=== PATIENT | female | born 1950 | race Caucasian/White ===

== ENCOUNTER → 2018-04-12 09:05 | Outpatient (CLI) | payer MEDICARE, OTHER, SELFPAY ==
[2018-04-12 10:38] LABS: Thyroid Stimulating Hormone 1.98 uIU/mL (0.47-4.68)
== END ==
PROVIDERS: Visit Provider Internal Medicine
DX: E03.9 Hypothyroidism, unspecified (principal)
CPT/HCPCS: 36415; 84443

== ENCOUNTER → 2018-06-22 13:41 | Outpatient (CLI) | payer MEDICARE, OTHER, SELFPAY ==
--- NOTE | 2018-06-22 | DI.MG.S_ITS ---
BILATERAL DIGITAL SCREENING MAMMOGRAM 3D/2D WITH CAD: 06/22/2018 CLINICAL: Routine screening. Comparison is made to exams dated: 05/17/2017 mammogram, 06/03/2015 mammogram, and 05/27/2014 mammogram - [facility]. There are scattered fibroglandular elements in both breasts. Current study was also evaluated with a Computer Aided Detection (CAD) system. There are benign calcifications in the left breast. No significant masses, calcifications, or other findings are seen in either breast. There has been no significant interval change. IMPRESSION: BENIGN There is no mammographic evidence of malignancy. A 1 year screening mammogram is recommended. This exam was interpreted at Station ID: [id number]. NOTE: For mammograms, a report in lay terms will be sent to the patient. Approximately 15% of breast malignancies will not be visualized mammographically. In the management of a palpable breast mass, a negative mammogram must not discourage biopsy of a clinically suspicious lesion. Electronically Signed By: Vikas peñaloza/angella:06/22/2018 16:11:28 letter sent: Normal Exam ACR BI-RADS Category 2: Benign Finding(s) 3342F
== END ==
PROVIDERS: PCP Internal Medicine; Visit Provider Internal Medicine
DX: Z12.31 Encounter for screening mammogram for malignant neoplasm of breast (principal)
CPT/HCPCS: 77063; 77067

== ENCOUNTER → 2018-11-20 13:14 | Outpatient (CLI) | payer MEDICARE, OTHER, SELFPAY ==
--- NOTE | 2018-11-20 | DI.RAD.S_ITS ---
PROCEDURE: XR HIP W PEL IF DONE RT 2V INDICATIONS: Right Hip Pain TECHNIQUE: AP pelvis with lateral view(s) of the right hip(s). COMPARISON: None. FINDINGS: Bones: No fractures or dislocations. Pelvic ring appears intact. No suspicious bony lesions. Soft tissues: The visualized bowel gas pattern is normal. No suspicious soft tissue calcifications. IMPRESSION: Symmetric mild hip joint osteoarthritis bilaterally. Dictated by: Andre Carter M.D. on 11/20/2018 at 15:54 Approved by: Andre Carter M.D. on 11/20/2018 at 15:54
== END ==
PROVIDERS: PCP Internal Medicine; Visit Provider Internal Medicine
DX: M25.551 Pain in right hip (principal); M16.0 Bilateral primary osteoarthritis of hip
CPT/HCPCS: 73502

== ENCOUNTER → 2019-03-14 16:39 | Outpatient (CLI) | payer MEDICARE, OTHER, SELFPAY | PROVIDERS: PCP Internal Medicine; Visit Provider Internal Medicine | DX: M25.551 Pain in right hip (principal); Z53.20 Procedure and treatment not carried out because of patient's decision for unspecified reasons ==

== ENCOUNTER → 2019-05-16 16:20 | Outpatient (CLI) | payer MEDICARE, OTHER, SELFPAY ==
--- NOTE | 2019-05-16 | DI.MRI.S_ITS ---
PROCEDURE: MR HIP RT WO CON INDICATIONS: RIGHT HIP PAIN TECHNIQUE: Noncontrast coronal T1 spin echo and STIR through the bony pelvis. Coronal and axial T2 fast spin echo with fat saturation, sagittal T1 spin echo, and oblique axial T2 fast spin echo with fat saturation through the hip. COMPARISON: None. FINDINGS: Image quality: Excellent. Bones and joints: Moderate to severe right hip joint osteoarthritis is seen with superior joint space narrowing, extensive subchondral sclerosis and mild edema, as well as prominent marginal osteophyte formation. Moderate left hip joint osteoarthritis is seen. There is no acute fracture or dislocation. No avascular necrosis of the femoral heads. The visualized lower lumbar spine appears normally aligned. Degenerative disc disease in lower lumbar spine is seen. Tendons and ligaments: There is tendinosis and low-grade partial-thickness tear involving distal right gluteus medius and minimus tendons near musculotendinous junction. The nearby proximal iliotibial band also appears intact. The iliopsoas tendon appears intact, without adjacent bursal fluid collections or evidence for impingement syndrome. The origin of the hamstring tendon is intact at the ischial tuberosity, as well as the associated sacrotuberous ligament. The straight and reflected heads of the rectus femoris muscle origin appear intact, as well as the conjoint tendon. The ligamentum teres appears intact where visualized. Labrum and cartilage: There is suggestion of extensive superior right hip labral tear in the absence of intra-articular contrast. The alpha angle of the femur is within normal limits at less than 55 degrees. Soft tissues: Visualized muscles demonstrate normal bulk and internal signal. Quadratus femoris muscle demonstrates no internal edema to suggest ischiofemoral impingement. The proximal sciatic neurovascular bundle appears normal adjacent to the hamstring tendons. No free pelvic fluid. Bladder wall thickness is normal. Genitourinary structures and bowel loops appear normal where visualized. IMPRESSION: 1. Right worse than left bilateral hip joint osteoarthritis. No fracture or dislocation. No evidence of avascular necrosis of femoral head. Small to moderate amount of right hip joint effusion, no gross loose body. 2. Suggestion of extensive superior right hip labral tear. 3. Tendinosis and low-grade partial-thickness tear involving distal gluteus medius and minimus tendons near the insertion on greater trochanter extending to musculotendinous junction. Dictated by: Castillo Driver M.D. on 05/17/2019 at 14:35 Approved by: Castillo Driver M.D. on 05/17/2019 at 14:54
== END ==
PROVIDERS: PCP Internal Medicine; Visit Provider Internal Medicine
DX: M25.551 Pain in right hip (principal); M16.0 Bilateral primary osteoarthritis of hip; M25.451 Effusion, right hip; M51.36 Other intervertebral disc degeneration, lumbar region; S76.011A Strain of muscle, fascia and tendon of right hip, initial encounter
CPT/HCPCS: 73721

== ENCOUNTER → 2019-06-26 11:40 | Outpatient (CLI) | payer MEDICARE, OTHER, SELFPAY ==
--- NOTE | 2019-06-26 | DI.MG.S_ITS ---
BILATERAL DIGITAL SCREENING MAMMOGRAM 3D/2D WITH CAD: 06/26/2019 CLINICAL: Routine screening. Comparison is made to exams dated: 06/22/2018 mammogram, 05/17/2017 mammogram, and 06/03/2015 mammogram - [facility]. There are scattered fibroglandular elements in both breasts. Current study was also evaluated with a Computer Aided Detection (CAD) system. There are benign calcifications in the left breast. No significant masses, calcifications, or other findings are seen in either breast. There has been no significant interval change. IMPRESSION: There is no mammographic evidence of malignancy. A 1 year screening mammogram is recommended. This exam was interpreted at Station ID: [id number]. NOTE: For mammograms, a report in lay terms will be sent to the patient. Approximately 15% of breast malignancies will not be visualized mammographically. In the management of a palpable breast mass, a negative mammogram must not discourage biopsy of a clinically suspicious lesion. Electronically Signed By: Tommy pisano/angella:06/26/2019 18:21:09 letter sent: Normal Exam ACR BI-RADS Category 2: Benign Finding(s) [id number]
== END ==
PROVIDERS: PCP Internal Medicine; Visit Provider Internal Medicine
DX: Z12.31 Encounter for screening mammogram for malignant neoplasm of breast (principal)
CPT/HCPCS: 77063; 77067

== ENCOUNTER → 2019-12-16 12:23 | Outpatient (CLI) | payer MEDICARE, SELFPAY ==
[2019-12-16 13:29] LABS: Add Manual Diff / Slide Review NO; Basophils Absolute Auto 100 /uL (0-100); Basophils Percent Auto 1.5 % (0-2); Eosinophils Absolute Auto 200 /uL (0-450); Hematocrit 36.9 % (36-46); Hemoglobin 12.1 g/dL (12.0-16.0); Lymphocytes Absolute Auto 1700 /uL (1100-4500); Lymphocytes Percent Auto 20.6 % (25-40); Mean Corpuscular HGB Conc 32.8 % (30-36); Mean Corpuscular Hemoglobin 27.1 PG (26-34); Mean Corpuscular Volume 82.8 fL (80-100); Monocytes Absolute Auto 500 /uL (0-900); Monocytes Percent Auto 6.1 % (3-14); Neutrophils Absolute Auto 5800 /uL (1500-7000); Neutrophils Percent Auto 69.8 % (50-75); Platelet Count 307 X10^3/uL (150-400); Red Blood Cell Count 4.46 X10^6/uL (4.0-5.2); Red Cell Distribution Width 16.8 % (11.6-14.8); White Blood Cell Count 8.2 X10^3/uL (4.5-11.0)
[2019-12-16 14:08] LABS: Carbon Dioxide 25 mmol/L (22-32); Chloride 103 mmol/L (98-107); HEMOLYSIS 20 (0-50); Potassium 5.1 mmol/L (3.4-5.1); Sodium 138 mmol/L (137-145)
== END ==
PROVIDERS: PCP Internal Medicine; Referring Provider Orthopaedic Surgery; Visit Provider Orthopaedic Surgery
DX: Z01.818 Encounter for other preprocedural examination (principal); Z01.812 Encounter for preprocedural laboratory examination
CPT/HCPCS: 36415; 80051; 85025; 93005

== ENCOUNTER 2020-01-01 07:30 | Inpatient (IN) | payer MEDICARE, SELFPAY ==
[2019-12-24 12:38] VITALS: BMI 31.2
[2020-01-01] VITALS (13 sets, daily range): BP systolic 108–153; BP diastolic 69–85; PULSE 56–78; RESP 11–21; TEMP 35.9–37.1; O2SAT 95–100; BMI 30.9
--- NOTE | 2020-01-01 06:00 | DI.RAD.S_ITS ---
PROCEDURE: XR PELVIS 1-2V INDICATIONS: TOTAL RIGHT HIP TECHNIQUE: 1 view of the lower pelvis acquired. COMPARISON: None. FINDINGS: Bones: Patient is status post right hip arthroplasty, with hardware components in expected positions. The hip joint appears congruent. The visualized bony structures appear intact. Soft tissues: Overlying postoperative changes are noted. No suspicious soft tissue densities. IMPRESSION: Right total hip arthroplasty. Dictated by: Andre Carter M.D. on 01/01/2020 at 12:30 Approved by: Andre Carter M.D. on 01/01/2020 at 12:30
[2020-01-01] MEDS: MELOXICAM 7.5 MG TABLET 15 MG PO (08:24)
[2020-01-01] MEDS: ACETAMINOPHEN 325 MG TABLET 975 MG PO (08:24)
[2020-01-01] MEDS: PREGABALIN 75 MG CAPSULE PO (08:25)
[2020-01-01] MEDS: LACTATED RINGERS 1,000 ML 42 ML IV ×2 (08:38→10:44)
--- NOTE | 2020-01-01 09:44 | PM.PREOP ---
Pre-operative Note Interval Note History & Physical reviewed/Exam performed by Physician: Yes Changes to H&P: No
[2020-01-01] MEDS: CLINDAMYCIN 600 MG/50 ML PIGGYBACK 50 MG IV (10:01)
[2020-01-01] MEDS: TRANEXAMIC ACID 1,000 MG VIAL 1000 MG INJ ×2 (10:16→11:15)
--- NOTE | 2020-01-01 10:39 | SUR.OPER ---
right Lateral on padded OR bed. Gel axillary roll. Arms secured on padded armboard with pillow supporting top arm. Padded hip positioner braces x4 - anterior and posterior chest and pelvis. Additional gel pad used anterior pelvis. Gel pad under bottom leg from knee to foot and secured with tape over sheet.
[2020-01-01] MEDS: ROPIVACAINE 0.5% PF 5 MG/ML 20ML VIAL 60 ML INJ (10:46)
[2020-01-01] MEDS: KETOROLAC 30 MG/ML VIAL IV (10:46)
[2020-01-01] MEDS: MORPHINE 4 MG/ML INJ INJ (10:47)
--- NOTE | 2020-01-01 11:45 | PM.OP.1 ---
Operative Date/Time/Diagnoses Date of procedure: 01/01/20 Time of procedure: 11:45 Pre-op diagnosis: Right hip degenerative joint disease Post-op diagnosis: same Procedure & Clinicians Procedure: Right total hip arthroplasty (CPT code 77840 with trust manager assistant) Same procedure as scheduled: Yes Indications: Patient is an 69-year-old female with severe right hip DJD. The patient has pain with activities and at rest, limited ambulation and activity tolerance, difficulties with ADLs, and failure of conservative treatment. We have discussed the nature of condition, treatment options, risks and benefits, and patient elects to proceed with total hip arthroplasty and gives informed consent. Surgeon: Carlton Kent Polymerization Helper: Tenzin Walker Anesthesia Type: General and Spinal Operative Notes Closure Type: primary Specimen(s): none sent Prosthetic devices, grafts, tissues, transplants, or devices: Acetabulum: Denny [employer]hew R3 acetabular component size 52 mm Femoral component: Denny [employer] Nephew Anthology stem size 8 with standard offset Femoral head: 36 mm + 0 Oxinium Estimated Blood Loss (mL): 100 Blood products transfused: none Procedure in detail: After satisfaction induction of anesthetic, and administration of IV antibiotics, the patient was positioned in the lateral decubitus position with all bony prominences well padded and pelvic position secured using a hip quarry manager positioning device. Right hip and lower extremity prepped and draped in the usual sterile fashion, 1st dose of intravenous tranexamic acid was administered, then a longitudinal incision was created centered over the greater trochanter and carried sharply through the skin and subcutaneous tissues down to the fascia christopher which was divided longitudinally and retracted with a Charnley retractor. External rotators visualize, cut, tagged, and retracted posteriorly, then the capsule was cut in a T-type fashion with the corners tagged and retracted. Hip was dislocated and femoral neck cut made according to preoperative templating. Acetabular retractors then placed, and the acetabular labrum and osteophytes were excised. The acetabulum was then sequentially reamed to 51 mm with an excellent circumferential ream and fit with the trial. The trial component was removed and a permanent size 52 mm Denny and Nephew R3 acetabular component was selected, positioned, and impacted with satisfactory position and fixation achieved. Permanent liner was then inserted with the elevated lip directed posteriorly. Soft tissue then removed off the lateral femoral neck in the lateral neck was entered using a box osteotome. T-handled reamers placed down the canal followed by sequential broaching to 8 with the final broach left in place for trial reduction which demonstrated excellent leg length, range of motion, and stability characteristics with a 36 mm +0 trial ball. The trial and broach were removed, and a permanent size 8 Denny and Nephew Anthology stem was selected and inserted with excellent position and fixation achieved. Another trial reduction yielded the above characteristics so the trial ball was exchanged for a permanent 36 mm +0 Oxinium ball. The hip was irrigated and reduced and excellent leg length range of motion and stability characteristics were achieved and maintained. Periarticular tissues were infiltrated with morphine, Toradol, and ropivacaine. The hip was copiously irrigated, and the capsule repaired with #2 Ethibond, and the piriformis was repaired back to the greater trochanter with the same. Fascia christopher closed with interrupted #1 Ethibond sutures, and the subcutaneous tissues were closed in 2 layers of 0 Vicryl and 2 0 Vicryl. Skin was closed with kacey and sterile dressings applied. Second dose of tranexamic acid was administered intravenously, and the anesthetic was terminated. Complications: none Post-operative Condition: stable Disposition: PACU Plan for aftercare: Patient will be admitted to the acute care [facility], and anticipate discharge on postop day 1-2 with follow-up in office in 10-14 days. Outpatient physical therapy will be arranged and patient will continue to observe posterior hip precautions. Patient will continue use of postoperative Lovenox for 10 days postop.
[2020-01-01] MEDS: LACTATED RINGERS 1,000 ML 125 ML IV ×2 (12:30→20:40)
--- NOTE | 2020-01-01 15:25 | PC.NURSE ---
Postop Note Received pt from PACU at 1215. Alert and oriented x3. SpO2 98% on RA. Numbness up to thighs bilaterally, unable to move BLEs or wiggle toes at this time. Strong pulses to BLEs bilaterally. Oriented to room and to call light/bed/tv controls. Belongings at bedside. Denies pain. Tolerating clear liquids without issue.
--- NOTE | 2020-01-01 15:52 | PT-IP ANOTE ---
Physical therapy order reviewed and chart reviewed. Pt reports her right LE is still numb. She can feel her foot a little at this time but nothing else. Provided post-op packet and educated her in her hip precautions. Will hold evaluation until her block has worn off.
--- NOTE | 2020-01-01 17:44 | PT-IP ANOTE ---
Checked on pt at 1744 and pt still had numbness from spinal per RN so said pt is not ready for PT at this time. Follow up in AM.
[2020-01-01] MEDS: ONDANSETRON 4 MG/2 ML INJ IV (18:40)
[2020-01-02] VITALS: BP 113/57; PULSE 87; RESP 16; TEMP 36.3; O2SAT 95
[2020-01-02 04:43] VITALS: BP 97/54; PULSE 72; RESP 16; TEMP 36; O2SAT 96
[2020-01-02] MEDS: LACTATED RINGERS 1,000 ML 125 ML IV (04:58)
[2020-01-02 05:28] LABS: Hematocrit 30.1 % (36-46); Hemoglobin 9.8 g/dL (12.0-16.0)
--- NOTE | 2020-01-02 06:45 | PC.NURSE ---
Unable to void via bedpan this AM. Bladder scanned for 900 mL. Assisted up to BSC without difficulty. Patient mobilized without any issues and voided > 1000 mL. Denies pain once back in bed. Plan for physical therapy and discharge today.
[2020-01-02 07:55] VITALS: BP 131/61; PULSE 82; RESP 18; TEMP 37.2; O2SAT 99
[2020-01-02 08:08] VITALS: O2SAT 95
[2020-01-02] MEDS: ACETAMINOPHEN 325 MG TABLET 650 MG PO ×2 (08:19→12:26)
[2020-01-02] MEDS: IBUPROFEN 400 MG TABLET PO ×3 (08:19→21:47)
[2020-01-02] MEDS: ENOXAPARIN 40 MG/0.4 ML SYRINGE SUBCUT (08:20)
--- NOTE | 2020-01-02 09:57 | PT.IIE ---
Current Diagnoses Unilateral primary osteoarthritis, right hip (01/01/20) Surgery Performed Operation Date: 01/01/20 09:45 Actual Procedures p Total Hip Arthroplasty(Right) - Carlton Kent MD Surgical History (Last Updated 04/14/18 @ 23:08 by Jacqui Allen) History of cataract removal with insertion of prosthetic lens (~2006) History of cataract removal with insertion of prosthetic lens (~2011) Status post colonoscopy (~2013) Medical History (Last Updated 12/24/19 @ 13:11 by Yuliya Finley RN) Bulimia (Chronic ~1987) Chicken pox (Resolved ~1957) Constant pain (Acute) Depression (Chronic ~2003) Foot fracture (Chronic ~1996) Hypothyroidism (Chronic ~2010) Irregular menstrual cycle (Chronic) Measles (Resolved ~1956) Mumps (Resolved ~1956) Obesity (Chronic) Osteoarthritis (Acute) Physical Therapy Inpatient Evaluation/Re-Eval M1 PT/OT-IP Prior Functional Status Start: 01/02/20 10:50 Freq: NEEDED Status: Active Protocol: Document 01/02/20 09:57 DLM (Rec: 01/02/20 11:11 DLM [email or web address]) Medical Review Prior Functional Status Medical History Reviewed Yes Diet/Fluid Consistency Regular Communication WFL, uses reading glasses, hx spastic dysphonia Mobility and Gait Independent without device, antalgic pattern reported due to her hip pain, hx of walking fast Activities of Daily Living and IADL's Independent, active, [employer] member Social History Household Members none Living Arrangements House Number of Floors (Floors) One Floor Number of Stairs To Enter/Railing? front has 4+4 to enter, upper 4 have rail only, back door has one step Home Equipment Front Wheel Walker,Raised Toilet Seat w/Armrests Employment Status Retired Additional Social History Comment got equipment from [employer] before surgery M2 PT-IP Current Condition Start: 01/02/20 10:50 Freq: NEEDED Status: Active Protocol: Document 01/02/20 09:57 DLM (Rec: 01/02/20 11:11 DLM [email or web address]) Physical Therapy Current Condition Current Condition Evaluation Date 01/02/20 Treatment Diagnosis right ISABEL, posterior, impaired gait and mobility Onset Date 01/01/20 Precautions Posterior Hip Precautions No Hip Flexion > 90 degrees,No Hip Internal Rotation,No Hip Adduction Weight Bearing Status Weight Bearing Status Weight Bear as Tolerated M3 PT-IP Subjective Start: 01/02/20 10:50 Freq: NEEDED Status: Active Protocol: Document 01/02/20 09:57 DLM (Rec: 01/02/20 11:11 DLM [email or web address]) Subjective Physical Therapy Visit Type Type Initial Evaluation Visit Start Time 09:10 Visit Stop Time 09:57 Total Visit Minutes 47 Number of BAG MAKING MACHINE OPERATOR Visits 0 Physical Therapy Visit Comments Patient Comments She hopes to go to SNF rehab before going home, concerned about being alone at home and not having enough help Patient Goals Get strong enough to return home alone after rehab Therapy Pain Assessment Pain When Pain Assessed After Treatment Pain Present Pain Present Pain Reported Location right hip Intensity 3 Scale Used Numeric (1 - 10) Description Aching Pain Behaviors Facial Grimacing Pain Management Techniques Re-positioning,Timing of Activity with Medications M4 PT-IP Mobility and Gait Start: 01/02/20 10:50 Freq: NEEDED Status: Active Protocol: Document 01/02/20 09:57 DLM (Rec: 01/02/20 11:11 DLM [email or web address]) PT-Bed Mobility Assessment Supine to Sit Supine to Sit Minimal Assistance Scooting Scooting to Edge of Bed Standby Assistance PT-Transfer Assessment Sit to and From Stand Sit to and from Stand Minimal Assistance,Use of Upper Extremities Equipment Transfer Assistive Device Gait Belt,Front Wheeled Walker Transfers Transfer Destination Chair Transfer Technique Stand Step Pivot Transfer Ability Level of Assist Contact Guard Assistance,Use of Upper Extremities Comments Mobility Comments pt up to recliner this visit, feet elevated and call light close Gait Assessment Gait Gait Assistance Required: Contact Guard Assist Distance (Feet) 50 Able to Maintain Weight Bearing Status Yes During Gait Assistive Devices Assistive Device Gait Belt,Front Wheeled Walker Gait Deviations General Gait Pattern Antalgic Factors Limiting Gait Function Factors Limiting Gait Function Decreased Activity Tolerance, Decreased Strength,Limited Range of Motion,Pain Comments Gait Comments fatigue and sweating noted during gait, pt also developed mild nausea during gait, symptoms resolves with seated rest break PT-Balance Assessment Sitting Balance and Reactions Static Sitting Balance Ability Good Dynamic Sitting Balance Ability Good Standing Balance and Reactions Static Standing Balance Ability Good Dynamic Standing Balance Ability Fair Device Used FWW M5 PT-IP Objective Assessments Start: 01/02/20 10:50 Freq: NEEDED Status: Active Protocol: Document 01/02/20 09:57 DLM (Rec: 01/02/20 11:11 DL [email or web address]) Orientation Orientation/Cognition Level of Alertness Alert Orientation Name,Age,Birthday,Month,Date, Year,Day of Week,Place, Situation Language Function Ability No Deficits Noted Safety Awareness Understands Safety Issues Memory Description No Deficits Noted Comments educated her in her post hip precautions Gross Range of Motion Upper Extremity ROM Assessment Within Functional Limits Lower Extremity ROM Assessment Right Impaired Impairments post-op precautions and pain Strength Upper Extremity Strength Assessment Within Functional Limits Lower Extremity Strength Assessment Right Impaired Hip needs assist to move LE in bed , flexion standing 2+/5 Knee seated ext 2+/5 Ankle DF 4+/5 Coordination Assessment Gross Coordination Gross Coordination WNL Sensation Assessment Sensation Gross Sensation WNL Muscle Tone Muscle Tone WNL Yes M6 PT-IP Treatment Start: 01/02/20 10:50 Freq: NEEDED Status: Active Protocol: Document 01/02/20 09:57 DLM (Rec: 01/02/20 11:11 [facility] [email or web address]) Physical Therapy Treatment Exercises Exercises Ankle Pumps Education Education Provided Precautions,Weight Bearing Status,Post-Op Packet,Safety M7 PT-IP Assessment and Plan Start: 01/02/20 10:50 Freq: NEEDED Status: Active Protocol: Document 01/02/20 09:57 DLM (Rec: 01/02/20 11:11 DL [email or web address]) PT Summary Assessment and Plan Potential Rehabilitation Potential Good Status of Condition at Evaluation Evolving Summary Impairments Pain,ROM,Strength,Balance,Bed Mobility,Transfers,Gait, Activity Tolerance Assessment Summary Lois is alert and shows good effort with physical therapy. She was able to get up to recliner and ambulate short distance with the fWW and one person assist. She needs frequent cuing for her hip precautions during mobility and reminders to slow down her pace of activity. She is very concerned about returning home alone at this time due to lack of help at home and prefers to go to SNF rehab until more independent. Goals Bed Mobility Goal Independent Transfer Goal Independent,Front Wheeled Walker Gait Goal Independent,Front Wheel Walker Gait Distance 150 feet Other Goals Up and down one step with FWW and SBA Demonstrate post hip precautions during mobility Days to Meet Goals 3 Frequency of Treatment Frequency Of Treatment Twice a Day Treatment Plan Physical Therapy Treatment Plan Bed Mobility Training,Transfer Training,Gait Training, Therapeutic Exercise,Balance Retraining,Post Op Education, Discharge Planning,Hot or Cold Pack Recommendations To Nursing Amount of Assist Needed 1 Person Assist Discharge Recommendations PT Discharge Recommendations SNF Rehab Transportation Needs at Discharge Private Vehicle,Wheelchair/ Cabulance
[2020-01-02 11:50] VITALS: BP 104/57; PULSE 81; RESP 15; TEMP 37.1; O2SAT 97
[2020-01-02] MEDS: HYDROCODONE/ACET 5/325 TABLET 1 TAB PO ×2 (13:39→20:09)
--- NOTE | 2020-01-02 14:54 | CM.IDA ---
Initial DCP Assessment Note: Pt is a 69 yo female, resident of [place]. Pt is POD#1 from hip surgery w/Dr Kent PCP: Rosenda Mccallum Payer: BECKY/OCTAVIO Reviewed chart and then met w/pt. PT recommending SNF at this time. Pt explained that she lives alone, indp at baseline, but is very hopeful she can DC to SNF; she requests [facility] upon DC. Placed call to April at [facility], gave referral and later heard that pt had been accepted, DC to SNF is anticipated Monday01.04.20. PASRR completed. P: DC to [facility] via w/c van expected Monday01.04.20 ODIN Newman Discharge Planning/Care Management CM Discharge Assessment Start: 01/02/20 14:52 Freq: Status: Active Protocol: Document 01/02/20 14:52 MANDA (Rec: 01/02/20 14:54 MANDA [id number]) Discharge Planning Assessment Assigned Piping Engineer ODIN Ralph DPOA/Assigned Designee Name Karey Galvan (friend) Contact Information [phone] Advance Directives? Yes History Provided By Patient,Medical Record Prior Living Arrangements House Household Members none Type of transporation used prior to Drives own vehicle admit Independent with ADL's Yes Is patient alert and oriented? Yes Patient/Family Preference Shelter Facility Barriers to Discharge Yes Comment Lives alone, requests SNF before return home Discharge Plan Shelter Facility Transportation Arrangement W/c van Referrals Initiated Shelter Whiteboard Updated in Patient Room with Yes name and ext. # of Piping Engineer Review Status In Process
--- NOTE | 2020-01-02 16:10 | P.PN_ITS ---
Subjective Subjective Date Patient Seen: 01/02/20 Interval history: Patient is PDOE1 s/p right ISABEL with Dr. Kent. Pain was mild overnight though she states it is worsening this AM. She has been OOB to commode but has not mobilized with PT yet. Voiding appropriately. No chest pain, shortne ss of breath. One episode of emesis overnight denies nausea today. Exam Vital Signs (past 8 hours): - 01/02/20 11:50 Temperature 98.7 F Pulse Rate 81 Respiratory Rate 15 Blood Pressure 104/57 L Pulse Oximetry 97 Oxygen Delivery Method Room Air Oxygen Flow Rate 0 Narrative Exam Narrative: 69 year old female resting in bed, alert and oriented in no acute distress. Bulky dressing in place over right hip is CDI. Intact motor in distal extremity. Palpable pedal pulse. Objective Labs Result Diagrams: 01/02/20 05:00 Labs: Laboratory Results - last 24 hr 01/02/20 05:00 Hgb 9.8 L Hct 30.1 L Assessment & Plan Assessment & Plan narrative: Patient progressing as expected postoperatively. Mobilize today with PT. She would prefer to use Ibuprofen and Tylenol for pain control which has been ordered for her. Lovenox and SCDs for DVT prophylaxis. Patient lives alone and has little to no social support. She will require discharge to SNF rehab for postoperative therapy. Quality VTE Deep Vein Thrombosis/Pulmonary Embolism Present on Admission: No
[2020-01-02 16:55] VITALS: BP 112/61; PULSE 80; RESP 20; TEMP 36.9; O2SAT 97
--- NOTE | 2020-01-02 17:01 | PT.IPTN ---
Current Diagnoses Unilateral primary osteoarthritis, right hip (01/01/20) Surgery Performed Operation Date: 01/01/20 09:45 Actual Procedures p Total Hip Arthroplasty(Right) - Carlton Kent MD Physical Therapy Treatment Note M2 PT-IP Current Condition Start: 01/02/20 10:50 Freq: NEEDED Status: Active Protocol: Document 01/02/20 09:57 DLM (Rec: 01/02/20 11:11 DLM [email or web address]) Physical Therapy Current Condition Current Condition Evaluation Date 01/02/20 Treatment Diagnosis right ISABEL, posterior, impaired gait and mobility Onset Date 01/01/20 Precautions Posterior Hip Precautions No Hip Flexion > 90 degrees,No Hip Internal Rotation,No Hip Adduction Weight Bearing Status Weight Bearing Status Weight Bear as Tolerated M3 PT-IP Subjective Start: 01/02/20 10:50 Freq: NEEDED Status: Active Protocol: Document 01/02/20 17:01 DLM (Rec: 01/02/20 17:58 DLM [email or web address]) Subjective Physical Therapy Visit Type Type Treatment Note Visit Start Time 16:30 Visit Stop Time 17:01 Total Visit Minutes 31 Number of VOCATIONAL COORDINATOR Visits 0 Physical Therapy Visit Comments Patient Comments She still feels she needs to go to SNF rehab befor going home, she feels she will need extra help before being ready to manage alone at home Therapy Pain Assessment Pain When Pain Assessed After Treatment Pain Present Pain Present Pain Reported Location right hip Intensity 6 Scale Used Numeric (1 - 10) Description Aching Pain Behaviors Facial Grimacing Pain Management Techniques Apply Cold,Re-positioning M4 PT-IP Mobility and Gait Start: 01/02/20 10:50 Freq: NEEDED Status: Active Protocol: Document 01/02/20 17:01 DLM (Rec: 01/02/20 17:58 DLM [email or web address]) PT-Bed Mobility Assessment Supine to Sit Supine to Sit Minimal Assistance Scooting Scooting to Edge of Bed Standby Assistance PT-Transfer Assessment Sit to and From Stand Sit to and from Stand Contact Guard Assistance,Use of Upper Extremities Equipment Transfer Assistive Device Gait Belt,Front Wheeled Walker Transfers Transfer Destination Chair,Toilet Transfer Technique Stand Step Pivot Transfer Ability Level of Assist Contact Guard Assistance, Minimal Assistance,Use of Upper Extremities Comments Mobility Comments verbal cues for hip precautions during mobility and gait, pt up to recliner this visit for dinner Gait Assessment Gait Gait Assistance Required: Contact Guard Assist Distance (Feet) 100 Assistive Devices Assistive Device Gait Belt,Front Wheeled Walker Gait Deviations General Gait Pattern Antalgic Factors Limiting Gait Function Factors Limiting Gait Function Decreased Activity Tolerance, Decreased Strength,Pain Comments Gait Comments no nausea during gait this visit, cued pt to use UE support on the FWW to manage her hip pain PT-Balance Assessment Sitting Balance and Reactions Static Sitting Balance Ability Good Dynamic Sitting Balance Ability Good Standing Balance and Reactions Static Standing Balance Ability Good Dynamic Standing Balance Ability Fair Device Used FWW M5 PT-IP Objective Assessments Start: 01/02/20 10:50 Freq: NEEDED Status: Active Protocol: Document 01/02/20 09:57 DLM (Rec: 01/02/20 11:11 DLM [email or web address]) Orientation Orientation/Cognition Level of Alertness Alert Orientation Name,Age,Birthday,Month,Date, Year,Day of Week,Place, Situation Language Function Ability No Deficits Noted Safety Awareness Understands Safety Issues Memory Description No Deficits Noted Comments educated her in her post hip precautions Gross Range of Motion Upper Extremity ROM Assessment Within Functional Limits Lower Extremity ROM Assessment Right Impaired Impairments post-op precautions and pain Strength Upper Extremity Strength Assessment Within Functional Limits Lower Extremity Strength Assessment Right Impaired Hip needs assist to move LE in bed , flexion standing 2+/5 Knee seated ext 2+/5 Ankle DF 4+/5 Coordination Assessment Gross Coordination Gross Coordination WNL Sensation Assessment Sensation Gross Sensation WNL Muscle Tone Muscle Tone WNL Yes M6 PT-IP Treatment Start: 01/02/20 10:50 Freq: NEEDED Status: Active Protocol: Document 01/02/20 17:01 DLM (Rec: 01/02/20 17:58 DLM [email or web address]) Physical Therapy Treatment Exercises Exercises Ankle Pumps,Gluteal Sets,Quad Sets,Heel Slides,Supine Hip Abduction Education Education Provided Precautions,Weight Bearing Status,Post-Op Packet,Safety M7 PT-IP Assessment and Plan Start: 01/02/20 10:50 Freq: NEEDED Status: Active Protocol: Document 01/02/20 17:01 DLM (Rec: 01/02/20 17:58 DLM [email or web address]) PT Summary Assessment and Plan Summary Impairments Pain,ROM,Strength,Balance,Bed Mobility,Transfers,Gait, Activity Tolerance Progress Towards Goals Progressing Toward Goals Assessment Summary Lois continues to slowly progress post-op ISABEL. She continues to need verbal cuing for her hip precautions during mobility especially to kick her LE out before sitting down. She was able to increase her distance of gait this visit. No nausea during mobility/gait this visit. She reports getting some nausea with eating lunch. Goals Bed Mobility Goal Independent Transfer Goal Independent,Front Wheeled Walker Gait Goal Independent,Front Wheel Walker Gait Distance 150 feet Other Goals Up and down one step with FWW and SBA Demonstrate post hip precautions during mobility Days to Meet Goals 3 Frequency of Treatment Frequency Of Treatment Twice a Day Treatment Plan Physical Therapy Treatment Plan Bed Mobility Training,Transfer Training,Gait Training, Therapeutic Exercise,Balance Retraining,Post Op Education, Discharge Planning,Hot or Cold Pack Recommendations To Nursing Amount of Assist Needed 1 Person Assist Discharge Recommendations PT Discharge Recommendations SNF Rehab Transportation Needs at Discharge Private Vehicle,Wheelchair/ Cabulance
[2020-01-02] MEDS: OXYCODONE IR 5 MG TABLET PO (17:06)
--- NOTE | 2020-01-02 21:33 | PC.NURSE ---
Patient arrived on unit at 2130 via wheelchair
--- NOTE | 2020-01-02 21:37 | PC.NURSE ---
Patient arrived on unit via wheelchair at 2130. Patient complains of pain 8/10 from wheelchair ride.
--- NOTE | 2020-01-02 21:52 | PC.NURSE ---
2100 Report given to ELISHA Phan in the short stay unit, pt taken with all of her belongings to room 103. Pt tolerated transfer without distress, no further pt contact at this time.
[2020-01-03] VITALS (7 sets, daily range): BP systolic 128–148; BP diastolic 63–81; PULSE 75–91; RESP 16–18; TEMP 36.1–36.9; O2SAT 94–99
[2020-01-03] MEDS: HYDROCODONE/ACET 5/325 TABLET 1 TAB PO ×2 (00:06→04:17)
[2020-01-03] MEDS: IBUPROFEN 400 MG TABLET PO ×3 (06:16→23:35)
[2020-01-03] MEDS: OXYCODONE IR 5 MG TABLET PO ×5 (08:35→20:53)
[2020-01-03] MEDS: ENOXAPARIN 40 MG/0.4 ML SYRINGE SUBCUT (08:35)
[2020-01-03] MEDS: ACETAMINOPHEN 325 MG TABLET 650 MG PO ×3 (08:35→20:52)
--- NOTE | 2020-01-03 10:07 | PT.IPTN ---
Current Diagnoses Unilateral primary osteoarthritis, right hip (01/01/20) Surgery Performed Operation Date: 01/01/20 09:45 Actual Procedures p Total Hip Arthroplasty(Right) - Carlton Kent MD Physical Therapy Treatment Note M2 PT-IP Current Condition Start: 01/02/20 10:50 Freq: NEEDED Status: Active Protocol: Document 01/02/20 09:57 DLM (Rec: 01/02/20 11:11 DLM [email or web address]) Physical Therapy Current Condition Current Condition Evaluation Date 01/02/20 Treatment Diagnosis right ISABEL, posterior, impaired gait and mobility Onset Date 01/01/20 Precautions Posterior Hip Precautions No Hip Flexion > 90 degrees,No Hip Internal Rotation,No Hip Adduction Weight Bearing Status Weight Bearing Status Weight Bear as Tolerated M3 PT-IP Subjective Start: 01/02/20 10:50 Freq: NEEDED Status: Active Protocol: Document 01/03/20 10:07 DLM (Rec: 01/03/20 10:19 DLM [email or web address]) Subjective Physical Therapy Visit Type Type Treatment Note Visit Start Time 09:33 Visit Stop Time 10:07 Total Visit Minutes 34 Number of FIELD CROP I FARMWORKER Visits 0 Physical Therapy Visit Comments Patient Comments She is aware her plan is to go to SNF rehab on Sat, she did not sleep as well last night because of discomfort/pain in bed Therapy Pain Assessment Pain When Pain Assessed During Mobility Pain Present Pain Present Pain Reported Location right hip Intensity 5 Scale Used Numeric (1 - 10) Description Aching Pain Management Techniques Apply Cold,Re-positioning M4 PT-IP Mobility and Gait Start: 01/02/20 10:50 Freq: NEEDED Status: Active Protocol: Document 01/03/20 10:07 DLM (Rec: 01/03/20 10:19 DLM [email or web address]) PT-Bed Mobility Assessment Supine to Sit Supine to Sit Minimal Assistance Scooting Scooting to Edge of Bed Standby Assistance PT-Transfer Assessment Sit to and From Stand Sit to and from Stand Standby Assistance,Use of Upper Extremities Equipment Transfer Assistive Device Gait Belt,Front Wheeled Walker Transfers Transfer Destination Chair,Bedside Commode Transfer Technique Stand Step Pivot Transfer Ability Level of Assist Contact Guard Assistance,Use of Upper Extremities Comments Mobility Comments verbal cues for hip precautions during mobility and gait, pt up to recliner this visit Gait Assessment Gait Gait Assistance Required: Standby Assistance,Contact Guard Assist Distance (Feet) 105 Assistive Devices Assistive Device Gait Belt,Front Wheeled Walker Gait Deviations General Gait Pattern Antalgic Factors Limiting Gait Function Factors Limiting Gait Function Decreased Activity Tolerance, Decreased Strength,Pain Comments Gait Comments pt reports feeling better today while ambulating PT-Balance Assessment Sitting Balance and Reactions Static Sitting Balance Ability Good Dynamic Sitting Balance Ability Good Standing Balance and Reactions Static Standing Balance Ability Good Dynamic Standing Balance Ability Fair Device Used FWW M5 PT-IP Objective Assessments Start: 01/02/20 10:50 Freq: NEEDED Status: Active Protocol: Document 01/02/20 09:57 DLM (Rec: 01/02/20 11:11 DLM [email or web address]) Orientation Orientation/Cognition Level of Alertness Alert Orientation Name,Age,Birthday,Month,Date, Year,Day of Week,Place, Situation Language Function Ability No Deficits Noted Safety Awareness Understands Safety Issues Memory Description No Deficits Noted Comments educated her in her post hip precautions Gross Range of Motion Upper Extremity ROM Assessment Within Functional Limits Lower Extremity ROM Assessment Right Impaired Impairments post-op precautions and pain Strength Upper Extremity Strength Assessment Within Functional Limits Lower Extremity Strength Assessment Right Impaired Hip needs assist to move LE in bed , flexion standing 2+/5 Knee seated ext 2+/5 Ankle DF 4+/5 Coordination Assessment Gross Coordination Gross Coordination WNL Sensation Assessment Sensation Gross Sensation WNL Muscle Tone Muscle Tone WNL Yes M6 PT-IP Treatment Start: 01/02/20 10:50 Freq: NEEDED Status: Active Protocol: Document 01/03/20 10:07 DLM (Rec: 01/03/20 10:19 DLM [email or web address]) Physical Therapy Treatment Education Education Provided Precautions,Weight Bearing Status,Post-Op Packet,Safety Other Treatments Other Treatment Performed reviewed HEP, pt reports she was able to do all of them on her own except the hip abduction M7 PT-IP Assessment and Plan Start: 01/02/20 10:50 Freq: NEEDED Status: Active Protocol: Document 01/03/20 10:07 DLM (Rec: 01/03/20 10:19 DLM [email or web address]) PT Summary Assessment and Plan Summary Impairments Pain,ROM,Strength,Balance,Bed Mobility,Transfers,Gait, Activity Tolerance Progress Towards Goals Progressing Toward Goals Assessment Summary Lois is alert and continues to make slow progress with therapy. She reports less pain during mobility/gait today than yesturday. She is able to demonstrate her hip precautions with less verbal cues this visit. Goals Bed Mobility Goal Independent Transfer Goal Independent,Front Wheeled Walker Gait Goal Independent,Front Wheel Walker Gait Distance 150 feet Other Goals Up and down one step with FWW and SBA Demonstrate post hip precautions during mobility Days to Meet Goals 3 Frequency of Treatment Frequency Of Treatment Twice a Day Treatment Plan Physical Therapy Treatment Plan Bed Mobility Training,Transfer Training,Gait Training, Therapeutic Exercise,Balance Retraining,Post Op Education, Discharge Planning,Hot or Cold Pack Recommendations To Nursing Amount of Assist Needed 1 Person Assist Discharge Recommendations PT Discharge Recommendations SNF Rehab Transportation Needs at Discharge Private Vehicle,Wheelchair/ Cabulance
--- NOTE | 2020-01-03 15:12 | PT.IPTN ---
Current Diagnoses Unilateral primary osteoarthritis, right hip (01/01/20) Surgery Performed Operation Date: 01/01/20 09:45 Actual Procedures p Total Hip Arthroplasty(Right) - Carlton Kent MD Physical Therapy Treatment Note M2 PT-IP Current Condition Start: 01/02/20 10:50 Freq: NEEDED Status: Active Protocol: Document 01/02/20 09:57 DLM (Rec: 01/02/20 11:11 DLM [email or web address]) Physical Therapy Current Condition Current Condition Evaluation Date 01/02/20 Treatment Diagnosis right ISABEL, posterior, impaired gait and mobility Onset Date 01/01/20 Precautions Posterior Hip Precautions No Hip Flexion > 90 degrees,No Hip Internal Rotation,No Hip Adduction Weight Bearing Status Weight Bearing Status Weight Bear as Tolerated M3 PT-IP Subjective Start: 01/02/20 10:50 Freq: NEEDED Status: Active Protocol: Document 01/03/20 14:46 LJ (Rec: 01/03/20 15:12 LJ [email or web address]) Subjective Physical Therapy Visit Type Type Treatment Note Visit Start Time 14:46 Visit Stop Time 15:03 Total Visit Minutes 17 Number of AN EMPLOYEE SPONSOR OR ADVOCATE AND Visits 1 Physical Therapy Visit Comments Patient Comments Pt in bed wanting to get up and uas BSC Therapy Pain Assessment Pain When Pain Assessed During Mobility Pain Present Pain Present Pain Reported Location right hip Intensity 2 Scale Used Numeric (1 - 10) Description Aching Pain Management Techniques Apply Cold,Re-positioning, Timing of Activity with Medications M4 PT-IP Mobility and Gait Start: 01/02/20 10:50 Freq: NEEDED Status: Active Protocol: Document 01/03/20 14:46 LJ (Rec: 01/03/20 15:12 LJ [email or web address]) PT-Bed Mobility Assessment Supine to Sit Supine to Sit Standby Assistance,1 Person Assistance,Head of Bed Elevated Sit to Supine Sit to Supine Standby Assistance,1 Person Assistance,Head of Bed Elevated Scooting Scooting to Edge of Bed Standby Assistance PT-Transfer Assessment Sit to and From Stand Sit to and from Stand Standby Assistance,Use of Upper Extremities Equipment Transfer Assistive Device Gait Belt,Front Wheeled Walker Transfers Transfer Destination Bed,Bedside Commode Transfer Ability Level of Assist Standby Assistance,Use of Upper Extremities Comments Mobility Comments Pt able to recall precautions during mobility. SBA for all bed mobilit and transfers Gait Assessment Gait Gait Assistance Required: Standby Assistance,Contact Guard Assist Distance (Feet) 120 Assistive Devices Assistive Device Gait Belt,Front Wheeled Walker Gait Deviations General Gait Pattern Antalgic,Step-to Gait Factors Limiting Gait Function Factors Limiting Gait Function Decreased Activity Tolerance, Decreased Strength,Pain Comments Gait Comments Pt moving slowly and carefully stating precautions while turning. Cues for upright posture. M5 PT-IP Objective Assessments Start: 01/02/20 10:50 Freq: NEEDED Status: Active Protocol: Document 01/02/20 09:57 DLM (Rec: 01/02/20 11:11 DLM [email or web address]) Orientation Orientation/Cognition Level of Alertness Alert Orientation Name,Age,Birthday,Month,Date, Year,Day of Week,Place, Situation Language Function Ability No Deficits Noted Safety Awareness Understands Safety Issues Memory Description No Deficits Noted Comments educated her in her post hip precautions Gross Range of Motion Upper Extremity ROM Assessment Within Functional Limits Lower Extremity ROM Assessment Right Impaired Impairments post-op precautions and pain Strength Upper Extremity Strength Assessment Within Functional Limits Lower Extremity Strength Assessment Right Impaired Hip needs assist to move LE in bed , flexion standing 2+/5 Knee seated ext 2+/5 Ankle DF 4+/5 Coordination Assessment Gross Coordination Gross Coordination WNL Sensation Assessment Sensation Gross Sensation WNL Muscle Tone Muscle Tone WNL Yes M6 PT-IP Treatment Start: 01/02/20 10:50 Freq: NEEDED Status: Active Protocol: Document 01/03/20 14:46 SABINO (Rec: 01/03/20 15:12 [email or web address]) Physical Therapy Treatment Exercises Exercises Ankle Pumps,Gluteal Sets,Quad Sets,Heel Slides,Supine Hip Abduction Education Education Provided Precautions,Safety Other Treatments Other Treatment Performed reviewed HEP, pt reports she was able to do all of them on her own except the hip abduction M7 PT-IP Assessment and Plan Start: 01/02/20 10:50 Freq: NEEDED Status: Active Protocol: Document 01/03/20 14:46 SABINO (Rec: 01/03/20 15:12 [email or web address]) PT Summary Assessment and Plan Summary Impairments Pain,ROM,Strength,Balance,Bed Mobility,Transfers,Gait, Activity Tolerance Progress Towards Goals Progressing Toward Goals Assessment Summary Pt moves slowly and carefully while adhering to precautions. Able to get into and out of bed SBA and transfer sit<> stand SBA. Goals Bed Mobility Goal Independent Transfer Goal Independent,Front Wheeled Walker Gait Goal Independent,Front Wheel Walker Gait Distance 150 feet Other Goals Up and down one step with FWW and SBA Demonstrate post hip precautions during mobility Frequency of Treatment Frequency Of Treatment Twice a Day Treatment Plan Physical Therapy Treatment Plan Bed Mobility Training,Transfer Training,Gait Training, Therapeutic Exercise,Balance Retraining,Post Op Education, Discharge Planning,Hot or Cold Pack Recommendations To Nursing Amount of Assist Needed 1 Person Assist Discharge Recommendations PT Discharge Recommendations SNF Rehab Transportation Needs at Discharge Private Vehicle,Wheelchair/ Cabulance
--- NOTE | 2020-01-03 16:40 | P.PN_ITS ---
Subjective Subjective Date Patient Seen: 01/03/20 Time Patient Seen: 16:40 Interval history: Patient is POD#2 s/p right ISABEL with Dr. Kent. Pain was moderate overnight. Has been receiving Oxycodone and [place] intermittently. She has mobilized with PT, they are recommending SNF. Voiding appropriately. No chest pain, shortness of breath. One episode of emesis overnight denies nausea today. Exam Vital Signs (past 8 hours): - 01/03/20 12:32 01/03/20 15:50 Temperature 98.1 F 98.2 F Pulse Rate 79 79 Respiratory Rate 18 18 Blood Pressure 148/79 H 146/75 H Pulse Oximetry 94 97 Oxygen Delivery Method Room Air Oxygen Flow Rate 0 Narrative Exam Narrative: 69 year old female resting in bed, alert and oriented in no acute distress. Bulky dressing in place over right hip is clean and dry, peeling at edges. Intact motor in distal extremity. Palpable pedal pulse. Objective Labs Result Diagrams: 01/02/20 05:00 Assessment & Plan Assessment & Plan narrative: Patient progressing slowly post operatively. Continue Lovenox and SCDs for DVT prophylaxis. Continue to work with PT. SNF recommended by PT, she has been accepted at [facility] discharge tomorrow. Quality VTE Deep Vein Thrombosis/Pulmonary Embolism Present on Admission: No
--- NOTE | 2020-01-03 18:26 | PC.NURSE ---
Addendum entered by Heather Hector R.N. 01/03/20 22:58: Pt requests pain meds be given every 3 hours round the clock. Reports pain 2-3/10 to right hip. BL calf scd's in place. Resting quietly in bed without signs of distress or discomfort. Pillow between legs. Original Note: PA sees patient this evening shift. Requests dressing to right hip be changed to coversite. Pt able to stand up in room in front of recliner with walker use. [place] intact without drainage to right hip. Wound edges well approximated. Bruising noted around staple line. Upper medial mid buttock (right) with small open blister. This was cleansed with normal saline, dried and allevyn gentle border dressing applied. Coversite x 2 placed to right hip incision. Pt rates hip pain 3/10. Meds as per emar. Able to ambulate into bathroom. Passing flatus without bowel movement. Returned to bed. Ice to right hip.
[2020-01-03] MEDS: SODIUM CHLORIDE 0.9% FLUSH 10 ML IV (20:53)
[2020-01-04] MEDS: OXYCODONE IR 5 MG TABLET PO ×2 (05:26→13:59)
[2020-01-04 07:30] VITALS: BP 103/58; PULSE 75; RESP 17; TEMP 36.6; O2SAT 98
--- NOTE | 2020-01-04 09:36 | PT.IPTN ---
Current Diagnoses Unilateral primary osteoarthritis, right hip (01/01/20) Surgery Performed Operation Date: 01/01/20 09:45 Actual Procedures p Total Hip Arthroplasty(Right) - Carlton Kent MD Physical Therapy Treatment Note M2 PT-IP Current Condition Start: 01/02/20 10:50 Freq: NEEDED Status: Active Protocol: Document 01/02/20 09:57 DLM (Rec: 01/02/20 11:11 DLM [email or web address]) Physical Therapy Current Condition Current Condition Evaluation Date 01/02/20 Treatment Diagnosis right ISABEL, posterior, impaired gait and mobility Onset Date 01/01/20 Precautions Posterior Hip Precautions No Hip Flexion > 90 degrees,No Hip Internal Rotation,No Hip Adduction Weight Bearing Status Weight Bearing Status Weight Bear as Tolerated M3 PT-IP Subjective Start: 01/02/20 10:50 Freq: NEEDED Status: Active Protocol: Document 01/04/20 09:28 LJ (Rec: 01/04/20 09:36 LJ [email or web address]) Subjective Physical Therapy Visit Type Type Treatment Note Visit Start Time 08:38 Visit Stop Time 09:02 Total Visit Minutes 24 Number of RUMPER Visits 2 Physical Therapy Visit Comments Patient Comments states she is feeling much better after good sleep and very little pain Therapy Pain Assessment Pain Present Pain Present Pain Reported M4 PT-IP Mobility and Gait Start: 01/02/20 10:50 Freq: NEEDED Status: Active Protocol: Document 01/04/20 09:28 LJ (Rec: 01/04/20 09:36 LJ [email or web address]) PT-Bed Mobility Assessment Supine to Sit Supine to Sit Standby Assistance,1 Person Assistance,Head of Bed Elevated Sit to Supine Sit to Supine Standby Assistance,1 Person Assistance,Head of Bed Elevated Scooting Scooting to Edge of Bed Standby Assistance PT-Transfer Assessment Sit to and From Stand Sit to and from Stand Standby Assistance,Use of Upper Extremities Equipment Transfer Assistive Device Gait Belt,Front Wheeled Walker Transfers Transfer Destination Bed,Toilet Transfer Technique pt walked with FWW Transfer Ability Level of Assist Standby Assistance,Use of Upper Extremities Comments Mobility Comments Pt SBA for all mobility and transfers. Careful to adhere to precautions. Gait Assessment Gait Gait Assistance Required: Standby Assistance,Contact Guard Assist Distance (Feet) 150 Able to Maintain Weight Bearing Status Yes During Gait Gait Deviations General Gait Pattern Antalgic,Step-to Gait Factors Limiting Gait Function Factors Limiting Gait Function Decreased Activity Tolerance, Decreased Strength,Pain Comments Gait Comments Pt still moving slowly and cautiously adhering to precautions. Cuing for upright posture which pt maintained the reamainder of treatment M5 PT-IP Objective Assessments Start: 01/02/20 10:50 Freq: NEEDED Status: Active Protocol: Document 01/02/20 09:57 DLM (Rec: 01/02/20 11:11 DLM [email or web address]) Orientation Orientation/Cognition Level of Alertness Alert Orientation Name,Age,Birthday,Month,Date, Year,Day of Week,Place, Situation Language Function Ability No Deficits Noted Safety Awareness Understands Safety Issues Memory Description No Deficits Noted Comments educated her in her post hip precautions Gross Range of Motion Upper Extremity ROM Assessment Within Functional Limits Lower Extremity ROM Assessment Right Impaired Impairments post-op precautions and pain Strength Upper Extremity Strength Assessment Within Functional Limits Lower Extremity Strength Assessment Right Impaired Hip needs assist to move LE in bed , flexion standing 2+/5 Knee seated ext 2+/5 Ankle DF 4+/5 Coordination Assessment Gross Coordination Gross Coordination WNL Sensation Assessment Sensation Gross Sensation WNL Muscle Tone Muscle Tone WNL Yes M6 PT-IP Treatment Start: 01/02/20 10:50 Freq: NEEDED Status: Active Protocol: Document 01/04/20 09:28 LJ (Rec: 01/04/20 09:36 LJ [email or web address]) Physical Therapy Treatment Exercises Exercises Gluteal Sets,Quad Sets, Straight Leg Raises Education Education Provided Precautions,Safety Other Treatments Other Treatment Performed went over HEP including standing hip ABD with limited ROM M7 PT-IP Assessment and Plan Start: 01/02/20 10:50 Freq: NEEDED Status: Active Protocol: Document 01/04/20 09:28 LJ (Rec: 01/04/20 09:36 LJ [email or web address]) PT Summary Assessment and Plan Summary Impairments Pain,ROM,Strength,Balance,Bed Mobility,Transfers,Gait, Activity Tolerance Progress Towards Goals Progressing Toward Goals Assessment Summary Pt moves slowly and carefully while adhering to precautions. Able to get into and out of bed SBA and transfer sit<> stand SBA. Goals Bed Mobility Goal Independent Transfer Goal Independent,Front Wheeled Walker Gait Goal Independent,Front Wheel Walker Gait Distance 150 feet Other Goals Up and down one step with FWW and SBA Demonstrate post hip precautions during mobility Frequency of Treatment Frequency Of Treatment Twice a Day Treatment Plan Physical Therapy Treatment Plan Bed Mobility Training,Transfer Training,Gait Training, Therapeutic Exercise,Balance Retraining,Post Op Education, Discharge Planning,Hot or Cold Pack Recommendations To Nursing Amount of Assist Needed 1 Person Assist Discharge Recommendations PT Discharge Recommendations SNF Rehab Transportation Needs at Discharge Private Vehicle,Wheelchair/ Cabulance
[2020-01-04] MEDS: DOCUSATE 100 MG CAPSULE PO (10:06)
[2020-01-04] MEDS: ENOXAPARIN 40 MG/0.4 ML SYRINGE SUBCUT (10:06)
[2020-01-04] MEDS: SODIUM CHLORIDE 0.9% FLUSH 10 ML IV (10:06)
[2020-01-04] MEDS: ACETAMINOPHEN 325 MG TABLET 650 MG PO (10:08)
[2020-01-04] MEDS: IBUPROFEN 400 MG TABLET PO (10:08)
--- NOTE | 2020-01-04 11:35 | P.DS_ITS ---
History of Present Illness History of Present Illness Date Patient Seen: 01/04/20 Time Patient Seen: 11:35 Chief complaint: Right Total Hip Arthroplasty Narrative: pain mild to moderate. Denies fever or chills. Discharge Providers Provider Date of admission: 01/01/20 07:30 Discharge Date: 01/04/20 Primary care physician: JAYDEN Fields Consults: 01/01/20 12:31 Consult to Discharge Planning Routine Comment: Consult to Physical Therapy Evaluate & Treat Comment: Physician Instructions: post op ISABEL protocol Consult to Respiratory Therapy Evaluate & Treat Comment: Physician Instructions: Evaluate and treat Discharge provider: Tenzin Walker PA-C Summary Hospital Course Discharge Diagnosis: Pre-op diagnosis: Right hip degenerative joint disease Post-op diagnosis: same Hospital Course: Procedure: Right total hip arthroplasty (CPT code 57372 with railway yard assistant) Same procedure as scheduled: Yes Indications: Patient is an 69-year-old female with severe right hip DJD. The patient has pain with activities and at rest, limited ambulation and activity tolerance, difficulties with ADLs, and failure of conservative treatment. We have discussed the nature of condition, treatment options, risks and benefits, and patient elects to proceed with total hip arthroplasty and gives informed consent. Surgeon: Carlton Kent Side Seam Envelope Machine Operator: Tenzin Walker Anesthesia Type: General and Spinal Operative Notes Closure Type: primary Specimen(s): none sent Prosthetic devices, grafts, tissues, transplants, or devices: Acetabulum: Denny and Nephew R3 acetabular component size 52 mm Femoral component: Denny and Nephew Anthology stem size 8 with standard offset Femoral head: 36 mm + 0 Oxinium Estimated Blood Loss (mL): 100 Blood products transfused: none * * * Status at Discharge Cognitive/behavioral status at discharge: at baseline, oriented Functional status at discharge: uses cane/walker Overall status at discharge: patient is progressing back to baseline Time Spent with Patient Time spent: Less than 30 minutes Exam Vital Signs (past 8 hours): - 01/04/20 07:30 Temperature 97.9 F Pulse Rate 75 Respiratory Rate 17 Blood Pressure 103/58 L Pulse Oximetry 98 Oxygen Delivery Method Room Air Oxygen Flow Rate 0 Objective Labs Result Diagrams: 01/02/20 05:00 Discharge Plan Discharge Plan Patient Disposition: SNF Transfer to: [facility] Consult as needed: Dental, Hearing, Mental health, Podiatry and Vision Discharge comment: DC to SNF today Discharge orders & Medications Prescriptions: New ibuprofen 400 mg Tablet 400 mg PO Q4HR PRN (Reason: pain) Qty: 40 RF: 0 acetaminophen 325 mg Tablet 650 mg PO Q4HR PRN (Reason: Pain, Mild (1-3)) Qty: 60 RF: 0 polyethylene glycol 3350 17 gram Powder In Packet 17 gm PO DAILY PRN (Reason: Constipation) Qty: 10 RF: 0 docusate sodium [DOK] 100 mg Capsule 100 mg PO BID Qty: 20 RF: 0 oxycodone 5 mg Tablet 5 mg PO Q3HR PRN (Reason: Pain, Moderate (4-6)) Qty: 40 RF: 0 enoxaparin [Lovenox] 40 mg/0.4 mL Syringe 40 mg subcut DAILY Qty: 6 RF: 0 Continued levothyroxine 25 mcg Tablet 25 mcg PO DAILY RF: 0 Discontinued aspirin 325 mg Tablet 650 mg PO BID PRN (Reason: Pain) RF: 0 Follow up/Referrals: Carlton Kent MD [Physician] - Discharge Health Status Multidrug resistant organism: No MDRO Precautions: [place] Diet/Activity/Treatments Diet: Diet as Tolerated Liquid consistency: Normal/Thin Food texture: Regular Activity: Weight bear as tolerated. Posterior hip precautions. Front wheel walker for fall prevention. Cold/Heat Therapy: Ice packs as needed. Other treatments: Follow up as scheduled outpatient in 2 weeks. Skin/Wound/Dressing Care Report to your healthcare provider any signs of infection, such as:: chills, fever, night sweats, unusual drainage and unusual redness Dressing: keep clean and dry [facility] Rehabilitation [facility] Reason for rehabilitation: Post-operative therapy Rehab type: Physical therapy and Occupational therapy Visit Report/Discharge Packet Instructions: DI for Hip Replacement Discharge Data Primary Care Provider: Rosenda Mccallum VTE Deep Vein Thrombosis/Pulmonary Embolism Present on Admission: No
--- NOTE | 2020-01-04 11:43 | PM.DS.1 ---
History of Present Illness History of Present Illness Chief complaint: Right Total Hip Arthroplasty Narrative: pain mild to moderate. Denies fever or chills. Discharge Providers Provider Date of admission: 01/01/20 07:30 Discharge Date: 01/04/20 Primary care physician: JAYDEN Fields Consults: 01/01/20 12:31 Consult to Discharge Planning Routine Comment: Consult to Physical Therapy Evaluate & Treat Comment: Physician Instructions: post op ISAEBL protocol Consult to Respiratory Therapy Evaluate & Treat Comment: Physician Instructions: Evaluate and treat Discharge provider: Tenzin Walker PA-C Exam Vital Signs (past 8 hours): - 01/04/20 07:30 Temperature 97.9 F Pulse Rate 75 Respiratory Rate 17 Blood Pressure 103/58 L Pulse Oximetry 98 Oxygen Delivery Method Room Air Oxygen Flow Rate 0 Narrative Exam Narrative: Dressing CDI. Motor function intact right LE. Sensation intact to light touch. Bilat LEs warm and dry. Objective Labs Result Diagrams: 01/02/20 05:00 Discharge Plan Discharge Plan Patient Disposition: SNF Transfer to: [facility] Consult as needed: Dental, Hearing, Mental health, Podiatry and Vision Discharge comment: DC to SNF today Discharge orders & Medications Prescriptions: New ibuprofen 400 mg Tablet 400 mg PO Q4HR PRN (Reason: pain) Qty: 40 RF: 0 acetaminophen 325 mg Tablet 650 mg PO Q4HR PRN (Reason: Pain, Mild (1-3)) Qty: 60 RF: 0 polyethylene glycol 3350 17 gram Powder In Packet 17 gm PO DAILY PRN (Reason: Constipation) Qty: 10 RF: 0 docusate sodium [DOK] 100 mg Capsule 100 mg PO BID Qty: 20 RF: 0 oxycodone 5 mg Tablet 5 mg PO Q3HR PRN (Reason: Pain, Moderate (4-6)) Qty: 40 RF: 0 enoxaparin [Lovenox] 40 mg/0.4 mL Syringe 40 mg subcut DAILY Qty: 6 RF: 0 Continued levothyroxine 25 mcg Tablet 25 mcg PO DAILY RF: 0 Discontinued aspirin 325 mg Tablet 650 mg PO BID PRN (Reason: Pain) RF: 0 Follow up/Referrals: Carlton Kent MD [Physician] - Discharge Health Status Multidrug resistant organism: No MDRO Precautions: [place] Diet/Activity/Treatments Diet: Diet as Tolerated Liquid consistency: Normal/Thin Food texture: Regular Activity: Weight bear as tolerated. Posterior hip precautions. Front wheel walker for fall prevention. Cold/Heat Therapy: Ice packs as needed. Other treatments: Follow up as scheduled outpatient in 2 weeks. Skin/Wound/Dressing Care Report to your healthcare provider any signs of infection, such as:: chills, fever, night sweats, unusual drainage and unusual redness Dressing: keep clean and dry Special Rehabilitation Services Reason for rehabilitation: Post-operative therapy Rehab type: Physical therapy and Occupational therapy Visit Report/Discharge Packet Instructions: DI for Hip Replacement Discharge Data Primary Care Provider: Rosenda Mccallum VTE Deep Vein Thrombosis/Pulmonary Embolism Present on Admission: No
[2020-01-04 12:50] VITALS: BP 135/68; PULSE 88; RESP 16; TEMP 37; O2SAT 99
--- NOTE | 2020-01-04 15:19 | PC.NURSE ---
Discharge Pt states pain controlled with oxy and tylenol and ibuprofen today. up with SBA and FWW. d/c instrcutions provided to Peggy at . PIV removed prior to d/c. Pt's friend took all her belongings over to aside from one bag. Transport arrived and took pt to around 1530.
== END 2020-01-04 15:30 | DRG 470 ==
LOC: AC 08:05 → ICU 08:59 → AC 01-02 21:20
PROVIDERS: Admitting Provider Orthopaedic Surgery; PCP Internal Medicine; Referring Provider Orthopaedic Surgery; Visit Provider Orthopaedic Surgery
PROC: 0SR90JZ Replacement of Right Hip Joint with Synthetic Substitute, Open Approach (ICD-10-PCS; CPT 27130; principal; 2020-01-01 09:45)
DX: M16.11 Unilateral primary osteoarthritis, right hip (principal); E07.9 Disorder of thyroid, unspecified; M70.62 Trochanteric bursitis, left hip
CPT/HCPCS: 36415; 72170; 85014; 85018; 87797; 94760; 94762; 97110; 97116; 97162; 97530; C1776; J1100; J1650; J1885; J2250; J2270; J2274; J2405; J2704

== ENCOUNTER → 2020-10-21 13:31 | Outpatient (CLI) | payer MEDICARE, SELFPAY ==
[2020-01-01 13:31] VITALS: BMI 30.9
== END ==
PROVIDERS: PCP Internal Medicine; Referring Provider Internal Medicine; Visit Provider Internal Medicine
DX: M85.832 Other specified disorders of bone density and structure, left forearm (principal); Z78.0 Asymptomatic menopausal state; E07.9 Disorder of thyroid, unspecified
CPT/HCPCS: 77080

== ENCOUNTER → 2021-04-09 15:32 | Outpatient (CLI) | payer MEDICARE, SELFPAY ==
[2020-01-01 13:31] VITALS: BMI 30.9
--- NOTE | 2021-04-09 | DI.RAD.S_ITS ---
PROCEDURE: XR HIP W PEL IF DONE LT 2V INDICATIONS: PAIN IN LEFT HIP TECHNIQUE: AP pelvis with lateral view(s) of the left hip(s). COMPARISON: [facility], [place]IR[place], XR HIP W PEL IF DONE RT 2V, 11/20/2018, 13:24. FINDINGS: Bones: No fractures or dislocations. Pelvic ring appears intact. No suspicious bony lesions. Total right hip arthroplasty with no radiographic evidence of hardware failure or loosening. Significant progression of end-stage left hip degenerative arthritis. Soft tissues: The visualized bowel gas pattern is normal. No suspicious soft tissue calcifications. IMPRESSION: End-stage left hip degenerative arthritis. Significant interval progression of degenerative change. Dictated by: Ramsey Sepulveda M.D. on 04/09/2021 at 17:03 Approved by: Ramsey Sepulveda M.D. on 04/09/2021 at 17:04
== END ==
PROVIDERS: PCP Internal Medicine; Referring Provider Family Medicine; Visit Provider Family Medicine
DX: M25.552 Pain in left hip (principal); M16.12 Unilateral primary osteoarthritis, left hip; Z96.641 Presence of right artificial hip joint
CPT/HCPCS: 73502

== ENCOUNTER → 2021-05-14 13:22 | Outpatient (CLI) | payer MEDICARE, SELFPAY ==
[2020-01-01 13:31] VITALS: BMI 30.9
--- NOTE | 2021-05-14 | DI.MG.S_ITS ---
BILATERAL DIGITAL SCREENING MAMMOGRAM 3D/2D WITH CAD: 05/14/2021 CLINICAL: Routine screening. Comparison is made to exams dated: 06/26/2019 mammogram, 06/22/2018 mammogram, and 05/17/2017 mammogram - [facility]. There are scattered fibroglandular elements in both breasts. Current study was also evaluated with a Computer Aided Detection (CAD) system. There are benign calcifications in the left breast. There also are benign vascular calcifications in both breasts. No significant masses, calcifications, or other findings are seen in either breast. There has been no significant interval change. IMPRESSION: BENIGN There is no mammographic evidence of malignancy. A 1 year screening mammogram is recommended. This exam was interpreted at Station ID: [id number]. NOTE: For mammograms, a report in lay terms will be sent to the patient. Approximately 15% of breast malignancies will not be visualized mammographically. In the management of a palpable breast mass, a negative mammogram must not discourage biopsy of a clinically suspicious lesion. Electronically Signed By: Vikas peñaloza/angella:05/14/2021 13:53:18 letter sent: Normal Exam ACR BI-RADS Category 2: Benign Finding(s) 3342F
== END ==
PROVIDERS: PCP Internal Medicine; Referring Provider Internal Medicine; Visit Provider Internal Medicine
DX: Z12.31 Encounter for screening mammogram for malignant neoplasm of breast (principal)
CPT/HCPCS: 77063; 77067

== ENCOUNTER → 2021-06-28 13:01 | Outpatient (CLI) | payer MEDICARE, SELFPAY ==
[2020-01-01 13:31] VITALS: BMI 30.9
[2021-06-28 14:57] LABS: COVID19 -Nasal RAPID Negative (Negative)
== END ==
PROVIDERS: PCP Internal Medicine; Visit Provider Nurse Practitioner
DX: Z20.822 Contact with and (suspected) exposure to COVID-19 (principal)
CPT/HCPCS: 87635; C9803

== ENCOUNTER 2021-07-01 11:37 | Observation (INO) | payer MEDICARE, SELFPAY ==
[2020-01-01 13:31] VITALS: BMI 30.9
[2021-06-23 13:49] VITALS: BMI 27.9
[2021-06-30] VITALS (13 sets, daily range): BP systolic 112–142; BP diastolic 54–90; PULSE 50–76; RESP 14–20; TEMP 36.2–37.3; O2SAT 96–100; BMI 27.9
--- NOTE | 2021-06-30 | DI.RAD.S_ITS ---
PROCEDURE: XR PELVIS 1-2V INDICATIONS: LEFT ANTERIOR HIP TECHNIQUE: 1 view of the lower pelvis acquired. COMPARISON: [facility], , XR PELVIS 1-2V, 06/30/2021, 12:16. FINDINGS: Bones: Patient is status post left total hip arthroplasty, with hardware components in expected positions. The hip joint appears congruent. There is prior right total hip arthroplasty. The visualized bony structures appear intact. Soft tissues: Overlying postoperative changes are noted. No suspicious soft tissue densities. IMPRESSION: Postop changes from left total hip arthroplasty with anatomic hip alignment. Prior right total hip arthroplasty. Dictated by: Castillo Driver M.D. on 06/30/2021 at 14:25 Approved by: Castillo Driver M.D. on 06/30/2021 at 14:26
--- NOTE | 2021-06-30 08:46 | DI.RAD.S_ITS ---
PROCEDURE: XR PELVIS 1-2V INDICATIONS: left ISABEL, anterior TECHNIQUE: Intra-operative views of the pelvis and hip acquired. COMPARISON: [facility], NADIRA, XR PELVIS 1-2V, 06/30/2021, 13:49. [facility], CR, XR PELVIS 1-2V, 01/01/2020, 11:57. FINDINGS: Bones: Intraoperative devices prior to placement of arthroplasty prostheses are in expected positions. No fractures or suspicious bony lesions. Right hip arthroplasty redemonstrated. Soft tissues: Overlying surgical retractors are present, along with other intraoperative changes. IMPRESSION: Spot fluoroscopic intraoperative images demonstrate a left total hip arthroplasty in expected position. Dictated by: Finesse Butler M.D. on 06/30/2021 at 16:23 Approved by: Finesse Butler M.D. on 06/30/2021 at 16:25
[2021-06-30] MEDS: LACTATED RINGERS 1,000 ML 100 ML IV ×2 (09:55→12:00)
[2021-06-30] MEDS: PREGABALIN 75 MG CAPSULE PO (10:03)
[2021-06-30] MEDS: ACETAMINOPHEN 325 MG TABLET 975 MG PO (10:05)
[2021-06-30] MEDS: MELOXICAM 7.5 MG TABLET 15 MG PO (10:07)
--- NOTE | 2021-06-30 10:25 | PM.PREOP ---
Pre-operative Note COVID-19 COVID-19 status: Negative Result date/Date tested (Pos, Neg/Pending): 06/28/21 Interval Note History & Physical reviewed/Exam performed by Physician: Yes Changes to H&P: No H&P completed within 30 days and has changed as indicated here:: Plan for L anterior ISABEL
[2021-06-30] MEDS: TRANEXAMIC ACID 1,000 MG VIAL 2000 MG INJ ×2 (11:17→13:12)
[2021-06-30] MEDS: CEFAZOLIN 1 GM VIAL 2 GM IV ×2 (11:25→19:36)
--- NOTE | 2021-06-30 11:46 | SUR.OPER ---
Patient supine on padded [place] table, one arm on padded arm board at <90, other arm padded and secured with tape across patient's chest, both legs secured in padded traction boots and positioned per surgeon, padded post at patient's groin, pressure points checked and padded.
[2021-06-30] MEDS: ROPIVACAINE 0.5% PF 5 MG/ML 20ML VIAL 60 ML INJ (11:51)
[2021-06-30] MEDS: KETOROLAC 30 MG/ML VIAL IV ×2 (11:51)
[2021-06-30] MEDS: MORPHINE 4 MG/ML INJ INJ (11:52)
--- NOTE | 2021-06-30 13:34 | P.OP_ITS ---
Operative Date/Time/Diagnoses Date of procedure: 06/30/21 Time of procedure: 13:34 Pre-op diagnosis: left hip OA Post-op diagnosis: same Procedure & Clinicians Procedure: Left anterior total hip arthroplasty Same procedure as scheduled: Yes Indications: Left hip osteoarthritis resistant to further conservative measures Surgeon: Broderick High Timber Management Specialist: Amna Vallejo Anesthesia Type: General and Spinal Operative Notes Findings: Severe DJD of the left hip with femoral head collapse large osteophytes and subchondral sclerosis Closure Type: primary Specimen(s): none sent Prosthetic devices, grafts, tissues, transplants, or devices: Denny and nephew 52 mm R3 three-hole cup 2x 25mm screws 52 mm x 36 mm neutral offset polyethylene liner Size 7 standard offset anthology stem 36 +4 delta Biolox ceramic head 1x 200 mm Accord cable Estimated Blood Loss (mL): 500 Procedure in detail: Patient was met in the preoperative holding area where the site and side of surgery marked by . informed consent had been reviewed and signed in clinic was also reviewed the preoperative holding area all last minute questions were answered. Patient was then brought back in the operating room where she received a spinal anesthetic. She was then transferred onto the [place] table. Bilateral feet placed in well-padded [place] table boots. She was induced under general anesthesia in the left lower extremity then prepped and draped in normal sterile fashion. A surgical time-out was performed verifying the site and side of surgery as well as the name of the patient. A 10 cm long incision was made in the skin with a 10. Blade starting approx imately 2 cm distal and 1 cm lateral to the ASIS and towards the fibular head to electrocautery dissection was carried down to the level of the tensor fascia a 10. Blade was then used to incise the tensor fascia and Allis clamp was placed on the medial leaflet. The tensor muscle itself was then reflected laterally and a Cobra was placed over the superior aspect of the femoral neck. Meyer[place] retractors then placed over the lateral aspect of the rectus femoris retracted medially. This gave exposure to the semi branch of the femoral circumflex vessels these were coagulated using electrocautery. A 2nd Cobra retractor was then placed under the inferior aspect of the femoral neck. And a bent Hohmann was placed over the anterior lip of the acetabulum to give us exposure to the capsule. Inverted T-shaped capsulotomy was then performed superior and inferior leaflets were tagged with a FiberWire suture. Cobra retractors then placed intracapsularly. This gave us exposure the femoral neck and femoral neck cut was then made with a reciprocating saw based off our preoperative template films. A corkscrew was then used to remove the femoral head. Soft tissue sleeve protector was then introduced into the wound and retractors were then replaced a was exposure to the acetabulum. Pulmonary was then removed using electrocautery and suction the remnant of the labrum was then removed using a [place] blade. Began reaming with a 44 mm Reamer to medialized then began upsizing by 2s until I got to a 48 mm Reamer at which point I started reaming under fluoroscopic guidance the last several reamers applied under fluoroscopic guidance including the 50 mm Reamer and the 51 mm Reamer subsequently a 52 mm 3 hole R3 cup was then selected this was malleted into place under fluoroscopic guidance and 225 mm screws were placed. Next a 52 mm x 36 mm neutral offset polyethylene liner was then impacted into place make sure the polyethylene tabs were flush with the acetabular rim. I then turned my attention to the femoral side the femoral elevator hook was placed under the posterior aspect of the femur the femur was then externally rotated to 120? of external rotation extended and adducted. A bent Hohmann was then placed over the superior aspect of the superior leaflet of the capsulotomy and the capsule is then further released off the inner shoulder of the greater trochanter to give us a soft spot over the top of the greater trochanter. A large single prong retractors then placed over the top the greater trochanter and a [place] retractors placed over the medial calcar to give us exposure to the femoral neck cut. A controlled release the short external rotators then performed. A canal finer was then used followed by chili pepper broach followed by size 1 broach in up sizing by 1 until we got to a size 7. Then calcar planed off the size 7 broach. I then trialed with a size 7 broach with a standard offset neck with a +4 head. The hip was reduced and brought through range of motion including a maximal external rotation which was stable as well as external rotation 90? and extension to the floor. Fluoroscopy was brought in x- rays were taken to demonstrate that we were little bit long on the operative side compared to the contralateral side. We seemed to have good canal fit and fill with the stem. The hip was then dislocated I then countersunk the broach a couple mm and selected a size 7 [facility] standard offset stem. This was then packed into place however at this point was noted that it subsided 1-2 mm further than the broach was. I thoroughly interrogated the femur and I did not appreciate any calcar fractures or trochanteric fractures. At this point a cable was then passed just superior to the lesser trochanter in circumferential fashion on the femur and tightened and clamped. A size 36+ 4 head was then malleted on the trunnion hip was reduced. Final fluoroscopic images were then obtained which shows that we were near equal on leg lengths. No fractures appreciated. Local anesthetic was then infiltrated into the periarticular soft tissues including the capsule. Betadine solution was then placed in the wound allowed to sit for several minutes prior being lavage with copious normal saline. The capsulotomy was then repaired using a running Ethibond suture followed by a running locking 1. Vicryl in the tensor fascia followed by int errupted 2 Vicryl in subcutaneous layer followed by running 3-0 Stratafix followed by Dermabond and Aquacel dressing. Complications: none Post-operative Condition: stable Disposition: PACU Plan for aftercare: 24 hours post-op abx, Partial weight bearing LLE (50% with FWW), ASA 81mg BID for 6 weeks
[2021-06-30] MEDS: fentaNYL 100 MCG/2 ML INJ IV (13:54)
[2021-06-30] MEDS: HYDROMORPHONE 2 MG INJ IV (13:59)
[2021-06-30] MEDS: OXYCODONE/ACETAMINOPHEN 5/325 TABLET 1 TAB PO (14:11)
--- NOTE | 2021-06-30 15:07 | PC.NURSE ---
Postop Note Pt arrived to room 208 via bed at 1445, alert and oriented x3. 100% SpO2 on RA when awake, 96% when sleeping. HR in the 48-55 bpm range. BP stable. Reports pain 8/10 to left hip but improving. Received medications in PACU just prior to transfer. Dressing to left anterior hip C/D/I. Able to move BLEs, palpable pulses to BLEs, decreased sensation up to thighs bilaterally. Oriented to room and to call light/bed/tv controls. Call light within reach. Bed alarm on for safety. Belongings in room, declines to lock up valuables. No meds to lock up in pharmacy.
[2021-06-30] MEDS: LACTATED RINGERS 1,000 ML 125 ML IV ×2 (15:27→23:34)
[2021-06-30] MEDS: OXYCODONE IR 5 MG TABLET 10 MG PO ×2 (15:29→19:36)
[2021-06-30] MEDS: ACETAMINOPHEN 325 MG TABLET 650 MG PO ×2 (15:29→20:57)
[2021-06-30] MEDS: DOCUSATE 100 MG CAPSULE PO (20:56)
[2021-06-30] MEDS: IBUPROFEN 400 MG TABLET PO (20:56)
[2021-06-30] MEDS: ASPIRIN EC 81 MG TABLET PO (20:57)
[2021-07-01 00:50] VITALS: BP 109/61; PULSE 72; RESP 16; TEMP 36.6; O2SAT 99
[2021-07-01] MEDS: IBUPROFEN 400 MG TABLET PO ×5 (00:58→17:29)
[2021-07-01] MEDS: CEFAZOLIN 1 GM VIAL 2 GM IV (03:13)
[2021-07-01 04:45] VITALS: BP 129/65; PULSE 65; RESP 12; TEMP 36.7; O2SAT 100
[2021-07-01 06:36] LABS: Hematocrit 25.1 % (36-46); Hemoglobin 8.3 g/dL (12.0-16.0)
[2021-07-01 08:10] VITALS: BP 120/74; PULSE 71; RESP 16; TEMP 36.8; O2SAT 97
[2021-07-01] MEDS: ASPIRIN EC 81 MG TABLET PO ×2 (08:20→19:53)
[2021-07-01] MEDS: DOCUSATE 100 MG CAPSULE PO ×2 (08:21→19:53)
[2021-07-01] MEDS: ACETAMINOPHEN 325 MG TABLET 650 MG PO ×3 (08:21→19:53)
[2021-07-01] MEDS: LEVOTHYROXINE 25 MCG TABLET PO (08:21)
--- NOTE | 2021-07-01 09:50 | PT.IIE ---
Current Diagnoses Unilateral primary osteoarthritis, left hip (06/30/21) Surgery Performed Operation Date: 06/30/21 10:45 Actual Procedures p Total Hip Arthroplasty/Anterior Approach(Left) - Broderick High MD Surgical History (Last Updated 06/23/21 @ 14:05 by Yuliya Finley, RN) History of cataract removal with insertion of prosthetic lens (~2006) History of cataract removal with insertion of prosthetic lens (~2011) Status post colonoscopy (~2013) Medical History (Last Updated 12/24/19 @ 13:11 by Yuliya Finley RN) Bulimia (~1987) Chicken pox (~1957) Constant pain Depression (~2003) Foot fracture (~1996) Hypothyroidism (~2010) Irregular menstrual cycle Measles (~1956) Mumps (~1956) Obesity Osteoarthritis Physical Therapy Inpatient Evaluation/Re-Eval M1 PT/OT-IP Prior Functional Status Start: 07/01/21 09:43 Freq: NEEDED Status: Active Protocol: Document 07/01/21 09:43 [facility] (Rec: 07/01/21 09:50 [facility] [id number]) Medical Review Prior Functional Status Medical History Reviewed Yes Diet/Fluid Consistency Regular Communication wnl Mobility and Gait INDEP Activities of Daily Living and IADL's INDEP Social History Household Members none Living Arrangements House Number of Floors (Floors) One Floor Number of Stairs To Enter/Railing? 1 DAE no rail Home Environment High Toilet,Tub/Shower Home Equipment Front Wheel Walker,Straight Cane,Grab Bars Near Toilet, Grab Bars In Shower M2 PT-IP Current Condition Start: 07/01/21 09:43 Freq: NEEDED Status: Active Protocol: Document 07/01/21 09:43 [facility] (Rec: 07/01/21 09:50 [facility] [id number]) Physical Therapy Current Condition Current Condition Evaluation Date 07/01/21 Treatment Diagnosis L ant ISABEL Onset Date 06/30/21 Precautions Anterior Hip Precautions No Hip Extension,No Hip External Rotation Weight Bearing Status Weight Bearing Status Partial Weight Bearing Allowed Weight Bearing Amount (enter % 50% or #) (%) M3 PT-IP Subjective Start: 07/01/21 09:43 Freq: NEEDED Status: Active Protocol: Document 07/01/21 09:43 [facility] (Rec: 07/01/21 09:50 [facility] [id number]) Subjective Physical Therapy Visit Type Type Initial Evaluation Visit Start Time 09:10 Visit Stop Time 09:40 Total Visit Minutes 30 Number of SYSTEMS MANAGER Visits 0 Physical Therapy Visit Comments Patient Comments Pt hoping to go to rehab d/t being concerned re: taking care of self at home w/50% WB d/t living alone M4 PT-IP Mobility and Gait Start: 07/01/21 09:43 Freq: NEEDED Status: Active Protocol: Document 07/01/21 09:43 [facility] (Rec: 07/01/21 09:50 [facility] [id number]) PT-Bed Mobility Assessment Supine to Sit Supine to Sit Minimal Assistance,Bedrails Scooting Scooting to Edge of Bed Contact Guard Assistance PT-Transfer Assessment Sit to and From Stand Sit to and from Stand Contact Guard Assistance,Use of Upper Extremities Equipment Transfer Assistive Device Gait Belt,Front Wheeled Walker Orthotic/Prosthetic Devices or Brace: No Gait Assessment Gait Gait Assistance Required: Contact Guard Assist Distance (Feet) 30 Able to Maintain Weight Bearing Status Yes During Gait Assistive Devices Assistive Device Gait Belt,Front Wheeled Walker Gait Deviations General Gait Pattern Antalgic,Decreased Stride Length,Flexed Trunk,Step-to Gait Factors Limiting Gait Function Factors Limiting Gait Function Decreased Activity Tolerance, Decreased Strength Comments Gait Comments supine to sit w/PT assist for LLE and pt heavy use of rail. Scoot to EOB CGA. Pt did sit to stand w/cues for hand placement and CGA. Pt amb in room w/cues to use walker to offload pressure in LLE and explained what 50% WB is. Pt amb 30ft w/FWW and slow gait w /cues. Pt then sat in chair and left with call light in reach. PT-Balance Assessment Sitting Balance and Reactions Static Sitting Balance Ability Good Dynamic Sitting Balance Ability Good Standing Balance and Reactions Static Standing Balance Ability Fair Dynamic Standing Balance Ability Fair Device Used FWW M5 PT-IP Objective Assessments Start: 07/01/21 09:43 Freq: NEEDED Status: Active Protocol: Document 07/01/21 09:43 [facility] (Rec: 07/01/21 09:50 [facility] [id number]) Orientation Orientation/Cognition Level of Alertness Alert Safety Awareness Understands Safety Issues Memory Description No Deficits Noted Gross Range of Motion Lower Extremity ROM Assessment Left Impaired Strength Lower Extremity Strength Assessment Left Impaired M6 PT-IP Treatment Start: 07/01/21 09:43 Freq: NEEDED Status: Active Protocol: Document 07/01/21 09:43 [facility] (Rec: 07/01/21 09:50 [facility] [id number]) Physical Therapy Treatment Exercises Exercises Ankle Pumps,Gluteal Sets,Quad Sets,Heel Slides Education Education Provided Precautions,Weight Bearing Status,Post-Op Packet,Safety M7 PT-IP Assessment and Plan Start: 07/01/21 09:43 Freq: NEEDED Status: Active Protocol: Document 07/01/21 09:43 [facility] (Rec: 07/01/21 09:50 [facility] [id number]) PT Summary Assessment and Plan Potential Rehabilitation Potential Good Status of Condition at Evaluation Evolving Summary Impairments Pain,ROM,Strength,Balance,Bed Mobility,Transfers,Gait, Activity Tolerance Assessment Summary Pt presents s/p day 1 L Ant ISABEL w/standard precautions except only 50% WB limitation. Pt lives alone in a narrow home that will be difficult to navigate the walker in. She is limited by the 50% WB and likely will have difficulty bieng indep w/ADLs and safe when returning home after surgery so would benefit from SNF rehab before returning home. Goals Bed Mobility Goal Independent Transfer Goal Independent Gait Goal Independent Gait Distance 150ft Other Goals up/down 1 step w/o rail SBA Days to Meet Goals 4 Frequency of Treatment Frequency Of Treatment Twice a Day Treatment Plan Physical Therapy Treatment Plan Bed Mobility Training,Transfer Training,Gait Training, Therapeutic Exercise,Balance Retraining,Post Op Education, Discharge Planning, Neuromuscular Re-ed Other Recommendations and Next Treatment use scale for WB training Focus Precautions Anterior Hip Precautions No Hip Extension,No Hip External Rotation Recommendations To Nursing Amount of Assist Needed 1 Person Assist Discharge Recommendations PT Discharge Recommendations SNF Rehab Transportation Needs at Discharge Private Vehicle
--- NOTE | 2021-07-01 10:36 | P.PN_ITS ---
Subjective Subjective Date Patient Seen: 07/01/21 Time Patient Seen: 10:45 Interval history: The patient's pain is mild. She denies fevers, chills, night sweats. Her nausea has resolved. No vomiting. The patient has worked with physical therapy and got unclear dictation on her 50% weight-bearing with a front wheel walker and feels more confident. She is concerned about going home because she lives alone and has a very small house. She is requesting to be d ischarged to SNF when available. Exam Vital Signs (past 8 hours): - 07/01/21 04:45 07/01/21 08:10 Temperature 98.0 F 98.2 F Pulse Rate 65 71 Respiratory Rate 12 16 Blood Pressure 129/65 120/74 Pulse Oximetry 100 97 Oxygen Delivery Method Room Air Oxygen Flow Rate 0 Narrative Exam Narrative: Pleasant 71-year-old female, resting comfortably in a chair, no acute distress. Motor functions are intact in bilateral lower extremities. Sensation is grossly intact to light touch in bilateral lower extremities. Both legs are warm and dry. Incision is clean, dry, intact. Bilateral calves are soft, nontender to palpation. Objective Labs Result Diagrams: 07/01/21 06:20 Labs: Laboratory Results - last 24 hr 07/01/21 06:20 Hgb 8.3 L Hct 25.1 L PFSH Medical History Bulimia (~1987) Chicken pox (~1957) Constant pain Depression (~2003) Foot fracture (~1996) Hypothyroidism (~2010) Irregular menstrual cycle Measles (~1956) Mumps (~1956) Obesity Osteoarthritis Surgical History History of arthroplasty of right hip (01/01/20) History of cataract removal with insertion of prosthetic lens (~2006) History of cataract removal with insertion of prosthetic lens (~2011) Status post colonoscopy (~2013) Family History Grandfather Cancer Grandmother Diabetes mellitus Brother No problems noted. Father No problems noted. Mother No problems noted. Grandmother No problems noted. Social History household members: none Smoking Status: Never smoker alcohol intake: current Assessment & Plan Post-op Postoperative Procedures: Procedures Operation Date: 06/30/21 10:45 Actual Procedure Side Surgeon p Total Hip Arthroplasty/Anterior Approach Left Broderick High MD Postoperative status narrative: Stable status post left total hip arthroplasty, anterior approach Postoperative plan narrative: 50% weight-bearing with a front wheeled walker x6 weeks. Aspirin 81 mg b.i.d. x6 weeks for DVT prophylaxis. Continue to mobilize with physical therapy. Planning discharge to SNF when available. Quality VTE Deep Vein Thrombosis/Pulmonary Embolism Present on Admission: No
[2021-07-01 11:25] VITALS: BP 135/64; PULSE 83; RESP 16; O2SAT 99
--- NOTE | 2021-07-01 11:43 | OT.IP.EVAL ---
Current Diagnoses Unilateral primary osteoarthritis, left hip (06/30/21) Surgery Performed Operation Date: 06/30/21 10:45 Actual Procedures p Total Hip Arthroplasty/Anterior Approach(Left) - Broderick High MD Past Medical History (Last Reviewed 07/01/21 @ 13:53 by Amna Vallejo PA-C) Bulimia (~1987) Chicken pox (~1957) Constant pain Depression (~2003) Foot fracture (~1996) History of arthroplasty of right hip (01/01/20) Hypothyroidism (~2010) Irregular menstrual cycle Measles (~1956) Mumps (~1956) Obesity Osteoarthritis Surgical History (Last Reviewed 07/01/21 @ 13:53 by Amna Vallejo PA-C) History of arthroplasty of right hip (01/01/20) History of cataract removal with insertion of prosthetic lens (~2006) History of cataract removal with insertion of prosthetic lens (~2011) Status post colonoscopy (~2013) Occupational Therapy Inpatient Evaluation/Re-Eval M1 PT/OT-IP Prior Functional Status Start: 07/01/21 09:43 Freq: NEEDED Status: Active Protocol: Document 07/01/21 17:05 [facility] (Rec: 07/01/21 17:13 [facility] [id number]) Medical Review Prior Functional Status Medical History Reviewed Yes Diet/Fluid Consistency Regular Communication wnl Mobility and Gait INDEP Activities of Daily Living and IADL's INDEP Social History Household Members none Living Arrangements House Number of Floors (Floors) One Floor Number of Stairs To Enter/Railing? 1 DAE no rail Home Environment High Toilet,Tub/Shower Home Equipment Front Wheel Walker,Straight Cane,Grab Bars Near Toilet, Grab Bars In Shower M2 OT-IP Current Condition Start: 07/01/21 16:58 Freq: Status: Active Protocol: Document 07/01/21 11:19 [facility] (Rec: 07/01/21 17:13 [facility] [id number]) Occupational Therapy Current Condition Current Condition Evaluation Date 07/01/21 Treatment Diagnosis S/p L ISABEL Diagnosis Onset Date 06/30/21 Post Operative Precautions Anterior Hip Precautions No Hip Extension,No Hip External Rotation Weight Bearing Status Weight Bearing Status Partial Weight Bearing Allowed Weight Bearing Amount (enter % 50% wt bearing for LLE or #) (%) M3 OT- IP Subjective and Pain Start: 07/01/21 16:58 Freq: Status: Active Protocol: Document 07/01/21 11:19 [facility] (Rec: 07/01/21 17:13 [facility] [id number]) OT- Subjective Occupational Therapy Visit Type Type Initial Evaluation Visit Start Time 11:19 Visit Stop Time 11:43 Total Visit Minutes 24 Occupational Therapy Visit Comments Patient Comments Pt wanting to get up and use the bathroom. Patient/Caregiver Goals TO go to skilled rehab prior to going home. OT Pain Assessment Pain When Pain Assessed At Rest Pain Present Pain Present Denied Pain M4 OT- IP ADL's Start: 07/01/21 16:58 Freq: Status: Active Protocol: Document 07/01/21 11:19 [facility] (Rec: 07/01/21 17:13 [facility] [id number]) OT [id number] General Evaluation Self-Feeding Ability Independent OT ADL-Grooming Comments OT Grooming Comments Not performed. OT ADL-Oral Care Comments Oral Care Comments Not performed. OT ADL-Dressing General Eval Lower Body Dressing Ability Maximum Assistance Areas Needing Assistance Underpants/Brief,Socks Comments OT Dressing Comments Pt educated to carlos left leg in first and take out last. Pt educated on use of blocker metal base to assist for her needs as has difficulty to rock picker her LLE at this time. OT ADL-Toileting General Evaluation Toileting Ability Contact Guard Assistance Areas Needing Assistance Manage Clothing Comments OT Toileting Comments CGA to assist to help pull up brief over her hips. OT ADL-Bathing Comments OT Bathing Comments NOt performed. Pt has a claw foot tub and would benefit from a shower chair/tub bench. Pt states if having to go home maybe able to go to a friend's house use their walk in shower. M5 OT- IP IADL's Start: 07/01/21 16:58 Freq: Status: Active Protocol: Document 07/01/21 17:05 [facility] (Rec: 07/01/21 17:13 [facility] [id number]) OT-Instrumental Activities of Daily Living Meal Preparation Meal Preparation Comments Pt will require assist at this time. Jewelry Jobber Jewelry Jobber Comments Pt will require assist at this time. M6 OT- IP Functional Cognition Start: 07/01/21 16:58 Freq: Status: Active Protocol: Document 07/01/21 17:05 [facility] (Rec: 07/01/21 17:13 [facility] [id number]) Cognitive Factors Limiting Selfcare Function Cognitive Ability Level of Alertness Alert Patient Orientation Name,Age,Birthday,Month,Date, Year,Day of Week,Place, Situation Attention Span Ability Capable of Focused Attention, Capable of Sustained Attention Ability to Follow Commands Able to Follow One Step Commands Memory Description No Deficits Noted Safety Awareness No Deficits Noted Cognitive Comments Cognitive Assessment Comments Pt appears intact at this time of OT eval and able to follow directions for mobility and ADl needs. OT- Vision and Hearing OT- Hearing Assessment OT- Hearing Assessment WFL OT- Vision Assessment Visual Acuity Glasses For Reading M7 OT- IP Mobility and Balance Start: 07/01/21 16:58 Freq: Status: Active Protocol: Document 07/01/21 17:05 [facility] (Rec: 07/01/21 17:13 [facility] [id number]) OT-Transfer Assessment Sit to and From Stand Sit to and from Stand Minimal Assistance Transfers Transfer Ability Contact Guard Assistance Technique Transfer Destination Chair,Toilet Transfer Technique Stand Step Pivot Devices Transfer Assistive Devices Gait Belt,Front Wheeled Walker Comments Mobility Comments Pt able to slowly move from recliner to toilet with FWW and able to follow 50% NWB at this time. Pt needing heavy use of her arms to help off load the weight on her LLE when moving. OT- Gait Assessment Comments Gait Ability Comments CGA for level surface, pt will require more assist for uneven terrain. OT- Balance Assessment Sitting Balance and Reactions Static Sitting Balance Ability Normal Dynamic Sitting Balance Ability Good Standing Balance and Reactions Static Standing Balance Ability Fair M8 OT- IP Objective Assessments Start: 07/01/21 16:58 Freq: Status: Active Protocol: Document 07/01/21 17:05 [facility] (Rec: 07/01/21 17:13 [facility] [id number]) OT Gross Range of Motion Upper Extremity Range of Motion Assessment Within Functional Limits OT Strength Upper Extremity Strength Assessment Within Functional Limits M9 OT- IP Assessment and Plan Start: 07/01/21 16:58 Freq: Status: Active Protocol: Document 07/01/21 17:05 [facility] (Rec: 07/01/21 17:13 [facility] [id number]) OT Summary Assessment and Plan Potential Rehabilitation Potential Excellent Analytic Complexity at Evaluation Low Summary OT Impairments Pain,Balance,Functional Mobility,Dressing,Toileting, Bathing,Toilet Transfers, Shower Transfers Progress Towards Goals Slow Progress due to Pain,Slow Progress due to Medical Issues Assessment Summary Pt low complexity and main barriers are step and pt is LLE 50% NWB and therefore unable to do IADL needs at this time, in addition will need assist for bathing needs at this time. Pt still not able to more her LLE into and out of the bed at this time and requires assist. Pt would highly benefit form skilled rehab to help get stronger and work on independence and safety for following LLE for ADL, mobility and especially for IADl needs. Goals Grooming Goal Independent Dressing Goal Independent Toileting Goal Independent Bathing Goal Independent Toilet Transfer Goal Independent Shower Transfer Goal Independent Days to Meet Goals 15 Frequency of Treatment Frequency Of Treatment Once a Day Treatment Plan OT Treatment Plan ADL Training,Functional Mobility,Patient/Family Education,Discharge Planning Discharge Recommendations OT Discharge Recommendations Home with 29/05 Assist Available,Home Health,SNF Rehab,Home vs SNF Home Equipment Needs tub bench Transportation Needs at Discharge Wheelchair/Cabulance
[2021-07-01] MEDS: OXYCODONE IR 5 MG TABLET PO ×2 (11:49→19:53)
--- NOTE | 2021-07-01 15:10 | PT.IPTN ---
Current Diagnoses Unilateral primary osteoarthritis, left hip (06/30/21) Surgery Performed Operation Date: 06/30/21 10:45 Actual Procedures p Total Hip Arthroplasty/Anterior Approach(Left) - Broderick High MD Physical Therapy Treatment Note M2 PT-IP Current Condition Start: 07/01/21 09:43 Freq: NEEDED Status: Active Protocol: Document 07/01/21 09:43 [facility] (Rec: 07/01/21 09:50 [facility] [id number]) Physical Therapy Current Condition Current Condition Evaluation Date 07/01/21 Treatment Diagnosis L ant ISABEL Onset Date 06/30/21 Precautions Anterior Hip Precautions No Hip Extension,No Hip External Rotation Weight Bearing Status Weight Bearing Status Partial Weight Bearing Allowed Weight Bearing Amount (enter % 50% or #) (%) M3 PT-IP Subjective Start: 07/01/21 09:43 Freq: NEEDED Status: Active Protocol: Document 07/01/21 14:46 [facility] (Rec: 07/01/21 15:27 [facility] [id number]) Subjective Physical Therapy Visit Type Type Treatment Note Visit Start Time 14:46 Visit Stop Time 15:10 Total Visit Minutes 24 Number of HOME THEATER EXPERT Visits 1 Physical Therapy Visit Comments Patient Comments Pt hoping to go to rehab d/t being concerned re: taking care of self at home w/50% WB d/t living alone Therapy Pain Assessment Pain When Pain Assessed At Rest Pain Present Pain Present Pain Reported Location Left Hip Intensity 5 Scale Used Numeric (0 - 10) Description Tightness Pain Management Techniques Apply Cold,Modification of Treatment,Re-positioning, Timing of Activity with Medications M4 PT-IP Mobility and Gait Start: 07/01/21 09:43 Freq: NEEDED Status: Active Protocol: Document 07/01/21 14:46 [facility] (Rec: 07/01/21 15:27 [facility] [id number]) PT-Bed Mobility Assessment Supine to Sit Supine to Sit Minimal Assistance,Bedrails Sit to Supine Sit to Supine Minimal Assistance,1 Person Assistance Scooting Scooting to Edge of Bed Contact Guard Assistance PT-Transfer Assessment Sit to and From Stand Sit to and from Stand Contact Guard Assistance,Use of Upper Extremities Equipment Transfer Assistive Device Gait Belt,Front Wheeled Walker Orthotic/Prosthetic Devices or Brace: No Comments Mobility Comments Pt requiring Min A for bed mobility as pt is unable to move LLE. Pt stood CGA with cues for hand placement for safety. Pt ambulate ~30ft w/ FWW/CGA with cues to use UE's to decrease WB on LLE. Pt required Min A of LLE while getting back into bed and with positioning in bed. Pt left in bed with all needs within reach. Gait Assessment Gait Gait Assistance Required: Contact Guard Assist Distance (Feet) 30 Able to Maintain Weight Bearing Status Yes During Gait Assistive Devices Assistive Device Gait Belt,Front Wheeled Walker Gait Deviations General Gait Pattern Antalgic,Decreased Stride Length,Flexed Trunk,Step-to Gait Factors Limiting Gait Function Factors Limiting Gait Function Decreased Activity Tolerance, Decreased Strength Comments Gait Comments Pt required cues for increased use of UE's on walker to decrease WB on LLE. Stair Climbing Assessment Comments Stair Climbing Comments Pt will have to climb one step with FWW before d/c home. PT-Balance Assessment Sitting Balance and Reactions Static Sitting Balance Ability Good Dynamic Sitting Balance Ability Good Standing Balance and Reactions Static Standing Balance Ability Fair Dynamic Standing Balance Ability Fair Device Used FWW M5 PT-IP Objective Assessments Start: 07/01/21 09:43 Freq: NEEDED Status: Active Protocol: Document 07/01/21 09:43 [facility] (Rec: 07/01/21 09:50 [facility] [id number]) Orientation Orientation/Cognition Level of Alertness Alert Safety Awareness Understands Safety Issues Memory Description No Deficits Noted Gross Range of Motion Lower Extremity ROM Assessment Left Impaired Strength Lower Extremity Strength Assessment Left Impaired M6 PT-IP Treatment Start: 07/01/21 09:43 Freq: NEEDED Status: Active Protocol: Document 07/01/21 14:46 [facility] (Rec: 07/01/21 15:27 [facility] [id number]) Physical Therapy Treatment Exercises Exercises Ankle Pumps,Gluteal Sets,Quad Sets,Heel Slides Education Education Provided Precautions,Weight Bearing Status,Post-Op Packet,Safety M7 PT-IP Assessment and Plan Start: 07/01/21 09:43 Freq: NEEDED Status: Active Protocol: Document 07/01/21 14:46 [facility] (Rec: 07/01/21 15:27 [facility] [id number]) PT Summary Assessment and Plan Potential Rehabilitation Potential Good Status of Condition at Evaluation Evolving Summary Impairments Pain,ROM,Strength,Balance,Bed Mobility,Transfers,Gait, Activity Tolerance Progress Towards Goals Slow Progress due to Medical Issues Assessment Summary Pt requiring Min A-CGA for mobility and requires assist of LLE in and out of bed. Pt ambulation distance is limited due to 50% WB status. Pt would benefit from SNF rehab as pt lives alone and will require assist with ADL's due to 50% WB status. Goals Bed Mobility Goal Independent Transfer Goal Independent Gait Goal Independent Gait Distance 150ft Other Goals up/down 1 step w/o rail SBA Days to Meet Goals 4 Frequency of Treatment Frequency Of Treatment Twice a Day Treatment Plan Physical Therapy Treatment Plan Bed Mobility Training,Transfer Training,Gait Training, Therapeutic Exercise,Balance Retraining,Post Op Education, Discharge Planning, Neuromuscular Re-ed Other Recommendations and Next Treatment use scale for WB training Focus Precautions Anterior Hip Precautions No Hip Extension,No Hip External Rotation Recommendations To Nursing Amount of Assist Needed 1 Person Assist Discharge Recommendations PT Discharge Recommendations SNF Rehab Transportation Needs at Discharge Private Vehicle
[2021-07-01 15:19] VITALS: BP 145/78; PULSE 74; RESP 18; TEMP 37.2; O2SAT 99
--- NOTE | 2021-07-01 16:28 | CM.DANOTE ---
Discharge Planning/Care Management DCP: assessment: case received and discussed in Team Rounds and later with pt and PT/OT. Due to lateness of hour will continue this note tomorrow. SNF rehab is being recommended. Payer Medicare and [employer]. Admission status: SDC to OBS: confirmed by UR RN Liza. Pt is aware and is hoping now to be able to do well enough to go home with HH services. She says that private pay at the snf is NOT an option she will chose. Pre-Anesthesia Assessment Start: 06/23/21 13:49 Freq: Status: Active Protocol: Document 06/23/21 13:49 [facility] (Rec: 06/23/21 14:21 [facility] [id number]) Pre-Anesthesia Assessment Patient Information Reviewed Via Phone Assessment Assessment Completed With Patient Comment Outside Labs/EKG, COVID screen @ 06/28/21 Primary Care Provider Rosenda Mccallum Seen Specialist in Last 12 Months Yes Specialist Seen Orthopedist Primary Language German Preferred Language German Height 165.1 cm Weight 76.204 kg Body Mass Index (BMI) 27.9 Hearing Ability Normal Visual Assist Magnifying Glass Dentition Type Teeth, Natural Present,Teeth, Missing Barriers to Learning None Other Aids No Hx Anesthesia Reactions Yes: PONV s/p RT ISABEL Hx Family Anesthesia Reaction No Hx Malignant Hyperthermia No Hx Blood Transfusions No Anesthesia Review Requested No alcohol intake current alcohol intake frequency a few times a month Smoking Status Never smoker Substance Use Type does not use Pain Present Pain Reported Musculoskeletal Symptoms Abnormal Gait,Back Pain, Difficulty Walking,Joint Pain, Muscle Cramps History of Falling (Recent or History of No ) Patient is completely paralyzed or No completely immobile Prosthesis or Orthotic Device Cane Mental Status Oriented to own ability Is patient on oxygen? No Does patient have BURRELL/SOB No Hx Sleep Apnea No CPAP/BIPAP use not prescribed Currently Taking a Beta Roseanna No Can You Climb a Flight of Stairs Without Yes SOB Hx Chest Pain No Hx SOB No Hx Syncope or Dizziness No Anti-Coagulant Therapy No Has a Shank Carrier No Cardiac Testing No Hx Pacemaker/ICD No Pacemaker Rep Required? No Cardiac Clearance Received Not Applicable Diet Type At Home Regular dysphagia No Urinary Catheter Present No Hx Urinary Self Catheterization No Diabetes No HgbA1C 5.5 Date 05/26/21 Patient No Lactating No Hx Drug Resistant Organism No Presence of External or Internal Medical Yes: Bilat eye lens, right hip Devices Have you had any close contact with Yes: Exposure approx 2-3 weeks someone diagnosed with COVID-19? Are you experiencing any of these No symptoms symptoms? Marital Status Lives With none Prior Living Arrangements House Number of Floors (Floors) One Floor Support System None Does the Patient Have Assistance After No Surgery Patient Discharge Plan Description [facility] Facility/Rehab Comment Pt d/c'd to SNF for RT ISABEL , requests to go to SNF again at [place] Feels Safe in Current Environment Yes Been Physically Hurt or Threatened By a No Person in Current Environment Do you have thoughts of harming yourself None or others? Are you currently considering suicide? No Do you have a plan to hurt yourself or No Plan others? Do You Have Any Spiritual Beliefs That No May Affect Your HC Choices? Do You Have Any Cultural Practices That No May Affect Your HC Choices? Who Can We Speak to About Patient's Care Family, friends Identifying Code for Release of Patient Declines to issue Information Health Care Proxy/Next of Kin Karey Galvan (friend) Health Care Proxy Emergency Contact Name Karey Galvan (friend) Emergency Contact Advance Directives? Yes Advance Directives on File Yes Power of Boatswain'S Mate No PAC Instructions Do not shave/clip surgical site,Durable medical equipment ,Medications to take/avoid, Nasal antibiotic,No ETOH/ petroleum product on skin DOS, NPO,Post-op transportation,Pre -surgical wash,Sturdy shoes/ comfortable clothes,Do not bring valuables and remove jewelry
[2021-07-01 20:12] VITALS: BP 125/61; PULSE 78; RESP 18; TEMP 37.3
[2021-07-02] MEDS: IBUPROFEN 400 MG TABLET PO ×6 (00:08→21:04)
[2021-07-02 01:10] VITALS: BP 144/70; PULSE 78; RESP 16; TEMP 36.7; O2SAT 97
[2021-07-02 05:05] VITALS: BP 139/74; PULSE 71; RESP 16; TEMP 36.3; O2SAT 98
[2021-07-02 06:38] LABS: Hematocrit 25.3 % (36-46); Hemoglobin 8.5 g/dL (12.0-16.0)
[2021-07-02 07:24] VITALS: BP 142/77; PULSE 78; RESP 16; TEMP 36.4; O2SAT 97
--- NOTE | 2021-07-02 09:43 | OT.IP.TRT ---
Current Diagnoses Unilateral primary osteoarthritis, left hip (07/01/21) Surgery Performed Operation Date: 06/30/21 10:45 Actual Procedures p Total Hip Arthroplasty/Anterior Approach(Left) - Broderick High MD Occupational Therapy Treatment Note M2 OT-IP Current Condition Start: 07/01/21 16:58 Freq: Status: Active Protocol: Document 07/01/21 11:19 [facility] (Rec: 07/01/21 17:13 [facility] [id number]) Occupational Therapy Current Condition Current Condition Evaluation Date 07/01/21 Treatment Diagnosis S/p L ISABEL Diagnosis Onset Date 06/30/21 Post Operative Precautions Anterior Hip Precautions No Hip Extension,No Hip External Rotation Weight Bearing Status Weight Bearing Status Partial Weight Bearing Allowed Weight Bearing Amount (enter % 50% wt bearing for LLE or #) (%) M3 OT- IP Subjective and Pain Start: 07/01/21 16:58 Freq: Status: Active Protocol: Document 07/02/21 13:27 [facility] (Rec: 07/02/21 13:40 [facility] [id number]) OT- Subjective Occupational Therapy Visit Type Type Treatment Note Visit Start Time 08:57 Visit Stop Time 09:43 Total Visit Minutes 46 Occupational Therapy Visit Comments Patient Comments Pt wanting to shower. Patient/Caregiver Goals TO go to skilled rehab prior to going home. OT Pain Assessment Pain When Pain Assessed At Rest Pain Present Pain Present Denied Pain M4 OT- IP ADL's Start: 07/01/21 16:58 Freq: Status: Active Protocol: Document 07/02/21 13:27 [facility] (Rec: 07/02/21 13:40 [facility] [id number]) OT PYL-Zmvf-Unrjzez General Evaluation Self-Feeding Ability Independent OT ADL-Grooming Comments OT Grooming Comments Not performed. OT ADL-Oral Care Comments Oral Care Comments Not performed. OT ADL-Dressing General Eval Lower Body Dressing Ability Moderate Assistance Areas Needing Assistance Underpants/Brief,Socks Comments OT Dressing Comments Pt able to use the net developer architect to carlos her brief over her feet. Pt needing assist for socks. Pt states does not wear socks at home and if going out will have assist. Pt at this time did not want to see how to use a sock aid. OT ADL-Bathing Bathing Type Bathing Type Shower General Evaluation Bathing Ability Minimal Assistance,Moderate Assistance Areas Needing Assistance Wash/Dry Back Devices Bathing Equipment Hand Held Shower Sprayer, Shower Chair with Arms,Grab Bars Comments OT Bathing Comments Pt able to do most of her showering needs while seated. Pt needing heavy use of grab bars and occasional CGA while standing to do pericare needs. Pt states if having to go home to just sponge bath for now. M5 OT- IP IADL's Start: 07/01/21 16:58 Freq: Status: Active Protocol: Document 07/01/21 17:05 [facility] (Rec: 07/01/21 17:13 [facility] [id number]) OT-Instrumental Activities of Daily Living Meal Preparation Meal Preparation Comments Pt will require assist at this time. Painter Helper Sign Painter Helper Sign Comments Pt will require assist at this time. M6 OT- IP Functional Cognition Start: 07/01/21 16:58 Freq: Status: Active Protocol: Document 07/02/21 13:27 [facility] (Rec: 07/02/21 13:40 [facility] [id number]) Cognitive Factors Limiting Selfcare Function Cognitive Ability Safety Awareness Decreased Ability to Apply Precautions Cognitive Comments Cognitive Assessment Comments Today pt having difficulty to follow her 50% WB for her LLE and at times just not pressing on the FWW and just walking. Emphasize to pt need to follow 50%wb status. M7 OT- IP Mobility and Balance Start: 07/01/21 16:58 Freq: Status: Active Protocol: Document 07/02/21 13:27 [facility] (Rec: 07/02/21 13:40 [facility] [id number]) OT- Bed Mobility Assessment Supine to Sit Supine to Sit Assist Standby Assistance Sit to Supine Sit to Supine Assist Standby Assistance OT-Transfer Assessment Sit to and From Stand Sit to and from Stand Standby Assistance Transfers Transfer Ability Standby Assistance,Contact Guard Assistance Technique Transfer Destination Bed,Chair,Shower Stall Transfer Technique Stand Step Pivot Devices Transfer Assistive Devices Gait Belt,Front Wheeled Walker Comments Mobility Comments Pt needing more cues to follow her 50% wb status today. Pt educated for use of cane to assist to help move her LLE into and out of the bed. OT- Balance Assessment Sitting Balance and Reactions Static Sitting Balance Ability Normal Dynamic Sitting Balance Ability Good Standing Balance and Reactions Static Standing Balance Ability Fair M8 OT- IP Objective Assessments Start: 07/01/21 16:58 Freq: Status: Active Protocol: Document 07/01/21 17:05 [facility] (Rec: 07/01/21 17:13 [facility] [id number]) OT Gross Range of Motion Upper Extremity Range of Motion Assessment Within Functional Limits OT Strength Upper Extremity Strength Assessment Within Functional Limits M9 OT- IP Assessment and Plan Start: 07/01/21 16:58 Freq: Status: Active Protocol: Document 07/02/21 13:27 [facility] (Rec: 07/02/21 13:40 [facility] [id number]) OT Summary Assessment and Plan Potential Rehabilitation Potential Excellent Analytic Complexity at Evaluation Low Summary OT Impairments Pain,Balance,Functional Mobility,Dressing,Toileting, Bathing,Toilet Transfers, Shower Transfers Progress Towards Goals Slow Progress due to Pain,Slow Progress due to Medical Issues Assessment Summary Pt abl to tolerate a shower and able to use a use a cane to assist to help get her LLE into and out of the bed. Pt still having difficulty to lift her LLE up for dressing needs and needing MODA for LB dressing and bathing needs. Pt would greatly benefit from a short skilled rehab when medically stable. Goals Grooming Goal Independent Dressing Goal Independent Toileting Goal Independent Bathing Goal Independent Toilet Transfer Goal Independent Shower Transfer Goal Independent Days to Meet Goals 10 Frequency of Treatment Frequency Of Treatment Once a Day Treatment Plan OT Treatment Plan ADL Training,Functional Cognition Training,Functional Mobility,Patient/Family Education,Discharge Planning Other Treatment Recommendations and Next LB dressing , and standing for Treatment Focus grooming needs. Discharge Recommendations OT Discharge Recommendations Home with 24/ Assist Available,Home Health,SNF Rehab,Home vs SNF Home Equipment Needs tub bench
[2021-07-02] MEDS: ASPIRIN EC 81 MG TABLET PO ×2 (10:11→21:04)
[2021-07-02] MEDS: ACETAMINOPHEN 325 MG TABLET 650 MG PO ×3 (10:11→21:04)
[2021-07-02] MEDS: LEVOTHYROXINE 25 MCG TABLET PO (10:11)
[2021-07-02] MEDS: DOCUSATE 100 MG CAPSULE PO ×2 (10:11→21:04)
--- NOTE | 2021-07-02 10:40 | PM.PNPO.1 ---
Subjective Subjective Date Patient Seen: 07/02/21 Time Patient Seen: 10:40 Interval history: Patient states she is doing well overall and reports mild pain levels. At this time she denies fever, chills, chest pain, shortness of breath, or urinary retention. Patient states that she has mild nausea at the moment and states that she did not sleep well last night. She is concerned about possibly being discharged home as she feels she does not have the care at home that she needs to care for herself. She also mentions that her home is quite small and she is concerned that she may not be able to maneuver herself around comfortably. Exam Vital Signs (past 8 hours): - 07/02/21 05:05 07/02/21 07:24 Temperature 97.4 F L 97.5 F L Pulse Rate 71 78 Respiratory Rate 16 16 Blood Pressure 139/74 142/77 H Pulse Oximetry 98 97 Oxygen Delivery Method Room Air Oxygen Flow Rate 0 Narrative Exam Narrative: 71-year-old female postop day 2 status post left anterior total hip arthroplasty. Patient is resting comfortably in room chair, is in no acute distress, and is alert and oriented x3. Skin is warm and dry, and the skin surrounding the incision site is free of erythema, warmth, induration, or discharge. Aquacel dressing over the incision site is clean, dry, and intact. Good sensation appreciated throughout the bilateral lower extremities to light touch. Tenderness to palpation appreciated along the anterolateral aspect of the proximal left thigh. Ankle dorsiflexion, plantar flexion, eversion, inversion performed bilaterally without difficulty or discomfort. Calves are soft and nontender, negative Homans sign. DP pulses are palpated bilaterally and are even. No signs of DVT appreciated. Const General: cooperative, healthy appearing and comfortable Resp Effort & Inspection: normal respiratory effort and able to speak in complete sentences Skin General: no rashes or lesions noted Objective Labs Result Diagrams: 07/02/21 06:21 Labs: Laboratory Results - last 24 hr 07/02/21 06:21 Hgb 8.5 L Hct 25.3 L PFSH Medical History Bulimia (~1987) Chicken pox (~1957) Constant pain Depression (~2003) Foot fracture (~1996) Hypothyroidism (~2010) Irregular menstrual cycle Measles (~1956) Mumps (~7) Obesity Osteoarthritis Surgical History History of arthroplasty of right hip (01/01/20) History of cataract removal with insertion of prosthetic lens (~2006) History of cataract removal with insertion of prosthetic lens (~2011) Status post colonoscopy (~2013) Family History Grandfather Cancer Grandmother Diabetes mellitus Brother No problems noted. Father No problems noted. Mother No problems noted. Grandmother No problems noted. Social History household members: none Smoking Status: Never smoker alcohol intake: current Assessment & Plan Post-op Postoperative Procedures: Procedures Operation Date: 06/30/21 10:45 Actual Procedure Side Surgeon p Total Hip Arthroplasty/Anterior Approach Left Broderick High MD Postoperative day: 2 Postoperative status: doing well Postoperative plan: ambulate Postoperative plan narrative: Patient is to remain 50% weight-bearing on the left lower extremity while ambulating with the assistance of a front wheeled walker with physical therapy. Current pain management regimen is to be continued as it is adequately controlled the patient's pain level. Aspirin 81 mg twice daily has been administered for DVT prophylaxis along with the assistance of sequential compression devices. We will continue to monitor the patient's progress with physical therapy. Anticipate plan for discharge on 07/04/2021. Patient will be likely discharged home with home health assistance. Quality VTE Deep Vein Thrombosis/Pulmonary Embolism Present on Admission: No
--- NOTE | 2021-07-02 11:23 | PT.IPTN ---
Current Diagnoses Unilateral primary osteoarthritis, left hip (07/01/21) Surgery Performed Operation Date: 06/30/21 10:45 Actual Procedures p Total Hip Arthroplasty/Anterior Approach(Left) - Broderick High MD Physical Therapy Treatment Note M2 PT-IP Current Condition Start: 07/01/21 09:43 Freq: NEEDED Status: Active Protocol: Document 07/01/21 09:43 [facility] (Rec: 07/01/21 09:50 [facility] [id number]) Physical Therapy Current Condition Current Condition Evaluation Date 07/01/21 Treatment Diagnosis L ant ISABEL Onset Date 06/30/21 Precautions Anterior Hip Precautions No Hip Extension,No Hip External Rotation Weight Bearing Status Weight Bearing Status Partial Weight Bearing Allowed Weight Bearing Amount (enter % 50% or #) (%) M3 PT-IP Subjective Start: 07/01/21 09:43 Freq: NEEDED Status: Active Protocol: Document 07/02/21 10:51 [facility] (Rec: 07/02/21 14:10 [facility] [id number]) Subjective Physical Therapy Visit Type Type Treatment Note Visit Start Time 10:51 Visit Stop Time 11:23 Total Visit Minutes 32 Number of RIM ROLLER SETTER Visits 2 Physical Therapy Visit Comments Patient Comments Pt willing to work with therapy. Therapy Pain Assessment Pain When Pain Assessed At Rest Pain Present Pain Present Pain Reported Location Left Hip Intensity 3 Scale Used Numeric (0 - 10) Pain Management Techniques Apply Cold,Modification of Treatment,Re-positioning, Timing of Activity with Medications M4 PT-IP Mobility and Gait Start: 07/01/21 09:43 Freq: NEEDED Status: Active Protocol: Document 07/02/21 10:51 [facility] (Rec: 07/02/21 14:10 [facility] [id number]) PT-Transfer Assessment Sit to and From Stand Sit to and from Stand Standby Assistance,1 Person Assistance,Use of Upper Extremities Equipment Transfer Assistive Device Gait Belt,Front Wheeled Walker Orthotic/Prosthetic Devices or Brace: No Comments Mobility Comments Pt stood from chair SBA and ambulated in room ~60ft w/FWW/ SBA while pt spoke mantra of proper sequencing to help her remember to use only 50% WB on LLE. Pt then sat in chair performing ther ex. Gait Assessment Gait Gait Assistance Required: Standby Assistance,1 Person Assist Distance (Feet) 60 Able to Maintain Weight Bearing Status Yes During Gait Assistive Devices Assistive Device Gait Belt,Front Wheeled Walker Gait Deviations General Gait Pattern Antalgic,Decreased Stride Length,Flexed Trunk,Step-to Gait Factors Limiting Gait Function Factors Limiting Gait Function Decreased Activity Tolerance, Decreased Strength PT-Balance Assessment Sitting Balance and Reactions Static Sitting Balance Ability Good Dynamic Sitting Balance Ability Good Standing Balance and Reactions Static Standing Balance Ability Fair Dynamic Standing Balance Ability Fair Device Used FWW M5 PT-IP Objective Assessments Start: 07/01/21 09:43 Freq: NEEDED Status: Active Protocol: Document 07/01/21 09:43 [facility] (Rec: 07/01/21 09:50 [facility] [id number]) Orientation Orientation/Cognition Level of Alertness Alert Safety Awareness Understands Safety Issues Memory Description No Deficits Noted Gross Range of Motion Lower Extremity ROM Assessment Left Impaired Strength Lower Extremity Strength Assessment Left Impaired M6 PT-IP Treatment Start: 07/01/21 09:43 Freq: NEEDED Status: Active Protocol: Document 07/02/21 10:51 [facility] (Rec: 07/02/21 14:10 [facility] [id number]) Physical Therapy Treatment Exercises Exercises Ankle Pumps,Gluteal Sets,Quad Sets Education Education Provided Precautions,Weight Bearing Status,Post-Op Packet,Safety M7 PT-IP Assessment and Plan Start: 07/01/21 09:43 Freq: NEEDED Status: Active Protocol: Document 07/02/21 10:51 [facility] (Rec: 07/02/21 14:10 [facility] [id number]) PT Summary Assessment and Plan Potential Rehabilitation Potential Good Status of Condition at Evaluation Evolving Summary Impairments Pain,ROM,Strength,Balance,Bed Mobility,Transfers,Gait, Activity Tolerance Progress Towards Goals Progressing Toward Goals Assessment Summary Pt recalls ant hip precautions and improving with 50% WB during gait during gait. Pt increased gait distance to ~ 60ft w/FWW/SBA. Pt to d/c home alone as pt refusing SNF due to [id number]-[id number] expense and would benefit from PT, OT upon d/c. Goals Bed Mobility Goal Independent Transfer Goal Independent Gait Goal Independent Gait Distance 150ft Other Goals up/down 1 step w/o rail SBA Days to Meet Goals 4 Frequency of Treatment Frequency Of Treatment Twice a Day Treatment Plan Physical Therapy Treatment Plan Bed Mobility Training,Transfer Training,Gait Training, Therapeutic Exercise,Balance Retraining,Post Op Education, Discharge Planning, Neuromuscular Re-ed Other Recommendations and Next Treatment stair training, gait, ther ex Focus and bed mobility Precautions Anterior Hip Precautions No Hip Extension,No Hip External Rotation Recommendations To Nursing Amount of Assist Needed 1 Person Assist Discharge Recommendations PT Discharge Recommendations Home with Assistance,SNF Rehab Transportation Needs at Discharge Private Vehicle
[2021-07-02 11:39] VITALS: BP 116/64; PULSE 91; RESP 16; TEMP 36.7; O2SAT 97
--- NOTE | 2021-07-02 15:11 | PT.IPTN ---
Current Diagnoses Unilateral primary osteoarthritis, left hip (07/01/21) Surgery Performed Operation Date: 06/30/21 10:45 Actual Procedures p Total Hip Arthroplasty/Anterior Approach(Left) - Broderick High MD Physical Therapy Treatment Note M2 PT-IP Current Condition Start: 07/01/21 09:43 Freq: NEEDED Status: Active Protocol: Document 07/01/21 09:43 [facility] (Rec: 07/01/21 09:50 [facility] [id number]) Physical Therapy Current Condition Current Condition Evaluation Date 07/01/21 Treatment Diagnosis L ant ISABEL Onset Date 06/30/21 Precautions Anterior Hip Precautions No Hip Extension,No Hip External Rotation Weight Bearing Status Weight Bearing Status Partial Weight Bearing Allowed Weight Bearing Amount (enter % 50% or #) (%) M3 PT-IP Subjective Start: 07/01/21 09:43 Freq: NEEDED Status: Active Protocol: Document 07/02/21 14:48 [facility] (Rec: 07/02/21 16:34 [facility] [id number]) Subjective Physical Therapy Visit Type Type Treatment Note Visit Start Time 14:48 Visit Stop Time 15:11 Total Visit Minutes 23 Number of BLACK PULLER Visits 3 Physical Therapy Visit Comments Patient Comments Pt willing to work with therapy. Therapy Pain Assessment Pain When Pain Assessed At Rest Pain Present Pain Present Pain Reported M4 PT-IP Mobility and Gait Start: 07/01/21 09:43 Freq: NEEDED Status: Active Protocol: Document 07/02/21 14:48 [facility] (Rec: 07/02/21 16:34 [facility] [id number]) PT-Transfer Assessment Sit to and From Stand Sit to and from Stand Standby Assistance,1 Person Assistance,Use of Upper Extremities Equipment Transfer Assistive Device Gait Belt,Front Wheeled Walker Orthotic/Prosthetic Devices or Brace: No Comments Mobility Comments Pt in BR upon arrival. Pt ambulate to sink washing hands SBA. Pt climbed on platform step with FWW/Mod A with difficulty with 50% WB on LLE. Pt called neighbor and will have ramp built to get into home. Pt then ambulated ~60ft w/FWW/SBA with good ability to ambulate with 50% WB. Pt then sat in chair performing AP, QS,GS. Pt left in chair with all needs within reach. Gait Assessment Gait Gait Assistance Required: Standby Assistance,1 Person Assist Distance (Feet) 60 Able to Maintain Weight Bearing Status Yes During Gait Assistive Devices Assistive Device Gait Belt,Front Wheeled Walker Gait Deviations General Gait Pattern Antalgic,Decreased Stride Length,Flexed Trunk,Step-to Gait Factors Limiting Gait Function Factors Limiting Gait Function Decreased Activity Tolerance, Decreased Strength Stair Climbing Assessment Evaluation Level of Assist On Stairs Moderate Assistance,1 Person Assistance Devices Stair Climbing Assistive Devices Front Wheel Walker Technique/Endurance Stair Climbing Direction Ascend and Descend Stair Climbing Technique Step to Step Number of Steps Climbed 1 Stair Climbing Set # Repetitions (reps) 1 M5 PT-IP Objective Assessments Start: 07/01/21 09:43 Freq: NEEDED Status: Active Protocol: Document 07/01/21 09:43 LR (Rec: 07/01/21 09:50 [facility] [id number]) Orientation Orientation/Cognition Level of Alertness Alert Safety Awareness Understands Safety Issues Memory Description No Deficits Noted Gross Range of Motion Lower Extremity ROM Assessment Left Impaired Strength Lower Extremity Strength Assessment Left Impaired M6 PT-IP Treatment Start: 07/01/21 09:43 Freq: NEEDED Status: Active Protocol: Document 07/02/21 14:48 [facility] (Rec: 07/02/21 16:34 [facility] [id number]) Physical Therapy Treatment Exercises Exercises Ankle Pumps,Gluteal Sets,Quad Sets Education Education Provided Precautions,Weight Bearing Status,Safety M7 PT-IP Assessment and Plan Start: 07/01/21 09:43 Freq: NEEDED Status: Active Protocol: Document 07/02/21 14:48 [facility] (Rec: 07/02/21 16:34 [facility] [id number]) PT Summary Assessment and Plan Potential Rehabilitation Potential Good Status of Condition at Evaluation Evolving Summary Impairments Pain,ROM,Strength,Balance,Bed Mobility,Transfers,Gait, Activity Tolerance Progress Towards Goals Progressing Toward Goals Assessment Summary Pt requiring Mod A with stair and will have ramp placed on home before d/c home. Pt improving with ability to ambulate with 50% WB on LLE. Pt lives alone and will required HH at d/c. Goals Bed Mobility Goal Independent Transfer Goal Independent Gait Goal Independent Gait Distance 150ft Other Goals up/down 1 step w/o rail SBA Days to Meet Goals 4 Frequency of Treatment Frequency Of Treatment Twice a Day Treatment Plan Physical Therapy Treatment Plan Bed Mobility Training,Transfer Training,Gait Training, Therapeutic Exercise,Balance Retraining,Post Op Education, Discharge Planning, Neuromuscular Re-ed Other Recommendations and Next Treatment gait, bed mobility, ther ex. Focus Precautions Anterior Hip Precautions No Hip Extension,No Hip External Rotation Recommendations To Nursing Amount of Assist Needed 1 Person Assist Discharge Recommendations PT Discharge Recommendations Home with Assistance,Home Health Transportation Needs at Discharge Private Vehicle
[2021-07-02 15:45] VITALS: BP 100/68; PULSE 86; RESP 18; TEMP 37.1; O2SAT 99
--- NOTE | 2021-07-02 17:11 | CM.DPC ---
DCP: continued. Have worked through day on helping pt put together a home plan that will work for her since she has no snf access. Have conferenced her room earlier today with MARISSA Rivers and HIRO Hines with decision that pt will stay on with a goal of d/c to home setting on Monday. Have now had a lenghty meeting with pt and her friend Karey, who is a retired [employer] working for years in the snf setting. She will be helping pt as much as she can when she is home and has obtained a w/c so as to get pt into her house. She also has a FWW from [facility] that she is hopeful will fit in the doorways of pt's very small home. Plan at this time is for [facility] to go out. Olivia/Jesse is faxed info. Says she is hopeful for a Monday open to service with RN/OT/PT. Their OT will assist also with the bathing. Did leave a message for Meals on Wheels re pt's need, name and contact info. Pt is given the # and will call on Monday to try to get this set up. Both express concerns about the 50% WB as pt as has been cautioned by the surgeon that her bones are very soft and she must keep to this as well as the standard hip precautions. Face/Face is not yet completed as time is not allowing this today. HH specific orders will be needed. DCP team on over the weekend to follow closely for prn assist and advocacy. P: home, Monday, as per above.
[2021-07-02 19:40] VITALS: BP 104/75; PULSE 79; RESP 17; TEMP 36.6; O2SAT 97
[2021-07-03 00:04] VITALS: BP 127/61; PULSE 84; RESP 18; TEMP 36.6; O2SAT 97
[2021-07-03] MEDS: IBUPROFEN 400 MG TABLET PO ×4 (01:05→12:38)
[2021-07-03 05:03] VITALS: BP 131/76; PULSE 72; RESP 20; TEMP 36.3; O2SAT 97
[2021-07-03] MEDS: LEVOTHYROXINE 25 MCG TABLET PO (06:13)
--- NOTE | 2021-07-03 06:38 | PM.PNPO.1 ---
Subjective Subjective Date Patient Seen: 07/03/21 Time Patient Seen: 06:38 Interval history: Pain is mild. Denies fever or chills. No nausea or vomiting. Patient does live alone. She has 1 step into her house. Patient states she may have some friends at will be able to check on her during the day. Exam Vital Signs (past 8 hours): - 07/03/21 00:04 07/03/21 05:03 Temperature 97.9 F 97.3 F L Pulse Rate 84 72 Respiratory Rate 18 20 Blood Pressure 127/61 131/76 Pulse Oximetry 97 97 Oxygen Delivery Method Room Air Oxygen Flow Rate 0 Narrative Exam Narrative: 71-year-old female resting comfortably in bed in no apparent distress. Motor functions intact bilateral lower extremities. Sensation grossly intact to light touch bilateral lower extremities. Left hip dressing is Clean, dry, intact.. Objective Labs Result Diagrams: 07/02/21 06:21 Labs: Laboratory Results - last 24 hr 07/02/21 06:21 Hgb 8.5 L Hct 25.3 L PFSH Medical History Bulimia (~1987) Chicken pox (~1957) Constant pain Depression (~2003) Foot fracture (~1996) Hypothyroidism (~2010) Irregular menstrual cycle Measles (~1956) Mumps (~1956) Obesity Osteoarthritis Surgical History History of arthroplasty of right hip (01/01/20) History of cataract removal with insertion of prosthetic lens (~2006) History of cataract removal with insertion of prosthetic lens (~2011) Status post colonoscopy (~2013) Family History Grandfather Cancer Grandmother Diabetes mellitus Brother No problems noted. Father No problems noted. Mother No problems noted. Grandmother No problems noted. Social History household members: none Smoking Status: Never smoker alcohol intake: current Assessment & Plan Post-op Postoperative Procedures: Procedures Operation Date: 06/30/21 10:45 Actual Procedure Side Surgeon p Total Hip Arthroplasty/Anterior Approach Left Broderick High MD Postoperative day: 3 Postoperative status: doing well Postoperative status narrative: Stable Postoperative plan narrative: Partial weight-bearing left lower extremity, 50% with front wheel walker, Aspirin 81 mg b.i.d. for 6 weeks Mobilize with physical therapy Disposition home today or tomorrow after physical therapy and determine safe for home environment Quality VTE Deep Vein Thrombosis/Pulmonary Embolism Present on Admission: No
[2021-07-03] MEDS: ACETAMINOPHEN 325 MG TABLET 650 MG PO ×2 (08:30→14:55)
[2021-07-03] MEDS: DOCUSATE 100 MG CAPSULE PO (08:30)
[2021-07-03] MEDS: SODIUM CHLORIDE 0.9% FLUSH 10 ML IV (08:31)
[2021-07-03] MEDS: ASPIRIN EC 81 MG TABLET PO (08:34)
[2021-07-03 09:10] VITALS: BP 124/76; PULSE 75; RESP 16; TEMP 36.4; O2SAT 98
--- NOTE | 2021-07-03 10:22 | PT.IPTN ---
Current Diagnoses Unilateral primary osteoarthritis, left hip (07/01/21) Surgery Performed Operation Date: 06/30/21 10:45 Actual Procedures p Total Hip Arthroplasty/Anterior Approach(Left) - Broderick High MD Physical Therapy Treatment Note M2 PT-IP Current Condition Start: 07/01/21 09:43 Freq: NEEDED Status: Active Protocol: Document 07/01/21 09:43 [facility] (Rec: 07/01/21 09:50 [facility] [id number]) Physical Therapy Current Condition Current Condition Evaluation Date 07/01/21 Treatment Diagnosis L ant ISABEL Onset Date 06/30/21 Precautions Anterior Hip Precautions No Hip Extension,No Hip External Rotation Weight Bearing Status Weight Bearing Status Partial Weight Bearing Allowed Weight Bearing Amount (enter % 50% or #) (%) M3 PT-IP Subjective Start: 07/01/21 09:43 Freq: NEEDED Status: Active Protocol: Document 07/03/21 09:58 [facility]B (Rec: 07/03/21 12:43 [facility]B [id number]) Subjective Physical Therapy Visit Type Type Treatment Note Visit Start Time 09:58 Visit Stop Time 10:22 Total Visit Minutes 24 Number of BEE BREEDER Visits 4 Physical Therapy Visit Comments Patient Comments Pt willing to work with therapy. Therapy Pain Assessment Pain When Pain Assessed At Rest Pain Present Pain Present Pain Reported M4 PT-IP Mobility and Gait Start: 07/01/21 09:43 Freq: NEEDED Status: Active Protocol: Document 07/03/21 09:58 [facility] (Rec: 07/03/21 12:43 CLB [id number]) PT-Transfer Assessment Sit to and From Stand Sit to and from Stand Standby Assistance,1 Person Assistance,Use of Upper Extremities Equipment Transfer Assistive Device Gait Belt,Front Wheeled Walker Orthotic/Prosthetic Devices or Brace: No Comments Mobility Comments Pt stood from chair ambulating in wilson ~75ft w/FWW/SBA and good demonstration of WB precaution of 50%. Pt sat in chair and performed ther ex. Pt left in room with OT and CM in room. Gait Assessment Gait Gait Assistance Required: Standby Assistance,1 Person Assist Distance (Feet) 75 Able to Maintain Weight Bearing Status Yes During Gait Assistive Devices Assistive Device Gait Belt,Front Wheeled Walker Gait Deviations General Gait Pattern Antalgic,Decreased Stride Length,Flexed Trunk,Step-to Gait Factors Limiting Gait Function Factors Limiting Gait Function Decreased Activity Tolerance, Decreased Strength Comments Gait Comments Pt uses step to gait pattern and demonstrates good awareness of WB of 50%. Pt's UE's fatigues after gait. Stair Climbing Assessment Comments Stair Climbing Comments ramp now in place at home. M5 PT-IP Objective Assessments Start: 07/01/21 09:43 Freq: NEEDED Status: Active Protocol: Document 07/01/21 09:43 [facility] (Rec: 07/01/21 09:50 LR [id number]) Orientation Orientation/Cognition Level of Alertness Alert Safety Awareness Understands Safety Issues Memory Description No Deficits Noted Gross Range of Motion Lower Extremity ROM Assessment Left Impaired Strength Lower Extremity Strength Assessment Left Impaired M6 PT-IP Treatment Start: 07/01/21 09:43 Freq: NEEDED Status: Active Protocol: Document 07/03/21 09:58 CLB (Rec: 07/03/21 12:43 CLB [id number]) Physical Therapy Treatment Exercises Exercises Ankle Pumps,Gluteal Sets,Quad Sets Education Education Provided Precautions,Weight Bearing Status,Safety M7 PT-IP Assessment and Plan Start: 07/01/21 09:43 Freq: NEEDED Status: Active Protocol: Document 07/03/21 09:58 CLB (Rec: 07/03/21 12:43 CLB [id number]) PT Summary Assessment and Plan Potential Rehabilitation Potential Good Status of Condition at Evaluation Evolving Summary Impairments Pain,ROM,Strength,Balance,Bed Mobility,Transfers,Gait, Activity Tolerance Progress Towards Goals Progressing Toward Goals Assessment Summary Pt has good awareness and demonstration of WB of 50% with ambulation. Pt had ramp built and will not have to climb stairs to get into house . Pt also stated friend with get a WC to get pt into home. Goals Bed Mobility Goal Independent Transfer Goal Independent Gait Goal Independent Gait Distance 150ft Other Goals up/down 1 step w/o rail SBA Days to Meet Goals 4 Frequency of Treatment Frequency Of Treatment Twice a Day Treatment Plan Physical Therapy Treatment Plan Bed Mobility Training,Transfer Training,Gait Training, Therapeutic Exercise,Balance Retraining,Post Op Education, Discharge Planning, Neuromuscular Re-ed Precautions Anterior Hip Precautions No Hip Extension,No Hip External Rotation Recommendations To Nursing Amount of Assist Needed 1 Person Assist Discharge Recommendations PT Discharge Recommendations Home with Assistance,Home Health Transportation Needs at Discharge Private Vehicle
--- NOTE | 2021-07-03 10:45 | OT.IP.TRT ---
Current Diagnoses Unilateral primary osteoarthritis, left hip (07/01/21) Surgery Performed Operation Date: 06/30/21 10:45 Actual Procedures p Total Hip Arthroplasty/Anterior Approach(Left) - Broderick High MD Occupational Therapy Treatment Note M2 OT-IP Current Condition Start: 07/01/21 16:58 Freq: Status: Active Protocol: Document 07/01/21 11:19 [facility] (Rec: 07/01/21 17:13 [facility] [id number]) Occupational Therapy Current Condition Current Condition Evaluation Date 07/01/21 Treatment Diagnosis S/p L ISABEL Diagnosis Onset Date 06/30/21 Post Operative Precautions Anterior Hip Precautions No Hip Extension,No Hip External Rotation Weight Bearing Status Weight Bearing Status Partial Weight Bearing Allowed Weight Bearing Amount (enter % 50% wt bearing for LLE or #) (%) M3 OT- IP Subjective and Pain Start: 07/01/21 16:58 Freq: Status: Active Protocol: Document 07/03/21 10:38 [facility] (Rec: 07/03/21 10:45 [facility] [id number]) OT- Subjective Occupational Therapy Visit Type Type Treatment Note Visit Start Time 10:30 Visit Stop Time 10:39 Total Visit Minutes 9 Occupational Therapy Visit Comments Patient Comments Pt wanting to talk to OT regarding OT needs at home. Patient/Caregiver Goals Pt feeling more confident about going home now. OT Pain Assessment Pain When Pain Assessed At Rest Pain Present Pain Present Denied Pain M8 OT- IP Objective Assessments Start: 07/01/21 16:58 Freq: Status: Active Protocol: Document 07/01/21 17:05 [facility] (Rec: 07/01/21 17:13 [facility] [id number]) OT Gross Range of Motion Upper Extremity Range of Motion Assessment Within Functional Limits OT Strength Upper Extremity Strength Assessment Within Functional Limits M9 OT- IP Assessment and Plan Start: 07/01/21 16:58 Freq: Status: Active Protocol: Document 07/03/21 10:38 [facility] (Rec: 07/03/21 10:45 [facility] [id number]) OT Summary Assessment and Plan Potential Rehabilitation Potential Excellent Analytic Complexity at Evaluation Low Summary OT Impairments Pain,Balance,Functional Mobility,Dressing,Toileting, Bathing,Toilet Transfers, Shower Transfers Progress Towards Goals Progressing Toward Goals Assessment Summary Pt states now has a ramp to help to get into the house, a wc, tray for FWW, and sock aid . Pt still not wanting a BSC and feels that she will be okay without and be able to get to and from the toilet at needed. Pt states friend to order picker/assembler some briefs for her. Spoke at length of getting assist for IADL needs. Pt also can sit in the wc to do her needs. In addition to have items out and readily in reach for her to use. Pt to go home with assist and home health. Goals Grooming Goal Independent Dressing Goal Independent Toileting Goal Independent Bathing Goal Independent Toilet Transfer Goal Independent Shower Transfer Goal Independent Days to Meet Goals 7 Frequency of Treatment Frequency Of Treatment Once a Day Treatment Plan OT Treatment Plan ADL Training,Functional Mobility,Patient/Family Education,Discharge Planning Discharge Recommendations OT Discharge Recommendations Home with Assistance,Home Health Transportation Needs at Discharge Private Vehicle
[2021-07-03 11:39] VITALS: BP 120/71; PULSE 73; RESP 16; TEMP 36.6; O2SAT 98
--- NOTE | 2021-07-03 12:28 | CM.DPC ---
Addendum entered by Marine Milian R.N. 07/03/21 16:08: Contacted Olivia at [facility], who thought, she was going home Monday. Let her know that she is discharging this pm. Went ahead and completed face to face and orders, and faxed with today's progress note, pending DC Summary to be completed. Updated pm shift nurse. Addendum entered by Marine Milian R.N. 07/03/21 15:48: Patient indicated, she wants to go home, somebody has to pay the bill. Have explained to her that the hospital accrues the cost, but she is concerned. Called HIRO Michaels, and he will discharge patient home today. Will contact [facility], and send DC Summary when completed. Addendum entered by Marine Milian R.N. 07/03/21 14:46: Reassured patient that she would not get a bill, just that the hospital does not get paid after 48 hours. She will still contact her friend to see if she can go today. If she can, will need to contact PA on duty for ortho. Addendum entered by Marine Milian R.N. 07/03/21 14:30: Patient will continue to be OBS, as she is medically stable. Spoke to patient again, and let her know that today may not be covered by Medicare, since it is over 48 hours. She stated, she may be able to see if her friend can arrange to pick her up today, but she's not sure. Let her know to think about it, if she feels that she needs another day, need to ensure that she will be ready for tomorrow. Original Note: DCP Cont: Discussed patient with UR. Stated, if she does make inpatient status, she would need to be her for another 3 [address] Mariah at [facility] was expecting patient, and was willing to accept, as long as she met inpatient criteria. Had contacted Lila at [facility] to see if they could accept today if she made inpatient status, but as mentioned, she would need to be here for 3 midnights. Plan at this time is home with the assist of friend. Met with patient. She is pleasant, alert and oriented. She was sitting up in her chair. She is onboard for discharge tomorrow, but does not think she will have everything ready for today. ROMIE Bowden had already set patient up with [facility], and patient has brochure in her room, and resources for Meals on Wheels. Aleida is continuing to work with her, and in agreement of home plan. P: Patient should discharge home tomorrow with [facility] and friend, Karey, to assist her. Marine Milian RN/Java Sybase Developer
--- NOTE | 2021-07-03 15:40 | PT-IP ANOTE ---
Pt to d/c this afternoon after being informed that today's hospital stay is not being covered by her insurance. Pt states she has no other needs and would like to arrange a d/c plan with friend.
--- NOTE | 2021-07-03 16:01 | PM.DS.1 ---
History of Present Illness History of Present Illness Date Patient Seen: 07/03/21 Chief complaint: left hip pain Narrative: see progress note Discharge Providers Provider Date of admission: 07/01/21 11:37 Discharge Date: 07/03/21 Primary care physician: JAYDEN Fields Consults: 06/30/21 08:46 Consult to Anesthesiology Routine Comment: Consulting Provider: Anesthesiologist Reason for consultation: Regional block for post operative pain control 06/30/21 14:46 Consult to Discharge Planning Routine Comment: Consult to Physical Therapy Evaluate & Treat Comment: Physician Instructions: post op ISABEL protocol Consult to Respiratory Therapy Evaluate & Treat Comment: Physician Instructions: Evaluate and treat 07/01/21 11:08 Consult to Occupational Therapy Evaluate & Treat Comment: Physician Instructions: Evaluate and treat 07/03/21 15:58 Consult to Home Health Routine Comment: Reason For Exam: Home Health RN, P.T, O.T. Discharge provider: Tenzin Walker PA-C Summary Hospital Course Discharge Diagnosis: left hip OA Hospital Course: Left anterior total hip arthroplasty Same procedure as scheduled: Yes Indications: Left hip osteoarthritis resistant to further conservative measures Surgeon: Broderick High Vein Access Technician: Amna Vallejo Anesthesia Type: General and Spinal Operative Notes Findings: Severe DJD of the left hip with femoral head collapse large osteophytes and subchondral sclerosis Closure Type: primary Specimen(s): none sent Prosthetic devices, grafts, tissues, transplants, or devices: Denny and nephew 52 mm R3 three-hole cup 2x 25mm screws 52 mm x 36 mm neutral offset polyethylene liner Size 7 standard offset anthology stem 36 +4 delta Biolox ceramic head 1x 200 mm Accord cable Estimated Blood Loss (mL): 500 Patient progressing as expected. Discharge home in stable condition. Exam Vital Signs (past 8 hours): - 07/03/21 09:10 07/03/21 11:39 Temperature 97.6 F 98 F Pulse Rate 75 73 Respiratory Rate 16 16 Blood Pressure 124/76 120/71 Pulse Oximetry 98 98 Oxygen Delivery Method Room Air Oxygen Flow Rate 0 Narrative Exam Narrative: see progress note Objective Labs Result Diagrams: 07/02/21 06:21 [facility] Medical History Bulimia (~1987) Chicken pox (~1957) Constant pain Depression (~2003) Foot fracture (~1996) Hypothyroidism (~2010) Irregular menstrual cycle Measles (~1956) Mumps (~1956) Obesity Osteoarthritis Surgical History History of arthroplasty of right hip (01/01/20) History of cataract removal with insertion of prosthetic lens (~2006) History of cataract removal with insertion of prosthetic lens (~2011) Status post colonoscopy (~2013) Family History Grandfather Cancer Grandmother Diabetes mellitus Brother No problems noted. Father No problems noted. Mother No problems noted. Grandmother No problems noted. Social History household members: none Smoking Status: Never smoker alcohol intake: current Discharge Assessment & Plan Assessment and Plan Plan of Treatment: Discharge home in stable condition. Discharge Plan Discharge Plan Patient Disposition: Home Discharge orders & Medications Prescriptions: New acetaminophen 325 mg Tablet 650 mg PO TID Qty: 60 RF: 0 polyethylene glycol 3350 17 gram Powder In Packet 17 gm PO DAILY PRN (Reason: Constipation) Qty: 10 RF: 0 aspirin 81 mg Tablet,Delayed Release (Dr/Ec) 81 mg PO BID Qty: 60 RF: 0 ibuprofen 400 mg Tablet 400 mg PO Q4HR Qty: 60 RF: 0 oxycodone 5 mg Tablet 5 mg PO Q3HR PRN (Reason: Pain, Moderate (4-6)) Qty: 40 RF: 0 Continued levothyroxine 25 mcg Tablet 25 mcg PO DAILY RF: 0 Discontinued acetaminophen 325 mg Tablet 650 mg PO Q4HR PRN (Reason: Pain, Mild (1-3)) Qty: 60 RF: 0 Follow up/Referrals: Broderick High MD [Physician] - (2 weeks) Rosenda Mccallum ARNP [Primary Care Provider] - Diet/Activity/Treatments Diet: Diet as Tolerated Activity: WBAT Cold/Heat Therapy: Ice hip as needed Skin/Wound/Dressing Care Report to your healthcare provider any signs of infection, such as:: chills, fever, increased pain, unusual drainage and unusual redness Dressing: Keep dressing clean and dry Visit Report/Discharge Packet Instructions: DI for Hip Replacement, DI for Prescription Opioid Use Stand Alone Forms: Surgery Discharge Discharge Data Primary Care Provider: Rosenda Mccallum Attending Provider: Broderick High VTE Deep Vein Thrombosis/Pulmonary Embolism Present on Admission: No
--- NOTE | 2021-07-03 16:07 | PM.DS.1 ---
History of Present Illness History of Present Illness Chief complaint: left hip pain Narrative: see progress note Discharge Providers Provider Date of admission: 07/01/21 11:37 Discharge Date: 07/03/21 Primary care physician: JAYDEN Fields Consults: 06/30/21 08:46 Consult to Anesthesiology Routine Comment: Consulting Provider: Anesthesiologist Reason for consultation: Regional block for post operative pain control 06/30/21 14:46 Consult to Discharge Planning Routine Comment: Consult to Physical Therapy Evaluate & Treat Comment: Physician Instructions: post op ISABEL protocol Consult to Respiratory Therapy Evaluate & Treat Comment: Physician Instructions: Evaluate and treat 07/01/21 11:08 Consult to Occupational Therapy Evaluate & Treat Comment: Physician Instructions: Evaluate and treat 07/03/21 15:58 Consult to Home Health Routine Comment: Reason For Exam: Home Health RN, P.T, O.T. Discharge provider: Tenzin Walker PA-C Exam Vital Signs (past 8 hours): - 07/03/21 09:10 07/03/21 11:39 Temperature 97.6 F 98 F Pulse Rate 75 73 Respiratory Rate 16 16 Blood Pressure 124/76 120/71 Pulse Oximetry 98 98 Oxygen Delivery Method Room Air Oxygen Flow Rate 0 Objective Labs Result Diagrams: 07/02/21 06:21 [facility] Medical History Bulimia (~1987) Chicken pox (~1957) Constant pain Depression (~2003) Foot fracture (~1996) Hypothyroidism (~2010) Irregular menstrual cycle Measles (~1956) Mumps (~1956) Obesity Osteoarthritis Surgical History History of arthroplasty of right hip (01/01/20) History of cataract removal with insertion of prosthetic lens (~2006) History of cataract removal with insertion of prosthetic lens (~2011) Status post colonoscopy (~2013) Family History Grandfather Cancer Grandmother Diabetes mellitus Brother No problems noted. Father No problems noted. Mother No problems noted. Grandmother No problems noted. Social History household members: none Smoking Status: Never smoker alcohol intake: current Discharge Assessment & Plan Assessment and Plan Plan of Treatment: Discharge home in stable condition. Partial weight bearing LLE (50% with FWW), ASA 81mg BID for 6 weeks Discharge Plan Discharge Plan Patient Disposition: Home Discharge orders & Medications Prescriptions: New acetaminophen 325 mg Tablet 650 mg PO TID Qty: 60 RF: 0 polyethylene glycol 3350 17 gram Powder In Packet 17 gm PO DAILY PRN (Reason: Constipation) Qty: 10 RF: 0 aspirin 81 mg Tablet,Delayed Release (Dr/Ec) 81 mg PO BID Qty: 60 RF: 0 ibuprofen 400 mg Tablet 400 mg PO Q4HR Qty: 60 RF: 0 oxycodone 5 mg Tablet 5 mg PO Q3HR PRN (Reason: Pain, Moderate (4-6)) Qty: 40 RF: 0 Continued levothyroxine 25 mcg Tablet 25 mcg PO DAILY RF: 0 Discontinued acetaminophen 325 mg Tablet 650 mg PO Q4HR PRN (Reason: Pain, Mild (1-3)) Qty: 60 RF: 0 Follow up/Referrals: Broderick High MD [Physician] - (2 weeks) Rosenda Mccallum ARNP [Primary Care Provider] - Diet/Activity/Treatments Diet: Diet as Tolerated Activity: Partial weight bearing LLE (50% with FWW) Cold/Heat Therapy: Ice hip as needed Skin/Wound/Dressing Care Report to your healthcare provider any signs of infection, such as:: chills, fever, increased pain, unusual drainage and unusual redness Dressing: Keep dressing clean and dry Visit Report/Discharge Packet Instructions: DI for Hip Replacement, DI for Prescription Opioid Use Stand Alone Forms: Surgery Discharge Discharge Data Primary Care Provider: Rosenda Mccallum Attending Provider: Broderick High Quality VTE Deep Vein Thrombosis/Pulmonary Embolism Present on Admission: No
== END 2021-07-03 17:30 | disposition home health service (06) ==
LOC: OR 07-02 13:26 → AC 07-02 13:26
PROVIDERS: Physician Assistant; Admitting Provider Orthopaedic Surgery Adult Reconstructive Orthopaedic Surgery; PCP Internal Medicine; Referring Provider Orthopaedic Surgery Adult Reconstructive Orthopaedic Surgery; Visit Provider Orthopaedic Surgery Adult Reconstructive Orthopaedic Surgery
PROC: (CPT 27130; principal; 2021-06-30 10:45)
DX: M16.12 Unilateral primary osteoarthritis, left hip (principal); M25.752 Osteophyte, left hip; E03.9 Hypothyroidism, unspecified; E66.9 Obesity, unspecified; Z68.27 Body mass index [BMI] 27.0-27.9, adult
CPT/HCPCS: 27130; 36415; 72170; 76000; 85014; 85018; 97110; 97116; 97162; 97165; 97530; 97535; C1776; G0378; J0171; J0690; J1170; J1885; J2250; J2270; J2704; J3010

== ENCOUNTER → 2022-04-18 15:07 | Outpatient (CLI) | payer MEDICARE, SELFPAY ==
[2021-06-30 11:45] VITALS: BMI 27.9
--- NOTE | 2022-04-18 15:15 | DI.RAD.S_ITS ---
PROCEDURE: XR HIP W PEL IF DONE RT 2V INDICATIONS: HIP PAIN TECHNIQUE: AP pelvis and lateral view of the right hip acquired. COMPARISON: None. FINDINGS: Bones: Patient is status post bilateral hip arthroplasties, with hardware components in expected positions. The hip joint appears congruent. The visualized bony structures appear intact. Soft tissues: Overlying postoperative changes are noted. No suspicious soft tissue densities. IMPRESSION: Expected postsurgical change for hip arthroplasties. Dictated by: Asiya Leonard MD, PhD on 04/18/2022 at 16:34 Approved by: Asiya Leonard MD, PhD on 04/18/2022 at 16:35
== END ==
PROVIDERS: PCP Internal Medicine; Referring Provider Internal Medicine; Visit Provider Internal Medicine
DX: M25.551 Pain in right hip (principal); Z96.643 Presence of artificial hip joint, bilateral
CPT/HCPCS: 73502

== ENCOUNTER → 2022-05-18 15:00 | Outpatient (CLI) | payer MEDICARE, SELFPAY ==
[2021-06-30 11:45] VITALS: BMI 27.9
--- NOTE | 2022-05-18 | DI.MG.S_ITS ---
BILATERAL DIGITAL SCREENING MAMMOGRAM 3D/2D WITH CAD: 05/18/2022 CLINICAL: Routine screening. Comparison is made to exams dated: 05/14/2021 mammogram, 06/26/2019 mammogram, and 06/22/2018 mammogram - [facility]. There are scattered fibroglandular elements in both breasts. Current study was also evaluated with a Computer Aided Detection (CAD) system. There are benign calcifications in the left breast. There also are benign vascular calcifications in both breasts. No significant masses, calcifications, or other findings are seen in either breast. There has been no significant interval change. IMPRESSION: BENIGN There is no mammographic evidence of malignancy. A 1 year screening mammogram is recommended. Based on the Tyrer Cuzick model (a risk assessment model) the patient's lifetime risk is 4.0% and her 10 year risk is 2.5%. According to the ACR, ACS, and NCCN guidelines, an annual breast MRI exam along with mammogram is recommended if the patient's lifetime risk is 20% or greater. This exam was interpreted at Station ID: [id number]. NOTE: For mammograms, a report in lay terms will be sent to the patient. Approximately 15% of breast malignancies will not be visualized mammographically. In the management of a palpable breast mass, a negative mammogram must not discourage biopsy of a clinically suspicious lesion. Electronically Signed By: Garcia [email or web address]:05/18/2022 15:32:55 letter sent: Normal Exam ACR BI-RADS Category 2: Benign Finding(s) 3342F
== END ==
PROVIDERS: PCP Internal Medicine; Referring Provider Internal Medicine; Visit Provider Internal Medicine
DX: Z12.31 Encounter for screening mammogram for malignant neoplasm of breast (principal)
CPT/HCPCS: 77063; 77067

== ENCOUNTER → 2023-01-04 14:07 | Outpatient (CLI) | payer MEDICARE, SELFPAY ==
[2021-06-30 11:45] VITALS: BMI 27.9
== END ==
PROVIDERS: PCP Internal Medicine; Referring Provider Internal Medicine; Visit Provider Internal Medicine
DX: Z78.0 Asymptomatic menopausal state (principal); Z13.820 Encounter for screening for osteoporosis
CPT/HCPCS: 77080; 77081

== ENCOUNTER → 2023-01-13 11:01 | Outpatient (CLI) | payer MEDICARE, SELFPAY ==
[2021-06-30 11:45] VITALS: BMI 27.9
--- NOTE | 2023-01-13 11:04 | DI.RAD.S_ITS ---
PROCEDURE: XR KNEE RT 3V INDICATIONS: pain in right knee TECHNIQUE: 3 views of the knee were acquired. COMPARISON: None. FINDINGS: Bones: No fractures or dislocations. No suspicious bony lesions. Tricompartmental joint space are with associated osteophytosis. Patellofemoral subchondral sclerosis . Soft tissues: Moderate joint effusion. No suspicious soft tissue calcifications. IMPRESSION: Moderate tricompartmental osteoarthritis. Dictated by: Alfred Moreno M.D. on 01/13/2023 at 14:14 Approved by: Alfred Moreno M.D. on 01/13/2023 at 14:16
== END ==
PROVIDERS: PCP Internal Medicine; Referring Provider Internal Medicine; Visit Provider Internal Medicine
DX: M25.561 Pain in right knee (principal); M17.11 Unilateral primary osteoarthritis, right knee
CPT/HCPCS: 73562

== ENCOUNTER → 2023-05-31 15:24 | Outpatient (CLI) | payer MEDICARE, SELFPAY ==
[2021-06-30 11:45] VITALS: BMI 27.9
--- NOTE | 2023-05-31 15:26 | DI.MG.S_ITS ---
BILATERAL DIGITAL SCREENING MAMMOGRAM 3D/2D WITH CAD: 05/31/2023 CLINICAL: Routine screening. Comparison is made to exams dated: 05/18/2022 mammogram, 05/14/2021 mammogram, and 06/26/2019 mammogram - [facility]. There are scattered areas of fibroglandular density in both breasts (category b / 25%-50% glandular tissue). Current study was also evaluated with a Computer Aided Detection (CAD) system. There are benign calcifications in the left breast. There also are benign vascular calcifications in both breasts. No significant masses, calcifications, or other findings are seen in either breast. There has been no significant interval change. IMPRESSION: BENIGN There is no mammographic evidence of malignancy. A 1 year screening mammogram is recommended. Based on the Tyrer Cuzick model (a risk assessment model) the patient's lifetime risk is 3.8% and her 10 year risk is 2.6%. According to the ACR, ACS, and NCCN guidelines, an annual breast MRI exam along with mammogram is recommended if the patient's lifetime risk is 20% or greater. This exam was interpreted at Station ID: [id number]. NOTE: For mammograms, a report in lay terms will be sent to the patient. Approximately 15% of breast malignancies will not be visualized mammographically. In the management of a palpable breast mass, a negative mammogram must not discourage biopsy of a clinically suspicious lesion. Electronically Signed By: Finesse mendez/angella:06/01/2023 08:44:35 letter sent: Normal Exam ACR BI-RADS Category 2: Benign Finding(s) [id number]
== END ==
PROVIDERS: Family Provider Internal Medicine; PCP Internal Medicine; Referring Provider Internal Medicine; Visit Provider Internal Medicine
DX: Z12.31 Encounter for screening mammogram for malignant neoplasm of breast (principal)
CPT/HCPCS: 77063; 77067

== ENCOUNTER 2023-06-05 16:45 | Outpatient (RCR) | payer MEDICARE, SELFPAY ==
[2021-06-30 11:45] VITALS: BMI 27.9
--- NOTE | 2023-02-13 18:15 | PT.OIE ---
Current Diagnoses Pain in right knee (02/13/23) Pain in left knee (02/13/23) Muscle weakness (generalized) (02/13/23) Pain in right thigh (02/13/23) Pain in left thigh (02/13/23) Difficulty in walking, not elsewhere classified (02/13/23) Abnormal posture (02/13/23) Past Medical History (Last Reviewed 07/03/21 @ 06:40 by Tenzin Walker PA-C) Bulimia (~1987) Chicken pox (~1957) Constant pain Depression (~2003) Foot fracture (~1996) Hypothyroidism (~2010) Irregular menstrual cycle Measles (~1956) Mumps (~1956) Obesity Osteoarthritis Past Surgical History (Last Reviewed 07/03/21 @ 06:40 by Tenzin Walker PA-C) History of arthroplasty of right hip (01/01/20) History of cataract removal with insertion of prosthetic lens (~2006) History of cataract removal with insertion of prosthetic lens (~2011) Status post colonoscopy (~2013) Visit Care Team Role Provider Type JAYDEN Fields Attending Provider Advanced Sewing Department Supervisor Family Provider Primary Care Provider Referring Provider Specialty: Family Practice Address: [address] [place] [address], [facility] Email: [email or web address] Physical Therapy Initial Evaluation PT-OP-A Visit Information Start: 02/13/23 08:02 Freq: Status: Active Protocol: Document 02/13/23 13:48 [facility] (Rec: 02/13/23 16:05 [facility] [id number]) Out-Patient Physical Therapy Visit Information Visit Information Visit Type Initial Evaluation Visit Note 11/15 Visit Start Time 15:25 Visit Stop Time 16:05 Total Visit Minutes 40 Visit Number 1 Number of PANEL EDGE SEALER Visits 0 PT-OP-B Current Condition Start: 02/13/23 08:02 Freq: Status: Active Protocol: Document 02/13/23 13:48 [facility] (Rec: 02/13/23 16:05 [facility] [id number]) Current Condition History of Current Condition Onset Date years Current Complaints B knee and thigh pain History of Current Condition Pt reports her knees have been giving her trouble for years but it is worse now where it feels like she can't put that much weight into them. She feels like stairs are difficult especially up. Her hips were bad for a long time and had post ISABEL R 12/26 and L ant ISABEL 06/26. Pt feels like she didn't get to enjoy her R hip being done d/t L hip being bad. She is now aware of her knees. A month ago, it was really bad and that is when seh got checked. Xray showed fluid and arthritis. She started to do stretching at home because a lot of times it hurts in post knee She does feel like her quad are still weak from hips being bad . Her stretching has helped. Pt walks a couple miles a day and does okay with that with only some pain in knees. Pt reports a lot of her hobbies are seated and it hurts when she first gets up sitting after sitting for an 1hr or more. She was scheduled for a shot but cancelled as she wants to try PT first. Pt reports she has had wt issues all her life and a lot of her life she didn't do exercises but the past 15 years she has been exercising and wants to keep active. She was swimming most days until 6 months ago and she has switched to walking daily instead. Pt reprots she fell about 6 months before getting R hip done and she tore something but doesn't remember what. She was hiking and tripped over a root. Treatment Goals Patient/Caregiver Goals be up/down stairs reciprocally ; avoid surgery; get stronger, get bck on her bike PT-OP-C Subjective Start: 02/13/23 08:02 Freq: Status: Active Protocol: Document 02/13/23 13:48 [facility] (Rec: 02/13/23 16:05 [facility] [id number]) Patient Questionnaires Lower Extremity Functional Scale LEFS Score 48/80 OP-PT Pain Assessment Location knee pain Pain Location Details ant & post knees Description Aching,With Movement Frequency Intermittent Radiating Location lat thighs Pain Aggravating Factors Changing Position,Walking, Stair Climbing Other Pain Alleviating Factors Voltarin, pain patches; tylenol 850mg & ibuprofen(AM) PT-OP-D Balance Start: 02/13/23 08:02 Freq: Status: Active Protocol: Document 02/13/23 13:48 [facility] (Rec: 02/13/23 16:05 [facility] [id number]) Balance Tests Single Limb Standing Single Limb- Right 16 sec Single Limb- Left 10 sec PT-OP-F Manual Assessment Start: 02/13/23 08:02 Freq: Status: Active Protocol: Document 02/13/23 13:48 [facility] (Rec: 02/13/23 16:05 [facility] [id number]) Manual Assessments Soft Tissue Assessment Soft Tissue Mobility Assessment HS, ITB, quads, add B; med jt line R; calf L PT-OP-G Mobility & Gait Start: 02/13/23 08:02 Freq: Status: Active Protocol: Document 02/13/23 13:48 [facility] (Rec: 02/13/23 16:05 [facility] [id number]) OP Gait Assessment Comments Gait Comments sljight dec stance time L w/ harder impact on RLE PT-OP-J Posture/Palpation/Skin Start: 02/13/23 08:02 Freq: Status: Active Protocol: Document 02/13/23 13:48 [facility] (Rec: 02/13/23 16:05 [facility] [id number]) Posture Evaluation [facility] Postural Classification System Lumbar Protective Mechanism Left AP 0 Lumbar Protective Mechanism Right AP 1 Lumbar Protective Mechanism Left PA 2 Lumbar Protective Mechanism Right PA 1 PT-OP-K Range of Motion Start: 02/13/23 08:02 Freq: Status: Active Protocol: Document 02/13/23 13:48 [facility] (Rec: 02/13/23 16:05 [facility] [id number]) Knee Goniometric Range of Motion Knee Right Flexion Active (degrees) 124 Extension Active (degrees) 7 Comments pain ant w/flex, pulls post w/ ext Left Flexion Active (degrees) 114 Extension Active (degrees) 8 Comments ext pain mostly ant some post; pain ant w/flex PT-OP-L Special Tests Start: 02/13/23 08:02 Freq: Status: Active Protocol: Document 02/13/23 13:48 [facility] (Rec: 02/13/23 16:05 [facility] [id number]) Special Tests Knee Special Tests Watson Chondromalacia Comments pain w/palpation lat to patella not tested on L; R positive-med glide dec pain Whitman's Compression Test Results neg B Judy's Test Test Results pos L Apley's Compression Test Results Pos R Thessaly Test 5 Degrees Test Results neg B Jeanette Test Test Results neg B Samantha's Test Results neg B Posterior Draw Test Results neg B Valgus- 25 Degrees Test Results neg B Varus- 25 Degrees Test Results neg B Straight Leg Raise Comments WNL; good flexibility Nakul Comments B quad tightness & some hip flexor tightness B PT-OP-M Strength Start: 02/13/23 08:02 Freq: Status: Active Protocol: Document 02/13/23 13:48 [facility] (Rec: 02/13/23 16:05 [facility] [id number]) Hip Strength Hip Manual Muscle Testing Right Flexion (L2) 3+ Fair+ Extension (S1) 3+ Fair+ Abduction 3 Fair External Rotation 3- Fair- Internal Rotation 4+ Good+ Comments pain in hip abd Left Flexion (L2) 4- Good- Extension (S1) 3+ Fair+ Abduction 4- Good- External Rotation 4- Good- Internal Rotation 4+ Good+ Knee Strength Knee Manual Muscle Testing Right Flexion (S2) 5 Normal Extension (L3) 4- Good- Comments pain ext Left Flexion (S2) 5 Normal Extension (L3) 4- Good- Comments pain ext Ankle/Foot Strength Ankle and Foot Manual Muscle Testing Right Dorsiflexion (L4) 5 Normal Plantarflexion (S1) 5 Normal Comments 20 heel raises ;cues to keep knee straight Left Dorsiflexion (L4) 5 Normal Plantarflexion (S1) 4 Good Comments 11 heel raises PT-OP-T Assessment and Plan Start: 02/13/23 08:02 Freq: Status: Active Protocol: Document 02/13/23 13:48 [facility] (Rec: 02/13/23 16:05 [facility] [id number]) Physical Therapy Assessment Rehab Potential Rehabilitation Potential Good Evaluation Complexity Number of Personal Factors/Comorbidities 3 or More Number of Body Systems Impaired 4 or More Clinical Presentation at Evaluation Evolving Impairments Impairments Activity Tolerance,Balance, Functional Activities, Functional Mobility,Gait,Pain, Posture,ROM,Soft Tissue Mobility,Strength Goals LEFS Impairment 48/80 Detention Goal (LTG) Pt will improve score to at least 60/80 in order to show improved functional ability. LTG Duration 05/06/23 ROM Hat Braider Goal (LTG) Pt will have at least 3-125 deg ROM B w/o pain in order to allow pt to do typical functional activities w/o pain including squatting and stairs LTG Duration 05/06/23 strength Short Term Goal (STG) Pt will be indep w/HEP STG Duration 04/06/23 Hat Braider Goal (LTG) Pt will score at least 4+/5 on all LE MMT B and at least 3/5 on LPM to show improved staibltiy to inc pt to do typical day w/o inc pain. LTG Duration 05/06/23 transitions Short Term Goal (STG) Pt will report no pain/ soreness w/walks STG Duration 04/07/23 Detention Goal (LTG) Pt will be able to get up from sitting extended w/o inc pain in knees and do transitions. LTG Duration 05/06/23 stairs Short Term Goal (STG) Pt will be able to go up stairs reciprocally w/o inc pain STG Duration 04/06/23 Detention Goal (LTG) Pt will be able to go down stairs reciprocally w/o inc pain LTG Duration 05/08/23 Assessment Summary Assessment Pt presents w/B ant/post knee pain along w/pain into ant and lat thighs that has gotten worse recently in the last few months w/some relief w/pt trying her own stretches. She has limits in ROM and overall limited strength in BLEs w/ history of L ant ISABEL 2 years ago and R post ISABEL 3 years ago . She is motivated to get stronger and improve her function and would benefit from skilled PT to address her mobility deficits and return her back to typical activies w /o pain. Pt likely has limitation in hip mobility along w/her hip and core weakness taht contribute to her current pain. Physical Therapy Plan Frequency and Duration Frequency of Treatment 2x/Week Duration of treatment (weeks) 12 Plan of Care Start Date 02/13/23 Plan of Care End Date 05/08/23 Therapeutic Interventions Therapeutic Interventions Balance Training,Gait Training ,Home Exercise Program,Joint Mobilizations,Manual Therapy, Neuromuscular Re-education, Orthotic/Prosthetic Management ,Patient/Caregiver Education, Self-Care/Home Management,Soft Tissue Mobilization,Taping, Therapeutic Activities, Therapeutic Exercises Modalities Cold Pack/Ice Massage,Electric Stimulation,Hot Packs, Infrared Therapy,Iontophoresis ,Ultrasound Next Visit Focus/Plan Next Note Type Treatment Note Next Visit Plan upright stationary bike, HEP: sidesteps, sit to stands w/ band at knees, clamshells ( band prn), bridges Manual: STM to thigh mm B adn L calf, PF and tibfib and tibfem glides, look at hip mobility w/gentle hip glides
--- NOTE | 2023-02-13 18:15 | PT.OPPOC ---
Physical, Occupational & Speech Therapy At [facility] Current Diagnoses Pain in right knee (02/13/23) Pain in left knee (02/13/23) Muscle weakness (generalized) (02/13/23) Pain in right thigh (02/13/23) Pain in left thigh (02/13/23) Difficulty in walking, not elsewhere classified (02/13/23) Abnormal posture (02/13/23) Visit Care Team Role Provider Type JAYDEN Fields Attending Provider Advanced Early Childhood Education Instructor Family Provider Primary Care Provider Referring Provider Specialty: [facility] Practice Address: [address] [place] [address], [facility] Email: [email or web address] Plan Of Care PT-OP-T Assessment and Plan Start: 02/13/23 08:02 Freq: Status: Active Protocol: Document 02/13/23 13:48 [facility] (Rec: 02/13/23 16:05 [facility] [id number]) Physical Therapy Assessment Rehab Potential Rehabilitation Potential Good Evaluation Complexity Number of Personal Factors/Comorbidities 3 or More Number of Body Systems Impaired 4 or More Clinical Presentation at Evaluation Evolving Impairments Impairments Activity Tolerance,Balance, Functional Activities, Functional Mobility,Gait,Pain, Posture,ROM,Soft Tissue Mobility,Strength Goals LEFS Impairment 48/80 Custodial Goal (LTG) Pt will improve score to at least 60/80 in order to show improved functional ability. LTG Duration 05/06/23 ROM Machine Edge Bander Goal (LTG) Pt will have at least 3-125 deg ROM B w/o pain in order to allow pt to do typical functional activities w/o pain including squatting and stairs LTG Duration 05/06/23 strength Short Term Goal (STG) Pt will be indep w/HEP STG Duration 04/06/23 Machine Edge Bander Goal (LTG) Pt will score at least 4+/5 on all LE MMT B and at least 3/5 on LPM to show improved staibltiy to inc pt to do typical day w/o inc pain. LTG Duration 05/06/23 transitions Short Term Goal (STG) Pt will report no pain/ soreness w/walks STG Duration 04/07/23 Machine Edge Bander Goal (LTG) Pt will be able to get up from sitting extended w/o inc pain in knees and do transitions. LTG Duration 05/06/23 stairs Short Term Goal (STG) Pt will be able to go up stairs reciprocally w/o inc pain STG Duration 04/06/23 Custodial Goal (LTG) Pt will be able to go down stairs reciprocally w/o inc pain LTG Duration 05/08/23 Assessment Summary Assessment Pt presents w/B ant/post knee pain along w/pain into ant and lat thighs that has gotten worse recently in the last few months w/some relief w/pt trying her own stretches. She has limits in ROM and overall limited strength in BLEs w/ history of L ant ISABEL 2 years ago and R post ISABEL 3 years ago . She is motivated to get stronger and improve her function and would benefit from skilled PT to address her mobility deficits and return her back to typical activies w /o pain. Pt likely has limitation in hip mobility along w/her hip and core weakness taht contribute to her current pain. Physical Therapy Plan Frequency and Duration Frequency of Treatment 2x/Week Duration of treatment (weeks) 12 Plan of Care Start Date 02/13/23 Plan of Care End Date 05/08/23 Therapeutic Interventions Therapeutic Interventions Balance Training,Gait Training ,Home Exercise Program,Joint Mobilizations,Manual Therapy, Neuromuscular Re-education, Orthotic/Prosthetic Management ,Patient/Caregiver Education, Self-Care/Home Management,Soft Tissue Mobilization,Taping, Therapeutic Activities, Therapeutic Exercises Modalities Cold Pack/Ice Massage,Electric Stimulation,Hot Packs, Infrared Therapy,Iontophoresis ,Ultrasound Next Visit Focus/Plan Next Note Type Treatment Note Next Visit Plan upright stationary bike, HEP: sidesteps, sit to stands w/ band at knees, clamshells ( band prn), bridges Manual: STM to thigh mm B adn L calf, PF and tibfib and tibfem glides, look at hip mobility w/gentle hip glides Plan of Care Dates Plan of Care Start Date 02/13/23 Plan of Care End Date 05/08/23 Electronically Signed by: Tiffanie Crespo, PT 02/13/23 1712 If you are in agreement with this Plan of Care, please return a signed and dated copy. I have reviewed this Plan of Care and certify that the skilled therapy services above are required to meet the patient?s needs. Physician Signature Date Printed Name and Credentials Clinical Instructor Signature Printed Name and Credentials
--- NOTE | 2023-02-16 12:54 | PT.OTN ---
Current Diagnoses Pain in right knee (02/16/23) Pain in left knee (02/16/23) Muscle weakness (generalized) (02/16/23) Pain in right thigh (02/16/23) Pain in left thigh (02/16/23) Difficulty in walking, not elsewhere classified (02/16/23) Abnormal posture (02/16/23) Physical Therapy Treatment Note PT-OP-A Visit Information Start: 02/13/23 08:02 Freq: Status: Active Protocol: Document 02/16/23 12:04 [facility] (Rec: 02/16/23 12:54 [facility] [id number]) Out-Patient Physical Therapy Visit Information Visit Information Visit Type Treatment Note Visit Note 12/16 Visit Start Time 12:05 Visit Stop Time 12:50 Total Visit Minutes 45 Visit Number 2 Number of SMOG TECHNICIAN Visits 0 PT-OP-B Current Condition Start: 02/13/23 08:02 Freq: Status: Active Protocol: Document 02/13/23 13:48 [facility] (Rec: 02/13/23 16:05 [facility] [id number]) Current Condition History of Current Condition Onset Date years Current Complaints B knee and thigh pain History of Current Condition Pt reports her knees have been giving her trouble for years but it is worse now where it feels like she can't put that much weight into them. She feels like stairs are difficult especially up. Her hips were bad for a long time and had post ISABEL R 12/26 and L ant ISABEL 06/26. Pt feels like she didn't get to enjoy her R hip being done d/t L hip being bad. She is now aware of her knees. A month ago, it was really bad and that is when seh got checked. Xray showed fluid and arthritis. She started to do stretching at home because a lot of times it hurts in post knee She does feel like her quad are still weak from hips being bad . Her stretching has helped. Pt walks a couple miles a day and does okay with that with only some pain in knees. Pt reports a lot of her hobbies are seated and it hurts when she first gets up sitting after sitting for an 1hr or more. She was scheduled for a shot but cancelled as she wants to try PT first. Pt reports she has had wt issues all her life and a lot of her life she didn't do exercises but the past 15 years she has been exercising and wants to keep active. She was swimming most days until 6 months ago and she has switched to walking daily instead. Pt reprots she fell about 6 months before getting R hip done and she tore something but doesn't remember what. She was hiking and tripped over a root. Treatment Goals Patient/Caregiver Goals be up/down stairs reciprocally ; avoid surgery; get stronger, get bck on her bike PT-OP-C Subjective Start: 02/13/23 08:02 Freq: Status: Active Protocol: Document 02/16/23 12:04 [facility] (Rec: 02/16/23 12:54 [facility] [id number]) OP-PT Subjective Patient Comments Patient Comments Pt reprots she was paying attending and noticed it was her lat thighs that bothered her when going up post [place] steps PT-OP-D Balance Start: 02/13/23 08:02 Freq: Status: Active Protocol: Document 02/13/23 13:48 [facility] (Rec: 02/13/23 16:05 [facility] [id number]) Balance Tests Single Limb Standing Single Limb- Right 16 sec Single Limb- Left 10 sec PT-OP-F Manual Assessment Start: 02/13/23 08:02 Freq: Status: Active Protocol: Document 02/13/23 13:48 [facility] (Rec: 02/13/23 16:05 [facility] [id number]) Manual Assessments Soft Tissue Assessment Soft Tissue Mobility Assessment HS, ITB, quads, add B; med jt line R; calf L PT-OP-G Mobility & Gait Start: 02/13/23 08:02 Freq: Status: Active Protocol: Document 02/13/23 13:48 [facility] (Rec: 02/13/23 16:05 [facility] [id number]) OP Gait Assessment Comments Gait Comments sljight dec stance time L w/ harder impact on RLE PT-OP-J Posture/Palpation/Skin Start: 02/13/23 08:02 Freq: Status: Active Protocol: Document 02/13/23 13:48 [facility] (Rec: 02/13/23 16:05 [facility] [id number]) Posture Evaluation Shai Postural Classification System Lumbar Protective Mechanism Left AP 0 Lumbar Protective Mechanism Right AP 1 Lumbar Protective Mechanism Left PA 2 Lumbar Protective Mechanism Right PA 1 PT-OP-K Range of Motion Start: 02/13/23 08:02 Freq: Status: Active Protocol: Document 02/13/23 13:48 [facility] (Rec: 02/13/23 16:05 [facility] [id number]) Knee Goniometric Range of Motion Knee Right Flexion Active (degrees) 124 Extension Active (degrees) 7 Comments pain ant w/flex, pulls post w/ ext Left Flexion Active (degrees) 114 Extension Active (degrees) 8 Comments ext pain mostly ant some post; pain ant w/flex PT-OP-L Special Tests Start: 02/13/23 08:02 Freq: Status: Active Protocol: Document 02/13/23 13:48 [facility] (Rec: 02/13/23 16:05 [facility] [id number]) Special Tests Knee Special Tests Watson Chondromalacia Comments pain w/palpation lat to patella not tested on L; R positive-med glide dec pain Whitman's Compression Test Results neg B Judy's Test Test Results pos L Apley's Compression Test Results Pos R Thessaly Test 5 Degrees Test Results neg B Jeanette Test Test Results neg B Samantha's Test Results neg B Posterior Draw Test Results neg B Valgus- 25 Degrees Test Results neg B Varus- 25 Degrees Test Results neg B Straight Leg Raise Comments WNL; good flexibility Nakul Comments B quad tightness & some hip flexor tightness B PT-OP-M Strength Start: 02/13/23 08:02 Freq: Status: Active Protocol: Document 02/13/23 13:48 [facility] (Rec: 02/13/23 16:05 [facility] [id number]) Hip Strength Hip Manual Muscle Testing Right Flexion (L2) 3+ Fair+ Extension (S1) 3+ Fair+ Abduction 3 Fair External Rotation 3- Fair- Internal Rotation 4+ Good+ Comments pain in hip abd Left Flexion (L2) 4- Good- Extension (S1) 3+ Fair+ Abduction 4- Good- External Rotation 4- Good- Internal Rotation 4+ Good+ Knee Strength Knee Manual Muscle Testing Right Flexion (S2) 5 Normal Extension (L3) 4- Good- Comments pain ext Left Flexion (S2) 5 Normal Extension (L3) 4- Good- Comments pain ext Ankle/Foot Strength Ankle and Foot Manual Muscle Testing Right Dorsiflexion (L4) 5 Normal Plantarflexion (S1) 5 Normal Comments 20 heel raises ;cues to keep knee straight Left Dorsiflexion (L4) 5 Normal Plantarflexion (S1) 4 Good Comments 11 heel raises PT-OP-Q Treatments Start: 02/13/23 08:02 Freq: Status: Active Protocol: Document 02/16/23 12:04 [facility] (Rec: 02/16/23 12:54 [facility] [id number]) Cardio Equipment Bicycle (Upright) Duration (Minutes) 5 Resistance 6-8 Seat Position 6 Therapeutic Exercises Supine Exercises bridge Side bilateral Reps/Minutes 5 sec x10 Comments cues for breathing Sidelying Exercises clamshell Side bilateral Reps/Minutes 15 ea Standing Exercises sit to stand Standing Exercise Name in chair w/blue foam Side bilateral Equipment Used band at knees Reps/Minutes 10 Comments cues for control down sidestepping Side bilateral Equipment Used orange, cheesh-na Reps/Minutes 20ft B ea lvl Comments (cheesh-na better challenge) Manual Therapy Treatment Soft Tissue Mobilization adductors Body Location B Mobilization Type Rolling,Sustained Pressure Body Position Hooklying Comments FM w/rotation lat Body Location glutes B & TFL R Mobilization Type Rolling,Strumming,Sustained Pressure Intensity/Depth Moderate Body Position Hooklying Comments FM w/hip rotation Joint Mobilizations hip Direction on axis ER FM;on axis IR FM Body Position Hooklying PT-OP-T Assessment and Plan Start: 02/13/23 08:02 Freq: Status: Active Protocol: Document 02/16/23 12:04 [facility] (Rec: 02/16/23 12:54 [facility] [id number]) Physical Therapy Assessment Goals LEFS Impairment 48/80 Half-Way Goal (LTG) Pt will improve score to at least 60/80 in order to show improved functional ability. LTG Duration 05/06/23 ROM Industrial Property Appraiser Goal (LTG) Pt will have at least 3-125 deg ROM B w/o pain in order to allow pt to do typical functional activities w/o pain including squatting and stairs LTG Duration 05/06/23 strength Short Term Goal (STG) Pt will be indep w/HEP STG Duration 04/06/23 Half-Way Goal (LTG) Pt will score at least 4+/5 on all LE MMT B and at least 3/5 on LPM to show improved staibltiy to inc pt to do typical day w/o inc pain. LTG Duration 05/06/23 transitions Short Term Goal (STG) Pt will report no pain/ soreness w/walks STG Duration 04/07/23 Half-Way Goal (LTG) Pt will be able to get up from sitting extended w/o inc pain in knees and do transitions. LTG Duration 05/06/23 stairs Short Term Goal (STG) Pt will be able to go up stairs reciprocally w/o inc pain STG Duration 04/06/23 Half-Way Goal (LTG) Pt will be able to go down stairs reciprocally w/o inc pain LTG Duration 05/08/23 Assessment Summary Assessment Pt did well with exercises w/ mild knee pain w/bike and w/ sit to stands. Had to elevate sit to stand surface for a more appropriate height for pt . She reuqired cues not to roll w/clamshell. She had much improved ER B w/manual treatment and imrpoed L IR. Physical Therapy Plan Frequency and Duration Frequency of Treatment 2x/Week Duration of treatment (weeks) 12 Plan of Care Start Date 02/13/23 Plan of Care End Date 05/08/23 Next Visit Focus/Plan Next Note Type Treatment Note Next Visit Plan review: upright stationary bike, HEP: sidesteps, sit to stands w/band at knees, clamshells (band prn), bridges Manual: STM to thigh mm B adn L calf, PF and tibfib and tibfem glides, look at hip mobility w/gentle hip glides
--- NOTE | 2023-02-20 11:15 | PT.OTN ---
Current Diagnoses Pain in right knee (02/20/23) Pain in left knee (02/20/23) Muscle weakness (generalized) (02/20/23) Pain in right thigh (02/20/23) Pain in left thigh (02/20/23) Difficulty in walking, not elsewhere classified (02/20/23) Abnormal posture (02/20/23) Physical Therapy Treatment Note PT-OP-A Visit Information Start: 02/13/23 08:02 Freq: Status: Active Protocol: Document 02/20/23 10:37 [facility] (Rec: 02/20/23 11:32 SP [id number]) Out-Patient Physical Therapy Visit Information Visit Information Visit Type Treatment Note Visit Note 01/13 AMARIS Nunez assist with ther ex instruction while under direct supervision and instruction of INCIDENT ANALYST Vanessa. Visit Start Time 10:37 Visit Stop Time 15:15 Total Visit Minutes 38 Visit Number 3 Number of INCIDENT ANALYST Visits 1 PT-OP-B Current Condition Start: 02/13/23 08:02 Freq: Status: Active Protocol: Document 02/13/23 13:48 [facility] (Rec: 02/13/23 16:05 [facility] [id number]) Current Condition History of Current Condition Onset Date years Current Complaints B knee and thigh pain History of Current Condition Pt reports her knees have been giving her trouble for years but it is worse now where it feels like she can't put that much weight into them. She feels like stairs are difficult especially up. Her hips were bad for a long time and had post ISABEL R 12/26 and L ant ISABEL 06/26. Pt feels like she didn't get to enjoy her R hip being done d/t L hip being bad. She is now aware of her knees. A month ago, it was really bad and that is when seh got checked. Xray showed fluid and arthritis. She started to do stretching at home because a lot of times it hurts in post knee She does feel like her quad are still weak from hips being bad . Her stretching has helped. Pt walks a couple miles a day and does okay with that with only some pain in knees. Pt reports a lot of her hobbies are seated and it hurts when she first gets up sitting after sitting for an 1hr or more. She was scheduled for a shot but cancelled as she wants to try PT first. Pt reports she has had wt issues all her life and a lot of her life she didn't do exercises but the past 15 years she has been exercising and wants to keep active. She was swimming most days until 6 months ago and she has switched to walking daily instead. Pt reprots she fell about 6 months before getting R hip done and she tore something but doesn't remember what. She was hiking and tripped over a root. Treatment Goals Patient/Caregiver Goals be up/down stairs reciprocally ; avoid surgery; get stronger, get bck on her bike PT-OP-C Subjective Start: 02/13/23 08:02 Freq: Status: Active Protocol: Document 02/20/23 10:37 [facility] (Rec: 02/20/23 11:32 SP [id number]) OP-PT Subjective Patient Comments Patient Comments Pt reports thinks her knees feeling better and resistance with exercises helping. PT-OP-D Balance Start: 02/13/23 08:02 Freq: Status: Active Protocol: Document 02/13/23 13:48 [facility] (Rec: 02/13/23 16:05 [facility] [id number]) Balance Tests Single Limb Standing Single Limb- Right 16 sec Single Limb- Left 10 sec PT-OP-F Manual Assessment Start: 02/13/23 08:02 Freq: Status: Active Protocol: Document 02/13/23 13:48 [facility] (Rec: 02/13/23 16:05 [facility] [id number]) Manual Assessments Soft Tissue Assessment Soft Tissue Mobility Assessment HS, ITB, quads, add B; med jt line R; calf L PT-OP-G Mobility & Gait Start: 02/13/23 08:02 Freq: Status: Active Protocol: Document 02/13/23 13:48 [facility] (Rec: 02/13/23 16:05 [facility] [id number]) OP Gait Assessment Comments Gait Comments sljight dec stance time L w/ harder impact on RLE PT-OP-J Posture/Palpation/Skin Start: 02/13/23 08:02 Freq: Status: Active Protocol: Document 02/13/23 13:48 [facility] (Rec: 02/13/23 16:05 [facility] [id number]) Posture Evaluation Shai Postural Classification System Lumbar Protective Mechanism Left AP 0 Lumbar Protective Mechanism Right AP 1 Lumbar Protective Mechanism Left PA 2 Lumbar Protective Mechanism Right PA 1 PT-OP-K Range of Motion Start: 02/13/23 08:02 Freq: Status: Active Protocol: Document 02/13/23 13:48 [facility] (Rec: 02/13/23 16:05 [facility] [id number]) Knee Goniometric Range of Motion Knee Right Flexion Active (degrees) 124 Extension Active (degrees) 7 Comments pain ant w/flex, pulls post w/ ext Left Flexion Active (degrees) 114 Extension Active (degrees) 8 Comments ext pain mostly ant some post; pain ant w/flex PT-OP-L Special Tests Start: 02/13/23 08:02 Freq: Status: Active Protocol: Document 02/13/23 13:48 [facility] (Rec: 02/13/23 16:05 [facility] [id number]) Special Tests Knee Special Tests Watson Chondromalacia Comments pain w/palpation lat to patella not tested on L; R positive-med glide dec pain Whitman's Compression Test Results neg B Judy's Test Test Results pos L Apley's Compression Test Results Pos R Thessaly Test 5 Degrees Test Results neg B Jeanette Test Test Results neg B Samantha's Test Results neg B Posterior Draw Test Results neg B Valgus- 25 Degrees Test Results neg B Varus- 25 Degrees Test Results neg B Straight Leg Raise Comments WNL; good flexibility Nakul Comments B quad tightness & some hip flexor tightness B PT-OP-M Strength Start: 02/13/23 08:02 Freq: Status: Active Protocol: Document 02/13/23 13:48 [facility] (Rec: 02/13/23 16:05 [facility] [id number]) Hip Strength Hip Manual Muscle Testing Right Flexion (L2) 3+ Fair+ Extension (S1) 3+ Fair+ Abduction 3 Fair External Rotation 3- Fair- Internal Rotation 4+ Good+ Comments pain in hip abd Left Flexion (L2) 4- Good- Extension (S1) 3+ Fair+ Abduction 4- Good- External Rotation 4- Good- Internal Rotation 4+ Good+ Knee Strength Knee Manual Muscle Testing Right Flexion (S2) 5 Normal Extension (L3) 4- Good- Comments pain ext Left Flexion (S2) 5 Normal Extension (L3) 4- Good- Comments pain ext Ankle/Foot Strength Ankle and Foot Manual Muscle Testing Right Dorsiflexion (L4) 5 Normal Plantarflexion (S1) 5 Normal Comments 20 heel raises ;cues to keep knee straight Left Dorsiflexion (L4) 5 Normal Plantarflexion (S1) 4 Good Comments 11 heel raises PT-OP-Q Treatments Start: 02/13/23 08:02 Freq: Status: Active Protocol: Document 02/20/23 10:37 SP (Rec: 02/20/23 11:32 SP [id number]) Cardio Equipment Bicycle (Upright) Duration (Minutes) 5 Resistance 8>9 Seat Position 6 Other 63 Gym Equipment Shuttle Recovery unilateral squat Details cued knee alignment with mid foot (see inside foot) Resistance 37# (old bands) Shuttle Recovery Platform Stable Reps/Time 2x10 cued hip abd fac/midfoot press bilateral squat Details Cued knee alignment, 2nd set YTB around thighs Resistance 75# (old bands) Shuttle Recovery Platform Stable Reps/Time 2x10 Therapeutic Exercises Sitting Exercises foam rolling Sitting Exercise Name reviewed used in her past: HS, calf, glut Side left Equipment Used foam roller Comments ed for set up, positioning and proper form Standing Exercises sidestepping Side bilateral Equipment Used RTB (PT), [place] (home). Reps/Minutes 20ft B ea x3 laps Comments Cued //feet, L increase knee flexion&DF when trailing LE PT-OP-T Assessment and Plan Start: 02/13/23 08:02 Freq: Status: Active Protocol: Document 02/20/23 10:37 SP (Rec: 02/20/23 11:32 SP [id number]) Physical Therapy Assessment Goals LEFS Impairment 48/80 Obstetrics And Gynecology Professor Goal (LTG) Pt will improve score to at least 60/80 in order to show improved functional ability. LTG Duration 05/06/23 ROM Obstetrics And Gynecology Professor Goal (LTG) Pt will have at least 3-125 deg ROM B w/o pain in order to allow pt to do typical functional activities w/o pain including squatting and stairs LTG Duration 05/06/23 strength Short Term Goal (STG) Pt will be indep w/HEP STG Duration 04/06/23 Long-Term Goal (LTG) Pt will score at least 4+/5 on all LE MMT B and at least 3/5 on LPM to show improved staibltiy to inc pt to do typical day w/o inc pain. LTG Duration 05/06/23 transitions Short Term Goal (STG) Pt will report no pain/ soreness w/walks STG Duration 04/07/23 Long-Term Goal (LTG) Pt will be able to get up from sitting extended w/o inc pain in knees and do transitions. LTG Duration 05/06/23 stairs Short Term Goal (STG) Pt will be able to go up stairs reciprocally w/o inc pain STG Duration 04/06/23 Obstetrics And Gynecology Professor Goal (LTG) Pt will be able to go down stairs reciprocally w/o inc pain LTG Duration 05/08/23 Assessment Summary Assessment Pt had good tolerance to increased resistance on bike, no adverse affects. Pt improved stability and not need use of hands with better understanding of cues for knee and trunk alignment during resisted side stepping. Good feedback response to review use of foam roller for self flexibility to carryover at home, complimenting alternative to rolling pin uses at this time. Physical Therapy Plan Frequency and Duration Frequency of Treatment 2x/Week Duration of treatment (weeks) 12 Plan of Care Start Date 02/13/23 Plan of Care End Date 05/08/23 Therapeutic Interventions Therapeutic Interventions Balance Training,Gait Training ,Home Exercise Program,Joint Mobilizations,Manual Therapy, Neuromuscular Re-education, Orthotic/Prosthetic Management ,Patient/Caregiver Education, Self-Care/Home Management,Soft Tissue Mobilization,Taping, Therapeutic Activities, Therapeutic Exercises Modalities Cold Pack/Ice Massage,Electric Stimulation,Hot Packs, Infrared Therapy,Iontophoresis ,Ultrasound Next Visit Focus/Plan Next Note Type Treatment Note Next Visit Plan review HEP and self STMs. : Add resistance to clamshell if tolerated and bridges. Manual: STM to thigh mm B adn L calf, PF and tibfib and tibfem glides, look at hip mobility w/gentle hip glides
--- NOTE | 2023-03-01 14:30 | PT.OTN ---
Current Diagnoses Pain in right knee (03/01/23) Pain in left knee (03/01/23) Muscle weakness (generalized) (03/01/23) Pain in right thigh (03/01/23) Pain in left thigh (03/01/23) Difficulty in walking, not elsewhere classified (03/01/23) Abnormal posture (03/01/23) Physical Therapy Treatment Note PT-OP-A Visit Information Start: 02/13/23 08:02 Freq: Status: Active Protocol: Document 03/01/23 13:48 SP (Rec: 03/01/23 14:33 SP [id number]) Out-Patient Physical Therapy Visit Information Visit Information Visit Type Treatment Note Visit Note 02/13 Visit Start Time 13:48 Visit Stop Time 14:30 Total Visit Minutes 42 Visit Number 4 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 She feels like stairs are difficult especially up. Her hips were bad for a long time and had post ISABEL R 12/26 and L ant ISABEL 06/26. Pt feels like she didn't get to enjoy her R hip being done d/t L hip being bad. She is now aware of her knees. A month ago, it was really bad and that is when seh got checked. Xray showed fluid and arthritis. She started to do stretching at home because a lot of times it hurts in post knee She does feel like her quad are still weak from hips being bad . Her stretching has helped. Pt walks a couple miles a day and does okay with that with only some pain in knees. Pt reports a lot of her hobbies are seated and it hurts when she first gets up sitting after sitting for an 1hr or more. She was scheduled for a shot but cancelled as she wants to try PT first. Pt reports she has had wt issues all her life and a lot of her life she didn't do exercises but the past 15 years she has been exercising and wants to keep active. She was swimming most days until 6 months ago and she has switched to walking daily instead. Pt reprots she fell about 6 months before getting R hip done and she tore something but doesn't remember what. She was hiking and tripped over a root. Treatment Goals Patient/Caregiver Goals be up/down stairs reciprocally ; avoid surgery; get stronger, get bck on her bike PT-OP-C Subjective Start: 02/13/23 08:02 Freq: Status: Active Protocol: Document 03/01/23 13:48 SP (Rec: 03/01/23 14:33 SP [id number]) OP-PT Subjective Patient Comments Patient Comments Pt stated more sore today, didn't take extra strength Tylenol and Glucoamine Chondriten yesterday due to stomach upset and so maybe why sore today. Took them today. Yesterday did some gardening and dancing last night. PT-OP-D Balance Start: 02/13/23 08:02 Freq: Status: Active Protocol: Document 02/13/23 13:48 [facility] (Rec: 02/13/23 16:05 [facility] [id number]) Balance Tests Single Limb Standing Single Limb- Right 16 sec Single Limb- Left 10 sec PT-OP-F Manual Assessment Start: 02/13/23 08:02 Freq: Status: Active Protocol: Document 02/13/23 13:48 [facility] (Rec: 02/13/23 16:05 [facility] [id number]) Manual Assessments Soft Tissue Assessment Soft Tissue Mobility Assessment HS, ITB, quads, add B; med jt line R; calf L PT-OP-G Mobility & Gait Start: 02/13/23 08:02 Freq: Status: Active Protocol: Document 02/13/23 13:48 [facility] (Rec: 02/13/23 16:05 [facility] [id number]) OP Gait Assessment Comments Gait Comments sljight dec stance time L w/ harder impact on RLE PT-OP-J Posture/Palpation/Skin Start: 02/13/23 08:02 Freq: Status: Active Protocol: Document 02/13/23 13:48 [facility] (Rec: 02/13/23 16:05 [facility] [id number]) Posture Evaluation Shai Postural Classification System Lumbar Protective Mechanism Left AP 0 Lumbar Protective Mechanism Right AP 1 Lumbar Protective Mechanism Left PA 2 Lumbar Protective Mechanism Right PA 1 PT-OP-K Range of Motion Start: 02/13/23 08:02 Freq: Status: Active Protocol: Document 02/13/23 13:48 [facility] (Rec: 02/13/23 16:05 [facility] [id number]) Knee Goniometric Range of Motion Knee Right Flexion Active (degrees) 124 Extension Active (degrees) 7 Comments pain ant w/flex, pulls post w/ ext Left Flexion Active (degrees) 114 Extension Active (degrees) 8 Comments ext pain mostly ant some post; pain ant w/flex PT-OP-L Special Tests Start: 02/13/23 08:02 Freq: Status: Active Protocol: Document 02/13/23 13:48 [facility] (Rec: 02/13/23 16:05 [facility] [id number]) Special Tests Knee Special Tests Watson Chondromalacia Comments pain w/palpation lat to patella not tested on L; R positive-med glide dec pain Whitman's Compression Test Results neg B Judy's Test Test Results pos L Apley's Compression Test Results Pos R Thessaly Test 5 Degrees Test Results neg B Jeanette Test Test Results neg B Samantha's Test Results neg B Posterior Draw Test Results neg B Valgus- 25 Degrees Test Results neg B Varus- 25 Degrees Test Results neg B Straight Leg Raise Comments WNL; good flexibility Nakul Comments B quad tightness & some hip flexor tightness B PT-OP-M Strength Start: 02/13/23 08:02 Freq: Status: Active Protocol: Document 02/13/23 13:48 [facility] (Rec: 02/13/23 16:05 [facility] [id number]) Hip Strength Hip Manual Muscle Testing Right Flexion (L2) 3+ Fair+ Extension (S1) 3+ Fair+ Abduction 3 Fair External Rotation 3- Fair- Internal Rotation 4+ Good+ Comments pain in hip abd Left Flexion (L2) 4- Good- Extension (S1) 3+ Fair+ Abduction 4- Good- External Rotation 4- Good- Internal Rotation 4+ Good+ Knee Strength Knee Manual Muscle Testing Right Flexion (S2) 5 Normal Extension (L3) 4- Good- Comments pain ext Left Flexion (S2) 5 Normal Extension (L3) 4- Good- Comments pain ext Ankle/Foot Strength Ankle and Foot Manual Muscle Testing Right Dorsiflexion (L4) 5 Normal Plantarflexion (S1) 5 Normal Comments 20 heel raises ;cues to keep knee straight Left Dorsiflexion (L4) 5 Normal Plantarflexion (S1) 4 Good Comments 11 heel raises PT-OP-Q Treatments Start: 02/13/23 08:02 Freq: Status: Active Protocol: Document 03/01/23 13:48 SP (Rec: 03/01/23 14:33 SP [id number]) Cardio Equipment Bicycle (Upright) Duration (Minutes) 5 Resistance 8 (states can't increase today ) Seat Position 6 Other 67 RPMs, Therapeutic Exercises Prone Exercises quad stretch Prone Exercise Name added (alternative to standing foot back in chair in past) Side right Equipment Used strap at ankle Reps/Minutes 30-60 Comments cued slow pacing Sidelying Exercises hip abd Sidelying Exercise Name added to HEP Side bilateral Resistance AROM (bottom leg bent) Equipment Used discussed can place pillow between BLEs Reps/Minutes x10 Comments good form R little weaker than L clamshell Sidelying Exercise Name HEP reviewed Side bilateral Resistance AROM Reps/Minutes 15 ea Comments good form R little weaker than L Sitting Exercises foam rolling Sitting Exercise Name requested review: HS, calf, glut Side left Equipment Used foam roller Comments ed for set up, UE/ LE/Foam roll positioning and proper form Standing Exercises sit to stand Standing Exercise Name in chair w/blue foam Side bilateral Resistance TB #1 superior knees Equipment Used band at knees Reps/Minutes 10 Comments cues for control down PT-OP-T Assessment and Plan Start: 02/13/23 08:02 Freq: Status: Active Protocol: Document 03/01/23 13:48 SP (Rec: 03/01/23 14:33 SP [id number]) Physical Therapy Assessment Goals LEFS Impairment 48/80 Plush Brusher Goal (LTG) Pt will improve score to at least 60/80 in order to show improved functional ability. LTG Duration 05/06/23 ROM Plush Brusher Goal (LTG) Pt will have at least 3-125 deg ROM B w/o pain in order to allow pt to do typical functional activities w/o pain including squatting and stairs LTG Duration 05/06/23 strength Short Term Goal (STG) Pt will be indep w/HEP STG Duration 04/06/23 Plush Brusher Goal (LTG) Pt will score at least 4+/5 on all LE MMT B and at least 3/5 on LPM to show improved staibltiy to inc pt to do typical day w/o inc pain. LTG Duration 05/06/23 transitions Short Term Goal (STG) Pt will report no pain/ soreness w/walks STG Duration 04/07/23 Plush Brusher Goal (LTG) Pt will be able to get up from sitting extended w/o inc pain in knees and do transitions. LTG Duration 05/06/23 stairs Short Term Goal (STG) Pt will be able to go up stairs reciprocally w/o inc pain STG Duration 04/06/23 Plush Brusher Goal (LTG) Pt will be able to go down stairs reciprocally w/o inc pain LTG Duration 05/08/23 Assessment Summary Assessment Pt requires cues for knee abduction during STS, hold TB for now to challenging. Improved form and I with use foam roller. Pt responded better to prone quad stretch vs self past standing foot on chair. Good hip abd fac clamshell and added hip abd AROM this tx. I feel alot better lateral hip/knee end tx. Next tx trial KTaping for knee support if beneficial. Physical Therapy Plan Frequency and Duration Frequency of Treatment 2x/Week Duration of treatment (weeks) 12 Plan of Care Start Date 02/13/23 Plan of Care End Date 05/08/23 Therapeutic Interventions Therapeutic Interventions Balance Training,Gait Training ,Home Exercise Program,Joint Mobilizations,Manual Therapy, Neuromuscular Re-education, Orthotic/Prosthetic Management ,Patient/Caregiver Education, Self-Care/Home Management,Soft Tissue Mobilization,Taping, Therapeutic Activities, Therapeutic Exercises Modalities Cold Pack/Ice Massage,Electric Stimulation,Hot Packs, Infrared Therapy,Iontophoresis ,Ultrasound Next Visit Focus/Plan Next Note Type Treatment Note Next Visit Plan Review HEP: response to hip abd, foam rolling and prone quad stretch last tx. Trial Ktaping if beneficial, ran out tme last tx requested friends use and helpful. Manual: STM to thigh mm B adn L calf, PF and tibfib and tibfem glides, look at hip mobility w/gentle hip glides
--- NOTE | 2023-03-08 13:45 | PT.OTN ---
Current Diagnoses Pain in right knee (03/08/23) Pain in left knee (03/08/23) Muscle weakness (generalized) (03/08/23) Pain in right thigh (03/08/23) Pain in left thigh (03/08/23) Difficulty in walking, not elsewhere classified (03/08/23) Abnormal posture (03/08/23) Physical Therapy Treatment Note PT-OP-A Visit Information Start: 02/13/23 08:02 Freq: Status: Active Protocol: Document 03/08/23 13:02 SP (Rec: 03/08/23 14:03 SP [id number]) Out-Patient Physical Therapy Visit Information Visit Information Visit Type Treatment Note Visit Note 03/15 Visit Start Time 13:02 Visit Stop Time 13:45 Total Visit Minutes 43 Visit Number 5 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 She feels like stairs are difficult especially up. Her hips were bad for a long time and had post ISABEL R 12/26 and L ant ISABEL 06/26. Pt feels like she didn't get to enjoy her R hip being done d/t L hip being bad. She is now aware of her knees. A month ago, it was really bad and that is when seh got checked. Xray showed fluid and arthritis. She started to do stretching at home because a lot of times it hurts in post knee She does feel like her quad are still weak from hips being bad . Her stretching has helped. Pt walks a couple miles a day and does okay with that with only some pain in knees. Pt reports a lot of her hobbies are seated and it hurts when she first gets up sitting after sitting for an 1hr or more. She was scheduled for a shot but cancelled as she wants to try PT first. Pt reports she has had wt issues all her life and a lot of her life she didn't do exercises but the past 15 years she has been exercising and wants to keep active. She was swimming most days until 6 months ago and she has switched to walking daily instead. Pt reprots she fell about 6 months before getting R hip done and she tore something but doesn't remember what. She was hiking and tripped over a root. Treatment Goals Patient/Caregiver Goals be up/down stairs reciprocally ; avoid surgery; get stronger, get bck on her bike PT-OP-C Subjective Start: 02/13/23 08:02 Freq: Status: Active Protocol: Document 03/08/23 13:02 SP (Rec: 03/08/23 14:03 SP [id number]) OP-PT Subjective Patient Comments Patient Comments Pt reports anterior B knees pain over patellar tendon. Pt requested Ktaping B knees of friends might helpful. PT-OP-D Balance Start: 02/13/23 08:02 Freq: Status: Active Protocol: Document 02/13/23 13:48 [facility] (Rec: 02/13/23 16:05 [facility] [id number]) Balance Tests Single Limb Standing Single Limb- Right 16 sec Single Limb- Left 10 sec PT-OP-F Manual Assessment Start: 02/13/23 08:02 Freq: Status: Active Protocol: Document 02/13/23 13:48 [facility] (Rec: 02/13/23 16:05 [facility] [id number]) Manual Assessments Soft Tissue Assessment Soft Tissue Mobility Assessment HS, ITB, quads, add B; med jt line R; calf L PT-OP-G Mobility & Gait Start: 02/13/23 08:02 Freq: Status: Active Protocol: Document 02/13/23 13:48 [facility] (Rec: 02/13/23 16:05 [facility] [id number]) OP Gait Assessment Comments Gait Comments sljight dec stance time L w/ harder impact on RLE PT-OP-J Posture/Palpation/Skin Start: 02/13/23 08:02 Freq: Status: Active Protocol: Document 02/13/23 13:48 [facility] (Rec: 02/13/23 16:05 [facility] [id number]) Posture Evaluation Shai Postural Classification System Lumbar Protective Mechanism Left AP 0 Lumbar Protective Mechanism Right AP 1 Lumbar Protective Mechanism Left PA 2 Lumbar Protective Mechanism Right PA 1 PT-OP-K Range of Motion Start: 02/13/23 08:02 Freq: Status: Active Protocol: Document 02/13/23 13:48 [facility] (Rec: 02/13/23 16:05 [facility] [id number]) Knee Goniometric Range of Motion Knee Right Flexion Active (degrees) 124 Extension Active (degrees) 7 Comments pain ant w/flex, pulls post w/ ext Left Flexion Active (degrees) 114 Extension Active (degrees) 8 Comments ext pain mostly ant some post; pain ant w/flex PT-OP-L Special Tests Start: 02/13/23 08:02 Freq: Status: Active Protocol: Document 02/13/23 13:48 [facility] (Rec: 02/13/23 16:05 [facility] [id number]) Special Tests Knee Special Tests Watson Chondromalacia Comments pain w/palpation lat to patella not tested on L; R positive-med glide dec pain Whitman's Compression Test Results neg B Judy's Test Test Results pos L Apley's Compression Test Results Pos R Thessaly Test 5 Degrees Test Results neg B Jeanette Test Test Results neg B Samantha's Test Results neg B Posterior Draw Test Results neg B Valgus- 25 Degrees Test Results neg B Varus- 25 Degrees Test Results neg B Straight Leg Raise Comments WNL; good flexibility Nakul Comments B quad tightness & some hip flexor tightness B PT-OP-M Strength Start: 02/13/23 08:02 Freq: Status: Active Protocol: Document 02/13/23 13:48 [facility] (Rec: 02/13/23 16:05 [facility] [id number]) Hip Strength Hip Manual Muscle Testing Right Flexion (L2) 3+ Fair+ Extension (S1) 3+ Fair+ Abduction 3 Fair External Rotation 3- Fair- Internal Rotation 4+ Good+ Comments pain in hip abd Left Flexion (L2) 4- Good- Extension (S1) 3+ Fair+ Abduction 4- Good- External Rotation 4- Good- Internal Rotation 4+ Good+ Knee Strength Knee Manual Muscle Testing Right Flexion (S2) 5 Normal Extension (L3) 4- Good- Comments pain ext Left Flexion (S2) 5 Normal Extension (L3) 4- Good- Comments pain ext Ankle/Foot Strength Ankle and Foot Manual Muscle Testing Right Dorsiflexion (L4) 5 Normal Plantarflexion (S1) 5 Normal Comments 20 heel raises ;cues to keep knee straight Left Dorsiflexion (L4) 5 Normal Plantarflexion (S1) 4 Good Comments 11 heel raises PT-OP-Q Treatments Start: 02/13/23 08:02 Freq: Status: Active Protocol: Document 03/08/23 13:02 SP (Rec: 03/08/23 14:03 SP [id number]) Therapeutic Exercises Supine Exercises fig 4 Supine Exercise Name added to HEP Side bilateral Reps/Minutes 60 SH Comments cued use breath relax with exhale- good feedback hip stretch bridge Supine Exercise Name HEP reviewed Side bilateral Reps/Minutes 5 sec x10 Comments cues for breathing Prone Exercises quad stretch Prone Exercise Name discussed doing at home Side right Equipment Used strap at ankle Reps/Minutes 60 Comments cued slow pacing Sidelying Exercises hip abd Sidelying Exercise Name reviewed HEP Side bilateral Resistance AROM (bottom leg bent) Equipment Used discussed can place pillow between BLEs Reps/Minutes 5 reps without pillow hip discomfort, pillow able get 12 reps Comments good form R little weaker than L Standing Exercises step ups Standing Exercise Name repeated single step up LLE, unable perform RLE due to lack of strength- Resistance Hold for now 5/3 Equipment Used B trek poles (1 step no rail home) Reps/Minutes 2x5 LLE Comments pain with RLE so stopped sidestepping Side bilateral Equipment Used RTB (PT), [employer] (home). Reps/Minutes 20ft B ea x3 laps Comments Cued //feet, L increase knee flexion&DF when trailing LE Manual Therapy Treatment Joint Mobilizations hip Direction inferior glide w/ strap and long axis pull Grade II Body Position Hooklying Comments no significant decrease hip tension Taping B knees Body Location B Treatment Focus patella and knee stabilization Type of Tape Kinesio Tape Skin Inspection intact normal color Comments 1. tib plateau med&lat to superior patella 2. medial tib plateau superior to medial superior patella Good feedback response, feels for support to both knees PT-OP-T Assessment and Plan Start: 02/13/23 08:02 Freq: Status: Active Protocol: Document 03/08/23 13:02 SP (Rec: 03/08/23 14:03 SP [id number]) Physical Therapy Assessment Goals LEFS Impairment 48/80 Slitter Creaser Slotter Helper Goal (LTG) Pt will improve score to at least 60/80 in order to show improved functional ability. LTG Duration 05/06/23 ROM Slitter Creaser Slotter Helper Goal (LTG) Pt will have at least 3-125 deg ROM B w/o pain in order to allow pt to do typical functional activities w/o pain including squatting and stairs LTG Duration 05/06/23 strength Short Term Goal (STG) Pt will be indep w/HEP STG Duration 04/06/23 Slitter Creaser Slotter Helper Goal (LTG) Pt will score at least 4+/5 on all LE MMT B and at least 3/5 on LPM to show improved staibltiy to inc pt to do typical day w/o inc pain. LTG Duration 05/06/23 transitions Short Term Goal (STG) Pt will report no pain/ soreness w/walks STG Duration 04/07/23 Slitter Creaser Slotter Helper Goal (LTG) Pt will be able to get up from sitting extended w/o inc pain in knees and do transitions. LTG Duration 05/06/23 stairs Short Term Goal (STG) Pt will be able to go up stairs reciprocally w/o inc pain STG Duration 04/06/23 Slitter Creaser Slotter Helper Goal (LTG) Pt will be able to go down stairs reciprocally w/o inc pain LTG Duration 05/08/23 Assessment Summary Assessment Pt good feedback response to Ktaping B knee support reported and review hip abd and bridge holds and added fig 4 stretch this tx. No significant relief from hip mobs today. Physical Therapy Plan Frequency and Duration Frequency of Treatment 2x/Week Duration of treatment (weeks) 12 Plan of Care Start Date 02/13/23 Plan of Care End Date 05/08/23 Therapeutic Interventions Therapeutic Interventions Balance Training,Gait Training ,Home Exercise Program,Joint Mobilizations,Manual Therapy, Neuromuscular Re-education, Orthotic/Prosthetic Management ,Patient/Caregiver Education, Self-Care/Home Management,Soft Tissue Mobilization,Taping, Therapeutic Activities, Therapeutic Exercises Modalities Cold Pack/Ice Massage,Electric Stimulation,Hot Packs, Infrared Therapy,Iontophoresis ,Ultrasound Next Visit Focus/Plan Next Note Type Treatment Note Next Visit Plan Review HEP: response to hip abd, foam rolling and prone quad stretch last tx. Manual: STM to thigh mm B adn L calf, PF and tibfib and tibfem glides, look at hip mobility w/gentle hip glides
--- NOTE | 2023-03-15 14:02 | PT.OTN ---
Current Diagnoses Pain in right knee (03/15/23) Pain in left knee (03/15/23) Muscle weakness (generalized) (03/15/23) Pain in right thigh (03/15/23) Pain in left thigh (03/15/23) Difficulty in walking, not elsewhere classified (03/15/23) Abnormal posture (03/15/23) Physical Therapy Treatment Note PT-OP-A Visit Information Start: 02/13/23 08:02 Freq: Status: Active Protocol: Document 03/15/23 10:52 [facility] (Rec: 03/15/23 14:02 [facility] [id number]) Out-Patient Physical Therapy Visit Information Visit Information Visit Type Treatment Note Visit Note 04/15 Visit Start Time 10:51 Visit Stop Time 11:30 Total Visit Minutes 39 Visit Number 6 Number of WEIGHER BULKER Visits 0 PT-OP-B Current Condition Start: 02/13/23 08:02 Freq: Status: Active Protocol: Document 02/13/23 13:48 [facility] (Rec: 02/13/23 16:05 [facility] [id number]) Current Condition History of Current Condition Onset Date years Current Complaints B knee and thigh pain History of Current Condition Pt reports her knees have been giving her trouble for years but it is worse now where it feels like she can't put that much weight into them. She feels like stairs are difficult especially up. Her hips were bad for a long time and had post ISABEL R 12/26 and L ant ISABEL 06/26. Pt feels like she didn't get to enjoy her R hip being done d/t L hip being bad. She is now aware of her knees. A month ago, it was really bad and that is when seh got checked. Xray showed fluid and arthritis. She started to do stretching at home because a lot of times it hurts in post knee She does feel like her quad are still weak from hips being bad . Her stretching has helped. Pt walks a couple miles a day and does okay with that with only some pain in knees. Pt reports a lot of her hobbies are seated and it hurts when she first gets up sitting after sitting for an 1hr or more. She was scheduled for a shot but cancelled as she wants to try PT first. Pt reports she has had wt issues all her life and a lot of her life she didn't do exercises but the past 15 years she has been exercising and wants to keep active. She was swimming most days until 6 months ago and she has switched to walking daily instead. Pt reprots she fell about 6 months before getting R hip done and she tore something but doesn't remember what. She was hiking and tripped over a root. Treatment Goals Patient/Caregiver Goals be up/down stairs reciprocally ; avoid surgery; get stronger, get bck on her bike PT-OP-C Subjective Start: 02/13/23 08:02 Freq: Status: Active Protocol: Document 03/15/23 10:52 [facility] (Rec: 03/15/23 14:02 [facility] [id number]) OP-PT Subjective Patient Comments Patient Comments Pt reports she feels like the tape helped a lot. She feels liek the PT helps a lot. She does notice if she overdoes stuff, she is more sore. She notes R lat thigh pain is the worst. Pawan up stairs hurts B knees and R lat leg Patient Reported Progress Improving PT-OP-D Balance Start: 02/13/23 08:02 Freq: Status: Active Protocol: Document 02/13/23 13:48 [facility] (Rec: 02/13/23 16:05 [facility] [id number]) Balance Tests Single Limb Standing Single Limb- Right 16 sec Single Limb- Left 10 sec PT-OP-F Manual Assessment Start: 02/13/23 08:02 Freq: Status: Active Protocol: Document 02/13/23 13:48 [facility] (Rec: 02/13/23 16:05 [facility] [id number]) Manual Assessments Soft Tissue Assessment Soft Tissue Mobility Assessment HS, ITB, quads, add B; med jt line R; calf L PT-OP-G Mobility & Gait Start: 02/13/23 08:02 Freq: Status: Active Protocol: Document 02/13/23 13:48 [facility] (Rec: 02/13/23 16:05 [facility] [id number]) OP Gait Assessment Comments Gait Comments sljight dec stance time L w/ harder impact on RLE PT-OP-J Posture/Palpation/Skin Start: 02/13/23 08:02 Freq: Status: Active Protocol: Document 02/13/23 13:48 [facility] (Rec: 02/13/23 16:05 [facility] [id number]) Posture Evaluation [facility] Postural Classification System Lumbar Protective Mechanism Left AP 0 Lumbar Protective Mechanism Right AP 1 Lumbar Protective Mechanism Left PA 2 Lumbar Protective Mechanism Right PA 1 PT-OP-K Range of Motion Start: 02/13/23 08:02 Freq: Status: Active Protocol: Document 02/13/23 13:48 [facility] (Rec: 02/13/23 16:05 [facility] [id number]) Knee Goniometric Range of Motion Knee Right Flexion Active (degrees) 124 Extension Active (degrees) 7 Comments pain ant w/flex, pulls post w/ ext Left Flexion Active (degrees) 114 Extension Active (degrees) 8 Comments ext pain mostly ant some post; pain ant w/flex PT-OP-L Special Tests Start: 02/13/23 08:02 Freq: Status: Active Protocol: Document 02/13/23 13:48 [facility] (Rec: 02/13/23 16:05 [facility] [id number]) Special Tests Knee Special Tests Watson Chondromalacia Comments pain w/palpation lat to patella not tested on L; R positive-med glide dec pain Whitman's Compression Test Results neg B Judy's Test Test Results pos L Apley's Compression Test Results Pos R Thessaly Test 5 Degrees Test Results neg B Jeanette Test Test Results neg B Samantha's Test Results neg B Posterior Draw Test Results neg B Valgus- 25 Degrees Test Results neg B Varus- 25 Degrees Test Results neg B Straight Leg Raise Comments WNL; good flexibility Nakul Comments B quad tightness & some hip flexor tightness B PT-OP-M Strength Start: 02/13/23 08:02 Freq: Status: Active Protocol: Document 02/13/23 13:48 [facility] (Rec: 02/13/23 16:05 [facility] [id number]) Hip Strength Hip Manual Muscle Testing Right Flexion (L2) 3+ Fair+ Extension (S1) 3+ Fair+ Abduction 3 Fair External Rotation 3- Fair- Internal Rotation 4+ Good+ Comments pain in hip abd Left Flexion (L2) 4- Good- Extension (S1) 3+ Fair+ Abduction 4- Good- External Rotation 4- Good- Internal Rotation 4+ Good+ Knee Strength Knee Manual Muscle Testing Right Flexion (S2) 5 Normal Extension (L3) 4- Good- Comments pain ext Left Flexion (S2) 5 Normal Extension (L3) 4- Good- Comments pain ext Ankle/Foot Strength Ankle and Foot Manual Muscle Testing Right Dorsiflexion (L4) 5 Normal Plantarflexion (S1) 5 Normal Comments 20 heel raises ;cues to keep knee straight Left Dorsiflexion (L4) 5 Normal Plantarflexion (S1) 4 Good Comments 11 heel raises PT-OP-Q Treatments Start: 02/13/23 08:02 Freq: Status: Active Protocol: Document 03/15/23 10:52 [facility] (Rec: 03/15/23 14:02 [facility] [id number]) Manual Therapy Treatment Soft Tissue Mobilization ant Body Location patellar tendon R Mobilization Type Strumming adductors Body Location R Mobilization Type Rolling,Sustained Pressure Body Position Hooklying Comments FM w/rotation lat Body Location ITB & lat quad & TFL R Mobilization Type Rolling,Strumming,Sustained Pressure Intensity/Depth Moderate Body Position Hooklying Comments FM w/hip rotation Joint Mobilizations tibfem Joint PA FM R hip Joint R Direction on axis ER & inf glide FM Taping B knees Body Location B Treatment Focus patella and knee stabilization Type of Tape Kinesio Tape Skin Inspection intact normal color Comments 1. tib plateau med&lat to superior patella 2. medial tib plateau superior to medial superior patella Good feedback response, feels for support to both knees Self-Care/Home Management Treatment Education Other Education 8 min: discussion of HEP-pt feels good w/it. Discussed w/ pt alignment of R knee w/ stairs. edu w/mirror re: why this is bad for knee. Edu to pt appropriate alignment and what is required for this. PT-OP-T Assessment and Plan Start: 02/13/23 08:02 Freq: Status: Active Protocol: Document 03/15/23 10:52 [facility] (Rec: 03/15/23 14:02 [facility] [id number]) Physical Therapy Assessment Goals LEFS Impairment 48/80 Elastic Attacher Zigzag Goal (LTG) Pt will improve score to at least 60/80 in order to show improved functional ability. LTG Duration 05/06/23 ROM Elastic Attacher Zigzag Goal (LTG) Pt will have at least 3-125 deg ROM B w/o pain in order to allow pt to do typical functional activities w/o pain including squatting and stairs LTG Duration 05/06/23 strength Short Term Goal (STG) Pt will be indep w/HEP STG Duration 04/06/23 Elastic Attacher Zigzag Goal (LTG) Pt will score at least 4+/5 on all LE MMT B and at least 3/5 on LPM to show improved staibltiy to inc pt to do typical day w/o inc pain. LTG Duration 05/06/23 transitions Short Term Goal (STG) Pt will report no pain/ soreness w/walks STG Duration 04/07/23 Elastic Attacher Zigzag Goal (LTG) Pt will be able to get up from sitting extended w/o inc pain in knees and do transitions. LTG Duration 05/06/23 stairs Short Term Goal (STG) Pt will be able to go up stairs reciprocally w/o inc pain STG Duration 04/06/23 Halfway Goal (LTG) Pt will be able to go down stairs reciprocally w/o inc pain LTG Duration 05/08/23 Assessment Summary Assessment Pt reprots feeling better w/ session today. Pt unable to good step up at this time d/t weakness of R glutes and dec facilitation and ability to maintain alignment. Physical Therapy Plan Frequency and Duration Frequency of Treatment 2x/Week Duration of treatment (weeks) 12 Plan of Care Start Date 02/13/23 Plan of Care End Date 05/08/23 Next Visit Focus/Plan Next Note Type Treatment Note Next Visit Plan Work on PNF for R side for pelvic patterns
--- NOTE | 2023-03-22 13:36 | PT.OTN ---
Current Diagnoses Pain in right knee (03/22/23) Pain in left knee (03/22/23) Muscle weakness (generalized) (03/22/23) Pain in right thigh (03/22/23) Pain in left thigh (03/22/23) Difficulty in walking, not elsewhere classified (03/22/23) Abnormal posture (03/22/23) Physical Therapy Treatment Note PT-OP-A Visit Information Start: 02/13/23 08:02 Freq: Status: Active Protocol: Document 03/22/23 12:46 [facility] (Rec: 03/22/23 13:36 [facility] [id number]) Out-Patient Physical Therapy Visit Information Visit Information Visit Type Treatment Note Visit Note 05/15 Visit Start Time 12:46 Visit Stop Time 13:28 Total Visit Minutes 42 Visit Number 7 Number of REAL ESTATE RENTAL AGENT Visits 0 PT-OP-B Current Condition Start: 02/13/23 08:02 Freq: Status: Active Protocol: Document 02/13/23 13:48 [facility] (Rec: 02/13/23 16:05 [facility] [id number]) Current Condition History of Current Condition Onset Date years Current Complaints B knee and thigh pain History of Current Condition Pt reports her knees have been giving her trouble for years but it is worse now where it feels like she can't put that much weight into them. She feels like stairs are difficult especially up. Her hips were bad for a long time and had post ISABEL R 12/26 and L ant ISABEL 06/26. Pt feels like she didn't get to enjoy her R hip being done d/t L hip being bad. She is now aware of her knees. A month ago, it was really bad and that is when seh got checked. Xray showed fluid and arthritis. She started to do stretching at home because a lot of times it hurts in post knee She does feel like her quad are still weak from hips being bad . Her stretching has helped. Pt walks a couple miles a day and does okay with that with only some pain in knees. Pt reports a lot of her hobbies are seated and it hurts when she first gets up sitting after sitting for an 1hr or more. She was scheduled for a shot but cancelled as she wants to try PT first. Pt reports she has had wt issues all her life and a lot of her life she didn't do exercises but the past 15 years she has been exercising and wants to keep active. She was swimming most days until 6 months ago and she has switched to walking daily instead. Pt reprots she fell about 6 months before getting R hip done and she tore something but doesn't remember what. She was hiking and tripped over a root. Treatment Goals Patient/Caregiver Goals be up/down stairs reciprocally ; avoid surgery; get stronger, get bck on her bike PT-OP-C Subjective Start: 02/13/23 08:02 Freq: Status: Active Protocol: Document 03/22/23 12:46 [facility] (Rec: 03/22/23 13:36 [facility] [id number]) OP-PT Subjective Patient Comments Patient Comments Pt reports she has been drinking more water and and she thinks that makes things better. She isnt hurting as much now. There are certain things she cant do d/t pain like cross R over L and step up R. Patient Reported Progress Improving PT-OP-D Balance Start: 02/13/23 08:02 Freq: Status: Active Protocol: Document 02/13/23 13:48 [facility] (Rec: 02/13/23 16:05 [facility] [id number]) Balance Tests Single Limb Standing Single Limb- Right 16 sec Single Limb- Left 10 sec PT-OP-F Manual Assessment Start: 02/13/23 08:02 Freq: Status: Active Protocol: Document 02/13/23 13:48 [facility] (Rec: 02/13/23 16:05 [facility] [id number]) Manual Assessments Soft Tissue Assessment Soft Tissue Mobility Assessment HS, ITB, quads, add B; med jt line R; calf L PT-OP-G Mobility & Gait Start: 02/13/23 08:02 Freq: Status: Active Protocol: Document 02/13/23 13:48 [facility] (Rec: 02/13/23 16:05 [facility] [id number]) OP Gait Assessment Comments Gait Comments sljight dec stance time L w/ harder impact on RLE PT-OP-J Posture/Palpation/Skin Start: 02/13/23 08:02 Freq: Status: Active Protocol: Document 02/13/23 13:48 [facility] (Rec: 02/13/23 16:05 [facility] [id number]) Posture Evaluation [facility] Postural Classification System Lumbar Protective Mechanism Left AP 0 Lumbar Protective Mechanism Right AP 1 Lumbar Protective Mechanism Left PA 2 Lumbar Protective Mechanism Right PA 1 PT-OP-K Range of Motion Start: 02/13/23 08:02 Freq: Status: Active Protocol: Document 02/13/23 13:48 [facility] (Rec: 02/13/23 16:05 [facility] [id number]) Knee Goniometric Range of Motion Knee Right Flexion Active (degrees) 124 Extension Active (degrees) 7 Comments pain ant w/flex, pulls post w/ ext Left Flexion Active (degrees) 114 Extension Active (degrees) 8 Comments ext pain mostly ant some post; pain ant w/flex PT-OP-L Special Tests Start: 02/13/23 08:02 Freq: Status: Active Protocol: Document 02/13/23 13:48 [facility] (Rec: 02/13/23 16:05 [facility] [id number]) Special Tests Knee Special Tests Watson Chondromalacia Comments pain w/palpation lat to patella not tested on L; R positive-med glide dec pain Whitman's Compression Test Results neg B Judy's Test Test Results pos L Apley's Compression Test Results Pos R Thessaly Test 5 Degrees Test Results neg B Jeanette Test Test Results neg B Samantha's Test Results neg B Posterior Draw Test Results neg B Valgus- 25 Degrees Test Results neg B Varus- 25 Degrees Test Results neg B Straight Leg Raise Comments WNL; good flexibility Nakul Comments B quad tightness & some hip flexor tightness B PT-OP-M Strength Start: 02/13/23 08:02 Freq: Status: Active Protocol: Document 02/13/23 13:48 [facility] (Rec: 02/13/23 16:05 [facility] [id number]) Hip Strength Hip Manual Muscle Testing Right Flexion (L2) 3+ Fair+ Extension (S1) 3+ Fair+ Abduction 3 Fair External Rotation 3- Fair- Internal Rotation 4+ Good+ Comments pain in hip abd Left Flexion (L2) 4- Good- Extension (S1) 3+ Fair+ Abduction 4- Good- External Rotation 4- Good- Internal Rotation 4+ Good+ Knee Strength Knee Manual Muscle Testing Right Flexion (S2) 5 Normal Extension (L3) 4- Good- Comments pain ext Left Flexion (S2) 5 Normal Extension (L3) 4- Good- Comments pain ext Ankle/Foot Strength Ankle and Foot Manual Muscle Testing Right Dorsiflexion (L4) 5 Normal Plantarflexion (S1) 5 Normal Comments 20 heel raises ;cues to keep knee straight Left Dorsiflexion (L4) 5 Normal Plantarflexion (S1) 4 Good Comments 11 heel raises PT-OP-Q Treatments Start: 02/13/23 08:02 Freq: Status: Active Protocol: Document 03/22/23 12:46 [facility] (Rec: 03/22/23 13:36 [facility] [id number]) Manual Therapy Treatment Soft Tissue Mobilization post Body Location R glute & HS Comments w/knee ext Joint Mobilizations lumbar Joint L transverse glide L5, L2-3 FM hip Joint R Inf FM Taping B knees Body Location B Treatment Focus patella and knee stabilization Type of Tape Kinesio Tape Skin Inspection intact normal color Comments 1. tib plateau med&lat to superior patella Did not perform d/t some bruising fo skin medial tib plateau superior to medial superior patella Good feedback response, feels for support to both knees Neuro Re-Education Treatment Other Activities facilitiaton Comments R flex, ER add faciliation w/ chop pattern PNF Details R Comments ant elevation sustained hold from irradition of RLE pattern traction to COI PT-OP-T Assessment and Plan Start: 02/13/23 08:02 Freq: Status: Active Protocol: Document 03/22/23 12:46 [facility] (Rec: 03/22/23 13:36 [facility] [id number]) Physical Therapy Assessment Goals LEFS Impairment 48/80 Shelter Goal (LTG) Pt will improve score to at least 60/80 in order to show improved functional ability. LTG Duration 05/06/23 ROM Buhr Mill Operator Goal (LTG) Pt will have at least 3-125 deg ROM B w/o pain in order to allow pt to do typical functional activities w/o pain including squatting and stairs LTG Duration 05/06/23 strength Short Term Goal (STG) Pt will be indep w/HEP STG Duration 04/06/23 Buhr Mill Operator Goal (LTG) Pt will score at least 4+/5 on all LE MMT B and at least 3/5 on LPM to show improved staibltiy to inc pt to do typical day w/o inc pain. LTG Duration 05/06/23 transitions Short Term Goal (STG) Pt will report no pain/ soreness w/walks STG Duration 04/07/23 Shelter Goal (LTG) Pt will be able to get up from sitting extended w/o inc pain in knees and do transitions. LTG Duration 05/06/23 stairs Short Term Goal (STG) Pt will be able to go up stairs reciprocally w/o inc pain STG Duration 04/06/23 Shelter Goal (LTG) Pt will be able to go down stairs reciprocally w/o inc pain LTG Duration 05/08/23 Assessment Summary Assessment Pt had imrpoved ability to hip flex in supine and in standing was able to do lift up for step up w/o pain. Pt reports feeling looser aftertreatment. Physical Therapy Plan Frequency and Duration Frequency of Treatment 2x/Week Duration of treatment (weeks) 12 Plan of Care Start Date 02/13/23 Plan of Care End Date 05/08/23 Next Visit Focus/Plan Next Note Type Treatment Note Next Visit Plan Work on PNF for R side for pelvic pa
--- NOTE | 2023-03-27 14:20 | PT.OTN ---
Current Diagnoses Pain in right knee (03/27/23) Pain in left knee (03/27/23) Muscle weakness (generalized) (03/27/23) Pain in right thigh (03/27/23) Pain in left thigh (03/27/23) Difficulty in walking, not elsewhere classified (03/27/23) Abnormal posture (03/27/23) Physical Therapy Treatment Note PT-OP-A Visit Information Start: 02/13/23 08:02 Freq: Status: Active Protocol: Document 03/27/23 13:37 SP (Rec: 03/27/23 14:31 SP [id number]) Out-Patient Physical Therapy Visit Information Visit Information Visit Type Treatment Note Visit Note 06/15 AMARIS Nunez assisted with manual and instruction to pt while under direct supervision and instruction of METAL WELDER Miguel. Visit Start Time 13:37 Visit Stop Time 14:20 Total Visit Minutes 43 Visit Number 8 Number of METAL WELDER Visits 1 PT-OP-B Current Condition Start: 02/13/23 08:02 Freq: Status: Active Protocol: Document 02/13/23 13:48 [facility] (Rec: 02/13/23 16:05 [facility] [id number]) Current Condition History of Current Condition Onset Date years Current Complaints B knee and thigh pain History of Current Condition Pt reports her knees have been giving her trouble for years but it is worse now where it feels like she can't put that much weight into them. She feels like stairs are difficult especially up. Her hips were bad for a long time and had post ISABEL R 12/26 and L ant ISABEL 06/26. Pt feels like she didn't get to enjoy her R hip being done d/t L hip being bad. She is now aware of her knees. A month ago, it was really bad and that is when seh got checked. Xray showed fluid and arthritis. She started to do stretching at home because a lot of times it hurts in post knee She does feel like her quad are still weak from hips being bad . Her stretching has helped. Pt walks a couple miles a day and does okay with that with only some pain in knees. Pt reports a lot of her hobbies are seated and it hurts when she first gets up sitting after sitting for an 1hr or more. She was scheduled for a shot but cancelled as she wants to try PT first. Pt reports she has had wt issues all her life and a lot of her life she didn't do exercises but the past 15 years she has been exercising and wants to keep active. She was swimming most days until 6 months ago and she has switched to walking daily instead. Pt reprots she fell about 6 months before getting R hip done and she tore something but doesn't remember what. She was hiking and tripped over a root. Treatment Goals Patient/Caregiver Goals be up/down stairs reciprocally ; avoid surgery; get stronger, get bck on her bike PT-OP-C Subjective Start: 02/13/23 08:02 Freq: Status: Active Protocol: Document 03/27/23 13:37 SP (Rec: 03/27/23 14:31 SP [id number]) OP-PT Subjective Patient Comments Patient Comments Pt reports no R knee pain more primarily ITB and gluteal tightness that limits Glut drive walking and ascending stairs. PT-OP-D Balance Start: 02/13/23 08:02 Freq: Status: Active Protocol: Document 02/13/23 13:48 [facility] (Rec: 02/13/23 16:05 [facility] [id number]) Balance Tests Single Limb Standing Single Limb- Right 16 sec Single Limb- Left 10 sec PT-OP-F Manual Assessment Start: 02/13/23 08:02 Freq: Status: Active Protocol: Document 02/13/23 13:48 [facility] (Rec: 02/13/23 16:05 [facility] [id number]) Manual Assessments Soft Tissue Assessment Soft Tissue Mobility Assessment HS, ITB, quads, add B; med jt line R; calf L PT-OP-G Mobility & Gait Start: 02/13/23 08:02 Freq: Status: Active Protocol: Document 02/13/23 13:48 [facility] (Rec: 02/13/23 16:05 [facility] [id number]) OP Gait Assessment Comments Gait Comments sljight dec stance time L w/ harder impact on RLE PT-OP-J Posture/Palpation/Skin Start: 02/13/23 08:02 Freq: Status: Active Protocol: Document 02/13/23 13:48 [facility] (Rec: 02/13/23 16:05 [facility] [id number]) Posture Evaluation Shai Postural Classification System Lumbar Protective Mechanism Left AP 0 Lumbar Protective Mechanism Right AP 1 Lumbar Protective Mechanism Left PA 2 Lumbar Protective Mechanism Right PA 1 PT-OP-K Range of Motion Start: 02/13/23 08:02 Freq: Status: Active Protocol: Document 02/13/23 13:48 [facility] (Rec: 02/13/23 16:05 [facility] [id number]) Knee Goniometric Range of Motion Knee Right Flexion Active (degrees) 124 Extension Active (degrees) 7 Comments pain ant w/flex, pulls post w/ ext Left Flexion Active (degrees) 114 Extension Active (degrees) 8 Comments ext pain mostly ant some post; pain ant w/flex PT-OP-L Special Tests Start: 02/13/23 08:02 Freq: Status: Active Protocol: Document 02/13/23 13:48 [facility] (Rec: 02/13/23 16:05 [facility] [id number]) Special Tests Knee Special Tests Watson Chondromalacia Comments pain w/palpation lat to patella not tested on L; R positive-med glide dec pain Whitman's Compression Test Results neg B Judy's Test Test Results pos L Apley's Compression Test Results Pos R Thessaly Test 5 Degrees Test Results neg B Jeanette Test Test Results neg B Samantha's Test Results neg B Posterior Draw Test Results neg B Valgus- 25 Degrees Test Results neg B Varus- 25 Degrees Test Results neg B Straight Leg Raise Comments WNL; good flexibility Nakul Comments B quad tightness & some hip flexor tightness B PT-OP-M Strength Start: 02/13/23 08:02 Freq: Status: Active Protocol: Document 02/13/23 13:48 [facility] (Rec: 02/13/23 16:05 [facility] [id number]) Hip Strength Hip Manual Muscle Testing Right Flexion (L2) 3+ Fair+ Extension (S1) 3+ Fair+ Abduction 3 Fair External Rotation 3- Fair- Internal Rotation 4+ Good+ Comments pain in hip abd Left Flexion (L2) 4- Good- Extension (S1) 3+ Fair+ Abduction 4- Good- External Rotation 4- Good- Internal Rotation 4+ Good+ Knee Strength Knee Manual Muscle Testing Right Flexion (S2) 5 Normal Extension (L3) 4- Good- Comments pain ext Left Flexion (S2) 5 Normal Extension (L3) 4- Good- Comments pain ext Ankle/Foot Strength Ankle and Foot Manual Muscle Testing Right Dorsiflexion (L4) 5 Normal Plantarflexion (S1) 5 Normal Comments 20 heel raises ;cues to keep knee straight Left Dorsiflexion (L4) 5 Normal Plantarflexion (S1) 4 Good Comments 11 heel raises PT-OP-Q Treatments Start: 02/13/23 08:02 Freq: Status: Active Protocol: Document 03/27/23 13:37 SP (Rec: 03/27/23 14:31 SP [id number]) Therapeutic Exercises Supine Exercises Nakul stretch Supine Exercise Name added toHEP Side right Equipment Used strap support Reps/Minutes 60 Comments cued breath fig 4 Supine Exercise Name reviewed HEP Side bilateral Reps/Minutes 60 SH Comments cued use breath relax with exhale- good feedback hip stretch Standing Exercises self STMs Standing Exercise Name ball wall glut/piriformis Reps/Minutes good feed back response. glut lift, hysdrant Standing Exercise Name added to HEP (plank facing wall) Side right Reps/Minutes 3 reps each Comments cued slow ROM- weakness tiring after 3 reps Manual Therapy Treatment Soft Tissue Mobilization lat Body Location R ITB & lat quad & TFL Mobilization Type Rolling,Strumming,Sustained Pressure,Other Intensity/Depth Moderate Body Position Hooklying Comments manual FM w/hip rotation, ed performance ball wall Joint Mobilizations hip Joint R Inf FM ER Direction lateral, inferior Grade II Body Position Hooklying Taping B knees Body Location B Treatment Focus patella and knee stabilization Type of Tape Kinesio Tape Skin Inspection intact normal color Comments 1. tib plateau med&lat to superior patella Did not perform d/t some bruising fo skin medial tib plateau superior to medial superior patella Good feedback response, feels for support to both knees PT-OP-T Assessment and Plan Start: 02/13/23 08:02 Freq: Status: Active Protocol: Document 03/27/23 13:37 SP (Rec: 03/27/23 14:31 SP [id number]) Physical Therapy Assessment Goals LEFS Impairment 48/80 Mcfp Goal (LTG) Pt will improve score to at least 60/80 in order to show improved functional ability. LTG Duration 05/06/23 ROM Mcfp Goal (LTG) Pt will have at least 3-125 deg ROM B w/o pain in order to allow pt to do typical functional activities w/o pain including squatting and stairs LTG Duration 05/06/23 strength Short Term Goal (STG) Pt will be indep w/HEP STG Duration 04/06/23 Child And Family Services Worker Goal (LTG) Pt will score at least 4+/5 on all LE MMT B and at least 3/5 on LPM to show improved staibltiy to inc pt to do typical day w/o inc pain. LTG Duration 05/06/23 transitions Short Term Goal (STG) Pt will report no pain/ soreness w/walks STG Duration 04/07/23 Mcfp Goal (LTG) Pt will be able to get up from sitting extended w/o inc pain in knees and do transitions. LTG Duration 05/06/23 stairs Short Term Goal (STG) Pt will be able to go up stairs reciprocally w/o inc pain STG Duration 04/06/23 Mcfp Goal (LTG) Pt will be able to go down stairs reciprocally w/o inc pain LTG Duration 05/08/23 Assessment Summary Assessment Pt good feedback response to manual, ed/ performance self ball wall STMs. Good tiring response added glut drive lift and hydrant ROM. Physical Therapy Plan Frequency and Duration Frequency of Treatment 2x/Week Duration of treatment (weeks) 12 Plan of Care Start Date 02/13/23 Plan of Care End Date 05/08/23 Therapeutic Interventions Therapeutic Interventions Balance Training,Gait Training ,Home Exercise Program,Joint Mobilizations,Manual Therapy, Neuromuscular Re-education, Orthotic/Prosthetic Management ,Patient/Caregiver Education, Self-Care/Home Management,Soft Tissue Mobilization,Taping, Therapeutic Activities, Therapeutic Exercises Modalities Cold Pack/Ice Massage,Electric Stimulation,Hot Packs, Infrared Therapy,Iontophoresis ,Ultrasound Next Visit Focus/Plan Next Note Type Treatment Note Next Visit Plan response to added the myriam POC: Work on PNF for R side for pelvic patterns
--- NOTE | 2023-03-29 15:56 | PT.OTN ---
Current Diagnoses Pain in right knee (03/29/23) Pain in left knee (03/29/23) Muscle weakness (generalized) (03/29/23) Pain in right thigh (03/29/23) Pain in left thigh (03/29/23) Difficulty in walking, not elsewhere classified (03/29/23) Abnormal posture (03/29/23) Physical Therapy Treatment Note PT-OP-A Visit Information Start: 02/13/23 08:02 Freq: Status: Active Protocol: Document 03/29/23 13:36 [facility] (Rec: 03/29/23 15:56 [facility] [id number]) Out-Patient Physical Therapy Visit Information Visit Information Visit Type Progress Note Visit Note 11/15 Visit Start Time 13:36 Visit Stop Time 14:15 Total Visit Minutes 39 Visit Number 9 Number of SECURITY SUPERVISOR Visits 0 PT-OP-B Current Condition Start: 02/13/23 08:02 Freq: Status: Active Protocol: Document 02/13/23 13:48 [facility] (Rec: 02/13/23 16:05 [facility] [id number]) Current Condition History of Current Condition Onset Date years Current Complaints B knee and thigh pain History of Current Condition Pt reports her knees have been giving her trouble for years but it is worse now where it feels like she can't put that much weight into them. She feels like stairs are difficult especially up. Her hips were bad for a long time and had post ISABEL R 12/26 and L ant ISABEL 06/26. Pt feels like she didn't get to enjoy her R hip being done d/t L hip being bad. She is now aware of her knees. A month ago, it was really bad and that is when seh got checked. Xray showed fluid and arthritis. She started to do stretching at home because a lot of times it hurts in post knee She does feel like her quad are still weak from hips being bad . Her stretching has helped. Pt walks a couple miles a day and does okay with that with only some pain in knees. Pt reports a lot of her hobbies are seated and it hurts when she first gets up sitting after sitting for an 1hr or more. She was scheduled for a shot but cancelled as she wants to try PT first. Pt reports she has had wt issues all her life and a lot of her life she didn't do exercises but the past 15 years she has been exercising and wants to keep active. She was swimming most days until 6 months ago and she has switched to walking daily instead. Pt reprots she fell about 6 months before getting R hip done and she tore something but doesn't remember what. She was hiking and tripped over a root. Treatment Goals Patient/Caregiver Goals be up/down stairs reciprocally ; avoid surgery; get stronger, get bck on her bike PT-OP-C Subjective Start: 02/13/23 08:02 Freq: Status: Active Protocol: Document 03/29/23 13:36 [facility] (Rec: 03/29/23 15:56 [facility] [id number]) OP-PT Subjective Patient Comments Patient Comments Pt reprots issues w/stair climbing Patient Reported Progress Improving PT-OP-D Balance Start: 02/13/23 08:02 Freq: Status: Active Protocol: Document 02/13/23 13:48 [facility] (Rec: 02/13/23 16:05 [facility] [id number]) Balance Tests Single Limb Standing Single Limb- Right 16 sec Single Limb- Left 10 sec PT-OP-F Manual Assessment Start: 02/13/23 08:02 Freq: Status: Active Protocol: Document 02/13/23 13:48 [facility] (Rec: 02/13/23 16:05 [facility] [id number]) Manual Assessments Soft Tissue Assessment Soft Tissue Mobility Assessment HS, ITB, quads, add B; med jt line R; calf L PT-OP-G Mobility & Gait Start: 02/13/23 08:02 Freq: Status: Active Protocol: Document 02/13/23 13:48 [facility] (Rec: 02/13/23 16:05 [facility] [id number]) OP Gait Assessment Comments Gait Comments sljichekot dec stance time L w/ harder impact on RLE PT-OP-J Posture/Palpation/Skin Start: 02/13/23 08:02 Freq: Status: Active Protocol: Document 03/29/23 13:36 [facility] (Rec: 03/29/23 15:56 [facility] [id number]) Posture Evaluation Shai Postural Classification System Lumbar Protective Mechanism Left AP 2 Lumbar Protective Mechanism Right AP 1 Lumbar Protective Mechanism Left PA 2 Lumbar Protective Mechanism Right PA 2 PT-OP-K Range of Motion Start: 02/13/23 08:02 Freq: Status: Active Protocol: Document 03/29/23 13:36 [facility] (Rec: 03/29/23 15:56 [facility] [id number]) Knee Goniometric Range of Motion Knee Right Flexion Active (degrees) 135 Extension Active (degrees) 3 Comments pain ant w/flex Left Flexion Active (degrees) 119 Extension Active (degrees) 4 Comments ext and flex pain ant PT-OP-L Special Tests Start: 02/13/23 08:02 Freq: Status: Active Protocol: Document 02/13/23 13:48 [facility] (Rec: 02/13/23 16:05 [facility] [id number]) Special Tests Knee Special Tests Watson Chondromalacia Comments pain w/palpation lat to patella not tested on L; R positive-med glide dec pain Whitman's Compression Test Results neg B Judy's Test Test Results pos L Apley's Compression Test Results Pos R Thessaly Test 5 Degrees Test Results neg B Jeanette Test Test Results neg B Samantha's Test Results neg B Posterior Draw Test Results neg B Valgus- 25 Degrees Test Results neg B Varus- 25 Degrees Test Results neg B Straight Leg Raise Comments WNL; good flexibility Nakul Comments B quad tightness & some hip flexor tightness B PT-OP-M Strength Start: 02/13/23 08:02 Freq: Status: Active Protocol: Document 03/29/23 13:36 [facility] (Rec: 03/29/23 15:56 [facility] [id number]) Hip Strength Hip Manual Muscle Testing Right Flexion (L2) 4 Good Extension (S1) 4- Good- Abduction 4- Good- Adduction 5 Normal External Rotation 3- Fair- Internal Rotation 4+ Good+ Comments pain in hip abd Left Flexion (L2) 4+ Good+ Extension (S1) 4- Good- Abduction 4 Good Adduction 4 Good External Rotation 4- Good- Internal Rotation 5 Normal Knee Strength Knee Manual Muscle Testing Right Flexion (S2) 5 Normal Extension (L3) 4+ Good+ Comments pain ext Left Flexion (S2) 5 Normal Extension (L3) 4+ Good+ Comments pain ext Ankle/Foot Strength Ankle and Foot Manual Muscle Testing Right Dorsiflexion (L4) 5 Normal Plantarflexion (S1) 5 Normal Comments 20 heel raises ;cues to keep knee straight Left Dorsiflexion (L4) 5 Normal Plantarflexion (S1) 4 Good Comments 11 heel raises PT-OP-Q Treatments Start: 02/13/23 08:02 Freq: Status: Active Protocol: Document 03/29/23 13:36 [facility] (Rec: 03/29/23 15:56 [facility] [id number]) Therapeutic Exercises Supine Exercises bridge Supine Exercise Name bridge w/march Side bilateral Reps/Minutes 15 Comments cues for no pelvis drop Prone Exercises hip ext Prone Exercise Name TKE to ext Side bilateral Reps/Minutes 5 Comments w/PT faciltiation Sidelying Exercises clamshell Side bilateral Equipment Used orange band Reps/Minutes 10 Standing Exercises wt shift Standing Exercise Name into foot on step w/focus on glute engagment Side right Comments stopped d/t dec abilityt o do w/good body position Manual Therapy Treatment Soft Tissue Mobilization ant Body Location L quad w/knee flex and APs Mobilization Type Rolling,Strumming Joint Mobilizations tibfem Joint L PA FM PT-OP-T Assessment and Plan Start: 02/13/23 08:02 Freq: Status: Active Protocol: Document 03/29/23 13:36 [facility] (Rec: 03/29/23 15:56 [facility] [id number]) Physical Therapy Assessment Goals LEFS Impairment 48/80 Custodial Goal (LTG) Pt will improve score to at least 60/80 in order to show improved functional ability. 03/29-52/80 LTG Duration 05/06/23 ROM Carton Filling Machine Operator Goal (LTG) Pt will have at least 3-125 deg ROM B w/o pain in order to allow pt to do typical functional activities w/o pain including squatting and stairs 03/29-improving LTG Duration 05/06/23 strength Short Term Goal (STG) Pt will be indep w/HEP 03/29-achieved advancing as able STG Duration 04/06/23 Carton Filling Machine Operator Goal (LTG) Pt will score at least 4+/5 on all LE MMT B and at least 3/5 on LPM to show improved staibltiy to inc pt to do typical day w/o inc pain. 03/29-improving LTG Duration 05/06/23 transitions Short Term Goal (STG) Pt will report no pain/ soreness w/walks STG Duration Achieved Carton Filling Machine Operator Goal (LTG) Pt will be able to get up from sitting extended w/o inc pain in knees and do transitions. 03/29-stiff in hips lat after a few steps LTG Duration 05/06/23 stairs Short Term Goal (STG) Pt will be able to go up stairs reciprocally w/o inc pain 03/29-still painful on R STG Duration 04/06/23 Carton Filling Machine Operator Goal (LTG) Pt will be able to go down stairs reciprocally w/o inc pain 03/29-can do a few at a time LTG Duration 05/08/23 Assessment Summary Assessment Pt is making good progress w/ PT and is noting dec knee pain B but still occ knee pain w/L flex full range and w/stairs w/R. Most of pain in lat thigh and into lat hips and pt does still have waekness w/glute mm and poor paterning w/dec wt accetptance into LEs. Physical Therapy Plan Frequency and Duration Frequency of Treatment 2x/Week Duration of treatment (weeks) 12 Plan of Care Start Date 02/13/23 Plan of Care End Date 05/08/23 Therapeutic Interventions Therapeutic Interventions Balance Training,Gait Training ,Home Exercise Program,Joint Mobilizations,Manual Therapy, Neuromuscular Re-education, Orthotic/Prosthetic Management ,Patient/Caregiver Education, Self-Care/Home Management,Soft Tissue Mobilization,Taping, Therapeutic Activities, Therapeutic Exercises Modalities Cold Pack/Ice Massage,Electric Stimulation,Hot Packs, Infrared Therapy,Iontophoresis ,Ultrasound Next Visit Focus/Plan Next Note Type Treatment Note Next Visit Plan work on R step up/down ability (hip hikes, step up on 2 in step), Work on PNF for R side for pelvic patterns
--- NOTE | 2023-04-05 14:18 | PT.OTN ---
Current Diagnoses Pain in right knee (04/05/23) Pain in left knee (04/05/23) Muscle weakness (generalized) (04/05/23) Pain in right thigh (04/05/23) Pain in left thigh (04/05/23) Difficulty in walking, not elsewhere classified (04/05/23) Abnormal posture (04/05/23) Physical Therapy Treatment Note PT-OP-A Visit Information Start: 02/13/23 08:02 Freq: Status: Active Protocol: Document 04/05/23 13:31 SP (Rec: 04/05/23 14:34 SP [id number]) Out-Patient Physical Therapy Visit Information Visit Information Visit Type Treatment Note Visit Note 12/16 Visit Start Time 13:31 Visit Stop Time 14:18 Total Visit Minutes 47 Visit Number 10 Number of PERSONAL FINANCE INSTRUCTOR Visits 1 PT-OP-B Current Condition Start: 02/13/23 08:02 Freq: Status: Active Protocol: Document 02/13/23 13:48 [facility] (Rec: 02/13/23 16:05 [facility] [id number]) Current Condition History of Current Condition Onset Date years Current Complaints B knee and thigh pain History of Current Condition Pt reports her knees have been giving her trouble for years but it is worse now where it feels like she can't put that much weight into them. She feels like stairs are difficult especially up. Her hips were bad for a long time and had post ISABEL R 12/26 and L ant ISABEL 06/26. Pt feels like she didn't get to enjoy her R hip being done d/t L hip being bad. She is now aware of her knees. A month ago, it was really bad and that is when seh got checked. Xray showed fluid and arthritis. She started to do stretching at home because a lot of times it hurts in post knee She does feel like her quad are still weak from hips being bad . Her stretching has helped. Pt walks a couple miles a day and does okay with that with only some pain in knees. Pt reports a lot of her hobbies are seated and it hurts when she first gets up sitting after sitting for an 1hr or more. She was scheduled for a shot but cancelled as she wants to try PT first. Pt reports she has had wt issues all her life and a lot of her life she didn't do exercises but the past 15 years she has been exercising and wants to keep active. She was swimming most days until 6 months ago and she has switched to walking daily instead. Pt reprots she fell about 6 months before getting R hip done and she tore something but doesn't remember what. She was hiking and tripped over a root. Treatment Goals Patient/Caregiver Goals be up/down stairs reciprocally ; avoid surgery; get stronger, get bck on her bike PT-OP-C Subjective Start: 02/13/23 08:02 Freq: Status: Active Protocol: Document 04/05/23 13:31 SP (Rec: 04/05/23 14:34 SP [id number]) OP-PT Subjective Patient Comments Patient Comments Pt reports soreness R glut especially when walking, very hard and uncomfortable glut drive step up. Wants to review glut drive heel lift and bridge marches. Patient Reported Progress Improving PT-OP-D Balance Start: 02/13/23 08:02 Freq: Status: Active Protocol: Document 02/13/23 13:48 [facility] (Rec: 02/13/23 16:05 [facility] [id number]) Balance Tests Single Limb Standing Single Limb- Right 16 sec Single Limb- Left 10 sec PT-OP-F Manual Assessment Start: 02/13/23 08:02 Freq: Status: Active Protocol: Document 02/13/23 13:48 [facility] (Rec: 02/13/23 16:05 [facility] [id number]) Manual Assessments Soft Tissue Assessment Soft Tissue Mobility Assessment HS, ITB, quads, add B; med jt line R; calf L PT-OP-G Mobility & Gait Start: 02/13/23 08:02 Freq: Status: Active Protocol: Document 02/13/23 13:48 [facility] (Rec: 02/13/23 16:05 [facility] [id number]) OP Gait Assessment Comments Gait Comments sljight dec stance time L w/ harder impact on RLE PT-OP-J Posture/Palpation/Skin Start: 02/13/23 08:02 Freq: Status: Active Protocol: Document 03/29/23 13:36 [facility] (Rec: 03/29/23 15:56 [facility] [id number]) Posture Evaluation [facility] Postural Classification System Lumbar Protective Mechanism Left AP 2 Lumbar Protective Mechanism Right AP 1 Lumbar Protective Mechanism Left PA 2 Lumbar Protective Mechanism Right PA 2 PT-OP-K Range of Motion Start: 02/13/23 08:02 Freq: Status: Active Protocol: Document 03/29/23 13:36 [facility] (Rec: 03/29/23 15:56 [facility] [id number]) Knee Goniometric Range of Motion Knee Right Flexion Active (degrees) 135 Extension Active (degrees) 3 Comments pain ant w/flex Left Flexion Active (degrees) 119 Extension Active (degrees) 4 Comments ext and flex pain ant PT-OP-L Special Tests Start: 02/13/23 08:02 Freq: Status: Active Protocol: Document 02/13/23 13:48 [facility] (Rec: 02/13/23 16:05 [facility] [id number]) Special Tests Knee Special Tests Watson Chondromalacia Comments pain w/palpation lat to patella not tested on L; R positive-med glide dec pain Whitman's Compression Test Results neg B Judy's Test Test Results pos L Apley's Compression Test Results Pos R Thessaly Test 5 Degrees Test Results neg B Jeanette Test Test Results neg B Samantha's Test Results neg B Posterior Draw Test Results neg B Valgus- 25 Degrees Test Results neg B Varus- 25 Degrees Test Results neg B Straight Leg Raise Comments WNL; good flexibility Nakul Comments B quad tightness & some hip flexor tightness B PT-OP-M Strength Start: 02/13/23 08:02 Freq: Status: Active Protocol: Document 03/29/23 13:36 [facility] (Rec: 03/29/23 15:56 [facility] [id number]) Hip Strength Hip Manual Muscle Testing Right Flexion (L2) 4 Good Extension (S1) 4- Good- Abduction 4- Good- Adduction 5 Normal External Rotation 3- Fair- Internal Rotation 4+ Good+ Comments pain in hip abd Left Flexion (L2) 4+ Good+ Extension (S1) 4- Good- Abduction 4 Good Adduction 4 Good External Rotation 4- Good- Internal Rotation 5 Normal Knee Strength Knee Manual Muscle Testing Right Flexion (S2) 5 Normal Extension (L3) 4+ Good+ Comments pain ext Left Flexion (S2) 5 Normal Extension (L3) 4+ Good+ Comments pain ext Ankle/Foot Strength Ankle and Foot Manual Muscle Testing Right Dorsiflexion (L4) 5 Normal Plantarflexion (S1) 5 Normal Comments 20 heel raises ;cues to keep knee straight Left Dorsiflexion (L4) 5 Normal Plantarflexion (S1) 4 Good Comments 11 heel raises PT-OP-Q Treatments Start: 02/13/23 08:02 Freq: Status: Active Protocol: Document 04/05/23 13:31 SP (Rec: 04/05/23 14:34 SP [id number]) Therapeutic Exercises Supine Exercises bridge Supine Exercise Name bridge w/march Side bilateral Reps/Minutes 15 Comments cued core fac then improved level pelvis and neutral spine Prone Exercises hip ext Prone Exercise Name TKE to ext- added to HEP Side bilateral Reps/Minutes 5 x2 Comments cued TA for no LB recruitment- better Sidelying Exercises clamshell Side bilateral Equipment Used orange band Reps/Minutes 10 Sitting Exercises LAQ Sitting Exercise Name added to HEP Side left Resistance #4 TB blue Reps/Minutes 2x5 Comments cued sit back fully, femur supported Standing Exercises SLS glut lift facing wall Standing Exercise Name reviewed HEP Side right Reps/Minutes 5 reps x2 Comments cued for TKE and raise head ceiling glut med off step Standing Exercise Name initiated in PT forgot give HO Equipment Used 6 step and 3 book, contact rail Reps/Minutes 5 x2 Comments good glut med fac muscle work wt shift Standing Exercise Name into foot on step w/focus on glute engagment Side right Comments stopped d/t pain R hip glut lift, hysdrant Standing Exercise Name added to HEP (plank facing wall) Side right Reps/Minutes 3 reps each Comments cued slow ROM- weakness tiring after 3 reps Manual Therapy Treatment Taping B knees Body Location B Treatment Focus patella and knee stabilization Type of Tape Kinesio Tape Skin Inspection intact normal color Comments 1. tib plateau med&lat to superior patella Did not perform d/t some bruising fo skin medial tib plateau superior to medial superior patella Good feedback response, feels for support to both knees PT-OP-T Assessment and Plan Start: 02/13/23 08:02 Freq: Status: Active Protocol: Document 04/05/23 13:31 SP (Rec: 04/05/23 14:34 SP [id number]) Physical Therapy Assessment Goals LEFS Impairment 48/80 [facility] Goal (LTG) Pt will improve score to at least 60/80 in order to show improved functional ability. 03/29- LTG Duration 05/06/23 ROM [facility] Goal (LTG) Pt will have at least 3-125 deg ROM B w/o pain in order to allow pt to do typical functional activities w/o pain including squatting and stairs 03/29-improving LTG Duration 05/06/23 strength Short Term Goal (STG) Pt will be indep w/HEP 03/29-achieved advancing as able STG Duration 04/06/23 Auto Tech Goal (LTG) Pt will score at least 4+/5 on all LE MMT B and at least 3/5 on LPM to show improved staibltiy to inc pt to do typical day w/o inc pain. 03/29-improving LTG Duration 05/06/23 transitions Short Term Goal (STG) Pt will report no pain/ soreness w/walks STG Duration Achieved [facility] Goal (LTG) Pt will be able to get up from sitting extended w/o inc pain in knees and do transitions. 03/29-stiff in hips lat after a few steps LTG Duration 05/06/23 stairs Short Term Goal (STG) Pt will be able to go up stairs reciprocally w/o inc pain 03/29-still painful on R STG Duration 04/06/23 Auto Tech Goal (LTG) Pt will be able to go down stairs reciprocally w/o inc pain 03/29-can do a few at a time LTG Duration 05/08/23 Assessment Summary Assessment Tx focused on HEP review per pt request, discussed self STMs ball wall over R hip muscles which helps decrease tightness. Good glut med/max facilitation during standing ther ex. Cues for TA during bridge allowed level pelvis proper form performance. Physical Therapy Plan Frequency and Duration Frequency of Treatment 2x/Week Duration of treatment (weeks) 12 Plan of Care Start Date 02/13/23 Plan of Care End Date 05/08/23 Therapeutic Interventions Therapeutic Interventions Balance Training,Gait Training ,Home Exercise Program,Joint Mobilizations,Manual Therapy, Neuromuscular Re-education, Orthotic/Prosthetic Management ,Patient/Caregiver Education, Self-Care/Home Management,Soft Tissue Mobilization,Taping, Therapeutic Activities, Therapeutic Exercises Modalities Cold Pack/Ice Massage,Electric Stimulation,Hot Packs, Infrared Therapy,Iontophoresis ,Ultrasound Next Visit Focus/Plan Next Note Type Treatment Note Next Visit Plan HEP Reviewed: last tx added prone hip ext, stand glut med off step/3 book (forgot add on HO), GHASSANQ TB. POC: work on R step up/down ability (hip hikes, step up on 2 in step), Work on PNF for R side for pelvic patterns
--- NOTE | 2023-04-07 11:32 | PT.OTN ---
Current Diagnoses Pain in right knee (04/07/23) Pain in left knee (04/07/23) Muscle weakness (generalized) (04/07/23) Pain in right thigh (04/07/23) Pain in left thigh (04/07/23) Difficulty in walking, not elsewhere classified (04/07/23) Abnormal posture (04/07/23) Physical Therapy Treatment Note PT-OP-A Visit Information Start: 02/13/23 08:02 Freq: Status: Active Protocol: Document 04/07/23 10:51 SP (Rec: 04/07/23 11:40 SP [id number]) Out-Patient Physical Therapy Visit Information Visit Information Visit Type Treatment Note Visit Note 01/13 Visit Start Time 10:51 Visit Stop Time 11:32 Total Visit Minutes 41 Visit Number 11 Number of CORPORATE DEVELOPMENT INTERN Visits 2 PT-OP-B Current Condition Start: 02/13/23 08:02 Freq: Status: Active Protocol: Document 02/13/23 13:48 [facility] (Rec: 02/13/23 16:05 [facility] [id number]) Current Condition History of Current Condition Onset Date years Current Complaints B knee and thigh pain History of Current Condition Pt reports her knees have been giving her trouble for years but it is worse now where it feels like she can't put that much weight into them. She feels like stairs are difficult especially up. Her hips were bad for a long time and had post ISABEL R 12/26 and L ant ISABEL 06/26. Pt feels like she didn't get to enjoy her R hip being done d/t L hip being bad. She is now aware of her knees. A month ago, it was really bad and that is when seh got checked. Xray showed fluid and arthritis. She started to do stretching at home because a lot of times it hurts in post knee She does feel like her quad are still weak from hips being bad . Her stretching has helped. Pt walks a couple miles a day and does okay with that with only some pain in knees. Pt reports a lot of her hobbies are seated and it hurts when she first gets up sitting after sitting for an 1hr or more. She was scheduled for a shot but cancelled as she wants to try PT first. Pt reports she has had wt issues all her life and a lot of her life she didn't do exercises but the past 15 years she has been exercising and wants to keep active. She was swimming most days until 6 months ago and she has switched to walking daily instead. Pt reprots she fell about 6 months before getting R hip done and she tore something but doesn't remember what. She was hiking and tripped over a root. Treatment Goals Patient/Caregiver Goals be up/down stairs reciprocally ; avoid surgery; get stronger, get bck on her bike PT-OP-C Subjective Start: 02/13/23 08:02 Freq: Status: Active Protocol: Document 04/07/23 10:51 SP (Rec: 04/07/23 11:40 SP [id number]) OP-PT Subjective Patient Comments Patient Comments Pt reports she feels her R hip is better. She stated walked 2 miles (with limited scheduled alloted), some soreness up inclined but mindful of RLE alignment with less/no ER hip compensations. She is trying to incorporate hills. She is going to drive to [facility] this weekend and probably stop periodically for ROM walking. She will find out later today if has jury duty next week. Patient Reported Progress Improving PT-OP-D Balance Start: 02/13/23 08:02 Freq: Status: Active Protocol: Document 02/13/23 13:48 [facility] (Rec: 02/13/23 16:05 [facility] [id number]) Balance Tests Single Limb Standing Single Limb- Right 16 sec Single Limb- Left 10 sec PT-OP-F Manual Assessment Start: 02/13/23 08:02 Freq: Status: Active Protocol: Document 02/13/23 13:48 [facility] (Rec: 02/13/23 16:05 [facility] [id number]) Manual Assessments Soft Tissue Assessment Soft Tissue Mobility Assessment HS, ITB, quads, add B; med jt line R; calf L PT-OP-G Mobility & Gait Start: 02/13/23 08:02 Freq: Status: Active Protocol: Document 02/13/23 13:48 [facility] (Rec: 02/13/23 16:05 [facility] [id number]) OP Gait Assessment Comments Gait Comments sljight dec stance time L w/ harder impact on RLE PT-OP-J Posture/Palpation/Skin Start: 02/13/23 08:02 Freq: Status: Active Protocol: Document 03/29/23 13:36 [facility] (Rec: 03/29/23 15:56 [facility] [id number]) Posture Evaluation [facility] Postural Classification System Lumbar Protective Mechanism Left AP 2 Lumbar Protective Mechanism Right AP 1 Lumbar Protective Mechanism Left PA 2 Lumbar Protective Mechanism Right PA 2 PT-OP-K Range of Motion Start: 02/13/23 08:02 Freq: Status: Active Protocol: Document 03/29/23 13:36 [facility] (Rec: 03/29/23 15:56 [facility] [id number]) Knee Goniometric Range of Motion Knee Right Flexion Active (degrees) 135 Extension Active (degrees) 3 Comments pain ant w/flex Left Flexion Active (degrees) 119 Extension Active (degrees) 4 Comments ext and flex pain ant PT-OP-L Special Tests Start: 02/13/23 08:02 Freq: Status: Active Protocol: Document 02/13/23 13:48 [facility] (Rec: 02/13/23 16:05 [facility] [id number]) Special Tests Knee Special Tests Watson Chondromalacia Comments pain w/palpation lat to patella not tested on L; R positive-med glide dec pain Whitman's Compression Test Results neg B Judy's Test Test Results pos L Apley's Compression Test Results Pos R Thessaly Test 5 Degrees Test Results neg B Jeanette Test Test Results neg B Samantha's Test Results neg B Posterior Draw Test Results neg B Valgus- 25 Degrees Test Results neg B Varus- 25 Degrees Test Results neg B Straight Leg Raise Comments WNL; good flexibility Nakul Comments B quad tightness & some hip flexor tightness B PT-OP-M Strength Start: 02/13/23 08:02 Freq: Status: Active Protocol: Document 03/29/23 13:36 [facility] (Rec: 03/29/23 15:56 [facility] [id number]) Hip Strength Hip Manual Muscle Testing Right Flexion (L2) 4 Good Extension (S1) 4- Good- Abduction 4- Good- Adduction 5 Normal External Rotation 3- Fair- Internal Rotation 4+ Good+ Comments pain in hip abd Left Flexion (L2) 4+ Good+ Extension (S1) 4- Good- Abduction 4 Good Adduction 4 Good External Rotation 4- Good- Internal Rotation 5 Normal Knee Strength Knee Manual Muscle Testing Right Flexion (S2) 5 Normal Extension (L3) 4+ Good+ Comments pain ext Left Flexion (S2) 5 Normal Extension (L3) 4+ Good+ Comments pain ext Ankle/Foot Strength Ankle and Foot Manual Muscle Testing Right Dorsiflexion (L4) 5 Normal Plantarflexion (S1) 5 Normal Comments 20 heel raises ;cues to keep knee straight Left Dorsiflexion (L4) 5 Normal Plantarflexion (S1) 4 Good Comments 11 heel raises PT-OP-Q Treatments Start: 02/13/23 08:02 Freq: Status: Active Protocol: Document 04/07/23 10:51 SP (Rec: 04/07/23 11:40 SP [id number]) Therapeutic Exercises Supine Exercises Nakul stretch Supine Exercise Name added toHEP Side right Equipment Used strap support Reps/Minutes 60 Comments cued breath fig 4 Supine Exercise Name reviewed HEP Side bilateral Reps/Minutes 2 min Comments cued use breath relax with exhale- good feedback hip stretch Standing Exercises 3 way hip Standing Exercise Name added to HEP: ABD, ADD, extension Side bilateral Resistance TB #2 orange Equipment Used contact chair Reps/Minutes 10 reps each direction Comments cued tall, light contact chair and taller posturing, set up step ups Standing Exercise Name BOSU Side right Resistance heavy BUE on rail Reps/Minutes x5 reps Comments weakness R hip/quad, therapist cued knee con/ecc quad asc/ desc, chall pnfre Manual Therapy Treatment Soft Tissue Mobilization ant Body Location L quad, TFL , ITB Mobilization Type Rolling,Strumming Comments manual and discussion rolling pin and use foam roller, next show ITB foam roller (ran out of time 04/07) Joint Mobilizations hip Joint R Direction inferior, inferolateral ( piriformis stretch positioning Grade II Body Position Hooklying Reps/Duration 8 min total- Comments manual and ed self application able to do self PT-OP-T Assessment and Plan Start: 02/13/23 08:02 Freq: Status: Active Protocol: Document 04/07/23 10:51 SP (Rec: 04/07/23 11:40 SP [id number]) Physical Therapy Assessment Goals LEFS Impairment 48/80 [facility] Goal (LTG) Pt will improve score to at least 60/80 in order to show improved functional ability. 03/29-/ LTG Duration 05/06/23 ROM [facility] Goal (LTG) Pt will have at least 3-125 deg ROM B w/o pain in order to allow pt to do typical functional activities w/o pain including squatting and stairs 03/29-improving LTG Duration 05/06/23 strength Short Term Goal (STG) Pt will be indep w/HEP 03/29-achieved advancing as able STG Duration 04/06/23 Shelter Goal (LTG) Pt will score at least 4+/5 on all LE MMT B and at least 3/5 on LPM to show improved staibltiy to inc pt to do typical day w/o inc pain. 03/29-improving LTG Duration 05/06/23 transitions Short Term Goal (STG) Pt will report no pain/ soreness w/walks STG Duration Achieved Heating Engineer Goal (LTG) Pt will be able to get up from sitting extended w/o inc pain in knees and do transitions. 03/29-stiff in hips lat after a few steps LTG Duration 05/06/23 stairs Short Term Goal (STG) Pt will be able to go up stairs reciprocally w/o inc pain 03/29-still painful on R STG Duration 04/06/23 Heating Engineer Goal (LTG) Pt will be able to go down stairs reciprocally w/o inc pain 03/29-can do a few at a time LTG Duration 05/08/23 Assessment Summary Assessment Pt good feedback response to manual hip mob and self application set up/perform use 2 straps. Good glut/hip abd fac work 3 way hip today. Improved upright posturing and glut drive walking out today. Physical Therapy Plan Frequency and Duration Frequency of Treatment 2x/Week Duration of treatment (weeks) 12 Plan of Care Start Date 02/13/23 Plan of Care End Date 05/08/23 Therapeutic Interventions Therapeutic Interventions Balance Training,Gait Training ,Home Exercise Program,Joint Mobilizations,Manual Therapy, Neuromuscular Re-education, Orthotic/Prosthetic Management ,Patient/Caregiver Education, Self-Care/Home Management,Soft Tissue Mobilization,Taping, Therapeutic Activities, Therapeutic Exercises Modalities Cold Pack/Ice Massage,Electric Stimulation,Hot Packs, Infrared Therapy,Iontophoresis ,Ultrasound Next Visit Focus/Plan Next Note Type Treatment Note Next Visit Plan HEP Reviewed: 3 way hip and self inferior hip mob POC: work on R step up/down ability (hip hikes, step up on 2 in step), Work on PNF for R side for pelvic patterns
--- NOTE | 2023-04-12 17:59 | PT.OTN ---
Current Diagnoses Pain in right knee (04/12/23) Pain in left knee (04/12/23) Muscle weakness (generalized) (04/12/23) Pain in right thigh (04/12/23) Pain in left thigh (04/12/23) Difficulty in walking, not elsewhere classified (04/12/23) Abnormal posture (04/12/23) Physical Therapy Treatment Note PT-OP-A Visit Information Start: 02/13/23 08:02 Freq: Status: Active Protocol: Document 04/12/23 15:20 [facility] (Rec: 04/12/23 17:59 [facility] [id number]) Out-Patient Physical Therapy Visit Information Visit Information Visit Type Treatment Note Visit Note 02/13 Visit Start Time 15:20 Visit Stop Time 16:00 Total Visit Minutes 40 Visit Number 12 Number of CLINICAL RECRUITER Visits 0 PT-OP-B Current Condition Start: 02/13/23 08:02 Freq: Status: Active Protocol: Document 02/13/23 13:48 [facility] (Rec: 02/13/23 16:05 [facility] [id number]) Current Condition History of Current Condition Onset Date years Current Complaints B knee and thigh pain History of Current Condition Pt reports her knees have been giving her trouble for years but it is worse now where it feels like she can't put that much weight into them. She feels like stairs are difficult especially up. Her hips were bad for a long time and had post ISABEL R 12/26 and L ant ISABEL 06/26. Pt feels like she didn't get to enjoy her R hip being done d/t L hip being bad. She is now aware of her knees. A month ago, it was really bad and that is when seh got checked. Xray showed fluid and arthritis. She started to do stretching at home because a lot of times it hurts in post knee She does feel like her quad are still weak from hips being bad . Her stretching has helped. Pt walks a couple miles a day and does okay with that with only some pain in knees. Pt reports a lot of her hobbies are seated and it hurts when she first gets up sitting after sitting for an 1hr or more. She was scheduled for a shot but cancelled as she wants to try PT first. Pt reports she has had wt issues all her life and a lot of her life she didn't do exercises but the past 15 years she has been exercising and wants to keep active. She was swimming most days until 6 months ago and she has switched to walking daily instead. Pt reprots she fell about 6 months before getting R hip done and she tore something but doesn't remember what. She was hiking and tripped over a root. Treatment Goals Patient/Caregiver Goals be up/down stairs reciprocally ; avoid surgery; get stronger, get bck on her bike PT-OP-C Subjective Start: 02/13/23 08:02 Freq: Status: Active Protocol: Document 04/12/23 15:20 [facility] (Rec: 04/12/23 17:59 [facility] [id number]) OP-PT Subjective Patient Comments Patient Comments Pt reports she has been doing exercises at home. She forgot her paper but had it re- printed for her. PT-OP-D Balance Start: 02/13/23 08:02 Freq: Status: Active Protocol: Document 02/13/23 13:48 [facility] (Rec: 02/13/23 16:05 [facility] [id number]) Balance Tests Single Limb Standing Single Limb- Right 16 sec Single Limb- Left 10 sec PT-OP-F Manual Assessment Start: 02/13/23 08:02 Freq: Status: Active Protocol: Document 02/13/23 13:48 [facility] (Rec: 02/13/23 16:05 [facility] [id number]) Manual Assessments Soft Tissue Assessment Soft Tissue Mobility Assessment HS, ITB, quads, add B; med jt line R; calf L PT-OP-G Mobility & Gait Start: 02/13/23 08:02 Freq: Status: Active Protocol: Document 02/13/23 13:48 [facility] (Rec: 02/13/23 16:05 [facility] [id number]) OP Gait Assessment Comments Gait Comments sljight dec stance time L w/ harder impact on RLE PT-OP-J Posture/Palpation/Skin Start: 02/13/23 08:02 Freq: Status: Active Protocol: Document 03/29/23 13:36 [facility] (Rec: 03/29/23 15:56 [facility] [id number]) Posture Evaluation [facility] Postural Classification System Lumbar Protective Mechanism Left AP 2 Lumbar Protective Mechanism Right AP 1 Lumbar Protective Mechanism Left PA 2 Lumbar Protective Mechanism Right PA 2 PT-OP-K Range of Motion Start: 02/13/23 08:02 Freq: Status: Active Protocol: Document 03/29/23 13:36 [facility] (Rec: 03/29/23 15:56 [facility] [id number]) Knee Goniometric Range of Motion Knee Right Flexion Active (degrees) 135 Extension Active (degrees) 3 Comments pain ant w/flex Left Flexion Active (degrees) 119 Extension Active (degrees) 4 Comments ext and flex pain ant PT-OP-L Special Tests Start: 02/13/23 08:02 Freq: Status: Active Protocol: Document 02/13/23 13:48 [facility] (Rec: 02/13/23 16:05 [facility] [id number]) Special Tests Knee Special Tests Watson Chondromalacia Comments pain w/palpation lat to patella not tested on L; R positive-med glide dec pain Whitman's Compression Test Results neg B Judy's Test Test Results pos L Apley's Compression Test Results Pos R Thessaly Test 5 Degrees Test Results neg B Jeanette Test Test Results neg B Samantha's Test Results neg B Posterior Draw Test Results neg B Valgus- 25 Degrees Test Results neg B Varus- 25 Degrees Test Results neg B Straight Leg Raise Comments WNL; good flexibility Nakul Comments B quad tightness & some hip flexor tightness B PT-OP-M Strength Start: 02/13/23 08:02 Freq: Status: Active Protocol: Document 03/29/23 13:36 [facility] (Rec: 03/29/23 15:56 [facility] [id number]) Hip Strength Hip Manual Muscle Testing Right Flexion (L2) 4 Good Extension (S1) 4- Good- Abduction 4- Good- Adduction 5 Normal External Rotation 3- Fair- Internal Rotation 4+ Good+ Comments pain in hip abd Left Flexion (L2) 4+ Good+ Extension (S1) 4- Good- Abduction 4 Good Adduction 4 Good External Rotation 4- Good- Internal Rotation 5 Normal Knee Strength Knee Manual Muscle Testing Right Flexion (S2) 5 Normal Extension (L3) 4+ Good+ Comments pain ext Left Flexion (S2) 5 Normal Extension (L3) 4+ Good+ Comments pain ext Ankle/Foot Strength Ankle and Foot Manual Muscle Testing Right Dorsiflexion (L4) 5 Normal Plantarflexion (S1) 5 Normal Comments 20 heel raises ;cues to keep knee straight Left Dorsiflexion (L4) 5 Normal Plantarflexion (S1) 4 Good Comments 11 heel raises PT-OP-Q Treatments Start: 02/13/23 08:02 Freq: Status: Active Protocol: Document 04/12/23 15:20 [facility] (Rec: 04/12/23 17:59 [facility] [id number]) Therapeutic Exercises Supine Exercises bridge Supine Exercise Name bridge w/march Side bilateral Reps/Minutes 10 Comments cued core fac then improved level pelvis and neutral spine Sidelying Exercises clamshell Side bilateral Equipment Used orange band Reps/Minutes [address] hip Standing Exercise Name Review HEP: ABD, ADD, extension Side bilateral Resistance TB 3 orange Equipment Used contact rail Reps/Minutes 10 reps each direction Comments cued tall, light contact w/ hands and taller posturing, set up sidestepping Side bilateral Equipment Used [place] Reps/Minutes 20ft B ea Comments cues no lat lean Manual Therapy Treatment Soft Tissue Mobilization ant Body Location RA R border caudal and general visceral FM Body Position Supine Comments w/hip flex Joint Mobilizations innominate Joint r flex FM PT-OP-T Assessment and Plan Start: 02/13/23 08:02 Freq: Status: Active Protocol: Document 04/12/23 15:20 [facility] (Rec: 04/12/23 17:59 [facility] [id number]) Physical Therapy Assessment Goals LEFS Impairment 48/80 Wrapping Machine Operator Goal (LTG) Pt will improve score to at least 60/80 in order to show improved functional ability. 03/29-52/80 LTG Duration 05/06/23 ROM Halfway Goal (LTG) Pt will have at least 3-125 deg ROM B w/o pain in order to allow pt to do typical functional activities w/o pain including squatting and stairs 03/29-improving LTG Duration 05/06/23 strength Short Term Goal (STG) Pt will be indep w/HEP 03/29-achieved advancing as able STG Duration 04/06/23 Halfway Goal (LTG) Pt will score at least 4+/5 on all LE MMT B and at least 3/5 on LPM to show improved staibltiy to inc pt to do typical day w/o inc pain. 03/29-improving LTG Duration 05/06/23 transitions Short Term Goal (STG) Pt will report no pain/ soreness w/walks STG Duration Achieved Wrapping Machine Operator Goal (LTG) Pt will be able to get up from sitting extended w/o inc pain in knees and do transitions. 03/29-stiff in hips lat after a few steps LTG Duration 05/06/23 stairs Short Term Goal (STG) Pt will be able to go up stairs reciprocally w/o inc pain 03/29-still painful on R STG Duration 04/06/23 Halfway Goal (LTG) Pt will be able to go down stairs reciprocally w/o inc pain 03/29-can do a few at a time LTG Duration 05/08/23 Assessment Summary Assessment Pt did well with bridges w/ march, clamshells, and sidesteps w/min cues and needed cues w/standing 3 way hip but improved w/reps.S eh had imrpoved abiltiyt o hip flex after manual treatment w/ less pinching in ant hip Physical Therapy Plan Frequency and Duration Frequency of Treatment 2x/Week Duration of treatment (weeks) 12 Plan of Care Start Date 02/13/23 Plan of Care End Date 05/08/23 Next Visit Focus/Plan Next Note Type Treatment Note Next Visit Plan cont to work on ability to hip flex further; try 2 in step up
--- NOTE | 2023-04-14 12:43 | PT.OTN ---
Current Diagnoses Pain in right knee (04/14/23) Pain in left knee (04/14/23) Muscle weakness (generalized) (04/14/23) Pain in right thigh (04/14/23) Pain in left thigh (04/14/23) Difficulty in walking, not elsewhere classified (04/14/23) Abnormal posture (04/14/23) Physical Therapy Treatment Note PT-OP-A Visit Information Start: 02/13/23 08:02 Freq: Status: Active Protocol: Document 04/14/23 12:01 [facility] (Rec: 04/14/23 12:47 [facility] [id number]) Out-Patient Physical Therapy Visit Information Visit Information Visit Type Treatment Note Visit Note 03/15 Visit Start Time 12:01 Visit Stop Time 12:43 Total Visit Minutes 42 Visit Number 13 Number of CHAIR MENDER Visits 1 PT-OP-B Current Condition Start: 02/13/23 08:02 Freq: Status: Active Protocol: Document 02/13/23 13:48 [facility] (Rec: 02/13/23 16:05 [facility] [id number]) Current Condition History of Current Condition Onset Date years Current Complaints B knee and thigh pain History of Current Condition Pt reports her knees have been giving her trouble for years but it is worse now where it feels like she can't put that much weight into them. She feels like stairs are difficult especially up. Her hips were bad for a long time and had post ISABEL R 12/26 and L ant ISABEL 06/26. Pt feels like she didn't get to enjoy her R hip being done d/t L hip being bad. She is now aware of her knees. A month ago, it was really bad and that is when seh got checked. Xray showed fluid and arthritis. She started to do stretching at home because a lot of times it hurts in post knee She does feel like her quad are still weak from hips being bad . Her stretching has helped. Pt walks a couple miles a day and does okay with that with only some pain in knees. Pt reports a lot of her hobbies are seated and it hurts when she first gets up sitting after sitting for an 1hr or more. She was scheduled for a shot but cancelled as she wants to try PT first. Pt reports she has had wt issues all her life and a lot of her life she didn't do exercises but the past 15 years she has been exercising and wants to keep active. She was swimming most days until 6 months ago and she has switched to walking daily instead. Pt reprots she fell about 6 months before getting R hip done and she tore something but doesn't remember what. She was hiking and tripped over a root. Treatment Goals Patient/Caregiver Goals be up/down stairs reciprocally ; avoid surgery; get stronger, get bck on her bike PT-OP-C Subjective Start: 02/13/23 08:02 Freq: Status: Active Protocol: Document 04/14/23 12:01 [facility] (Rec: 04/14/23 12:47 [facility] [id number]) OP-PT Subjective Patient Comments Patient Comments Pt brought her hip halo loop tubing PT-OP-D Balance Start: 02/13/23 08:02 Freq: Status: Active Protocol: Document 02/13/23 13:48 [facility] (Rec: 02/13/23 16:05 [facility] [id number]) Balance Tests Single Limb Standing Single Limb- Right 16 sec Single Limb- Left 10 sec PT-OP-F Manual Assessment Start: 02/13/23 08:02 Freq: Status: Active Protocol: Document 02/13/23 13:48 [facility] (Rec: 02/13/23 16:05 [facility] [id number]) Manual Assessments Soft Tissue Assessment Soft Tissue Mobility Assessment HS, ITB, quads, add B; med jt line R; calf L PT-OP-G Mobility & Gait Start: 02/13/23 08:02 Freq: Status: Active Protocol: Document 02/13/23 13:48 [facility] (Rec: 02/13/23 16:05 [facility] [id number]) OP Gait Assessment Comments Gait Comments josejichekot dec stance time L w/ harder impact on RLE PT-OP-J Posture/Palpation/Skin Start: 02/13/23 08:02 Freq: Status: Active Protocol: Document 03/29/23 13:36 [facility] (Rec: 03/29/23 15:56 [facility] [id number]) Posture Evaluation [facility] Postural Classification System Lumbar Protective Mechanism Left AP 2 Lumbar Protective Mechanism Right AP 1 Lumbar Protective Mechanism Left PA 2 Lumbar Protective Mechanism Right PA 2 PT-OP-K Range of Motion Start: 02/13/23 08:02 Freq: Status: Active Protocol: Document 03/29/23 13:36 [facility] (Rec: 03/29/23 15:56 [facility] [id number]) Knee Goniometric Range of Motion Knee Right Flexion Active (degrees) 135 Extension Active (degrees) 3 Comments pain ant w/flex Left Flexion Active (degrees) 119 Extension Active (degrees) 4 Comments ext and flex pain ant PT-OP-L Special Tests Start: 02/13/23 08:02 Freq: Status: Active Protocol: Document 02/13/23 13:48 [facility] (Rec: 02/13/23 16:05 [facility] [id number]) Special Tests Knee Special Tests Watson Chondromalacia Comments pain w/palpation lat to patella not tested on L; R positive-med glide dec pain Whitman's Compression Test Results neg B Judy's Test Test Results pos L Apley's Compression Test Results Pos R Thessaly Test 5 Degrees Test Results neg B Jeanette Test Test Results neg B Samantha's Test Results neg B Posterior Draw Test Results neg B Valgus- 25 Degrees Test Results neg B Varus- 25 Degrees Test Results neg B Straight Leg Raise Comments WNL; good flexibility Nakul Comments B quad tightness & some hip flexor tightness B PT-OP-M Strength Start: 02/13/23 08:02 Freq: Status: Active Protocol: Document 03/29/23 13:36 [facility] (Rec: 03/29/23 15:56 [facility] [id number]) Hip Strength Hip Manual Muscle Testing Right Flexion (L2) 4 Good Extension (S1) 4- Good- Abduction 4- Good- Adduction 5 Normal External Rotation 3- Fair- Internal Rotation 4+ Good+ Comments pain in hip abd Left Flexion (L2) 4+ Good+ Extension (S1) 4- Good- Abduction 4 Good Adduction 4 Good External Rotation 4- Good- Internal Rotation 5 Normal Knee Strength Knee Manual Muscle Testing Right Flexion (S2) 5 Normal Extension (L3) 4+ Good+ Comments pain ext Left Flexion (S2) 5 Normal Extension (L3) 4+ Good+ Comments pain ext Ankle/Foot Strength Ankle and Foot Manual Muscle Testing Right Dorsiflexion (L4) 5 Normal Plantarflexion (S1) 5 Normal Comments 20 heel raises ;cues to keep knee straight Left Dorsiflexion (L4) 5 Normal Plantarflexion (S1) 4 Good Comments 11 heel raises PT-OP-Q Treatments Start: 02/13/23 08:02 Freq: Status: Active Protocol: Document 04/14/23 12:01 [facility] (Rec: 04/14/23 12:47 [facility] [id number]) Therapeutic Exercises Supine Exercises bridge Supine Exercise Name bridge w/march Side bilateral Reps/Minutes 10 Comments cued core fac then improved level pelvis and neutral spine Sidelying Exercises clamshell Side bilateral Equipment Used orange band Reps/Minutes 10 Comments good form Standing Exercises step ups Standing Exercise Name 2 step Side bilateral Resistance no UE support Equipment Used mirror front assist self corrections Reps/Minutes 2x5 reps Comments cued knee lateral shift with hip abd fac sit to stand Side bilateral Resistance mesh chair, arms across chest Equipment Used band TB #2 orange at knees Reps/Minutes 10 Comments cues for control down, knees apart asc/desc sidestepping Side bilateral Equipment Used at thighs (hip halo- past with [employer]) Reps/Minutes 20ft B x3 laps Comments cues no lat lean, core elevation Manual Therapy Treatment Taping B knees Body Location B Treatment Focus patella and knee stabilization Type of Tape Kinesio Tape Skin Inspection intact normal color Comments tib plateau med&lat to superior patella Did not perform d/t some bruising fo skin medial tib plateau superior to medial superior patella Good feedback response, feels for support to both knees PT-OP-T Assessment and Plan Start: 02/13/23 08:02 Freq: Status: Active Protocol: Document 04/14/23 12:01 [facility] (Rec: 04/14/23 12:47 SP [id number]) Physical Therapy Assessment Goals LEFS Impairment 48/80 Chain Repairer Goal (LTG) Pt will improve score to at least 60/80 in order to show improved functional ability. 03/29-52/80 LTG Duration 05/06/23 ROM Senior Living Goal (LTG) Pt will have at least 3-125 deg ROM B w/o pain in order to allow pt to do typical functional activities w/o pain including squatting and stairs 03/29-improving LTG Duration 05/06/23 strength Short Term Goal (STG) Pt will be indep w/HEP 03/29-achieved advancing as able STG Duration 04/06/23 Senior Living Goal (LTG) Pt will score at least 4+/5 on all LE MMT B and at least 3/5 on LPM to show improved staibltiy to inc pt to do typical day w/o inc pain. 03/29-improving LTG Duration 05/06/23 transitions Short Term Goal (STG) Pt will report no pain/ soreness w/walks STG Duration Achieved Chain Repairer Goal (LTG) Pt will be able to get up from sitting extended w/o inc pain in knees and do transitions. 03/29-stiff in hips lat after a few steps LTG Duration 05/06/23 stairs Short Term Goal (STG) Pt will be able to go up stairs reciprocally w/o inc pain 03/29-still painful on R STG Duration 04/06/23 Chain Repairer Goal (LTG) Pt will be able to go down stairs reciprocally w/o inc pain 03/29-can do a few at a time LTG Duration 05/08/23 Assessment Summary Assessment Pt improved self corrections with use mirror and decrease height 2 step for ascend/ back descend hip abd fac knee tracking. Able to increase resistance use hip halo resisted side stepping previously purchased with [employer] [facility] positioned at knees. Improved trunk alignment end tx with more elongated posture and hip ab leaving post ther ex. Physical Therapy Plan Frequency and Duration Frequency of Treatment 2x/Week Duration of treatment (weeks) 12 Plan of Care Start Date 02/13/23 Plan of Care End Date 05/08/23 Therapeutic Interventions Therapeutic Interventions Balance Training,Gait Training ,Home Exercise Program,Joint Mobilizations,Manual Therapy, Neuromuscular Re-education, Orthotic/Prosthetic Management ,Patient/Caregiver Education, Self-Care/Home Management,Soft Tissue Mobilization,Taping, Therapeutic Activities, Therapeutic Exercises Modalities Cold Pack/Ice Massage,Electric Stimulation,Hot Packs, Infrared Therapy,Iontophoresis ,Ultrasound Next Visit Focus/Plan Next Note Type Treatment Note Next Visit Plan Check added more appts. Continue 2 step ups with knee tracking. POC: cont to work on ability to hip flex further
--- NOTE | 2023-04-25 10:45 | PT.OTN ---
Current Diagnoses Pain in right knee (04/25/23) Pain in left knee (04/25/23) Muscle weakness (generalized) (04/25/23) Pain in right thigh (04/25/23) Pain in left thigh (04/25/23) Difficulty in walking, not elsewhere classified (04/25/23) Abnormal posture (04/25/23) Physical Therapy Treatment Note PT-OP-A Visit Information Start: 02/13/23 08:02 Freq: Status: Active Protocol: Document 04/25/23 10:02 SP (Rec: 04/25/23 10:49 SP [id number]) Out-Patient Physical Therapy Visit Information Visit Information Visit Type Treatment Note Visit Note 04/15 Visit Start Time 10:02 Visit Stop Time 10:45 Total Visit Minutes 43 Visit Number 14 Number of HOE WORKER Visits 2 PT-OP-B Current Condition Start: 02/13/23 08:02 Freq: Status: Active Protocol: Document 02/13/23 13:48 [facility] (Rec: 02/13/23 16:05 [facility] [id number]) Current Condition History of Current Condition Onset Date years Current Complaints B knee and thigh pain History of Current Condition Pt reports her knees have been giving her trouble for years but it is worse now where it feels like she can't put that much weight into them. She feels like stairs are difficult especially up. Her hips were bad for a long time and had post ISABEL R 12/26 and L ant ISABEL 06/26. Pt feels like she didn't get to enjoy her R hip being done d/t L hip being bad. She is now aware of her knees. A month ago, it was really bad and that is when seh got checked. Xray showed fluid and arthritis. She started to do stretching at home because a lot of times it hurts in post knee She does feel like her quad are still weak from hips being bad . Her stretching has helped. Pt walks a couple miles a day and does okay with that with only some pain in knees. Pt reports a lot of her hobbies are seated and it hurts when she first gets up sitting after sitting for an 1hr or more. She was scheduled for a shot but cancelled as she wants to try PT first. Pt reports she has had wt issues all her life and a lot of her life she didn't do exercises but the past 15 years she has been exercising and wants to keep active. She was swimming most days until 6 months ago and she has switched to walking daily instead. Pt reprots she fell about 6 months before getting R hip done and she tore something but doesn't remember what. She was hiking and tripped over a root. Treatment Goals Patient/Caregiver Goals be up/down stairs reciprocally ; avoid surgery; get stronger, get bck on her bike PT-OP-C Subjective Start: 02/13/23 08:02 Freq: Status: Active Protocol: Document 04/25/23 10:02 SP (Rec: 04/25/23 10:49 SP [id number]) OP-PT Subjective Patient Comments Patient Comments Pt reports hasn't really done any exercises this past week due to away with family and had alot stairs 80 to perform to get to [place] but states frustrated more weakness needed to step to patterning to complete than pain limiting her receiprocal. She states R hip not been as painful. Pt reports may call Dr rogel hip xray to see if further issues with R hip and lack range/pain still have. PT-OP-D Balance Start: 02/13/23 08:02 Freq: Status: Active Protocol: Document 02/13/23 13:48 [facility] (Rec: 02/13/23 16:05 [facility] [id number]) Balance Tests Single Limb Standing Single Limb- Right 16 sec Single Limb- Left 10 sec PT-OP-F Manual Assessment Start: 02/13/23 08:02 Freq: Status: Active Protocol: Document 02/13/23 13:48 [facility] (Rec: 02/13/23 16:05 [facility] [id number]) Manual Assessments Soft Tissue Assessment Soft Tissue Mobility Assessment HS, ITB, quads, add B; med jt line R; calf L PT-OP-G Mobility & Gait Start: 02/13/23 08:02 Freq: Status: Active Protocol: Document 02/13/23 13:48 [facility] (Rec: 02/13/23 16:05 [facility] [id number]) OP Gait Assessment Comments Gait Comments sljight dec stance time L w/ harder impact on RLE PT-OP-J Posture/Palpation/Skin Start: 02/13/23 08:02 Freq: Status: Active Protocol: Document 03/29/23 13:36 [facility] (Rec: 03/29/23 15:56 [facility] [id number]) Posture Evaluation [facility] Postural Classification System Lumbar Protective Mechanism Left AP 2 Lumbar Protective Mechanism Right AP 1 Lumbar Protective Mechanism Left PA 2 Lumbar Protective Mechanism Right PA 2 PT-OP-K Range of Motion Start: 02/13/23 08:02 Freq: Status: Active Protocol: Document 03/29/23 13:36 [facility] (Rec: 03/29/23 15:56 [facility] [id number]) Knee Goniometric Range of Motion Knee Right Flexion Active (degrees) 135 Extension Active (degrees) 3 Comments pain ant w/flex Left Flexion Active (degrees) 119 Extension Active (degrees) 4 Comments ext and flex pain ant PT-OP-L Special Tests Start: 02/13/23 08:02 Freq: Status: Active Protocol: Document 02/13/23 13:48 [facility] (Rec: 02/13/23 16:05 [facility] [id number]) Special Tests Knee Special Tests Watson Chondromalacia Comments pain w/palpation lat to patella not tested on L; R positive-med glide dec pain Whitman's Compression Test Results neg B Judy's Test Test Results pos L Apley's Compression Test Results Pos R Thessaly Test 5 Degrees Test Results neg B Jeanette Test Test Results neg B Samantha's Test Results neg B Posterior Draw Test Results neg B Valgus- 25 Degrees Test Results neg B Varus- 25 Degrees Test Results neg B Straight Leg Raise Comments WNL; good flexibility Nakul Comments B quad tightness & some hip flexor tightness B PT-OP-M Strength Start: 02/13/23 08:02 Freq: Status: Active Protocol: Document 03/29/23 13:36 [facility] (Rec: 03/29/23 15:56 [facility] [id number]) Hip Strength Hip Manual Muscle Testing Right Flexion (L2) 4 Good Extension (S1) 4- Good- Abduction 4- Good- Adduction 5 Normal External Rotation 3- Fair- Internal Rotation 4+ Good+ Comments pain in hip abd Left Flexion (L2) 4+ Good+ Extension (S1) 4- Good- Abduction 4 Good Adduction 4 Good External Rotation 4- Good- Internal Rotation 5 Normal Knee Strength Knee Manual Muscle Testing Right Flexion (S2) 5 Normal Extension (L3) 4+ Good+ Comments pain ext Left Flexion (S2) 5 Normal Extension (L3) 4+ Good+ Comments pain ext Ankle/Foot Strength Ankle and Foot Manual Muscle Testing Right Dorsiflexion (L4) 5 Normal Plantarflexion (S1) 5 Normal Comments 20 heel raises ;cues to keep knee straight Left Dorsiflexion (L4) 5 Normal Plantarflexion (S1) 4 Good Comments 11 heel raises PT-OP-Q Treatments Start: 02/13/23 08:02 Freq: Status: Active Protocol: Document 04/25/23 10:02 SP (Rec: 04/25/23 10:49 SP [id number]) Therapeutic Exercises Supine Exercises fig 4 Supine Exercise Name reviewed HEP Side bilateral Reps/Minutes 2 min Comments improved R hip ER post manual inferolateral mob bridge Supine Exercise Name bridge w/march Side bilateral Reps/Minutes 102x10 Comments improved level pelvis & neutral spine Prone Exercises downward dog stretch Prone Exercise Name REviewed self HEP Reps/Minutes 20 SH Comments good feedback stretch Sidelying Exercises hip abd Sidelying Exercise Name reviewed HEP Side bilateral Resistance AROM (bottom leg bent), pillow between BLE Reps/Minutes x20 reps Comments good form R little weaker than L Sitting Exercises LAQ Sitting Exercise Name reviewed HEP Side left Resistance #4 TB blue at ankles Reps/Minutes 3 SH x10 Comments cued sit back fully, femur supported Standing Exercises SLS glut lift facing wall Standing Exercise Name reviewed HEP Side right Reps/Minutes 8 reps L, 3 then 5 reps R x2 sets Comments good muscle effort L, R tires at 5 reps glut med off step Standing Exercise Name initiated in PT forgot give HO Equipment Used 3 book, Mod support BUE on rail Reps/Minutes 3reps x2 Comments challenge with R hip pain and weakness Manual Therapy Treatment Joint Mobilizations hip Joint R Direction inferior, inferolateral ( piriformis stretch positioning Grade II Body Position Hooklying Reps/Duration 8 min total- Comments manual w/ ER FM PROM Taping B knees Body Location B Treatment Focus patella and knee stabilization Type of Tape Kinesio Tape Skin Inspection intact normal color Comments tib plateau med&lat to superior patella Did not perform d/t some bruising fo skin medial tib plateau superior to medial superior patella Good feedback response, feels for support to both knees PT-OP-T Assessment and Plan Start: 02/13/23 08:02 Freq: Status: Active Protocol: Document 04/25/23 10:02 SP (Rec: 04/25/23 10:49 SP [id number]) Physical Therapy Assessment Goals LEFS Impairment 48/80 Nursing Home Goal (LTG) Pt will improve score to at least 60/80 in order to show improved functional ability. 03/29-52/80 LTG Duration 05/06/23 ROM Life Advisor Goal (LTG) Pt will have at least 3-125 deg ROM B w/o pain in order to allow pt to do typical functional activities w/o pain including squatting and stairs 03/29-improving LTG Duration 05/06/23 strength Short Term Goal (STG) Pt will be indep w/HEP 03/29-achieved advancing as able STG Duration 04/06/23 Nursing Home Goal (LTG) Pt will score at least 4+/5 on all LE MMT B and at least 3/5 on LPM to show improved staibltiy to inc pt to do typical day w/o inc pain. 03/29-improving LTG Duration 05/06/23 transitions Short Term Goal (STG) Pt will report no pain/ soreness w/walks STG Duration Achieved Life Advisor Goal (LTG) Pt will be able to get up from sitting extended w/o inc pain in knees and do transitions. 03/29-stiff in hips lat after a few steps LTG Duration 05/06/23 stairs Short Term Goal (STG) Pt will be able to go up stairs reciprocally w/o inc pain 03/29-still painful on R STG Duration 04/06/23 Life Advisor Goal (LTG) Pt will be able to go down stairs reciprocally w/o inc pain 03/29-can do a few at a time LTG Duration 05/08/23 Assessment Summary Assessment Pt improved hip ER ROM on R post manual. She reports better glut med effort lift at wall vs off step. Noted R knee Stance time at wall weakness in R quad, improves post TKE cue with soft knee cuing. Pt states may call physician and request further assessment due to R hip pain continues, not seeing as significant improvement in pain as thought by now. Physical Therapy Plan Frequency and Duration Frequency of Treatment 2x/Week Duration of treatment (weeks) 12 Plan of Care Start Date 02/13/23 Plan of Care End Date 05/08/23 Therapeutic Interventions Therapeutic Interventions Balance Training,Gait Training ,Home Exercise Program,Joint Mobilizations,Manual Therapy, Neuromuscular Re-education, Orthotic/Prosthetic Management ,Patient/Caregiver Education, Self-Care/Home Management,Soft Tissue Mobilization,Taping, Therapeutic Activities, Therapeutic Exercises Modalities Cold Pack/Ice Massage,Electric Stimulation,Hot Packs, Infrared Therapy,Iontophoresis ,Ultrasound Next Visit Focus/Plan Next Note Type Treatment Note Next Visit Plan Check if getting further imaging assessment. Continue 2 step ups with knee tracking. POC: cont to work on ability to hip flex further
--- NOTE | 2023-05-01 15:15 | PT.OTN ---
Current Diagnoses Pain in right knee (05/01/23) Pain in left knee (05/01/23) Muscle weakness (generalized) (05/01/23) Pain in right thigh (05/01/23) Pain in left thigh (05/01/23) Difficulty in walking, not elsewhere classified (05/01/23) Abnormal posture (05/01/23) Physical Therapy Treatment Note PT-OP-A Visit Information Start: 02/13/23 08:02 Freq: Status: Active Protocol: Document 05/01/23 14:32 SP (Rec: 05/01/23 15:44 SP [id number]) Out-Patient Physical Therapy Visit Information Visit Information Visit Type Treatment Note Visit Note 05/15 Visit Start Time 14:32 Visit Stop Time 15:15 Total Visit Minutes 43 Visit Number 15 Number of CD REACTOR OPERATOR Visits 3 PT-OP-B Current Condition Start: 02/13/23 08:02 Freq: Status: Active Protocol: Document 02/13/23 13:48 [facility] (Rec: 02/13/23 16:05 [facility] [id number]) Current Condition History of Current Condition Onset Date years Current Complaints B knee and thigh pain History of Current Condition Pt reports her knees have been giving her trouble for years but it is worse now where it feels like she can't put that much weight into them. She feels like stairs are difficult especially up. Her hips were bad for a long time and had post ISABEL R 12/26 and L ant ISABEL 06/26. Pt feels like she didn't get to enjoy her R hip being done d/t L hip being bad. She is now aware of her knees. A month ago, it was really bad and that is when seh got checked. Xray showed fluid and arthritis. She started to do stretching at home because a lot of times it hurts in post knee She does feel like her quad are still weak from hips being bad . Her stretching has helped. Pt walks a couple miles a day and does okay with that with only some pain in knees. Pt reports a lot of her hobbies are seated and it hurts when she first gets up sitting after sitting for an 1hr or more. She was scheduled for a shot but cancelled as she wants to try PT first. Pt reports she has had wt issues all her life and a lot of her life she didn't do exercises but the past 15 years she has been exercising and wants to keep active. She was swimming most days until 6 months ago and she has switched to walking daily instead. Pt reprots she fell about 6 months before getting R hip done and she tore something but doesn't remember what. She was hiking and tripped over a root. Treatment Goals Patient/Caregiver Goals be up/down stairs reciprocally ; avoid surgery; get stronger, get bck on her bike PT-OP-C Subjective Start: 02/13/23 08:02 Freq: Status: Active Protocol: Document 05/01/23 14:32 SP (Rec: 05/01/23 15:44 SP [id number]) OP-PT Subjective Patient Comments Patient Comments Pt reports her activity level has improved not in pain most of the day, walking up to 2 miles w/ incline/declines painfree no problem luigi when mindful of LE positioning instructed, depending on height stairs decreased UE support but still having pain over R posterlateral greater trochanter during WB. She had massage on Mon and went dancing for 2 hours and painfree. But still has R hip pain with exercises that stress R hip can feel better after. She reports might call the physician and ask if can get further imaging to R hip and see if anything going on in hip that is still causing pain. Patient Questionnaires Lower Extremity Functional Scale LEFS Score 55 LEFS Impairment 20 to 39% Impaired (Score 48- 62) PT-OP-D Balance Start: 02/13/23 08:02 Freq: Status: Active Protocol: Document 02/13/23 13:48 [facility] (Rec: 02/13/23 16:05 [facility] [id number]) Balance Tests Single Limb Standing Single Limb- Right 16 sec Single Limb- Left 10 sec PT-OP-F Manual Assessment Start: 02/13/23 08:02 Freq: Status: Active Protocol: Document 02/13/23 13:48 [facility] (Rec: 02/13/23 16:05 [facility] [id number]) Manual Assessments Soft Tissue Assessment Soft Tissue Mobility Assessment HS, ITB, quads, add B; med jt line R; calf L PT-OP-G Mobility & Gait Start: 02/13/23 08:02 Freq: Status: Active Protocol: Document 02/13/23 13:48 [facility] (Rec: 02/13/23 16:05 [facility] [id number]) OP Gait Assessment Comments Gait Comments sljight dec stance time L w/ harder impact on RLE PT-OP-J Posture/Palpation/Skin Start: 02/13/23 08:02 Freq: Status: Active Protocol: Document 03/29/23 13:36 [facility] (Rec: 03/29/23 15:56 [facility] [id number]) Posture Evaluation [facility] Postural Classification System Lumbar Protective Mechanism Left AP 2 Lumbar Protective Mechanism Right AP 1 Lumbar Protective Mechanism Left PA 2 Lumbar Protective Mechanism Right PA 2 PT-OP-K Range of Motion Start: 02/13/23 08:02 Freq: Status: Active Protocol: Document 05/01/23 14:32 SP (Rec: 05/01/23 15:44 SP [id number]) Knee Goniometric Range of Motion Knee Right Knee ROM WFL Yes Patient Position Supine Flexion Active (degrees) 137 Extension Active (degrees) 0 Comments Pain end feel R knee flexion ant knee jt line AROM R knee supine: 0-137 deg Improvement 2 deg flexion Improvement 3 deg ext Left Knee ROM WFL No Patient Position Supine Flexion Active (degrees) 125 Extension Active (degrees) 0 Comments Pain end feel L knee flexion ant knee jt line AROM L knee supine: 0-125 deg improved 6 deg flexion improved 4 deg ext PT-OP-L Special Tests Start: 02/13/23 08:02 Freq: Status: Active Protocol: Document 02/13/23 13:48 [facility] (Rec: 02/13/23 16:05 [facility] [id number]) Special Tests Knee Special Tests Watson Chondromalacia Comments pain w/palpation lat to patella not tested on L; R positive-med glide dec pain Whitman's Compression Test Results neg B Judy's Test Test Results pos L Apley's Compression Test Results Pos R Thessaly Test 5 Degrees Test Results neg B Jeanette Test Test Results neg B Samantha's Test Results neg B Posterior Draw Test Results neg B Valgus- 25 Degrees Test Results neg B Varus- 25 Degrees Test Results neg B Straight Leg Raise Comments WNL; good flexibility Nakul Comments B quad tightness & some hip flexor tightness B PT-OP-M Strength Start: 02/13/23 08:02 Freq: Status: Active Protocol: Document 05/01/23 14:32 SP (Rec: 05/01/23 15:44 SP [id number]) Hip Strength Hip Manual Muscle Testing Right Flexion (L2) 4+ Good+ Extension (S1) 5 Normal Abduction 4+ Good+ Adduction 5 Normal External Rotation 3+ Fair+ Internal Rotation 5 Normal Comments pain in R lateral hip abd Left Flexion (L2) 5 Normal Extension (S1) 5 Normal Abduction 5 Normal Adduction 4+ Good+ External Rotation 4+ Good+ Internal Rotation 5 Normal Knee Strength Knee Manual Muscle Testing Right Flexion (S2) 5 Normal Extension (L3) 5 Normal Comments painfree extension 05/01 but demonstrates jt grinding palpation Left Flexion (S2) 5 Normal Extension (L3) 5 Normal Comments painfree extension 05/01 but demonstrates jt grinding palpation PT-OP-Q Treatments Start: 02/13/23 08:02 Freq: Status: Active Protocol: Document 05/01/23 14:32 SP (Rec: 05/01/23 15:44 SP [id number]) Therapeutic Exercises Supine Exercises AROM Supine Exercise Name AROM and strength review Comments see measurements taken PT-OP-T Assessment and Plan Start: 02/13/23 08:02 Freq: Status: Active Protocol: Document 05/01/23 14:32 SP (Rec: 05/01/23 15:44 SP [id number]) Physical Therapy Assessment Goals LEFS Impairment 48/80 Halfway Goal (LTG) Pt will improve score to at least 60/80 in order to show improved functional ability. 03/29-52/80 05/01/23: 55/80, improvement 3 points. LTG Duration 05/06/23 improved 05/01/23 ROM Halfway Goal (LTG) Pt will have at least 3-125 deg ROM B w/o pain in order to allow pt to do typical functional activities w/o pain including squatting and stairs 03/29-improving 05/01/23: GOAL MET: R 0-125 deg , L knee 0-137 deg with anterior knee pain end feel AROM in to flexion still but still has pain squatting more ascend than descending with need of 2 more than HRs receiprocal stepping other vasques needs 1 HR step to patterning. LTG Duration 05/06/23 GOAL MET: 05/01/23 strength Short Term Goal (STG) Pt will be indep w/HEP 03/29-achieved advancing as able STG Duration 04/06/23 Spouting Installer Goal (LTG) Pt will score at least 4+/5 on all LE MMT B and at least 3/5 on LPM to show improved staibltiy to inc pt to do typical day w/o inc pain. 03/29-improving 05/01/23: improved by half to full 1 grade, no knee pain extension now but audible grinding tibiofemoral jt Bilaterally, still R hip pain with resisted ER. LTG Duration 05/06/23 updated 05/01/23 transitions Short Term Goal (STG) Pt will report no pain/ soreness w/walks 05/01/23: COntinue progress able walk 2 miles without pain /soreness. Will be continue progress mileage. STG Duration Achieved Halfway Goal (LTG) Pt will be able to get up from sitting extended w/o inc pain in knees and do transitions. 03/29-stiff in hips lat after a few steps 05/01/23: reports more stiffness when gets up and not pain and depends on angle of positioning but not pain and frees up moving around LTG Duration 05/06/23 updated 05/01/23 stairs Short Term Goal (STG) Pt will be able to go up stairs reciprocally w/o inc pain 03/29-still painful on R 05/01/23: progressing 710 R hip pain receiprocal stepping 6 step 50% support on L HR during RLE WB, no support required LLE advancement, 4 step no UE WB support with 7- after many reps demonstrated. STG Duration 04/06/23 updated 05/01/23 Halfway Goal (LTG) Pt will be able to go down stairs reciprocally w/o inc pain 03/29-can do a few at a time 05/01/23: improving: able descend receiprocal 6 steps, 50% LLE support during RLE WB due to pain R hip . 4step able asc/desc no UE support, LTG Duration 05/08/23 progressing 05/01/23 Progress Towards Goals Progress Comments ext and flex R pain ant AROM L knee supine 0-125 deg: improved 6 deg flexion improved 4 deg ext pain ant Lknee jt line w/flex AROM R knee supine: 0-137 deg Improvement 2 deg flexion Improvement 3 deg ext Assessment Summary Assessment Pt making gains in ROM and activity level but continues experience R hip pain with resistance with hip ER and WB 7-8/10 on stairs and requiring UE support with height or LE feels like with give out. She feels like wants more imaging in R hip to see if anything impeded. CD REACTOR OPERATOR instructed continue HEP that give work and ROM tiring response and not pain irritation with agreed response. Pt wants to continue PT in the meantime. Pt reports the Ktaping over B anterior knees continues feel supportive for mobility and still fine today. Physical Therapy Plan Frequency and Duration Frequency of Treatment 2x/Week Duration of treatment (weeks) 12 Plan of Care Start Date 02/13/23 Plan of Care End Date 05/08/23 Therapeutic Interventions Therapeutic Interventions Balance Training,Gait Training ,Home Exercise Program,Joint Mobilizations,Manual Therapy, Neuromuscular Re-education, Orthotic/Prosthetic Management ,Patient/Caregiver Education, Self-Care/Home Management,Soft Tissue Mobilization,Taping, Therapeutic Activities, Therapeutic Exercises Modalities Cold Pack/Ice Massage,Electric Stimulation,Hot Packs, Infrared Therapy,Iontophoresis ,Ultrasound Other Referrals/Consults Referrals/Consults Recommended CD REACTOR OPERATOR in agreement with pt request further imaging of R hip due to pain limiting with resisted and WB activities as stair mgt. Next Visit Focus/Plan Next Note Type Progress Note Next Visit Plan Check on further imaging R hip pt reports will be requesting . POC: cont to work on ability to hip flex further
--- NOTE | 2023-05-02 18:52 | PT.OPPOC ---
Physical, Occupational & Speech Therapy At [facility] Current Diagnoses Pain in right knee (05/01/23) Pain in left knee (05/01/23) Muscle weakness (generalized) (05/01/23) Pain in right thigh (05/01/23) Pain in left thigh (05/01/23) Difficulty in walking, not elsewhere classified (05/01/23) Abnormal posture (05/01/23) Visit Care Team Role Provider Type JAYDEN Fields Attending Provider Advanced Slag Production Worker Family Provider Primary Care Provider Referring Provider Specialty: Family Practice Address: [address] [place] [address], [id number] Email: [email or web address] Plan Of Care PT-OP-T Assessment and Plan Start: 02/13/23 08:02 Freq: Status: Active Protocol: Document 05/01/23 18:47 [facility] (Rec: 05/02/23 18:52 [facility] [id number]) Physical Therapy Assessment Goals LEFS Impairment 48/80 Copy Editor Goal (LTG) Pt will improve score to at least 60/80 in order to show improved functional ability. 03/29-52/80 05/01/23: 55/80 LTG Duration 06/13 ROM Copy Editor Goal (LTG) Pt will have at least 3-125 deg ROM B w/o pain in order to allow pt to do typical functional activities w/o pain including squatting and stairs 03/29-improving 05/01/23: GOAL MET: R 0-125 deg , L knee 0-137 deg with anterior knee pain end feel AROM in to flexion still but still has pain squatting more ascend than descending with need of 2 more than HRs receiprocal stepping other vasques needs 1 HR step to patterning. LTG Duration 05/06/23 GOAL MET: 05/01/23 strength Short Term Goal (STG) Pt will be indep w/HEP 03/29-achieved advancing as able STG Duration achieved advancng as able Senior Care Goal (LTG) Pt will score at least 4+/5 on all LE MMT B and at least 3/5 on LPM to show improved staibltiy to inc pt to do typical day w/o inc pain. 03/29-improving 05/01/23: improved by half to full 1 grade, no knee pain extension now but audible grinding tibiofemoral jt Bilaterally, still R hip pain with resisted ER. LTG Duration 06/13 transitions Short Term Goal (STG) Pt will report no pain/ soreness w/walks 05/01/23: COntinue progress able walk 2 miles without pain /soreness. Will be continue progress mileage. STG Duration Achieved Senior Care Goal (LTG) Pt will be able to get up from sitting extended w/o inc pain in knees and do transitions. 03/29-stiff in hips lat after a few steps 05/01/23: reports more stiffness when gets up and not pain and depends on angle of positioning but not pain and frees up moving around LTG Duration achieved notes stiffness only stairs Short Term Goal (STG) Pt will be able to go up stairs reciprocally w/o inc pain 03/29-still painful on R 05/01/23: progressing 05/15 R hip pain receiprocal stepping 6 step 50% support on L HR during RLE WB, no support required LLE advancement, 4 step no UE WB support with 7- after many reps demonstrated. STG Duration 05/20 Senior Care Goal (LTG) Pt will be able to go down stairs reciprocally w/o inc pain 03/29-can do a few at a time 05/01/23: improving: able descend receiprocal 6 steps, 50% LLE support during RLE WB due to pain R hip . 4step able asc/desc no UE support, LTG Duration 06/13 Assessment Summary Assessment Pt has made excellent progress w/PT and is noting much dec in pain overall and imrpoved functional ability.S he does still have pain w/steps and is going to contact her provider re: imaging of R hip in re: to this.S he would bneefit from cont PT to work on strength and stability of LEs to cont to improve pt function . Physical Therapy Plan Frequency and Duration Frequency of Treatment 1-2x/wk Duration of treatment (weeks) 6 Plan of Care Start Date 05/02/23 Plan of Care End Date 06/13/23 Therapeutic Interventions Therapeutic Interventions Balance Training,Gait Training ,Home Exercise Program,Joint Mobilizations,Manual Therapy, Neuromuscular Re-education, Orthotic/Prosthetic Management ,Patient/Caregiver Education, Self-Care/Home Management,Soft Tissue Mobilization,Taping, Therapeutic Activities, Therapeutic Exercises Modalities Cold Pack/Ice Massage,Electric Stimulation,Hot Packs, Infrared Therapy,Iontophoresis ,Ultrasound Next Visit Focus/Plan Next Note Type Treatment Note Next Visit Plan cont to work on ability to hip flex further & pt abilityt o step up Plan of Care Dates Plan of Care Start Date 05/02/23 Plan of Care End Date 06/13/23 Electronically Signed by: Tiffanie Crespo, PT 05/02/23 [id number] If you are in agreement with this Plan of Care, please return a signed and dated copy. I have reviewed this Plan of Care and certify that the skilled therapy services above are required to meet the patient?s needs. Physician Signature Date Printed Name and Credentials Clinical Instructor Signature Printed Name and Credentials
--- NOTE | 2023-05-12 12:45 | PT.OTN ---
Current Diagnoses Pain in right knee (05/12/23) Pain in left knee (05/12/23) Muscle weakness (generalized) (05/12/23) Pain in right thigh (05/12/23) Pain in left thigh (05/12/23) Difficulty in walking, not elsewhere classified (05/12/23) Abnormal posture (05/12/23) Physical Therapy Treatment Note PT-OP-A Visit Information Start: 02/13/23 08:02 Freq: Status: Active Protocol: Document 05/12/23 12:01 SP (Rec: 05/12/23 12:48 SP [id number]) Out-Patient Physical Therapy Visit Information Visit Information Visit Type Treatment Note Visit Start Time 12:01 Visit Stop Time 12:45 Total Visit Minutes 44 Visit Number 16 Number of PUBLIC RELATIONS MANAGER Visits 4 PT-OP-B Current Condition Start: 02/13/23 08:02 Freq: Status: Active Protocol: Document 02/13/23 13:48 [facility] (Rec: 02/13/23 16:05 [facility] [id number]) Current Condition History of Current Condition Onset Date years Current Complaints B knee and thigh pain History of Current Condition Pt reports her knees have been giving her trouble for years but it is worse now where it feels like she can't put that much weight into them. She feels like stairs are difficult especially up. Her hips were bad for a long time and had post ISABEL R 12/26 and L ant ISABEL 06/26. Pt feels like she didn't get to enjoy her R hip being done d/t L hip being bad. She is now aware of her knees. A month ago, it was really bad and that is when seh got checked. Xray showed fluid and arthritis. She started to do stretching at home because a lot of times it hurts in post knee She does feel like her quad are still weak from hips being bad . Her stretching has helped. Pt walks a couple miles a day and does okay with that with only some pain in knees. Pt reports a lot of her hobbies are seated and it hurts when she first gets up sitting after sitting for an 1hr or more. She was scheduled for a shot but cancelled as she wants to try PT first. Pt reports she has had wt issues all her life and a lot of her life she didn't do exercises but the past 15 years she has been exercising and wants to keep active. She was swimming most days until 6 months ago and she has switched to walking daily instead. Pt reprots she fell about 6 months before getting R hip done and she tore something but doesn't remember what. She was hiking and tripped over a root. Treatment Goals Patient/Caregiver Goals be up/down stairs reciprocally ; avoid surgery; get stronger, get bck on her bike PT-OP-C Subjective Start: 02/13/23 08:02 Freq: Status: Active Protocol: Document 05/12/23 12:01 SP (Rec: 05/12/23 12:48 SP [id number]) OP-PT Subjective Patient Comments Patient Comments Pt reports able to ascend/ descend stair only 1 HR now and danced 2 hrs and walked the parade without pain. WIll be riding [employer] ride this next week and see how PT-OP-D Balance Start: 02/13/23 08:02 Freq: Status: Active Protocol: Document 02/13/23 13:48 [facility] (Rec: 02/13/23 16:05 [facility] [id number]) Balance Tests Single Limb Standing Single Limb- Right 16 sec Single Limb- Left 10 sec PT-OP-F Manual Assessment Start: 02/13/23 08:02 Freq: Status: Active Protocol: Document 02/13/23 13:48 [facility] (Rec: 02/13/23 16:05 [facility] [id number]) Manual Assessments Soft Tissue Assessment Soft Tissue Mobility Assessment HS, ITB, quads, add B; med jt line R; calf L PT-OP-G Mobility & Gait Start: 02/13/23 08:02 Freq: Status: Active Protocol: Document 02/13/23 13:48 [facility] (Rec: 02/13/23 16:05 [facility] [id number]) OP Gait Assessment Comments Gait Comments sljight dec stance time L w/ harder impact on RLE PT-OP-J Posture/Palpation/Skin Start: 02/13/23 08:02 Freq: Status: Active Protocol: Document 03/29/23 13:36 [facility] (Rec: 03/29/23 15:56 [facility] [id number]) Posture Evaluation Shai Postural Classification System Lumbar Protective Mechanism Left AP 2 Lumbar Protective Mechanism Right AP 1 Lumbar Protective Mechanism Left PA 2 Lumbar Protective Mechanism Right PA 2 PT-OP-K Range of Motion Start: 02/13/23 08:02 Freq: Status: Active Protocol: Document 05/01/23 14:32 SP (Rec: 05/01/23 15:44 SP [id number]) Knee Goniometric Range of Motion Knee Right Knee ROM WFL Yes Patient Position Supine Flexion Active (degrees) 137 Extension Active (degrees) 0 Comments Pain end feel R knee flexion ant knee jt line AROM R knee supine: 0-137 deg Improvement 2 deg flexion Improvement 3 deg ext Left Knee ROM WFL No Patient Position Supine Flexion Active (degrees) 125 Extension Active (degrees) 0 Comments Pain end feel L knee flexion ant knee jt line AROM L knee supine: 0-125 deg improved 6 deg flexion improved 4 deg ext PT-OP-L Special Tests Start: 02/13/23 08:02 Freq: Status: Active Protocol: Document 02/13/23 13:48 [facility] (Rec: 02/13/23 16:05 [facility] [id number]) Special Tests Knee Special Tests Watson Chondromalacia Comments pain w/palpation lat to patella not tested on L; R positive-med glide dec pain Whitman's Compression Test Results neg B Judy's Test Test Results pos L Apley's Compression Test Results Pos R Thessaly Test 5 Degrees Test Results neg B Jeanette Test Test Results neg B Samantha's Test Results neg B Posterior Draw Test Results neg B Valgus- 25 Degrees Test Results neg B Varus- 25 Degrees Test Results neg B Straight Leg Raise Comments WNL; good flexibility Nakul Comments B quad tightness & some hip flexor tightness B PT-OP-M Strength Start: 02/13/23 08:02 Freq: Status: Active Protocol: Document 05/01/23 14:32 SP (Rec: 05/01/23 15:44 SP [id number]) Hip Strength Hip Manual Muscle Testing Right Flexion (L2) 4+ Good+ Extension (S1) 5 Normal Abduction 4+ Good+ Adduction 5 Normal External Rotation 3+ Fair+ Internal Rotation 5 Normal Comments pain in R lateral hip abd Left Flexion (L2) 5 Normal Extension (S1) 5 Normal Abduction 5 Normal Adduction 4+ Good+ External Rotation 4+ Good+ Internal Rotation 5 Normal Knee Strength Knee Manual Muscle Testing Right Flexion (S2) 5 Normal Extension (L3) 5 Normal Comments painfree extension 6/26 but demonstrates jt grinding palpation Left Flexion (S2) 5 Normal Extension (L3) 5 Normal Comments painfree extension 05/01 but demonstrates jt grinding palpation PT-OP-Q Treatments Start: 02/13/23 08:02 Freq: Status: Active Protocol: Document 05/12/23 12:01 SP (Rec: 05/12/23 12:48 SP [id number]) Therapeutic Exercises Supine Exercises fig 4 Supine Exercise Name reviewed HEP Side bilateral Equipment Used 1. stretch 2. MWM over racquetball with hip ER ROM Reps/Minutes 2 min Comments improved R ER stretch end tx Prone Exercises downward dog stretch Prone Exercise Name REviewed self HEP Reps/Minutes 20 SH Comments good feedback stretch Standing Exercises hip abd lift at wall Standing Exercise Name reviewed: glut med lift/lower Side bilateral Resistance AROM Equipment Used opp LE bent, Side to wall outside leg straight Reps/Minutes x10 2 sets Comments repeated lift hip near wall SLS glut lift facing wall Standing Exercise Name reviewed HEP Side bilateral Reps/Minutes x8 reps- better post glut cleft region effort Comments good muscle effort B glut med off step Standing Exercise Name reviewed Equipment Used 3 book, Mod support BUE on rail Reps/Minutes 3reps x2 Comments challenge with R hip pain and weakness self STMs Standing Exercise Name ball wall glut/piriformis Resistance racquetball under glut max w/ FM hip IR/ ER Reps/Minutes x4 reps Comments good hurt feedback step ups Standing Exercise Name 16 box x1 rep assimulate getting on ride Side bilateral Resistance BUE support Reps/Minutes x1 reps fwd/back down Comments good glut drive leading LLE. Gait Training Gait Activity stairs Device Used 1HR Level of Assistance S Distance/Duration 4 stairs x4 sets, 16 block/ step 2 hand on 1 rail Treatment Focus receiprocal stepping, decrease HR need, Comments decreased to 1 UE support today ascend Mod A UE, very light 1 UE improved descend quick reciprocal step Manual Therapy Treatment Taping B knees Body Location B Treatment Focus patella and knee stabilization Type of Tape Kinesio Tape Skin Inspection intact normal color Comments tib plateau med&lat to superior patella Did not perform d/t some bruising fo skin medial tib plateau superior to medial superior patella Good feedback response, feels for support to both knees PT-OP-T Assessment and Plan Start: 02/13/23 08:02 Freq: Status: Active Protocol: Document 05/12/23 12:01 SP (Rec: 05/12/23 12:48 SP [id number]) Physical Therapy Assessment Goals LEFS Impairment 48/80 Mcfp Goal (LTG) Pt will improve score to at least 60/80 in order to show improved functional ability. 03/29-52/80 05/01/23: 55/80 LTG Duration 06/13 ROM Mcfp Goal (LTG) Pt will have at least 3-125 deg ROM B w/o pain in order to allow pt to do typical functional activities w/o pain including squatting and stairs 03/29-improving 05/01/23: GOAL MET: R 0-125 deg , L knee 0-137 deg with anterior knee pain end feel AROM in to flexion still but still has pain squatting more ascend than descending with need of 2 more than HRs receiprocal stepping other vasques needs 1 HR step to patterning. LTG Duration 05/06/23 GOAL MET: 05/01/23 strength Short Term Goal (STG) Pt will be indep w/HEP 03/29-achieved advancing as able STG Duration achieved advancng as able Chimney Builder Goal (LTG) Pt will score at least 4+/5 on all LE MMT B and at least 3/5 on LPM to show improved staibltiy to inc pt to do typical day w/o inc pain. 03/29-improving 05/01/23: improved by half to full 1 grade, no knee pain extension now but audible grinding tibiofemoral jt Bilaterally, still R hip pain with resisted ER. LTG Duration 06/13 transitions Short Term Goal (STG) Pt will report no pain/ soreness w/walks 05/01/23: COntinue progress able walk 2 miles without pain /soreness. Will be continue progress mileage. STG Duration Achieved Mcfp Goal (LTG) Pt will be able to get up from sitting extended w/o inc pain in knees and do transitions. 03/29-stiff in hips lat after a few steps 05/01/23: reports more stiffness when gets up and not pain and depends on angle of positioning but not pain and frees up moving around LTG Duration achieved notes stiffness only stairs Short Term Goal (STG) Pt will be able to go up stairs reciprocally w/o inc pain 03/29-still painful on R 05/01/23: progressing 05/15 R hip pain receiprocal stepping 6 step 50% support on L HR during RLE WB, no support required LLE advancement, 4 step no UE WB support with - after many reps demonstrated. STG Duration 05/20 Chimney Builder Goal (LTG) Pt will be able to go down stairs reciprocally w/o inc pain 03/29-can do a few at a time 05/01/23: improving: able descend receiprocal 6 steps, 50% LLE support during RLE WB due to pain R hip . 4step able asc/desc no UE support, LTG Duration 06/13 Assessment Summary Assessment Pt good hip abd effort during glut med off step and at wall with report feel good isolation today. HEP review with cues for set up and proper form, think about glut or hip abd fac to recruit muscle, improved form and isolate muscle tiring not R hip pain. Pt reports sore R hip end tx but ok, will ice later if needed. Physical Therapy Plan Frequency and Duration Frequency of Treatment 1-2x/wk Duration of treatment (weeks) 6 Plan of Care Start Date 05/02/23 Plan of Care End Date 06/13/23 Therapeutic Interventions Therapeutic Interventions Balance Training,Gait Training ,Home Exercise Program,Joint Mobilizations,Manual Therapy, Neuromuscular Re-education, Orthotic/Prosthetic Management ,Patient/Caregiver Education, Self-Care/Home Management,Soft Tissue Mobilization,Taping, Therapeutic Activities, Therapeutic Exercises Modalities Cold Pack/Ice Massage,Electric Stimulation,Hot Packs, Infrared Therapy,Iontophoresis ,Ultrasound Other Referrals/Consults Referrals/Consults Recommended PUBLIC RELATIONS MANAGER in agreement with pt request further imaging of R hip due to pain limiting with resisted and WB activities as stair mgt. Next Visit Focus/Plan Next Note Type Treatment Note Next Visit Plan Check on ability to go to amusement park/ride rides with grandkids. cont to work on ability to hip flex further & pt ability to step up rides to spend time with grandchildren
--- NOTE | 2023-05-24 18:47 | PT.OTN ---
Current Diagnoses Pain in right knee (05/24/23) Pain in left knee (05/24/23) Muscle weakness (generalized) (05/24/23) Pain in right thigh (05/24/23) Pain in left thigh (05/24/23) Difficulty in walking, not elsewhere classified (05/24/23) Abnormal posture (05/24/23) Physical Therapy Treatment Note PT-OP-A Visit Information Start: 02/13/23 08:02 Freq: Status: Active Protocol: Document 05/24/23 14:18 [facility] (Rec: 05/24/23 18:47 [facility] [id number]) Out-Patient Physical Therapy Visit Information Visit Information Visit Type Treatment Note Visit Start Time 14:22 Visit Stop Time 15:05 Total Visit Minutes 43 Visit Number 17 Number of CARGO SURVEYOR Visits 0 PT-OP-B Current Condition Start: 02/13/23 08:02 Freq: Status: Active Protocol: Document 02/13/23 13:48 [facility] (Rec: 02/13/23 16:05 [facility] [id number]) Current Condition History of Current Condition Onset Date years Current Complaints B knee and thigh pain History of Current Condition Pt reports her knees have been giving her trouble for years but it is worse now where it feels like she can't put that much weight into them. She feels like stairs are difficult especially up. Her hips were bad for a long time and had post ISABEL R 12/26 and L ant ISABEL 06/26. Pt feels like she didn't get to enjoy her R hip being done d/t L hip being bad. She is now aware of her knees. A month ago, it was really bad and that is when seh got checked. Xray showed fluid and arthritis. She started to do stretching at home because a lot of times it hurts in post knee She does feel like her quad are still weak from hips being bad . Her stretching has helped. Pt walks a couple miles a day and does okay with that with only some pain in knees. Pt reports a lot of her hobbies are seated and it hurts when she first gets up sitting after sitting for an 1hr or more. She was scheduled for a shot but cancelled as she wants to try PT first. Pt reports she has had wt issues all her life and a lot of her life she didn't do exercises but the past 15 years she has been exercising and wants to keep active. She was swimming most days until 6 months ago and she has switched to walking daily instead. Pt reprots she fell about 6 months before getting R hip done and she tore something but doesn't remember what. She was hiking and tripped over a root. Treatment Goals Patient/Caregiver Goals be up/down stairs reciprocally ; avoid surgery; get stronger, get bck on her bike PT-OP-C Subjective Start: 02/13/23 08:02 Freq: Status: Active Protocol: Document 05/24/23 14:18 LR (Rec: 05/24/23 18:47 [facility] [id number]) OP-PT Subjective Patient Comments Patient Comments Pt [place]. step ups on RLE still most difficult PT-OP-D Balance Start: 02/13/23 08:02 Freq: Status: Active Protocol: Document 02/13/23 13:48 [facility] (Rec: 02/13/23 16:05 [facility] [id number]) Balance Tests Single Limb Standing Single Limb- Right 16 sec Single Limb- Left 10 sec PT-OP-F Manual Assessment Start: 02/13/23 08:02 Freq: Status: Active Protocol: Document 02/13/23 13:48 [facility] (Rec: 02/13/23 16:05 [facility] [id number]) Manual Assessments Soft Tissue Assessment Soft Tissue Mobility Assessment HS, ITB, quads, add B; med jt line R; calf L PT-OP-G Mobility & Gait Start: 02/13/23 08:02 Freq: Status: Active Protocol: Document 02/13/23 13:48 [facility] (Rec: 02/13/23 16:05 [facility] [id number]) OP Gait Assessment Comments Gait Comments sljight dec stance time L w/ harder impact on RLE PT-OP-J Posture/Palpation/Skin Start: 02/13/23 08:02 Freq: Status: Active Protocol: Document 03/29/23 13:36 [facility] (Rec: 03/29/23 15:56 [facility] [id number]) Posture Evaluation Shai Postural Classification System Lumbar Protective Mechanism Left AP 2 Lumbar Protective Mechanism Right AP 1 Lumbar Protective Mechanism Left PA 2 Lumbar Protective Mechanism Right PA 2 PT-OP-K Range of Motion Start: 02/13/23 08:02 Freq: Status: Active Protocol: Document 05/01/23 14:32 SP (Rec: 05/01/23 15:44 SP [id number]) Knee Goniometric Range of Motion Knee Right Knee ROM WFL Yes Patient Position Supine Flexion Active (degrees) 137 Extension Active (degrees) 0 Comments Pain end feel R knee flexion ant knee jt line AROM R knee supine: 0-137 deg Improvement 2 deg flexion Improvement 3 deg ext Left Knee ROM WFL No Patient Position Supine Flexion Active (degrees) 125 Extension Active (degrees) 0 Comments Pain end feel L knee flexion ant knee jt line AROM L knee supine: 0-125 deg improved 6 deg flexion improved 4 deg ext PT-OP-L Special Tests Start: 02/13/23 08:02 Freq: Status: Active Protocol: Document 02/13/23 13:48 [facility] (Rec: 02/13/23 16:05 [facility] [id number]) Special Tests Knee Special Tests Watson Chondromalacia Comments pain w/palpation lat to patella not tested on L; R positive-med glide dec pain Whitman's Compression Test Results neg B Judy's Test Test Results pos L Apley's Compression Test Results Pos R Thessaly Test 5 Degrees Test Results neg B Jeanette Test Test Results neg B Samantha's Test Results neg B Posterior Draw Test Results neg B Valgus- 25 Degrees Test Results neg B Varus- 25 Degrees Test Results neg B Straight Leg Raise Comments WNL; good flexibility Nakul Comments B quad tightness & some hip flexor tightness B PT-OP-M Strength Start: 02/13/23 08:02 Freq: Status: Active Protocol: Document 05/01/23 14:32 SP (Rec: 05/01/23 15:44 SP [id number]) Hip Strength Hip Manual Muscle Testing Right Flexion (L2) 4+ Good+ Extension (S1) 5 Normal Abduction 4+ Good+ Adduction 5 Normal External Rotation 3+ Fair+ Internal Rotation 5 Normal Comments pain in R lateral hip abd Left Flexion (L2) 5 Normal Extension (S1) 5 Normal Abduction 5 Normal Adduction 4+ Good+ External Rotation 4+ Good+ Internal Rotation 5 Normal Knee Strength Knee Manual Muscle Testing Right Flexion (S2) 5 Normal Extension (L3) 5 Normal Comments painfree extension 05/01 but demonstrates jt grinding palpation Left Flexion (S2) 5 Normal Extension (L3) 5 Normal Comments painfree extension 05/01 but demonstrates jt grinding palpation PT-OP-Q Treatments Start: 02/13/23 08:02 Freq: Status: Active Protocol: Document 05/24/23 14:18 [facility] (Rec: 05/24/23 18:47 [facility] [id number]) Therapeutic Exercises Prone Exercises ER Side right Reps/Minutes 8 Comments hand under hip to avoid rot of trunk Sidelying Exercises hip abd Sidelying Exercise Name reviewed HEP Side bilateral Resistance AROM (bottom leg bent), pillow between BLE Reps/Minutes 10 Comments cues needed R little weaker than L Standing Exercises 3 way hip Standing Exercise Name hip abd Side bilateral Reps/Minutes 12 Comments cues no lat lean SLS glut lift facing wall Standing Exercise Name SLS in mirror B w/alt march Side bilateral step ups Side right Resistance LUE support Reps/Minutes 10 Comments max cues Manual Therapy Treatment Soft Tissue Mobilization post Body Location R glutes & piriformis Mobilization Type Sustained Pressure Intensity/Depth Moderate Body Position Prone Comments w/hip IR/ER gentle Joint Mobilizations sacrum Joint R UPA FM Body Position Prone innominate Joint L caudal, R abd, R ER FM hip Comments R hip on axis ER FM prone; hip flex inf glide supien FM, hip abd s/l FM-maunaul facilitation at end range PT-OP-T Assessment and Plan Start: 02/13/23 08:02 Freq: Status: Active Protocol: Document 05/24/23 14:18 [facility] (Rec: 05/24/23 18:47 [facility] [id number]) Physical Therapy Assessment Goals LEFS Impairment 48/80 [facility] Goal (LTG) Pt will improve score to at least 60/80 in order to show improved functional ability. 03/29-5205/01/23: 55/80 LTG Duration 8 ROM [facility] Goal (LTG) Pt will have at least 3-125 deg ROM B w/o pain in order to allow pt to do typical functional activities w/o pain including squatting and stairs 03/29-improving 05/01/23: GOAL MET: R 0-125 deg , L knee 0-137 deg with anterior knee pain end feel AROM in to flexion still but still has pain squatting more ascend than descending with need of 2 more than HRs receiprocal stepping other vasques needs 1 HR step to patterning. LTG Duration 05/06/23 GOAL MET: 05/01/23 strength Short Term Goal (STG) Pt will be indep w/HEP 03/29-achieved advancing as able STG Duration achieved advancng as able Stockholder Goal (LTG) Pt will score at least 4+/5 on all LE MMT B and at least 3/5 on LPM to show improved staibltiy to inc pt to do typical day w/o inc pain. 03/29-improving 05/01/23: improved by half to full 1 grade, no knee pain extension now but audible grinding tibiofemoral jt Bilaterally, still R hip pain with resisted ER. LTG Duration 06/13 transitions Short Term Goal (STG) Pt will report no pain/ soreness w/walks 05/01/23: COntinue progress able walk 2 miles without pain /soreness. Will be continue progress mileage. STG Duration Achieved [facility] Goal (LTG) Pt will be able to get up from sitting extended w/o inc pain in knees and do transitions. 03/29-stiff in hips lat after a few steps 05/01/23: reports more stiffness when gets up and not pain and depends on angle of positioning but not pain and frees up moving around LTG Duration achieved notes stiffness only stairs Short Term Goal (STG) Pt will be able to go up stairs reciprocally w/o inc pain 03/29-still painful on R 05/01/23: progressing 710 R hip pain receiprocal stepping 6 step 50% support on L HR during RLE WB, no support required LLE advancement, 4 step no UE WB support with - after many reps demonstrated. STG Duration 05/20 [facility] Goal (LTG) Pt will be able to go down stairs reciprocally w/o inc pain 03/29-can do a few at a time 05/01/23: improving: able descend receiprocal 6 steps, 50% LLE support during RLE WB due to pain R hip . 4step able asc/desc no UE support, LTG Duration 06/13 Assessment Summary Assessment Pt still has very weak abd w/ dec functional ability on that side and dec abilityt o wt accept. She was able to do well on 4 in step as long as she has a rail. Reviewed exercises to focus on for abd strength Physical Therapy Plan Frequency and Duration Frequency of Treatment 1-2x/wk Duration of treatment (weeks) 6 Plan of Care Start Date 05/02/23 Plan of Care End Date 06/13/23 Next Visit Focus/Plan Next Note Type Treatment Note Next Visit Plan work on pt hip mobility on R and hip abd strength
--- NOTE | 2023-05-31 15:15 | PT.OTN ---
Current Diagnoses Pain in right knee (05/31/23) Pain in left knee (05/31/23) Muscle weakness (generalized) (05/31/23) Pain in right thigh (05/31/23) Pain in left thigh (05/31/23) Difficulty in walking, not elsewhere classified (05/31/23) Abnormal posture (05/31/23) Physical Therapy Treatment Note PT-OP-A Visit Information Start: 02/13/23 08:02 Freq: Status: Active Protocol: Document 05/31/23 13:34 SP (Rec: 05/31/23 14:17 SP [id number]) Out-Patient Physical Therapy Visit Information Visit Information Visit Type Treatment Note Visit Start Time 13:34 Visit Stop Time 15:15 Total Visit Minutes 41 Visit Number 18 Number of MILK ROUTE DELIVERER Visits 1 PT-OP-B Current Condition Start: 02/13/23 08:02 Freq: Status: Active Protocol: Document 02/13/23 13:48 [facility] (Rec: 02/13/23 16:05 [facility] [id number]) Current Condition History of Current Condition Onset Date years Current Complaints B knee and thigh pain History of Current Condition Pt reports her knees have been giving her trouble for years but it is worse now where it feels like she can't put that much weight into them. She feels like stairs are difficult especially up. Her hips were bad for a long time and had post ISABEL R 12/26 and L ant ISABEL 06/26. Pt feels like she didn't get to enjoy her R hip being done d/t L hip being bad. She is now aware of her knees. A month ago, it was really bad and that is when seh got checked. Xray showed fluid and arthritis. She started to do stretching at home because a lot of times it hurts in post knee She does feel like her quad are still weak from hips being bad . Her stretching has helped. Pt walks a couple miles a day and does okay with that with only some pain in knees. Pt reports a lot of her hobbies are seated and it hurts when she first gets up sitting after sitting for an 1hr or more. She was scheduled for a shot but cancelled as she wants to try PT first. Pt reports she has had wt issues all her life and a lot of her life she didn't do exercises but the past 15 years she has been exercising and wants to keep active. She was swimming most days until 6 months ago and she has switched to walking daily instead. Pt reprots she fell about 6 months before getting R hip done and she tore something but doesn't remember what. She was hiking and tripped over a root. Treatment Goals Patient/Caregiver Goals be up/down stairs reciprocally ; avoid surgery; get stronger, get bck on her bike PT-OP-C Subjective Start: 02/13/23 08:02 Freq: Status: Active Protocol: Document 05/31/23 13:34 SP (Rec: 05/31/23 14:17 SP [id number]) OP-PT Subjective Patient Comments Patient Comments Pt reports driving to [place] later today with a friend to visit another friend and will stop stretch along way but will probably do all the driving. Her R hip little sore , did some stretching earlier today, wants to review HEP for proper form and muscular strengthening focus awareness. PT-OP-D Balance Start: 02/13/23 08:02 Freq: Status: Active Protocol: Document 02/13/23 13:48 [facility] (Rec: 02/13/23 16:05 [facility] [id number]) Balance Tests Single Limb Standing Single Limb- Right 16 sec Single Limb- Left 10 sec PT-OP-F Manual Assessment Start: 02/13/23 08:02 Freq: Status: Active Protocol: Document 02/13/23 13:48 [facility] (Rec: 02/13/23 16:05 [facility] [id number]) Manual Assessments Soft Tissue Assessment Soft Tissue Mobility Assessment HS, ITB, quads, add B; med jt line R; calf L PT-OP-G Mobility & Gait Start: 02/13/23 08:02 Freq: Status: Active Protocol: Document 02/13/23 13:48 [facility] (Rec: 02/13/23 16:05 [facility] [id number]) OP Gait Assessment Comments Gait Comments sljight dec stance time L w/ harder impact on RLE PT-OP-J Posture/Palpation/Skin Start: 02/13/23 08:02 Freq: Status: Active Protocol: Document 03/29/23 13:36 LR (Rec: 03/29/23 15:56 [facility] [id number]) Posture Evaluation Shai Postural Classification System Lumbar Protective Mechanism Left AP 2 Lumbar Protective Mechanism Right AP 1 Lumbar Protective Mechanism Left PA 2 Lumbar Protective Mechanism Right PA 2 PT-OP-K Range of Motion Start: 02/13/23 08:02 Freq: Status: Active Protocol: Document 05/01/23 14:32 SP (Rec: 05/01/23 15:44 SP [id number]) Knee Goniometric Range of Motion Knee Right Knee ROM WFL Yes Patient Position Supine Flexion Active (degrees) 137 Extension Active (degrees) 0 Comments Pain end feel R knee flexion ant knee jt line AROM R knee supine: 0-137 deg Improvement 2 deg flexion Improvement 3 deg ext Left Knee ROM WFL No Patient Position Supine Flexion Active (degrees) 125 Extension Active (degrees) 0 Comments Pain end feel L knee flexion ant knee jt line AROM L knee supine: 0-125 deg improved 6 deg flexion improved 4 deg ext PT-OP-L Special Tests Start: 02/13/23 08:02 Freq: Status: Active Protocol: Document 02/13/23 13:48 [facility] (Rec: 02/13/23 16:05 [facility] [id number]) Special Tests Knee Special Tests Watson Chondromalacia Comments pain w/palpation lat to patella not tested on L; R positive-med glide dec pain Whitman's Compression Test Results neg B Judy's Test Test Results pos L Apley's Compression Test Results Pos R Thessaly Test 5 Degrees Test Results neg B Jeanette Test Test Results neg B Samantha's Test Results neg B Posterior Draw Test Results neg B Valgus- 25 Degrees Test Results neg B Varus- 25 Degrees Test Results neg B Straight Leg Raise Comments WNL; good flexibility Nakul Comments B quad tightness & some hip flexor tightness B PT-OP-M Strength Start: 02/13/23 08:02 Freq: Status: Active Protocol: Document 05/01/23 14:32 SP (Rec: 05/01/23 15:44 SP [id number]) Hip Strength Hip Manual Muscle Testing Right Flexion (L2) 4+ Good+ Extension (S1) 5 Normal Abduction 4+ Good+ Adduction 5 Normal External Rotation 3+ Fair+ Internal Rotation 5 Normal Comments pain in R lateral hip abd Left Flexion (L2) 5 Normal Extension (S1) 5 Normal Abduction 5 Normal Adduction 4+ Good+ External Rotation 4+ Good+ Internal Rotation 5 Normal Knee Strength Knee Manual Muscle Testing Right Flexion (S2) 5 Normal Extension (L3) 5 Normal Comments painfree extension 05/01 but demonstrates jt grinding palpation Left Flexion (S2) 5 Normal Extension (L3) 5 Normal Comments painfree extension 05/01 but demonstrates jt grinding palpation PT-OP-Q Treatments Start: 02/13/23 08:02 Freq: Status: Active Protocol: Document 05/31/23 13:34 SP (Rec: 05/31/23 14:17 SP [id number]) Therapeutic Exercises Standing Exercises SLS glut lift facing wall Standing Exercise Name SLS calf raise glut lift in mirror w/opp LE march lift position Side bilateral Resistance HEP reviewed Reps/Minutes 8 reps each Comments cued elongated posture elevation with SLS heel raise, glut fac glut med off step Standing Exercise Name reviewed HEP Side right Resistance 1 HR Equipment Used 4 step (approx 5 home), Mod support through 1 HR Reps/Minutes 8 reps each Comments moderate discomfort R hip but improves with reps step ups Side right Resistance LUE support trek pole Equipment Used 4 step, unable 6 step Reps/Minutes 5 Comments moderate discomfort R hip but improves with reps Manual Therapy Treatment Soft Tissue Mobilization post Body Location R glutes & piriformis Mobilization Type Sustained Pressure Intensity/Depth Moderate Body Position Prone Comments w/hip IR/ER gentle Joint Mobilizations innominate Joint L caudal, R abd, R ER FM Body Position Sidelying hip Grade II Comments R hip on axis ER FM prone; hip flex inf glide supine FM, hip abd s/l FM-maunaul facilitation at end range Taping B knees Body Location B Treatment Focus patella and knee stabilization Type of Tape Kinesio Tape Skin Inspection intact normal color Comments tib plateau med&lat to superior patella Did not perform d/t some bruising fo skin medial tib plateau superior to medial superior patella Good feedback response, feels for support to both knees PT-OP-T Assessment and Plan Start: 02/13/23 08:02 Freq: Status: Active Protocol: Document 05/31/23 13:34 SP (Rec: 05/31/23 14:17 SP [id number]) Physical Therapy Assessment Goals LEFS Impairment 48/80 Jail Goal (LTG) Pt will improve score to at least 60/80 in order to show improved functional ability. 03/29-05/01/23: 55/80 LTG Duration 8/8 ROM Jail Goal (LTG) Pt will have at least 3-125 deg ROM B w/o pain in order to allow pt to do typical functional activities w/o pain including squatting and stairs 03/29-improving 05/01/23: GOAL MET: R 0-125 deg , L knee 0-137 deg with anterior knee pain end feel AROM in to flexion still but still has pain squatting more ascend than descending with need of 2 more than HRs receiprocal stepping other vasques needs 1 HR step to patterning. LTG Duration 05/06/23 GOAL MET: 05/01/23 strength Short Term Goal (STG) Pt will be indep w/HEP 03/29-achieved advancing as able STG Duration achieved advancng as able Under Seal Operator Goal (LTG) Pt will score at least 4+/5 on all LE MMT B and at least 3/5 on LPM to show improved staibltiy to inc pt to do typical day w/o inc pain. 03/29-improving 05/01/23: improved by half to full 1 grade, no knee pain extension now but audible grinding tibiofemoral jt Bilaterally, still R hip pain with resisted ER. LTG Duration 06/13 transitions Short Term Goal (STG) Pt will report no pain/ soreness w/walks 05/01/23: COntinue progress able walk 2 miles without pain /soreness. Will be continue progress mileage. STG Duration Achieved Under Seal Operator Goal (LTG) Pt will be able to get up from sitting extended w/o inc pain in knees and do transitions. 03/29-stiff in hips lat after a few steps 05/01/23: reports more stiffness when gets up and not pain and depends on angle of positioning but not pain and frees up moving around LTG Duration achieved notes stiffness only stairs Short Term Goal (STG) Pt will be able to go up stairs reciprocally w/o inc pain 03/29-still painful on R 05/01/23: progressing 05/15 R hip pain receiprocal stepping 6 step 50% support on L HR during RLE WB, no support required LLE advancement, 4 step no UE WB support with 7- after many reps demonstrated. STG Duration 05/20 Under Seal Operator Goal (LTG) Pt will be able to go down stairs reciprocally w/o inc pain 03/29-can do a few at a time 05/01/23: improving: able descend receiprocal 6 steps, 50% LLE support during RLE WB due to pain R hip . 4step able asc/desc no UE support, LTG Duration 06/13 Assessment Summary Assessment Pt R hip increased discomfort post ther ex review more then when arrived but reported felt alot better post manual. Pt improved step ups w/ trek pole 4 step vs 6 step. Pt reports is going to try and get appt with physician for further assessment of R hip when returns from her weekend trip. Physical Therapy Plan Frequency and Duration Frequency of Treatment 1-2x/wk Duration of treatment (weeks) 6 Plan of Care Start Date 05/02/23 Plan of Care End Date 06/13/23 Therapeutic Interventions Therapeutic Interventions Balance Training,Gait Training ,Home Exercise Program,Joint Mobilizations,Manual Therapy, Neuromuscular Re-education, Orthotic/Prosthetic Management ,Patient/Caregiver Education, Self-Care/Home Management,Soft Tissue Mobilization,Taping, Therapeutic Activities, Therapeutic Exercises Modalities Cold Pack/Ice Massage,Electric Stimulation,Hot Packs, Infrared Therapy,Iontophoresis ,Ultrasound Other Referrals/Consults Referrals/Consults Recommended MILK ROUTE DELIVERER in agreement with pt request further imaging of R hip due to pain limiting with resisted and WB activities as stair mgt. Next Visit Focus/Plan Next Note Type Progress Note Next Visit Plan Updated POC next appt 06/06, expires 06/13. Ask reponse to long drive [place] over the weekend. POC: work on pt hip mobility on R and hip abd strength
--- NOTE | 2023-06-05 17:43 | PT.OTN ---
Current Diagnoses Pain in right knee (06/05/23) Pain in left knee (06/05/23) Muscle weakness (generalized) (06/05/23) Pain in right thigh (06/05/23) Pain in left thigh (06/05/23) Difficulty in walking, not elsewhere classified (06/05/23) Abnormal posture (06/05/23) Physical Therapy Treatment Note PT-OP-A Visit Information Start: 02/13/23 08:02 Freq: Status: Active Protocol: Document 06/05/23 16:54 [facility] (Rec: 06/05/23 17:43 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 (Rec: 02/13/23 16:05 [facility] [id number]) Current Condition History of Current Condition Onset Date years Current Complaints B knee and thigh pain History of Current Condition Pt reports her knees have been giving her trouble for years but it is worse now where it feels like she can't put that much weight into them. She feels like stairs are difficult especially up. Her hips were bad for a long time and had post ISABEL R 12/26 and L ant ISABEL 06/26. Pt feels like she didn't get to enjoy her R hip being done d/t L hip being bad. She is now aware of her knees. A month ago, it was really bad and that is when seh got checked. Xray showed fluid and arthritis. She started to do stretching at home because a lot of times it hurts in post knee She does feel like her quad are still weak from hips being bad . Her stretching has helped. Pt walks a couple miles a day and does okay with that with only some pain in knees. Pt reports a lot of her hobbies are seated and it hurts when she first gets up sitting after sitting for an 1hr or more. She was scheduled for a shot but cancelled as she wants to try PT first. Pt reports she has had wt issues all her life and a lot of her life she didn't do exercises but the past 15 years she has been exercising and wants to keep active. She was swimming most days until 6 months ago and she has switched to walking daily instead. Pt reprots she fell about 6 months before getting R hip done and she tore something but doesn't remember what. She was hiking and tripped over a root. Treatment Goals Patient/Caregiver Goals be up/down stairs reciprocally ; avoid surgery; get stronger, get bck on her bike PT-OP-C Subjective Start: 02/13/23 08:02 Freq: Status: Active Protocol: Document 06/05/23 16:54 [facility] (Rec: 06/05/23 17:43 [facility] [id number]) OP-PT Subjective Patient Comments Patient Comments Pt reports she drove 11 [address] to [employer] and didn't do exercises much but did hike. Notes she still has difficulty w/step ups PT-OP-D Balance Start: 02/13/23 08:02 Freq: Status: Active Protocol: Document 02/13/23 13:48 [facility] (Rec: 02/13/23 16:05 [facility] [id number]) Balance Tests Single Limb Standing Single Limb- Right 16 sec Single Limb- Left 10 sec PT-OP-F Manual Assessment Start: 02/13/23 08:02 Freq: Status: Active Protocol: Document 02/13/23 13:48 [facility] (Rec: 02/13/23 16:05 [facility] [id number]) Manual Assessments Soft Tissue Assessment Soft Tissue Mobility Assessment HS, ITB, quads, add B; med jt line R; calf L PT-OP-G Mobility & Gait Start: 02/13/23 08:02 Freq: Status: Active Protocol: Document 02/13/23 13:48 [facility] (Rec: 02/13/23 16:05 [facility] [id number]) OP Gait Assessment Comments Gait Comments sljight dec stance time L w/ harder impact on RLE PT-OP-J Posture/Palpation/Skin Start: 02/13/23 08:02 Freq: Status: Active Protocol: Document 06/05/23 16:54 [facility] (Rec: 06/05/23 17:43 [facility] [id number]) Posture Evaluation Shai Postural Classification System Lumbar Protective Mechanism Left AP 3 Lumbar Protective Mechanism Right AP 2 Lumbar Protective Mechanism Left PA 3 Lumbar Protective Mechanism Right PA 3 PT-OP-K Range of Motion Start: 02/13/23 08:02 Freq: Status: Active Protocol: Document 05/01/23 14:32 [facility] (Rec: 05/01/23 15:44 [facility] [id number]) Knee Goniometric Range of Motion Knee Right Knee ROM WFL Yes Patient Position Supine Flexion Active (degrees) 137 Extension Active (degrees) 0 Comments Pain end feel R knee flexion ant knee jt line AROM R knee supine: 0-137 deg Improvement 2 deg flexion Improvement 3 deg ext Left Knee ROM WFL No Patient Position Supine Flexion Active (degrees) 125 Extension Active (degrees) 0 Comments Pain end feel L knee flexion ant knee jt line AROM L knee supine: 0-125 deg improved 6 deg flexion improved 4 deg ext PT-OP-L Special Tests Start: 02/13/23 08:02 Freq: Status: Active Protocol: Document 02/13/23 13:48 [facility] (Rec: 02/13/23 16:05 [facility] [id number]) Special Tests Knee Special Tests Watson Chondromalacia Comments pain w/palpation lat to patella not tested on L; R positive-med glide dec pain Whitman's Compression Test Results neg B Judy's Test Test Results pos L Apley's Compression Test Results Pos R Thessaly Test 5 Degrees Test Results neg B Jeanette Test Test Results neg B Samantha's Test Results neg B Posterior Draw Test Results neg B Valgus- 25 Degrees Test Results neg B Varus- 25 Degrees Test Results neg B Straight Leg Raise Comments WNL; good flexibility Nakul Comments B quad tightness & some hip flexor tightness B PT-OP-M Strength Start: 02/13/23 08:02 Freq: Status: Active Protocol: Document 06/05/23 16:54 [facility] (Rec: 06/05/23 17:43 [facility] [id number]) Hip Strength Hip Manual Muscle Testing Right Flexion (L2) 4+ Good+ Extension (S1) 4+ Good+ Abduction 4 Good Adduction 5 Normal External Rotation 3+ Fair+ Internal Rotation 5 Normal Comments pain in R lateral hip abd, ER, IR, hip flex Left Flexion (L2) 5 Normal Extension (S1) 5 Normal Abduction 5 Normal Adduction 5 Normal External Rotation 4+ Good+ Internal Rotation 5 Normal Knee Strength Knee Manual Muscle Testing Right Flexion (S2) 5 Normal Extension (L3) 5 Normal Comments painfree extension 6/26 but demonstrates jt grinding palpation Left Flexion (S2) 5 Normal Extension (L3) 5 Normal Comments painfree extension 05/01 but demonstrates jt grinding palpation Ankle/Foot Strength Ankle and Foot Manual Muscle Testing Right Dorsiflexion (L4) 5 Normal Plantarflexion (S1) 5 Normal Comments 20 heel raises Left Dorsiflexion (L4) 5 Normal Plantarflexion (S1) 4+ Good+ Comments 15 heel raises-knee pain PT-OP-Q Treatments Start: 02/13/23 08:02 Freq: Status: Active Protocol: Document 06/05/23 16:54 [facility] (Rec: 06/05/23 17:43 [facility] [id number]) Therapeutic Exercises Supine Exercises bridge Supine Exercise Name bridge w/march Side bilateral Reps/Minutes 10 Comments improved level pelvis & neutral spine Sidelying Exercises hip abd Sidelying Exercise Name reviewed HEP Side bilateral Resistance AROM (bottom leg bent), Reps/Minutes 5 clamshell Side right Equipment Used orange band Reps/Minutes 10 Comments good form Standing Exercises hip abd lift at wall Side bilateral Resistance AROM Equipment Used opp LE bent, Side to wall outside leg straight Reps/Minutes x10 2 sets Comments repeated lift hip near wall 3 way hip Standing Exercise Name 1. hip abd 2. hip ext Side bilateral Equipment Used orange band Reps/Minutes 5 ea Comments cues no lat lean step ups Side right Resistance LUE support trek pole Equipment Used 4 step Reps/Minutes 5 Comments cues for core sidestepping Side bilateral Equipment Used council Reps/Minutes 10ft Comments cues no lat lean, core elevation PT-OP-T Assessment and Plan Start: 02/13/23 08:02 Freq: Status: Active Protocol: Document 06/05/23 16:54 [facility] (Rec: 06/05/23 17:43 [facility] [id number]) Physical Therapy Assessment Goals LEFS Impairment 48/80 [facility] Goal (LTG) Pt will improve score to at least 60/80 in order to show improved functional ability. 03/29-52/05/01/23: 55/80 LTG Duration achieved ROM [facility] Goal (LTG) Pt will have at least 3-125 deg ROM B w/o pain in order to allow pt to do typical functional activities w/o pain including squatting and stairs 03/29-improving 05/01/23: GOAL MET: R 0-125 deg , L knee 0-137 deg with anterior knee pain end feel AROM in to flexion still but still has pain squatting more ascend than descending with need of 2 more than HRs receiprocal stepping other vasques needs 1 HR step to patterning. LTG Duration 05/06/23 GOAL MET: 05/01/23 strength Short Term Goal (STG) Pt will be indep w/HEP 03/29-achieved advancing as able STG Duration achieved advancng as able [facility] Goal (LTG) Pt will score at least 4+/5 on all LE MMT B and at least 3/5 on LPM to show improved staibltiy to inc pt to do typical day w/o inc pain. 03/29-improving 05/01/23: improved by half to full 1 grade, no knee pain extension now but audible grinding tibiofemoral jt Bilaterally, still R hip pain with resisted ER. LTG Duration improved but still limited transitions Short Term Goal (STG) Pt will report no pain/ soreness w/walks 05/01/23: COntinue progress able walk 2 miles without pain /soreness. Will be continue progress mileage. STG Duration Achieved [facility] Goal (LTG) Pt will be able to get up from sitting extended w/o inc pain in knees and do transitions. 03/29-stiff in hips lat after a few steps 05/01/23: reports more stiffness when gets up and not pain and depends on angle of positioning but not pain and frees up moving around LTG Duration achieved notes stiffness only stairs Short Term Goal (STG) Pt will be able to go up stairs reciprocally w/o inc pain 03/29-still painful on R 05/01/23: progressing 05/15 R hip pain receiprocal stepping 6 step 50% support on L HR during RLE WB, no support required LLE advancement, 4 step no UE WB support with 7- after many reps demonstrated. STG Duration pain w/RLE [facility] Goal (LTG) Pt will be able to go down stairs reciprocally w/o inc pain 03/29-can do a few at a time 05/01/23: improving: able descend receiprocal 6 steps, 50% LLE support during RLE WB due to pain R hip . 4step able asc/desc no UE support, LTG Duration difficult w/higher steps and notes more pain w/RLE wt acceptance Assessment Summary Assessment Pt has made good progress throughout therapy, but does still have weakness and pain of R hip that limits her function. She is unable to do step ups comofrtably and requires outside support like trekking pole. She made a lot of progress earlier in therapy and is noting much less B knee pain, but recently has started to plateau. Pt indep w /HEP. DC to HEP Physical Therapy Plan Discharge Physical Therapy Discharge Reasons Plateau in Progress
== END 2023-06-07 09:33 | disposition home or self-care (01) ==
LOC: PHYS 16:45
PROVIDERS: Family Provider Internal Medicine; PCP Internal Medicine; Referring Provider Internal Medicine; Visit Provider Internal Medicine
DX: M25.561 Pain in right knee (principal); M25.562 Pain in left knee; R26.2 Difficulty in walking, not elsewhere classified; M62.81 Muscle weakness (generalized); R29.3 Abnormal posture; M79.652 Pain in left thigh; M79.651 Pain in right thigh
CPT/HCPCS: 97110; 97112; 97140; 97162; 97535; 97750

== ENCOUNTER → 2023-08-24 10:34 | Outpatient (CLI) | payer MEDICARE, SELFPAY ==
[2021-06-30 11:45] VITALS: BMI 27.9
--- NOTE | 2023-08-24 10:39 | DI.NM.S_ITS ---
PROCEDURE: NM BONE SCAN WHOLE BODY RADIOPHARMACEUTICAL: 22.0 mCi Tc-99m MDP IV. INDICATIONS: Presence of artificial hip joint, bilateral TECHNIQUE: Delayed whole-body scintigrams were obtained approximately 3-4 hours after intravenous injection of radiotracer. Anterior and posterior views were acquired from vertex to feet. Additional left and right oblique views of the pelvis were obtained. COMPARISON: [facility] [place], [place], XR PELVIS WITH LATERAL HIP RIGHT, 07/26/2023, 16:43. FINDINGS: Bilateral hip arthroplasties are noted. There is no abnormal uptake around the hardware. Increased uptake within the knees and shoulders bilaterally, as well as the lumbar spine most consistent with degenerative changes. No abnormal increased uptake elsewhere. IMPRESSION: No abnormal uptake surrounding the bilateral hip arthroplasties. Degenerative changes of the knees, shoulders and spine. Dictated by: Jakob Major M.D. on 08/24/2023 at 16:14 Approved by: Jakob Major M.D. on 08/24/2023 at 16:17
== END ==
PROVIDERS: Family Provider Internal Medicine; PCP Internal Medicine; Referring Provider Orthopaedic Surgery; Visit Provider Orthopaedic Surgery
DX: Z96.643 Presence of artificial hip joint, bilateral (principal)
CPT/HCPCS: 78306; A9503

== ENCOUNTER → 2024-06-03 15:25 | Outpatient (CLI) | payer MEDICARE, SELFPAY ==
[2021-06-30 11:45] VITALS: BMI 27.9
--- NOTE | 2024-06-03 15:26 | DI.MG.S_ITS ---
BILATERAL DIGITAL SCREENING MAMMOGRAM 3D/2D WITH CAD: 06/03/2024 CLINICAL: Routine screening. Comparison is made to exams dated: 05/31/2023 mammogram, 05/18/2022 mammogram, and 05/14/2021 mammogram - [facility]. There are scattered areas of fibroglandular density in both breasts (category b / 25%-50% glandular tissue). Current study was also evaluated with a Computer Aided Detection (CAD) system. There is a possible developing irregular equal density asymmetry in the left breast middle depth superior region seen on the mediolateral oblique view only. No other significant masses, calcifications, or other findings are seen in either breast. IMPRESSION: INCOMPLETE: NEEDS ADDITIONAL IMAGING EVALUATION The possible developing irregular equal density asymmetry in the left breast is indeterminate. Additional views with possible ultrasound are recommended. Based on the Tyrer Cuzick model (a risk assessment model) the patient's lifetime risk is 3.6% and her 10 year risk is 2.7%. According to the ACR, ACS, and NCCN guidelines, an annual breast MRI exam along with mammogram is recommended if the patient's lifetime risk is 20% or greater. This exam was interpreted at Station ID: [id number]. NOTE: For mammograms, a report in lay terms will be sent to the patient. Approximately 15% of breast malignancies will not be visualized mammographically. In the management of a palpable breast mass, a negative mammogram must not discourage biopsy of a clinically suspicious lesion. Electronically Signed By: Peri hernandez/angella:06/04/2024 09:03:50 letter sent: Additional Imaging Needed ACR BI-RADS Category 0: Incomplete 3340F
== END ==
PROVIDERS: Family Provider Internal Medicine; PCP Internal Medicine; Referring Provider Internal Medicine; Visit Provider Internal Medicine
DX: Z12.31 Encounter for screening mammogram for malignant neoplasm of breast (principal); R92.323 Mammographic fibroglandular density, bilateral breasts
CPT/HCPCS: 77063; 77067

== ENCOUNTER → 2024-06-12 09:39 | Outpatient (CLI) | payer MEDICARE, SELFPAY ==
[2021-06-30 11:45] VITALS: BMI 27.9
--- NOTE | 2024-06-12 09:41 | DI.RAD.S_ITS ---
PROCEDURE: XR SACRUM COCCYX MIN 2V INDICATIONS: Lumbago with sciatica, right side TECHNIQUE: 3 views of the sacrum and coccyx acquired. COMPARISON: None. FINDINGS: Bones: No fractures or dislocations. Moderate bilateral sacroiliac joint osteoarthritic changes are seen. No evidence of ankylosis or bony erosion. No suspicious bony lesions. Soft tissues: Visualized bowel gas pattern is normal. No suspicious soft tissue densities. IMPRESSION: No acute displaced sacral or coccygeal fracture. Moderate bilateral sacroiliac joint osteoarthritis. Degenerative disc disease in visualized lower lumbar spine. Dictated by: Castillo Driver M.D. on 06/12/2024 at 12:40 Approved by: Castillo Driver M.D. on 06/12/2024 at 12:42
--- NOTE | 2024-06-12 09:41 | DI.RAD.S_ITS ---
PROCEDURE: XR LUMBAR SPINE MIN 4V INDICATIONS: Lumbago with sciatica, right side TECHNIQUE: 5 views of the lumbar spine were acquired, including bilateral oblique views. COMPARISON: None. FINDINGS: Bones: 5 nonrib-bearing vertebrae are present. There is normal bony alignment. No acute vertebral body compression fractures. Degenerative endplate changes, loss of disc height and bilateral facet arthrosis throughout lumbar spine is seen. No suspicious bony lesions. Soft tissues: Overlying bowel gas pattern is normal. No suspicious soft tissue calcifications. Oblique images: No pars defects. There are suggestion of bilateral neural foraminal narrowing at L3-4 through L5-S1 levels. IMPRESSION: Moderate degenerative disc disease throughout lumbar spine and lower thoracic spine. No acute compression fracture or significant spondylolisthesis. Oblique views shows no gross pars defects. Bilateral neural foraminal narrowing are noted at L3-4 through L5-S1 levels. Dictated by: Castillo Driver M.D. on 06/12/2024 at 12:38 Approved by: Castillo Driver M.D. on 06/12/2024 at 12:40
== END ==
PROVIDERS: Family Provider Internal Medicine; PCP Internal Medicine; Referring Provider Internal Medicine; Visit Provider Internal Medicine
DX: M51.16 Intervertebral disc disorders with radiculopathy, lumbar region (principal); M51.14 Intervertebral disc disorders with radiculopathy, thoracic region; M48.061 Spinal stenosis, lumbar region without neurogenic claudication; M48.07 Spinal stenosis, lumbosacral region; M46.1 Sacroiliitis, not elsewhere classified; M53.3 Sacrococcygeal disorders, not elsewhere classified
CPT/HCPCS: 72110; 72220

== ENCOUNTER → 2024-06-17 10:16 | Outpatient (CLI) | payer MEDICARE, SELFPAY ==
[2021-06-30 11:45] VITALS: BMI 27.9
--- NOTE | 2024-06-17 10:16 | DI.MG.S_ITS ---
UNILATERAL LEFT DIGITAL DIAGNOSTIC MAMMOGRAM 3D/2D WITH ADDITIONAL VIEWS: 06/17/2024 CLINICAL: Patient returns today to evaluate a focal asymmetry in the left breast. Comparison is made to exams dated: 06/03/2024 mammogram, 05/31/2023 mammogram, and 05/18/2022 mammogram - [facility]. There are scattered areas of fibroglandular density in the left breast (category b / 25%-50% glandular tissue). With focal spot compression, and additional views, the abnormality seen on screening mammography in the left breast at 11 o'clock in the middle depth resolves. This is most consistent with overlapping fibroglandular tissue. No significant masses, calcifications, or other findings are seen in the breast. IMPRESSION: INCOMPLETE: NEEDS ADDITIONAL IMAGING EVALUATION Resolution of screening mammography abnormality with additional views. Ultrasound evaluation to confirm resolution is recommended and was performed immediately following this exam. Based on the Tyrer Cuzick model (a risk assessment model) the patient's lifetime risk is 3.6% and her 10 year risk is 2.7%. According to the ACR, ACS, and NCCN guidelines, an annual breast MRI exam along with mammogram is recommended if the patient's lifetime risk is 20% or greater. This exam was interpreted at Station ID: [id number]. NOTE: For mammograms, a report in lay terms will be sent to the patient. Approximately 15% of breast malignancies will not be visualized mammographically. In the management of a palpable breast mass, a negative mammogram must not discourage biopsy of a clinically suspicious lesion. Electronically Signed By: Peri hernandez/:06/17/2024 10:51:41 ACR BI-RADS Category 0: Incomplete 3340F
== END ==
PROVIDERS: Family Provider Internal Medicine; PCP Internal Medicine; Referring Provider Internal Medicine; Visit Provider Internal Medicine
DX: R92.8 Other abnormal and inconclusive findings on diagnostic imaging of breast (principal); R92.322 Mammographic fibroglandular density, left breast
CPT/HCPCS: 77065; G0279

== ENCOUNTER → 2024-08-23 14:55 | Outpatient (CLI) | payer MEDICARE, SELFPAY ==
[2021-06-30 11:45] VITALS: BMI 27.9
--- NOTE | 2024-08-23 14:56 | DI.RAD.S_ITS ---
PROCEDURE: XR KNEE RT 3V INDICATIONS: Right knee strain, pain. TECHNIQUE: 3 views of the knee were acquired. COMPARISON: [facility], CR, XR KNEE RT 3V, 01/13/2023, 12:31. FINDINGS: Overall no significant change compared to the prior exam. Moderate knee joint effusion. Severe degenerative changes of the patellofemoral compartment unchanged. Moderate degenerative changes of the medial and lateral compartments with joint space narrowing and osteophytes unchanged. No radiographic evidence of fracture, dislocation or high attenuation soft tissue foreign body. IMPRESSION: No significant change as discussed above with degenerative changes and moderate knee joint effusion. Follow-up suggested. Dictated by: Broderick Cyr M.D. on 08/26/2024 at 10:49 Approved by: Broderick Cyr M.D. on 08/26/2024 at 10:52
== END ==
PROVIDERS: Family Provider Internal Medicine; PCP Internal Medicine; Referring Provider Nurse Practitioner Family; Visit Provider Nurse Practitioner Family
DX: S86.911A Strain of unspecified muscle(s) and tendon(s) at lower leg level, right leg, initial encounter (principal); M25.461 Effusion, right knee; X58.XXXA Exposure to other specified factors, initial encounter
CPT/HCPCS: 73562

== ENCOUNTER 2024-09-20 10:45 | Outpatient (RCR) | payer MEDICARE, SELFPAY ==
[2021-06-30 11:45] VITALS: BMI 27.9
--- NOTE | 2024-07-24 17:30 | PT.OIE ---
Current Diagnoses Sacrococcygeal disorders, not elsewhere classified (07/24/24) Lumbago with sciatica, right side (07/24/24) Past Medical History (Last Reviewed 07/03/21 @ 06:40 by Tenzin Walker PA-C) Bulimia (~1987) Chicken pox (~1957) Constant pain Depression (~2003) Foot fracture (~1996) Hypothyroidism (~2010) Irregular menstrual cycle Measles (~1956) Mumps (~1956) Obesity Osteoarthritis Past Surgical History (Last Reviewed 07/03/21 @ 06:40 by Tenzin Walker PA-C) History of arthroplasty of right hip (01/01/20) History of cataract removal with insertion of prosthetic lens (~2006) History of cataract removal with insertion of prosthetic lens (~2011) Status post colonoscopy (~2013) Visit Care Team Role Provider Type JAYDEN Fields Attending Provider Advanced Survey Chief Family Provider Primary Care Provider Referring Provider Specialty: Family Practice Address: [address] [place] [address], [facility] Email: [email or web address] Physical Therapy Initial Evaluation PT-OP-A Visit Information Start: 07/24/24 17:39 Freq: Status: Active Protocol: Document 07/24/24 16:45 DCW (Rec: 07/24/24 17:53 DCW [id number]) Out-Patient Physical Therapy Visit Information Visit Information Visit Type Initial Evaluation Visit Start Time 16:45 Visit Stop Time 17:30 Visit Number 1 Number of DIRECTOR WORKFORCE MANAGEMENT Visits 0 Evaluation Information Evaluation Date 07/24/24 PT-OP-B Current Condition Start: 07/24/24 17:39 Freq: Status: Active Protocol: Document 07/24/24 16:45 DCW (Rec: 07/24/24 17:53 DCW [id number]) Current Condition History of Current Condition Onset Date Multi-year history Current Complaints bilateral radicular pain into lateral upper legs, into yeager History of Current Condition Pt is a 74 year old female presenting with a multi-year history of pain/discomfort into her legs. Pt admits pain is not intolerable, and I could live with it if it comes to it, but I'd like to know what's going on. 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 Notes that her biggest complaint is that she is unable to ascend stairs normally, has to go up in a step-to pattern. Admits her knees are kind of crunchy , but don't cause too much pain. Pt notes that it has been suggested to her that her pain is due to a pinched nerve in her back, but she has not been able to get approval for an MRI yet. Spent most of today doing yard work, including shoveling, with general muscle soreness, but no increase in radicular symptoms. Pt reports that she is aware her knees would feel better if she were to lose weight, but has a long history with eating disorders, so weight loss is an admittedly touchy subject, but she is feeling like she is in a much better place mentally, and is working on increasing activity to continue with losing weight without worrying about dieting. Treatment Goals Patient/Caregiver Goals I want to be able to walk up stairs normally. PT-OP-C Subjective Start: 07/24/24 17:39 Freq: Status: Active Protocol: Document 07/24/24 16:45 DCW (Rec: 07/24/24 17:53 DCW [id number]) OP-PT Subjective Patient Comments Patient Comments Pt reports she recently had a visitor, and was able to get out and walk more. If I don't walk, then it gets harder to walk. Patient Questionnaires Oswestry Low Back Index Oswestry Score 11/50 = 22% Oswestry Impairment 20 to 39% Impaired (Score 20- 39) PT-OP-F Manual Assessment Start: 07/24/24 17:39 Freq: Status: Active Protocol: Document 07/24/24 16:45 DCW (Rec: 07/25/24 09:41 DCW [id number]) Manual Assessments Soft Tissue Assessment Soft Tissue Mobility Assessment Moderate tone and tenderness to palpation 3/4: wincing and withdraw bilateral TFL/ITB, Piriformis, glutes, L/S paraspinals PT-OP-G Mobility & Gait Start: 07/24/24 17:39 Freq: Status: Active Protocol: Document 07/24/24 16:45 DCW (Rec: 07/25/24 09:41 DCW [id number]) Stair Climbing Evaluation Devices Stair Climbing Assistive Devices Left Railing,Right Railing Technique/Endurance Stair Climbing Direction Ascend and Descend Stair Climbing Technique Step to Step PT-OP-K Range of Motion Start: 07/24/24 17:39 Freq: Status: Active Protocol: Document 07/24/24 16:45 DCW (Rec: 07/25/24 09:41 DCW [id number]) Lumbar Spine Range of Motion Lumbar Spine Active Degrees Testing Position Standing Flexion 65 Extension 30 Lateral Flexion Left 48 Lateral Flexion Right 49 Comments Lateral flexion measured in cm from fingertips to floor PT-OP-L Special Tests Start: 07/24/24 17:39 Freq: Status: Active Protocol: Document 07/24/24 16:45 DCW (Rec: 07/25/24 09:41 DCW [id number]) Special Tests Lumbar Spine Special Tests Vertical Spine Loading Test Results Negative Straight Leg Raise Test Results Negative Slump Test Results Hamstring tightness A-P Shearing Test Results Negative Knee Special Tests Judy's Test Test Results Positive B PT-OP-M Strength Start: 07/24/24 17:39 Freq: Status: Active Protocol: Document 07/24/24 16:45 DCW (Rec: 07/25/24 09:41 DCW [id number]) Hip Strength Hip Manual Muscle Testing Right Flexion (L2) 4- Good- Abduction 4- Good- Adduction 4- Good- Left Flexion (L2) 4 Good Abduction 4 Good Adduction 4 Good Knee Strength Knee Manual Muscle Testing Right Flexion (S2) 4 Good Extension (L3) 4 Good Left Flexion (S2) 4 Good Extension (L3) 4 Good PT-OP-T Assessment and Plan Start: 07/24/24 17:39 Freq: Status: Active Protocol: Document 07/24/24 16:45 DCW (Rec: 07/25/24 11:03 DCW [id number]) Physical Therapy Assessment Rehab Potential Rehabilitation Potential Good Evaluation Complexity Number of Personal Factors/Comorbidities 3 or More Number of Body Systems Impaired 4 or More Clinical Presentation at Evaluation Unstable Impairments Impairments Activity Tolerance,Functional Activities,Functional Mobility ,Gait,ROM,Soft Tissue Mobility ,Strength Goals Two Impairment Pt unable to ascend stairs [id number] Retirement Goal (LTG) Pt to demonstrate improvement with hip strength and mobility of bilateral knee by reporting ability to ascend and descend her stairs at home with a step-through gait pattern LTG Duration 09/23/24 One Impairment Pt does not have an appropriate home exercise program Short Term Goal (STG) Pt to be independent and compliant with an appropriate HEP STG Duration 08/23/24 Assessment Summary Assessment Pt presents with signs and symptoms consistent with referring diagnosis of radicular leg pain bilaterally . Pt exhibits increased tone throughout her low back, hips, and lower extremities, especially along her TFL/ITB, piriformis, glutes, hamstrings , and lumbar paraspinals. Hip weakness bilaterally, potentially due to bilateral ISABEL, also limits her ability to perform functional mobility , including ascending stairs in a step-through gait pattern . Pt should benefit from skilled therapy focusing on tone management, pain control, hip and core strengthening, increasing activity tolerance, gait training on stairs, and stretching/flexibility. If pt does not progress as expected, my benefit from axial imaging in the future. Physical Therapy Plan Frequency and Duration Frequency of Treatment 2x/Week Plan of Care Start Date 07/24/24 Plan of Care End Date 09/23/24 Therapeutic Interventions Therapeutic Interventions Gait Training,Home Exercise Program,Joint Mobilizations, Manual Therapy,Neuromuscular Re-education,Patient/Caregiver Education,Self-Care/Home Management,Soft Tissue Mobilization,Therapeutic Activities,Therapeutic Exercises Modalities Cold Pack/Ice Massage,Electric Stimulation,Hot Packs, Ultrasound Next Visit Focus/Plan Next Note Type Treatment Note Next Visit Plan Gait training, hip mobility/ strengthening, core strengthening
--- NOTE | 2024-07-24 17:30 | PT.OPPOC ---
Physical, Occupational & Speech Therapy At [facility] Current Diagnoses Sacrococcygeal disorders, not elsewhere classified (07/24/24) Lumbago with sciatica, right side (07/24/24) Visit Care Team Role Provider Type JAYDEN Fields Attending Provider Advanced Outsole Compressor Family Provider Primary Care Provider Referring Provider Specialty: Family Practice Address: [address] [place] [address], [facility] [place], [facility] Email: [email or web address] Plan Of Care PT-OP-B Current Condition Start: 07/24/24 17:39 Freq: Status: Active Protocol: Document 07/24/24 16:45 DCW (Rec: 07/24/24 17:53 DCW [id number]) Current Condition History of Current Condition Onset Date Multi-year history Current Complaints bilateral radicular pain into lateral upper legs, into yeager History of Current Condition Pt is a 74 year old female presenting with a multi-year history of pain/discomfort into her legs. Pt admits pain is not intolerable, and I could live with it if it comes to it, but I'd like to know what's going on. 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 Notes that her biggest complaint is that she is unable to ascend stairs normally, has to go up in a step-to pattern. Admits her knees are kind of crunchy , but don't cause too much pain. Pt notes that it has been suggested to her that her pain is due to a pinched nerve in her back, but she has not been able to get approval for an MRI yet. Spent most of today doing yard work, including shoveling, with general muscle soreness, but no increase in radicular symptoms. Pt reports that she is aware her knees would feel better if she were to lose weight, but has a long history with eating disorders, so weight loss is an admittedly touchy subject, but she is feeling like she is in a much better place mentally, and is working on increasing activity to continue with losing weight without worrying about dieting. Treatment Goals Patient/Caregiver Goals I want to be able to walk up stairs normally. PT-OP-T Assessment and Plan Start: 07/24/24 17:39 Freq: Status: Active Protocol: Document 07/24/24 16:45 DCW (Rec: 07/25/24 11:03 DCW [id number]) Physical Therapy Assessment Rehab Potential Rehabilitation Potential Good Evaluation Complexity Number of Personal Factors/Comorbidities 3 or More Number of Body Systems Impaired 4 or More Clinical Presentation at Evaluation Unstable Impairments Impairments Activity Tolerance,Functional Activities,Functional Mobility ,Gait,ROM,Soft Tissue Mobility ,Strength Goals Two Impairment Pt unable to ascend stairs [id number] Goal (LTG) Pt to demonstrate improvement with hip strength and mobility of bilateral knee by reporting ability to ascend and descend her stairs at home with a step-through gait pattern LTG Duration 09/23/24 One Impairment Pt does not have an appropriate home exercise program Short Term Goal (STG) Pt to be independent and compliant with an appropriate HEP STG Duration 08/23/24 Assessment Summary Assessment Pt presents with signs and symptoms consistent with referring diagnosis of radicular leg pain bilaterally . Pt exhibits increased tone throughout her low back, hips, and lower extremities, especially along her TFL/ITB, piriformis, glutes, hamstrings , and lumbar paraspinals. Hip weakness bilaterally, potentially due to bilateral ISABEL, also limits her ability to perform functional mobility , including ascending stairs in a step-through gait pattern . Pt should benefit from skilled therapy focusing on tone management, pain control, hip and core strengthening, increasing activity tolerance, gait training on stairs, and stretching/flexibility. If pt does not progress as expected, my benefit from axial imaging in the future. Physical Therapy Plan Frequency and Duration Frequency of Treatment 2x/Week Plan of Care Start Date 07/24/24 Plan of Care End Date 09/23/24 Therapeutic Interventions Therapeutic Interventions Gait Training,Home Exercise Program,Joint Mobilizations, Manual Therapy,Neuromuscular Re-education,Patient/Caregiver Education,Self-Care/Home Management,Soft Tissue Mobilization,Therapeutic Activities,Therapeutic Exercises Modalities Cold Pack/Ice Massage,Electric Stimulation,Hot Packs, Ultrasound Next Visit Focus/Plan Next Note Type Treatment Note Next Visit Plan Gait training, hip mobility/ strengthening, core strengthening Plan of Care Dates Plan of Care Start Date 07/24/24 Plan of Care End Date 09/23/24 Electronically Signed by: Daryn Garcia, PT 07/25/24 8547 If you are in agreement with this Plan of Care, please return a signed and dated copy. I have reviewed this Plan of Care and certify that the skilled therapy services above are required to meet the patient?s needs. Physician Signature Date Printed Name and Credentials Clinical Instructor Signature Printed Name and Credentials
--- NOTE | 2024-07-26 16:47 | PT.OTN ---
Current Diagnoses Sacrococcygeal disorders, not elsewhere classified (07/26/24) Lumbago with sciatica, right side (07/26/24) Physical Therapy Treatment Note PT-OP-A Visit Information Start: 07/24/24 17:39 Freq: Status: Active Protocol: Document 07/26/24 16:00 DCW (Rec: 07/26/24 16:47 DCW [id number]) Out-Patient Physical Therapy Visit Information Visit Information Visit Type Treatment Note Visit Start Time 16:00 Visit Stop Time 16:45 Visit Number 2 Number of ELECTRICAL ENGINEER Visits 0 Evaluation Information Evaluation Date 07/24/24 PT-OP-B Current Condition Start: 07/24/24 17:39 Freq: Status: Active Protocol: Document 07/24/24 16:45 DCW (Rec: 07/24/24 17:53 DCW [id number]) Current Condition History of Current Condition Onset Date Multi-year history Current Complaints bilateral radicular pain into lateral upper legs, into yeager History of Current Condition Pt is a 74 year old female presenting with a multi-year history of pain/discomfort into her legs. Pt admits pain is not intolerable, and I could live with it if it comes to it, but I'd like to know what's going on. 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 Notes that her biggest complaint is that she is unable to ascend stairs normally, has to go up in a step-to pattern. Admits her knees are kind of crunchy , but don't cause too much pain. Pt notes that it has been suggested to her that her pain is due to a pinched nerve in her back, but she has not been able to get approval for an MRI yet. Spent most of today doing yard work, including shoveling, with general muscle soreness, but no increase in radicular symptoms. Pt reports that she is aware her knees would feel better if she were to lose weight, but has a long history with eating disorders, so weight loss is an admittedly touchy subject, but she is feeling like she is in a much better place mentally, and is working on increasing activity to continue with losing weight without worrying about dieting. Treatment Goals Patient/Caregiver Goals I want to be able to walk up stairs normally. PT-OP-C Subjective Start: 07/24/24 17:39 Freq: Status: Active Protocol: Document 07/26/24 16:00 DCW (Rec: 07/26/24 16:47 DCW [id number]) OP-PT Subjective Patient Comments Patient Comments Pt feeling a little stiff and sore after sitting more today. PT-OP-F Manual Assessment Start: 07/24/24 17:39 Freq: Status: Active Protocol: Document 07/24/24 16:45 DCW (Rec: 07/25/24 09:41 DCW [id number]) Manual Assessments Soft Tissue Assessment Soft Tissue Mobility Assessment Moderate tone and tenderness to palpation 3/4: wincing and withdraw bilateral TFL/ITB, Piriformis, glutes, L/S paraspinals PT-OP-G Mobility & Gait Start: 07/24/24 17:39 Freq: Status: Active Protocol: Document 07/24/24 16:45 DCW (Rec: 07/25/24 09:41 DCW [id number]) Stair Climbing Evaluation Devices Stair Climbing Assistive Devices Left Railing,Right Railing Technique/Endurance Stair Climbing Direction Ascend and Descend Stair Climbing Technique Step to Step PT-OP-K Range of Motion Start: 07/24/24 17:39 Freq: Status: Active Protocol: Document 07/24/24 16:45 DCW (Rec: 07/25/24 09:41 DCW [id number]) Lumbar Spine Range of Motion Lumbar Spine Active Degrees Testing Position Standing Flexion 65 Extension 30 Lateral Flexion Left 48 Lateral Flexion Right 49 Comments Lateral flexion measured in cm from fingertips to floor PT-OP-L Special Tests Start: 07/24/24 17:39 Freq: Status: Active Protocol: Document 07/24/24 16:45 DCW (Rec: 07/25/24 09:41 DCW [id number]) Special Tests Lumbar Spine Special Tests Vertical Spine Loading Test Results Negative Straight Leg Raise Test Results Negative Slump Test Results Hamstring tightness A-P Shearing Test Results Negative Knee Special Tests Judy's Test Test Results Positive B PT-OP-M Strength Start: 07/24/24 17:39 Freq: Status: Active Protocol: Document 07/24/24 16:45 DCW (Rec: 07/25/24 09:41 SDW [id number]) Hip Strength Hip Manual Muscle Testing Right Flexion (L2) 4- Good- Abduction 4- Good- Adduction 4- Good- Left Flexion (L2) 4 Good Abduction 4 Good Adduction 4 Good Knee Strength Knee Manual Muscle Testing Right Flexion (S2) 4 Good Extension (L3) 4 Good Left Flexion (S2) 4 Good Extension (L3) 4 Good PT-OP-Q Treatments Start: 07/24/24 17:39 Freq: Status: Active Protocol: Document 07/26/24 16:00 DCW (Rec: 07/26/24 16:47 [facility] [id number]) Therapeutic Exercises Sidelying Exercises Open Book Sidelying Exercise Name Open Book Side bilateral Hip Abduction Sidelying Exercise Name Hip Abduction Side bilateral Reverse Clamshell Sidelying Exercise Name Reverse Clamshell Side bilateral Clamshell Sidelying Exercise Name Clamshell Side bilateral Standing Exercises Pallof Press Standing Exercise Name Pallof Press Side bilateral Resistance Green Other Exercises Step-ups Other Exercise Name Step-ups/step-downs Side bilateral Equipment Used 4->6 step PT-OP-T Assessment and Plan Start: 07/24/24 17:39 Freq: Status: Active Protocol: Document 07/26/24 16:00 DCW (Rec: 07/26/24 16:47 [facility] [id number]) Physical Therapy Assessment Impairments Impairments Activity Tolerance,Functional Activities,Functional Mobility ,Gait,ROM,Soft Tissue Mobility ,Strength Goals Two Impairment Pt unable to ascend stairs [id number] Carriage Rider Goal (LTG) Pt to demonstrate improvement with hip strength and mobility of bilateral knee by reporting ability to ascend and descend her stairs at home with a step-through gait pattern LTG Duration 09/23/24 One Impairment Pt does not have an appropriate home exercise program Short Term Goal (STG) Pt to be independent and compliant with an appropriate HEP STG Duration 08/23/24 Assessment Summary Assessment Pt had good response to treatment today, noted feeling like most exercises were really targeting weak areas. Was able to perform with minimal increases in pain, but was fairly fatigued by end of session. Pt very motivated to perform HEP. Physical Therapy Plan Frequency and Duration Frequency of Treatment 2x/Week Plan of Care Start Date 07/24/24 Plan of Care End Date 09/23/24 Therapeutic Interventions Therapeutic Interventions Gait Training,Home Exercise Program,Joint Mobilizations, Manual Therapy,Neuromuscular Re-education,Patient/Caregiver Education,Self-Care/Home Management,Soft Tissue Mobilization,Therapeutic Activities,Therapeutic Exercises Modalities Cold Pack/Ice Massage,Electric Stimulation,Hot Packs, Ultrasound Next Visit Focus/Plan Next Note Type Treatment Note Next Visit Plan Gait training, hip mobility/ strengthening, core strengthening
--- NOTE | 2024-07-29 16:12 | PT.OTN ---
Current Diagnoses Sacrococcygeal disorders, not elsewhere classified (07/29/24) Lumbago with sciatica, right side (07/29/24) Physical Therapy Treatment Note PT-OP-A Visit Information Start: 07/24/24 17:39 Freq: Status: Active Protocol: Document 07/29/24 13:19 AB (Rec: 07/29/24 16:12 AB [id number]) Out-Patient Physical Therapy Visit Information Visit Information Visit Type Treatment Note Visit Start Time 15:19 Visit Stop Time 16:06 Visit Number 3 Number of SCHOOL PSYCHOMETRIST Visits 1 Evaluation Information Evaluation Date 07/24/24 PT-OP-B Current Condition Start: 07/24/24 17:39 Freq: Status: Active Protocol: Document 07/24/24 16:45 DCW (Rec: 07/24/24 17:53 DCW [id number]) Current Condition History of Current Condition Onset Date Multi-year history Current Complaints bilateral radicular pain into lateral upper legs, into yeager History of Current Condition Pt is a 74 year old female presenting with a multi-year history of pain/discomfort into her legs. Pt admits pain is not intolerable, and I could live with it if it comes to it, but I'd like to know what's going on. 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 Notes that her biggest complaint is that she is unable to ascend stairs normally, has to go up in a step-to pattern. Admits her knees are kind of crunchy , but don't cause too much pain. Pt notes that it has been suggested to her that her pain is due to a pinched nerve in her back, but she has not been able to get approval for an MRI yet. Spent most of today doing yard work, including shoveling, with general muscle soreness, but no increase in radicular symptoms. Pt reports that she is aware her knees would feel better if she were to lose weight, but has a long history with eating disorders, so weight loss is an admittedly touchy subject, but she is feeling like she is in a much better place mentally, and is working on increasing activity to continue with losing weight without worrying about dieting. Treatment Goals Patient/Caregiver Goals I want to be able to walk up stairs normally. PT-OP-C Subjective Start: 07/24/24 17:39 Freq: Status: Active Protocol: Document 07/29/24 13:19 AB (Rec: 07/29/24 16:12 AB [id number]) OP-PT Subjective Patient Comments Patient Comments Patient reports no pain seated start of session. Patient reports she did her exercises today. Patient requests HEP review. PT-OP-F Manual Assessment Start: 07/24/24 17:39 Freq: Status: Active Protocol: Document 07/24/24 16:45 DCW (Rec: 07/25/24 09:41 DCW [id number]) Manual Assessments Soft Tissue Assessment Soft Tissue Mobility Assessment Moderate tone and tenderness to palpation 3/4: wincing and withdraw bilateral TFL/ITB, Piriformis, glutes, L/S paraspinals PT-OP-G Mobility & Gait Start: 07/24/24 17:39 Freq: Status: Active Protocol: Document 07/24/24 16:45 DCW (Rec: 07/25/24 09:41 DCW [id number]) Stair Climbing Evaluation Devices Stair Climbing Assistive Devices Left Railing,Right Railing Technique/Endurance Stair Climbing Direction Ascend and Descend Stair Climbing Technique Step to Step PT-OP-K Range of Motion Start: 07/24/24 17:39 Freq: Status: Active Protocol: Document 07/24/24 16:45 DCW (Rec: 07/25/24 09:41 DCW [id number]) Lumbar Spine Range of Motion Lumbar Spine Active Degrees Testing Position Standing Flexion 65 Extension 30 Lateral Flexion Left 48 Lateral Flexion Right 49 Comments Lateral flexion measured in cm from fingertips to floor PT-OP-L Special Tests Start: 07/24/24 17:39 Freq: Status: Active Protocol: Document 07/24/24 16:45 DCW (Rec: 07/25/24 09:41 DCW [id number]) Special Tests Lumbar Spine Special Tests Vertical Spine Loading Test Results Negative Straight Leg Raise Test Results Negative Slump Test Results Hamstring tightness A-P Shearing Test Results Negative Knee Special Tests Judy's Test Test Results Positive B PT-OP-M Strength Start: 07/24/24 17:39 Freq: Status: Active Protocol: Document 07/24/24 16:45 DCW (Rec: 07/25/24 09:41 DCW [id number]) Hip Strength Hip Manual Muscle Testing Right Flexion (L2) 4- Good- Abduction 4- Good- Adduction 4- Good- Left Flexion (L2) 4 Good Abduction 4 Good Adduction 4 Good Knee Strength Knee Manual Muscle Testing Right Flexion (S2) 4 Good Extension (L3) 4 Good Left Flexion (S2) 4 Good Extension (L3) 4 Good PT-OP-Q Treatments Start: 07/24/24 17:39 Freq: Status: Active Protocol: Document 07/29/24 13:19 AB (Rec: 07/29/24 16:12 AB [id number]) Therapeutic Exercises Supine Exercises Hooklying IR and ER Supine Exercise Name AROM Side bilateral Reps/Minutes X1 Comments reports left knee pain with ER Modified Nakul stretch Supine Exercise Name one LE on bolster one on mat with breathing from diaphragm Side bilateral Reps/Minutes 2 min each LE Comments verbal cues for breathing from diaphragm Sidelying Exercises Open Book Sidelying Exercise Name Open Book HEP Side bilateral Reps/Minutes X10 Comments verbal and tactile cues for LE 's at 90 deg from core Hip Abduction Sidelying Exercise Name Hip Abduction HEP Side bilateral Reps/Minutes X15 Comments trunk supported pt ed back to wall at home Reverse Clamshell Sidelying Exercise Name Reverse Clamshell HEP Side bilateral Reps/Minutes X15 Comments VC to avoid lifting knee Clamshell Sidelying Exercise Name Clamshell HEP Side bilateral Reps/Minutes X15 Comments trunk supported pt ed back to wall at home Standing Exercises Pallof Press Standing Exercise Name HEP Pallof press Side bilateral Resistance Green Reps/Minutes X15 Therapeutic Activity Therapeutic Activity sit to stand Reps/Minutes X3 without band X 1 with level one band Manual Therapy Treatment Consent Patient gave verbal consent for manual Yes treatment Soft Tissue Mobilization bilateral hips Body Location hip flexors, scar tissue, glute/piriformis area Mobilization Type Cross-Friction,Rolling Intensity/Depth Moderate Body Position Hooklying Comments prior to exercise PT-OP-T Assessment and Plan Start: 07/24/24 17:39 Freq: Status: Active Protocol: Document 07/29/24 13:19 AB (Rec: 07/29/24 16:12 AB [id number]) Physical Therapy Assessment Goals Two Impairment Pt unable to ascend stairs [id number] Travel Accommodations Rater Goal (LTG) Pt to demonstrate improvement with hip strength and mobility of bilateral knee by reporting ability to ascend and descend her stairs at home with a step-through gait pattern LTG Duration 09/23/24 One Impairment Pt does not have an appropriate home exercise program Short Term Goal (STG) Pt to be independent and compliant with an appropriate HEP STG Duration 08/23/24 Assessment Summary Assessment Patient reports back feels tight end of session. Good form for clamshell and hip abduction with support at trunk. Sit to stand with excessive dynamic valgus, and discomfort reported for right knee with trial of level one band. Physical Therapy Plan Frequency and Duration Frequency of Treatment 2x/Week Plan of Care Start Date 07/24/24 Plan of Care End Date 09/23/24 Next Visit Focus/Plan Next Note Type Treatment Note Next Visit Plan Gait training, hip mobility/ strengthening, core strengthening
--- NOTE | 2024-08-01 16:19 | PT.OTN ---
Current Diagnoses Sacrococcygeal disorders, not elsewhere classified (08/01/24) Lumbago with sciatica, right side (08/01/24) Physical Therapy Treatment Note PT-OP-A Visit Information Start: 07/24/24 17:39 Freq: Status: Active Protocol: Document 08/01/24 13:35 AB (Rec: 08/01/24 16:19 AB [id number]) Out-Patient Physical Therapy Visit Information Visit Information Visit Type Treatment Note Visit Start Time 15:19 Visit Stop Time 16:07 Visit Number 4 Number of DEVELOPER ADVOCATE Visits 2 Evaluation Information Evaluation Date 07/24/24 PT-OP-B Current Condition Start: 07/24/24 17:39 Freq: Status: Active Protocol: Document 07/24/24 16:45 DCW (Rec: 07/24/24 17:53 DCW [id number]) Current Condition History of Current Condition Onset Date Multi-year history Current Complaints bilateral radicular pain into lateral upper legs, into yeager History of Current Condition Pt is a 74 year old female presenting with a multi-year history of pain/discomfort into her legs. Pt admits pain is not intolerable, and I could live with it if it comes to it, but I'd like to know what's going on. 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 Notes that her biggest complaint is that she is unable to ascend stairs normally, has to go up in a step-to pattern. Admits her knees are kind of crunchy , but don't cause too much pain. Pt notes that it has been suggested to her that her pain is due to a pinched nerve in her back, but she has not been able to get approval for an MRI yet. Spent most of today doing yard work, including shoveling, with general muscle soreness, but no increase in radicular symptoms. Pt reports that she is aware her knees would feel better if she were to lose weight, but has a long history with eating disorders, so weight loss is an admittedly touchy subject, but she is feeling like she is in a much better place mentally, and is working on increasing activity to continue with losing weight without worrying about dieting. Treatment Goals Patient/Caregiver Goals I want to be able to walk up stairs normally. PT-OP-C Subjective Start: 07/24/24 17:39 Freq: Status: Active Protocol: Document 08/01/24 13:35 AB (Rec: 08/01/24 16:19 AB [id number]) OP-PT Subjective Patient Comments Patient Comments Patient reports that she has no pain, reports she is the same. Patient reports doing the exercises backed to the Ottoman helped. PT-OP-F Manual Assessment Start: 07/24/24 17:39 Freq: Status: Active Protocol: Document 07/24/24 16:45 DCW (Rec: 07/25/24 09:41 DCW [id number]) Manual Assessments Soft Tissue Assessment Soft Tissue Mobility Assessment Moderate tone and tenderness to palpation 3/4: wincing and withdraw bilateral TFL/ITB, Piriformis, glutes, L/S paraspinals PT-OP-G Mobility & Gait Start: 07/24/24 17:39 Freq: Status: Active Protocol: Document 07/24/24 16:45 DCW (Rec: 07/25/24 09:41 DCW [id number]) Stair Climbing Evaluation Devices Stair Climbing Assistive Devices Left Railing,Right Railing Technique/Endurance Stair Climbing Direction Ascend and Descend Stair Climbing Technique Step to Step PT-OP-K Range of Motion Start: 07/24/24 17:39 Freq: Status: Active Protocol: Document 07/24/24 16:45 DCW (Rec: 07/25/24 09:41 DCW [id number]) Lumbar Spine Range of Motion Lumbar Spine Active Degrees Testing Position Standing Flexion 65 Extension 30 Lateral Flexion Left 48 Lateral Flexion Right 49 Comments Lateral flexion measured in cm from fingertips to floor PT-OP-L Special Tests Start: 07/24/24 17:39 Freq: Status: Active Protocol: Document 07/24/24 16:45 DCW (Rec: 07/25/24 09:41 DCW [id number]) Special Tests Lumbar Spine Special Tests Vertical Spine Loading Test Results Negative Straight Leg Raise Test Results Negative Slump Test Results Hamstring tightness A-P Shearing Test Results Negative Knee Special Tests Judy's Test Test Results Positive B PT-OP-M Strength Start: 07/24/24 17:39 Freq: Status: Active Protocol: Document 07/24/24 16:45 DCW (Rec: 07/25/24 09:41 DCW [id number]) Hip Strength Hip Manual Muscle Testing Right Flexion (L2) 4- Good- Abduction 4- Good- Adduction 4- Good- Left Flexion (L2) 4 Good Abduction 4 Good Adduction 4 Good Knee Strength Knee Manual Muscle Testing Right Flexion (S2) 4 Good Extension (L3) 4 Good Left Flexion (S2) 4 Good Extension (L3) 4 Good PT-OP-Q Treatments Start: 07/24/24 17:39 Freq: Status: Active Protocol: Document 08/01/24 13:35 AB (Rec: 08/01/24 16:19 AB [id number]) Therapeutic Exercises Supine Exercises piriformis stretch Side bilateral Reps/Minutes 1 min Comments Verbal and visual Modified Nakul stretch Supine Exercise Name one LE on bolster one on mat with breathing from diaphragm Side bilateral Reps/Minutes 1 min each LE Comments verbal cues for breathing from diaphragm Sidelying Exercises Reverse Clamshell Sidelying Exercise Name Reverse Clamshell HEP Side bilateral Reps/Minutes X15 Comments back to wall Clamshell Sidelying Exercise Name Clamshell HEP Side bilateral Reps/Minutes X15 Comments back to wall Sitting Exercises seated hip abduction Sitting Exercise Name HEP Resistance level 2 band Reps/Minutes one one minute hold Comments verbal cues Other Exercises mini squat Side bilateral Reps/Minutes X10 Comments verbal and tactile cues for hip hinge Step-ups Other Exercise Name Step-ups/step-downs Side bilateral Equipment Used 1.5 inch step Reps/Minutes X4 right lateral then X5 step up step back Comments verbal cues, monitored for pain Therapeutic Activity Therapeutic Activity sit to stand Reps/Minutes X2 Comments Patient ed use of self tactile cues for hip hinge Manual Therapy Treatment Soft Tissue Mobilization bilateral hips Body Location hip flexors, scar tissue, glute/piriformis area Mobilization Type Cross-Friction,Rolling Intensity/Depth Moderate Body Position Hooklying Comments prior to exercise PT-OP-T Assessment and Plan Start: 07/24/24 17:39 Freq: Status: Active Protocol: Document 08/01/24 13:35 AB (Rec: 08/01/24 16:19 AB [id number]) Physical Therapy Assessment Goals Two Impairment Pt unable to ascend stairs [id number] Vein Access Technician Goal (LTG) Pt to demonstrate improvement with hip strength and mobility of bilateral knee by reporting ability to ascend and descend her stairs at home with a step-through gait pattern LTG Duration 09/23/24 One Impairment Pt does not have an appropriate home exercise program Short Term Goal (STG) Pt to be independent and compliant with an appropriate HEP STG Duration 08/23/24 Assessment Summary Assessment Patient reports having no pain end of session. Unable to perform a very minimal squat or step up on a 1.5 inch book/ step up step back with out occasional knee pain/crepitus. Physical Therapy Plan Frequency and Duration Frequency of Treatment 2x/Week Plan of Care Start Date 07/24/24 Plan of Care End Date 09/23/24 Next Visit Focus/Plan Next Note Type Treatment Note Next Visit Plan Gait training, hip mobility/ strengthening, core strengthening, possibly bridges if unable to progress with mini squat/step ups
--- NOTE | 2024-08-07 16:37 | PT.OTN ---
Current Diagnoses Sacrococcygeal disorders, not elsewhere classified (08/07/24) Lumbago with sciatica, right side (08/07/24) Physical Therapy Treatment Note PT-OP-A Visit Information Start: 07/24/24 17:39 Freq: Status: Active Protocol: Document 08/07/24 12:56 AB (Rec: 08/07/24 13:47 AB [id number]) Out-Patient Physical Therapy Visit Information Visit Information Visit Type Treatment Note Visit Note Access Code [email or web address] Visit Start Time 13:02 Visit Stop Time 13:45 Visit Number 5 Number of HR BUSINESS PARTNER CONSULTANT Visits 3 Evaluation Information Evaluation Date 07/24/24 PT-OP-B Current Condition Start: 07/24/24 17:39 Freq: Status: Active Protocol: Document 07/24/24 16:45 DCW (Rec: 07/24/24 17:53 DCW [id number]) Current Condition History of Current Condition Onset Date Multi-year history Current Complaints bilateral radicular pain into lateral upper legs, into yeager History of Current Condition Pt is a 74 year old female presenting with a multi-year history of pain/discomfort into her legs. Pt admits pain is not intolerable, and I could live with it if it comes to it, but I'd like to know what's going on. 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 Notes that her biggest complaint is that she is unable to ascend stairs normally, has to go up in a step-to pattern. Admits her knees are kind of crunchy , but don't cause too much pain. Pt notes that it has been suggested to her that her pain is due to a pinched nerve in her back, but she has not been able to get approval for an MRI yet. Spent most of today doing yard work, including shoveling, with general muscle soreness, but no increase in radicular symptoms. Pt reports that she is aware her knees would feel better if she were to lose weight, but has a long history with eating disorders, so weight loss is an admittedly touchy subject, but she is feeling like she is in a much better place mentally, and is working on increasing activity to continue with losing weight without worrying about dieting. Treatment Goals Patient/Caregiver Goals I want to be able to walk up stairs normally. PT-OP-C Subjective Start: 07/24/24 17:39 Freq: Status: Active Protocol: Document 08/07/24 12:56 AB (Rec: 08/07/24 13:47 AB [id number]) OP-PT Subjective Patient Comments Patient Comments Patient reports she over did it Monday, house guest activities, volunteering, and folk dance have contributed to overdoing it. Patient reports she is doing her HEP once a day. Patient rates pain 3-4/10 radiating down right LE in standing start of session, no pain when seated. PT-OP-F Manual Assessment Start: 07/24/24 17:39 Freq: Status: Active Protocol: Document 07/24/24 16:45 DCW (Rec: 07/25/24 09:41 DCW [id number]) Manual Assessments Soft Tissue Assessment Soft Tissue Mobility Assessment Moderate tone and tenderness to palpation 3/4: wincing and withdraw bilateral TFL/ITB, Piriformis, glutes, L/S paraspinals PT-OP-G Mobility & Gait Start: 07/24/24 17:39 Freq: Status: Active Protocol: Document 07/24/24 16:45 DCW (Rec: 07/25/24 09:41 DCW [id number]) Stair Climbing Evaluation Devices Stair Climbing Assistive Devices Left Railing,Right Railing Technique/Endurance Stair Climbing Direction Ascend and Descend Stair Climbing Technique Step to Step PT-OP-K Range of Motion Start: 07/24/24 17:39 Freq: Status: Active Protocol: Document 07/24/24 16:45 DCW (Rec: 07/25/24 09:41 DCW [id number]) Lumbar Spine Range of Motion Lumbar Spine Active Degrees Testing Position Standing Flexion 65 Extension 30 Lateral Flexion Left 48 Lateral Flexion Right 49 Comments Lateral flexion measured in cm from fingertips to floor PT-OP-L Special Tests Start: 07/24/24 17:39 Freq: Status: Active Protocol: Document 07/24/24 16:45 DCW (Rec: 07/25/24 09:41 DCW [id number]) Special Tests Lumbar Spine Special Tests Vertical Spine Loading Test Results Negative Straight Leg Raise Test Results Negative Slump Test Results Hamstring tightness A-P Shearing Test Results Negative Knee Special Tests Judy's Test Test Results Positive B PT-OP-M Strength Start: 07/24/24 17:39 Freq: Status: Active Protocol: Document 07/24/24 16:45 DCW (Rec: 07/25/24 09:41 DCW [id number]) Hip Strength Hip Manual Muscle Testing Right Flexion (L2) 4- Good- Abduction 4- Good- Adduction 4- Good- Left Flexion (L2) 4 Good Abduction 4 Good Adduction 4 Good Knee Strength Knee Manual Muscle Testing Right Flexion (S2) 4 Good Extension (L3) 4 Good Left Flexion (S2) 4 Good Extension (L3) 4 Good PT-OP-Q Treatments Start: 07/24/24 17:39 Freq: Status: Active Protocol: Document 08/07/24 12:56 AB (Rec: 08/07/24 13:47 AB [id number]) Therapeutic Exercises Supine Exercises bridge Side bilateral Reps/Minutes X15 Comments VC to push into heels Modified Nakul stretch Supine Exercise Name one LE on bolster one on mat with breathing from diaphragm Side bilateral Reps/Minutes 1 min each LE second set with LE off edge of mat Comments verbal cues for breathing from diaphragm Sidelying Exercises Reverse Clamshell Sidelying Exercise Name Reverse Clamshell HEP Side bilateral Reps/Minutes X15 also X 1 with level one band right LE Comments band not johanny Clamshell Sidelying Exercise Name Clamshell HEP Side bilateral Reps/Minutes X15 then X 10 with level one band Sitting Exercises seated hip abduction Sitting Exercise Name HEP Resistance level 3 band Reps/Minutes one one minute hold Comments verbal cues Manual Therapy Treatment Soft Tissue Mobilization bilateral hips Body Location hip flexors, scar tissue, glute/piriformis area Mobilization Type Cross-Friction,Rolling Intensity/Depth Moderate Body Position Hooklying Comments prior to exercise PT-OP-T Assessment and Plan Start: 07/24/24 17:39 Freq: Status: Active Protocol: Document 08/07/24 12:56 AB (Rec: 08/07/24 13:47 AB [id number]) Physical Therapy Assessment Goals Two Impairment Pt unable to ascend stairs [id number] Intermediate Goal (LTG) Pt to demonstrate improvement with hip strength and mobility of bilateral knee by reporting ability to ascend and descend her stairs at home with a step-through gait pattern LTG Duration 09/23/24 One Impairment Pt does not have an appropriate home exercise program Short Term Goal (STG) Pt to be independent and compliant with an appropriate HEP STG Duration 08/23/24 Assessment Summary Assessment Patient reports having nopain right hip with ambulation end of session. Good johanny to bridge post verbal cues to push into heels. Physical Therapy Plan Frequency and Duration Frequency of Treatment 2x/Week Plan of Care Start Date 07/24/24 Plan of Care End Date 09/23/24 Next Visit Focus/Plan Next Note Type Treatment Note Next Visit Plan Gait training, hip mobility/ strengthening, core strengthening, assess johanny to bridge, progress with mini squat/step ups as able
--- NOTE | 2024-08-23 14:04 | PT-OP ANOTE ---
Patient reports that she fell backwards when coming down the stairs at home (out of studio), ultimately landed on knees yesterday late afternoon. Patient reports right knee felt like it was going to give out a couple of times. Patient reports she used heat and ice. Patient reports the knee is stiff rates pain 4-5/10 now. Patient reports that it was too late to cancel this appointment. Patient questions if she should be using a cane. Patient advised to use cane and confirmed to use it in left UE. PT Akshat Garcia made aware. Patient advised to go to Walk in clinic to be treated/assessed.
--- NOTE | 2024-09-05 16:29 | PT.OTN ---
Current Diagnoses Sacrococcygeal disorders, not elsewhere classified (09/05/24) Lumbago with sciatica, right side (09/05/24) Physical Therapy Treatment Note PT-OP-A Visit Information Start: 07/24/24 17:39 Freq: Status: Active Protocol: Document 09/05/24 13:49 AMH (Rec: 09/05/24 14:34 AMH [id number]) Out-Patient Physical Therapy Visit Information Visit Information Visit Type Treatment Note Visit Start Time 13:45 Visit Stop Time 14:30 Visit Number 6 Number of CNC OPERATOR Visits 0 PT-OP-B Current Condition Start: 07/24/24 17:39 Freq: Status: Active Protocol: Document 07/24/24 16:45 DCW (Rec: 07/24/24 17:53 DCW [id number]) Current Condition History of Current Condition Onset Date Multi-year history Current Complaints bilateral radicular pain into lateral upper legs, into yeager History of Current Condition Pt is a 74 year old female presenting with a multi-year history of pain/discomfort into her legs. Pt admits pain is not intolerable, and I could live with it if it comes to it, but I'd like to know what's going on. 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 Notes that her biggest complaint is that she is unable to ascend stairs normally, has to go up in a step-to pattern. Admits her knees are kind of crunchy , but don't cause too much pain. Pt notes that it has been suggested to her that her pain is due to a pinched nerve in her back, but she has not been able to get approval for an MRI yet. Spent most of today doing yard work, including shoveling, with general muscle soreness, but no increase in radicular symptoms. Pt reports that she is aware her knees would feel better if she were to lose weight, but has a long history with eating disorders, so weight loss is an admittedly touchy subject, but she is feeling like she is in a much better place mentally, and is working on increasing activity to continue with losing weight without worrying about dieting. Treatment Goals Patient/Caregiver Goals I want to be able to walk up stairs normally. PT-OP-C Subjective Start: 07/24/24 17:39 Freq: Status: Active Protocol: Document 09/05/24 13:49 AMH (Rec: 09/05/24 14:34 AMH [id number]) OP-PT Subjective Patient Comments Patient Comments Lois he back is doing okay but she is still feeling the radicular pain especially on the right leg from the hip to the anterior yeager She had a fall 1.5 weeks ago and went to urgent care and she had a xray on her right knee and everything way okay. Her main complaint is that she has difficulty walking up stairs and that has been her goal PT-OP-F Manual Assessment Start: 07/24/24 17:39 Freq: Status: Active Protocol: Document 07/24/24 16:45 DCW (Rec: 07/25/24 09:41 DCW [id number]) Manual Assessments Soft Tissue Assessment Soft Tissue Mobility Assessment Moderate tone and tenderness to palpation 3/4: wincing and withdraw bilateral TFL/ITB, Piriformis, glutes, L/S paraspinals PT-OP-G Mobility & Gait Start: 07/24/24 17:39 Freq: Status: Active Protocol: Document 07/24/24 16:45 DCW (Rec: 07/25/24 09:41 DCW [id number]) Stair Climbing Evaluation Devices Stair Climbing Assistive Devices Left Railing,Right Railing Technique/Endurance Stair Climbing Direction Ascend and Descend Stair Climbing Technique Step to Step PT-OP-K Range of Motion Start: 07/24/24 17:39 Freq: Status: Active Protocol: Document 07/24/24 16:45 DCW (Rec: 07/25/24 09:41 DCW [id number]) Lumbar Spine Range of Motion Lumbar Spine Active Degrees Testing Position Standing Flexion 65 Extension 30 Lateral Flexion Left 48 Lateral Flexion Right 49 Comments Lateral flexion measured in cm from fingertips to floor PT-OP-L Special Tests Start: 07/24/24 17:39 Freq: Status: Active Protocol: Document 07/24/24 16:45 DCW (Rec: 07/25/24 09:41 DCW [id number]) Special Tests Lumbar Spine Special Tests Vertical Spine Loading Test Results Negative Straight Leg Raise Test Results Negative Slump Test Results Hamstring tightness A-P Shearing Test Results Negative Knee Special Tests Judy's Test Test Results Positive B PT-OP-M Strength Start: 07/24/24 17:39 Freq: Status: Active Protocol: Document 07/24/24 16:45 DCW (Rec: 07/25/24 09:41 DCW [id number]) Hip Strength Hip Manual Muscle Testing Right Flexion (L2) 4- Good- Abduction 4- Good- Adduction 4- Good- Left Flexion (L2) 4 Good Abduction 4 Good Adduction 4 Good Knee Strength Knee Manual Muscle Testing Right Flexion (S2) 4 Good Extension (L3) 4 Good Left Flexion (S2) 4 Good Extension (L3) 4 Good PT-OP-Q Treatments Start: 07/24/24 17:39 Freq: Status: Active Protocol: Document 09/05/24 13:49 AMH (Rec: 09/05/24 14:34 AMH [id number]) Therapeutic Exercises Supine Exercises single knee to chest Side bilateral Reps/Minutes 2 x 30 sec each pelvic tilt with lower abdominal tightening Supine Exercise Name gave for HEP Reps/Minutes 10 reps supine double knee to chest Reps/Minutes hold 1 min bridge Supine Exercise Name cues for pelvic tilt with abdominal brace first to avoid lumbar extension Side bilateral Reps/Minutes X15 piriformis stretch Side bilateral Reps/Minutes 1 min Comments Verbal and visual Modified Nakul stretch Supine Exercise Name one LE on bolster one on mat with breathing from diaphragm Side bilateral Reps/Minutes 1 min each LE second set with LE off edge of mat Comments verbal cues for breathing from diaphragm Gait Training Gait Activity stair training Comments worked on neutral spine with stair climbing, no referred pain into the yeager today with stairs PT-OP-T Assessment and Plan Start: 07/24/24 17:39 Freq: Status: Active Protocol: Document 09/05/24 13:49 AMH (Rec: 09/05/24 16:25 AMH [id number]) Physical Therapy Assessment Assessment Summary Assessment Pt is still quite sore right knee from her fall, Xrays were negative for any fracture . The knee pain limited her with exercises and stairs. I added in core strengthening and we discussed neutral spine with ascending stairs to avoid any increase in lumbar lordosis that might be contributing to LE radicular pain into the right yeager. She didn't experience any radicular symptoms today just knee discomfort on stairs. Her pain is worse at night and I gave her DKTC a long with SKTC to try and calm down nerve irritation at night. Good tolerance to bridge as long as she performs a pelvic tilt first. Physical Therapy Plan Frequency and Duration Frequency of Treatment 2x/Week Plan of Care Start Date 07/24/24 Plan of Care End Date 09/23/24 Therapeutic Interventions Therapeutic Interventions Gait Training,Home Exercise Program,Joint Mobilizations, Manual Therapy,Neuromuscular Re-education,Patient/Caregiver Education,Self-Care/Home Management,Soft Tissue Mobilization,Therapeutic Activities,Therapeutic Exercises Modalities Cold Pack/Ice Massage,Electric Stimulation,Hot Packs, Ultrasound Next Visit Focus/Plan Next Note Type Progress Note Next Visit Plan Gait training, hip mobility/ strengthening, core strengthening, progress with mini squat/step ups as able
--- NOTE | 2024-09-09 16:20 | PT.OTN ---
Current Diagnoses Sacrococcygeal disorders, not elsewhere classified (09/09/24) Lumbago with sciatica, right side (09/09/24) Physical Therapy Treatment Note PT-OP-A Visit Information Start: 07/24/24 17:39 Freq: Status: Active Protocol: Document 09/09/24 14:52 AB (Rec: 09/09/24 16:20 AB [id number]) Out-Patient Physical Therapy Visit Information Visit Information Visit Type Treatment Note Visit Note Access Code [email or web address] Visit Start Time 15:18 Visit Stop Time 16:00 Visit Number 7 Number of MEDICAL DETAIL REPRESENTATIVE Visits 1 PT-OP-B Current Condition Start: 07/24/24 17:39 Freq: Status: Active Protocol: Document 07/24/24 16:45 DCW (Rec: 07/24/24 17:53 DCW [id number]) Current Condition History of Current Condition Onset Date Multi-year history Current Complaints bilateral radicular pain into lateral upper legs, into yeager History of Current Condition Pt is a 74 year old female presenting with a multi-year history of pain/discomfort into her legs. Pt admits pain is not intolerable, and I could live with it if it comes to it, but I'd like to know what's going on. 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 Notes that her biggest complaint is that she is unable to ascend stairs normally, has to go up in a step-to pattern. Admits her knees are kind of crunchy , but don't cause too much pain. Pt notes that it has been suggested to her that her pain is due to a pinched nerve in her back, but she has not been able to get approval for an MRI yet. Spent most of today doing yard work, including shoveling, with general muscle soreness, but no increase in radicular symptoms. Pt reports that she is aware her knees would feel better if she were to lose weight, but has a long history with eating disorders, so weight loss is an admittedly touchy subject, but she is feeling like she is in a much better place mentally, and is working on increasing activity to continue with losing weight without worrying about dieting. Treatment Goals Patient/Caregiver Goals I want to be able to walk up stairs normally. PT-OP-C Subjective Start: 07/24/24 17:39 Freq: Status: Active Protocol: Document 09/09/24 14:52 AB (Rec: 09/09/24 16:20 AB [id number]) OP-PT Subjective Patient Comments Patient Comments Lois reports the knee is back to what it was before the fall. 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 Patient reports feeling better after performing the stretches from Jazmine previous session. PT-OP-F Manual Assessment Start: 07/24/24 17:39 Freq: Status: Active Protocol: Document 07/24/24 16:45 DCW (Rec: 07/25/24 09:41 DCW [id number]) Manual Assessments Soft Tissue Assessment Soft Tissue Mobility Assessment Moderate tone and tenderness to palpation 3/4: wincing and withdraw bilateral TFL/ITB, Piriformis, glutes, L/S paraspinals PT-OP-G Mobility & Gait Start: 07/24/24 17:39 Freq: Status: Active Protocol: Document 07/24/24 16:45 DCW (Rec: 07/25/24 09:41 DCW [id number]) Stair Climbing Evaluation Devices Stair Climbing Assistive Devices Left Railing,Right Railing Technique/Endurance Stair Climbing Direction Ascend and Descend Stair Climbing Technique Step to Step PT-OP-K Range of Motion Start: 07/24/24 17:39 Freq: Status: Active Protocol: Document 07/24/24 16:45 DCW (Rec: 07/25/24 09:41 DCW [id number]) Lumbar Spine Range of Motion Lumbar Spine Active Degrees Testing Position Standing Flexion 65 Extension 30 Lateral Flexion Left 48 Lateral Flexion Right 49 Comments Lateral flexion measured in cm from fingertips to floor PT-OP-L Special Tests Start: 07/24/24 17:39 Freq: Status: Active Protocol: Document 07/24/24 16:45 DCW (Rec: 07/25/24 09:41 DCW [id number]) Special Tests Lumbar Spine Special Tests Vertical Spine Loading Test Results Negative Straight Leg Raise Test Results Negative Slump Test Results Hamstring tightness A-P Shearing Test Results Negative Knee Special Tests Judy's Test Test Results Positive B PT-OP-M Strength Start: 07/24/24 17:39 Freq: Status: Active Protocol: Document 07/24/24 16:45 DCW (Rec: 07/25/24 09:41 DCW [id number]) Hip Strength Hip Manual Muscle Testing Right Flexion (L2) 4- Good- Abduction 4- Good- Adduction 4- Good- Left Flexion (L2) 4 Good Abduction 4 Good Adduction 4 Good Knee Strength Knee Manual Muscle Testing Right Flexion (S2) 4 Good Extension (L3) 4 Good Left Flexion (S2) 4 Good Extension (L3) 4 Good PT-OP-Q Treatments Start: 07/24/24 17:39 Freq: Status: Active Protocol: Document 09/09/24 14:52 AB (Rec: 09/09/24 16:20 AB [id number]) Gym Equipment Shuttle Recovery unilateral squat Details right Resistance 37# (old bands) Shuttle Recovery Platform Stable Reps/Time X10 37 new and old band 25# X10 bilateral squat Resistance 75# navy Shuttle Recovery Platform Stable Reps/Time 3x10 2nd and 3rd set with level one theraband Therapeutic Exercises Supine Exercises single knee to chest Supine Exercise Name opp LE bent then opp LE straight Side bilateral Reps/Minutes 2 x 45 sec each pelvic tilt with lower abdominal tightening Supine Exercise Name gave for HEP Reps/Minutes 15 reps bridge Supine Exercise Name cues for pelvic tilt with abdominal brace first to avoid lumbar extension Side bilateral Reps/Minutes 15 Modified Nakul stretch Supine Exercise Name one LE on mat one LE off mat Side bilateral Equipment Used HEP Reps/Minutes one minute each LE Comments verbal cues Sitting Exercises seated hip abduction Sitting Exercise Name HEP Resistance level 3 band Reps/Minutes one one minute hold Comments verbal cues Standing Exercises step ups Standing Exercise Name fwd on 4 inch 2. HEP lateral on 1.5 inch book Side bilateral Reps/Minutes X3 on 4 inch step X10 on 1.5 inch book Comments monitored for pain Other Exercises mini squat Side bilateral Reps/Minutes X3 Comments not johanny PT-OP-T Assessment and Plan Start: 07/24/24 17:39 Freq: Status: Active Protocol: Document 09/09/24 14:52 AB (Rec: 09/09/24 16:20 AB [id number]) Physical Therapy Assessment Goals Two Impairment Pt unable to ascend stairs [id number] Shelter Goal (LTG) Pt to demonstrate improvement with hip strength and mobility of bilateral knee by reporting ability to ascend and descend her stairs at home with a step-through gait pattern LTG Duration 09/23/24 One Impairment Pt does not have an appropriate home exercise program Short Term Goal (STG) Pt to be independent and compliant with an appropriate HEP STG Duration 08/23/24 Assessment Summary Assessment Lois reports no pain end of session, just muscle soreness. Unable to perform mini squat or 4 inch step up without pain or increased crepitus. Good johanny to 1.5 inch lateral step up. Patient made aware of xray advise to follow up with provider, and reports she has a check up in Dec and can make MD aware. Physical Therapy Plan Frequency and Duration Frequency of Treatment 2x/Week Plan of Care Start Date 07/24/24 Plan of Care End Date 09/23/24 Next Visit Focus/Plan Next Note Type Progress Note Next Visit Plan Gait training, hip mobility/ strengthening, core strengthening, progress with mini squat/step ups as able
--- NOTE | 2024-09-11 16:08 | PT.OTN ---
Current Diagnoses Sacrococcygeal disorders, not elsewhere classified (09/11/24) Lumbago with sciatica, right side (09/11/24) Physical Therapy Treatment Note PT-OP-A Visit Information Start: 07/24/24 17:39 Freq: Status: Active Protocol: Document 09/11/24 14:09 AB (Rec: 09/11/24 16:08 AB [id number]) Out-Patient Physical Therapy Visit Information Visit Information Visit Type Treatment Note Visit Note Access Code [email or web address] Visit Start Time 15:18 Visit Stop Time 16:03 Visit Number 8 Number of PLANT ANATOMY TEACHER Visits 2 PT-OP-B Current Condition Start: 07/24/24 17:39 Freq: Status: Active Protocol: Document 07/24/24 16:45 DCW (Rec: 07/24/24 17:53 DCW [id number]) Current Condition History of Current Condition Onset Date Multi-year history Current Complaints bilateral radicular pain into lateral upper legs, into yeager History of Current Condition Pt is a 74 year old female presenting with a multi-year history of pain/discomfort into her legs. Pt admits pain is not intolerable, and I could live with it if it comes to it, but I'd like to know what's going on. 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 Notes that her biggest complaint is that she is unable to ascend stairs normally, has to go up in a step-to pattern. Admits her knees are kind of crunchy , but don't cause too much pain. Pt notes that it has been suggested to her that her pain is due to a pinched nerve in her back, but she has not been able to get approval for an MRI yet. Spent most of today doing yard work, including shoveling, with general muscle soreness, but no increase in radicular symptoms. Pt reports that she is aware her knees would feel better if she were to lose weight, but has a long history with eating disorders, so weight loss is an admittedly touchy subject, but she is feeling like she is in a much better place mentally, and is working on increasing activity to continue with losing weight without worrying about dieting. Treatment Goals Patient/Caregiver Goals I want to be able to walk up stairs normally. PT-OP-C Subjective Start: 07/24/24 17:39 Freq: Status: Active Protocol: Document 09/11/24 14:09 AB (Rec: 09/11/24 16:08 AB [id number]) OP-PT Subjective Patient Comments Patient Comments Lois reports folk dancing for 2 hours last night, was sore post, per ususal. Patient reports muscles were seizing up last attributes to not drinking enough water. Patient reports she did some of her stretches. Patient PT-OP-F Manual Assessment Start: 07/24/24 17:39 Freq: Status: Active Protocol: Document 07/24/24 16:45 DCW (Rec: 07/25/24 09:41 DCW [id number]) Manual Assessments Soft Tissue Assessment Soft Tissue Mobility Assessment Moderate tone and tenderness to palpation 3/4: wincing and withdraw bilateral TFL/ITB, Piriformis, glutes, L/S paraspinals PT-OP-G Mobility & Gait Start: 07/24/24 17:39 Freq: Status: Active Protocol: Document 07/24/24 16:45 DCW (Rec: 07/25/24 09:41 DCW [id number]) Stair Climbing Evaluation Devices Stair Climbing Assistive Devices Left Railing,Right Railing Technique/Endurance Stair Climbing Direction Ascend and Descend Stair Climbing Technique Step to Step PT-OP-K Range of Motion Start: 07/24/24 17:39 Freq: Status: Active Protocol: Document 07/24/24 16:45 DCW (Rec: 07/25/24 09:41 DCW [id number]) Lumbar Spine Range of Motion Lumbar Spine Active Degrees Testing Position Standing Flexion 65 Extension 30 Lateral Flexion Left 48 Lateral Flexion Right 49 Comments Lateral flexion measured in cm from fingertips to floor PT-OP-L Special Tests Start: 07/24/24 17:39 Freq: Status: Active Protocol: Document 07/24/24 16:45 DCW (Rec: 07/25/24 09:41 DCW [id number]) Special Tests Lumbar Spine Special Tests Vertical Spine Loading Test Results Negative Straight Leg Raise Test Results Negative Slump Test Results Hamstring tightness A-P Shearing Test Results Negative Knee Special Tests Judy's Test Test Results Positive B PT-OP-M Strength Start: 07/24/24 17:39 Freq: Status: Active Protocol: Document 07/24/24 16:45 DCW (Rec: 07/25/24 09:41 DCW [id number]) Hip Strength Hip Manual Muscle Testing Right Flexion (L2) 4- Good- Abduction 4- Good- Adduction 4- Good- Left Flexion (L2) 4 Good Abduction 4 Good Adduction 4 Good Knee Strength Knee Manual Muscle Testing Right Flexion (S2) 4 Good Extension (L3) 4 Good Left Flexion (S2) 4 Good Extension (L3) 4 Good PT-OP-Q Treatments Start: 07/24/24 17:39 Freq: Status: Active Protocol: Document 09/11/24 14:09 AB (Rec: 09/11/24 16:08 AB [id number]) Therapeutic Exercises Supine Exercises bridge Supine Exercise Name cues for pelvic tilt with abdominal brace first to avoid lumbar extension Side bilateral Reps/Minutes 15 piriformis stretch Supine Exercise Name with towel to hold LE Side bilateral Reps/Minutes 1 min Comments Verbal and visual Modified Nakul stretch Supine Exercise Name one LE on mat one LE off mat Side bilateral Equipment Used HEP Reps/Minutes one minute each LE, with AROM knee flexion Comments verbal cues Sidelying Exercises Reverse Clamshell Sidelying Exercise Name Reverse Clamshell HEP Side bilateral Resistance level one light blue band Reps/Minutes X10 Clamshell Sidelying Exercise Name Clamshell HEP Side bilateral Resistance light blue level one band Reps/Minutes X10 Comments Verbal cues for LE positioning Standing Exercises step ups Standing Exercise Name fwd then back 4 inch step Side bilateral Equipment Used HEP Reps/Minutes X10 right and left LE Comments Patient ed to progress up tp 4 inch book Manual Therapy Treatment Consent Patient gave verbal consent for manual Yes treatment Soft Tissue Mobilization bilateral hips Body Location hip flexors, scar tissue, glute/piriformis area Mobilization Type Cross-Friction,Rolling Intensity/Depth Moderate Body Position Hooklying Comments prior to exercise PT-OP-T Assessment and Plan Start: 07/24/24 17:39 Freq: Status: Active Protocol: Document 09/11/24 14:09 AB (Rec: 09/11/24 16:08 AB [id number]) Physical Therapy Assessment Goals Two Impairment Pt unable to ascend stairs [id number] Charging Car Operator Goal (LTG) Pt to demonstrate improvement with hip strength and mobility of bilateral knee by reporting ability to ascend and descend her stairs at home with a step-through gait pattern LTG Duration 09/23/24 One Impairment Pt does not have an appropriate home exercise program Short Term Goal (STG) Pt to be independent and compliant with an appropriate HEP STG Duration 08/23/24 Assessment Summary Assessment Lois reports no pain end of session, reports sorenss in muscles end of session. Patient able to perform 4 inch step up without pain or crepitus this session. Physical Therapy Plan Frequency and Duration Frequency of Treatment 2x/Week Plan of Care Start Date 07/24/24 Plan of Care End Date 09/23/24 Next Visit Focus/Plan Next Note Type Progress Note Next Visit Plan Gait training, hip mobility/ strengthening, core strengthening, progress with mini squat/step ups as able
--- NOTE | 2024-09-16 16:28 | PT.OTN ---
Current Diagnoses Sacrococcygeal disorders, not elsewhere classified (09/16/24) Lumbago with sciatica, right side (09/16/24) Physical Therapy Treatment Note PT-OP-A Visit Information Start: 07/24/24 17:39 Freq: Status: Active Protocol: Document 09/16/24 12:57 AB (Rec: 09/16/24 16:28 AB [id number]) Out-Patient Physical Therapy Visit Information Visit Information Visit Type Treatment Note Visit Note Access Code [email or web address] Visit Start Time 14:37 Visit Stop Time 15:20 Visit Number 9 Number of FINISH REMOVER Visits 3 PT-OP-B Current Condition Start: 07/24/24 17:39 Freq: Status: Active Protocol: Document 07/24/24 16:45 DCW (Rec: 07/24/24 17:53 DCW [id number]) Current Condition History of Current Condition Onset Date Multi-year history Current Complaints bilateral radicular pain into lateral upper legs, into yeager History of Current Condition Pt is a 74 year old female presenting with a multi-year history of pain/discomfort into her legs. Pt admits pain is not intolerable, and I could live with it if it comes to it, but I'd like to know what's going on. 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 Notes that her biggest complaint is that she is unable to ascend stairs normally, has to go up in a step-to pattern. Admits her knees are kind of crunchy , but don't cause too much pain. Pt notes that it has been suggested to her that her pain is due to a pinched nerve in her back, but she has not been able to get approval for an MRI yet. Spent most of today doing yard work, including shoveling, with general muscle soreness, but no increase in radicular symptoms. Pt reports that she is aware her knees would feel better if she were to lose weight, but has a long history with eating disorders, so weight loss is an admittedly touchy subject, but she is feeling like she is in a much better place mentally, and is working on increasing activity to continue with losing weight without worrying about dieting. Treatment Goals Patient/Caregiver Goals I want to be able to walk up stairs normally. PT-OP-C Subjective Start: 07/24/24 17:39 Freq: Status: Active Protocol: Document 09/16/24 12:57 AB (Rec: 09/16/24 16:28 AB [id number]) OP-PT Subjective Patient Comments Patient Comments Patient reports she didn't do the exercises on the weekend due to craft fair, did them this morning, and ascended the stairs using one rail on left one half hour ago. Patient reports having no pain start of session. PT-OP-F Manual Assessment Start: 07/24/24 17:39 Freq: Status: Active Protocol: Document 07/24/24 16:45 DCW (Rec: 07/25/24 09:41 DCW [id number]) Manual Assessments Soft Tissue Assessment Soft Tissue Mobility Assessment Moderate tone and tenderness to palpation 3/4: wincing and withdraw bilateral TFL/ITB, Piriformis, glutes, L/S paraspinals PT-OP-G Mobility & Gait Start: 07/24/24 17:39 Freq: Status: Active Protocol: Document 07/24/24 16:45 DCW (Rec: 07/25/24 09:41 DCW [id number]) Stair Climbing Evaluation Devices Stair Climbing Assistive Devices Left Railing,Right Railing Technique/Endurance Stair Climbing Direction Ascend and Descend Stair Climbing Technique Step to Step PT-OP-K Range of Motion Start: 07/24/24 17:39 Freq: Status: Active Protocol: Document 07/24/24 16:45 DCW (Rec: 07/25/24 09:41 DCW [id number]) Lumbar Spine Range of Motion Lumbar Spine Active Degrees Testing Position Standing Flexion 65 Extension 30 Lateral Flexion Left 48 Lateral Flexion Right 49 Comments Lateral flexion measured in cm from fingertips to floor PT-OP-L Special Tests Start: 07/24/24 17:39 Freq: Status: Active Protocol: Document 07/24/24 16:45 DCW (Rec: 07/25/24 09:41 DCW [id number]) Special Tests Lumbar Spine Special Tests Vertical Spine Loading Test Results Negative Straight Leg Raise Test Results Negative Slump Test Results Hamstring tightness A-P Shearing Test Results Negative Knee Special Tests Judy's Test Test Results Positive B PT-OP-M Strength Start: 07/24/24 17:39 Freq: Status: Active Protocol: Document 07/24/24 16:45 DCW (Rec: 07/25/24 09:41 DCW [id number]) Hip Strength Hip Manual Muscle Testing Right Flexion (L2) 4- Good- Abduction 4- Good- Adduction 4- Good- Left Flexion (L2) 4 Good Abduction 4 Good Adduction 4 Good Knee Strength Knee Manual Muscle Testing Right Flexion (S2) 4 Good Extension (L3) 4 Good Left Flexion (S2) 4 Good Extension (L3) 4 Good PT-OP-Q Treatments Start: 07/24/24 17:39 Freq: Status: Active Protocol: Document 09/16/24 12:57 AB (Rec: 09/16/24 16:28 AB [id number]) Gym Equipment Shuttle Recovery bilateral squat Resistance 75# Plusmoy Shuttle Recovery Platform Stable Reps/Time 15X2 Therapeutic Exercises Supine Exercises bridge Supine Exercise Name cues for pelvic tilt with abdominal brace first to avoid lumbar extension Side bilateral Reps/Minutes 15 Comments Monitored for pain piriformis stretch Supine Exercise Name with towel to hold LE Side bilateral Reps/Minutes 1 min Comments Verbal and visual Modified Nakul stretch Supine Exercise Name one LE on mat one LE off mat Side bilateral Equipment Used HEP Reps/Minutes one minute each LE, with AROM knee flexion Comments verbal cues Standing Exercises step ups Standing Exercise Name fwd then back 4 inch step Side bilateral Reps/Minutes X10 then X 5 post manual and exercise Comments Patient ed to progress up tp 4 inch book Therapeutic Activity Therapeutic Activity ascending and descending stairs Name 4 inch stairs with one to 2 rails Reps/Minutes 6 stairs X 2 Comments VC to avoid rotating back and pelvis Manual Therapy Treatment Consent Patient gave verbal consent for manual Yes treatment Soft Tissue Mobilization bilateral hips Body Location hip flexors, scar tissue, glute/piriformis area Mobilization Type Cross-Friction,Rolling Intensity/Depth Moderate Body Position Hooklying Comments prior to exercise PT-OP-T Assessment and Plan Start: 07/24/24 17:39 Freq: Status: Active Protocol: Document 09/16/24 12:57 AB (Rec: 09/16/24 16:28 AB [id number]) Physical Therapy Assessment Goals Two Impairment Pt unable to ascend stairs [id number] Dormitory Supervisor Goal (LTG) Pt to demonstrate improvement with hip strength and mobility of bilateral knee by reporting ability to ascend and descend her stairs at home with a step-through gait pattern LTG Duration 09/23/24 One Impairment Pt does not have an appropriate home exercise program Short Term Goal (STG) Pt to be independent and compliant with an appropriate HEP STG Duration 08/23/24 Assessment Summary Assessment Lois reports having no pain end of session, muscle soreness hips/piriformis area end of session. Patient into session with reports of increased activity at [facility] this weekend, with reports of no knee pain ambulating into this session today. Physical Therapy Plan Frequency and Duration Frequency of Treatment 2x/Week Plan of Care Start Date 07/24/24 Plan of Care End Date 09/23/24 Next Visit Focus/Plan Next Note Type Progress Note Next Visit Plan Gait training, hip mobility/ strengthening, core strengthening, progress with mini squat/step ups as able
--- NOTE | 2024-09-20 11:25 | PT.OTN ---
Current Diagnoses Sacrococcygeal disorders, not elsewhere classified (09/20/24) Lumbago with sciatica, right side (09/20/24) Physical Therapy Treatment Note PT-OP-A Visit Information Start: 07/24/24 17:39 Freq: Status: Active Protocol: Document 09/20/24 10:45 DCW (Rec: 09/20/24 11:25 DCW [id number]) Out-Patient Physical Therapy Visit Information Visit Information Visit Type Discharge Summary Visit Start Time 10:45 Visit Stop Time 11:15 Visit Number 10 Number of SWITCHGEAR REPAIRER Visits 0 Evaluation Information Evaluation Date 07/24/24 PT-OP-B Current Condition Start: 07/24/24 17:39 Freq: Status: Active Protocol: Document 07/24/24 16:45 DCW (Rec: 07/24/24 17:53 DCW [id number]) Current Condition History of Current Condition Onset Date Multi-year history Current Complaints bilateral radicular pain into lateral upper legs, into yeager History of Current Condition Pt is a 74 year old female presenting with a multi-year history of pain/discomfort into her legs. Pt admits pain is not intolerable, and I could live with it if it comes to it, but I'd like to know what's going on. 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 Notes that her biggest complaint is that she is unable to ascend stairs normally, has to go up in a step-to pattern. Admits her knees are kind of crunchy , but don't cause too much pain. Pt notes that it has been suggested to her that her pain is due to a pinched nerve in her back, but she has not been able to get approval for an MRI yet. Spent most of today doing yard work, including shoveling, with general muscle soreness, but no increase in radicular symptoms. Pt reports that she is aware her knees would feel better if she were to lose weight, but has a long history with eating disorders, so weight loss is an admittedly touchy subject, but she is feeling like she is in a much better place mentally, and is working on increasing activity to continue with losing weight without worrying about dieting. Treatment Goals Patient/Caregiver Goals I want to be able to walk up stairs normally. PT-OP-C Subjective Start: 07/24/24 17:39 Freq: Status: Active Protocol: Document 09/20/24 10:45 DCW (Rec: 09/20/24 11:25 DCW [id number]) OP-PT Subjective Patient Comments Patient Comments The stretches really help. I just need to do them. PT-OP-F Manual Assessment Start: 07/24/24 17:39 Freq: Status: Active Protocol: Document 09/20/24 10:45 DCW (Rec: 09/20/24 11:15 DCW [id number]) Manual Assessments Soft Tissue Assessment Soft Tissue Mobility Assessment Moderate tone and tenderness to palpation 2/4: pain with wincing - bilateral TFL/ITB PT-OP-G Mobility & Gait Start: 07/24/24 17:39 Freq: Status: Active Protocol: Document 09/20/24 10:45 DCW (Rec: 09/20/24 11:15 DCW [id number]) Stair Climbing Evaluation Devices Stair Climbing Assistive Devices Left Railing Technique/Endurance Stair Climbing Direction Ascend and Descend Stair Climbing Technique Step Over Step PT-OP-K Range of Motion Start: 07/24/24 17:39 Freq: Status: Active Protocol: Document 09/20/24 10:45 DCW (Rec: 09/20/24 11:15 DCW [id number]) Lumbar Spine Range of Motion Lumbar Spine Active Degrees Testing Position Standing Flexion 70 Extension 35 Lateral Flexion Left 42 Lateral Flexion Right 48 Comments Lateral flexion measured in cm from fingertips to floor PT-OP-L Special Tests Start: 07/24/24 17:39 Freq: Status: Active Protocol: Document 09/20/24 10:45 DCW (Rec: 09/20/24 11:15 DCW [id number]) Special Tests Lumbar Spine Special Tests Slump Test Results Negative PT-OP-M Strength Start: 07/24/24 17:39 Freq: Status: Active Protocol: Document 09/20/24 10:45 DCW (Rec: 09/20/24 11:15 DCW [id number]) Hip Strength Hip Manual Muscle Testing Right Flexion (L2) 4+ Good+ Abduction 4 Good Adduction 4+ Good+ Left Flexion (L2) 4+ Good+ Abduction 4+ Good+ Adduction 4+ Good+ Knee Strength Knee Manual Muscle Testing Right Flexion (S2) 5 Normal Extension (L3) 5 Normal Left Flexion (S2) 5 Normal Extension (L3) 5 Normal PT-OP-Q Treatments Start: 07/24/24 17:39 Freq: Status: Active Protocol: Document 09/20/24 10:45 DCW (Rec: 09/20/24 11:25 DCW [id number]) Manual Therapy Treatment Consent Patient gave verbal consent for manual Yes treatment Soft Tissue Mobilization bilateral hips Body Location hip flexors, glute/piriformis area Mobilization Type Cross-Friction,Rolling Intensity/Depth Moderate Body Position Hooklying Comments prior to exercise PT-OP-T Assessment and Plan Start: 07/24/24 17:39 Freq: Status: Active Protocol: Document 09/20/24 10:45 DCW (Rec: 09/20/24 11:25 DCW [id number]) Physical Therapy Assessment Impairments Impairments Activity Tolerance,Functional Activities,Functional Mobility ,Gait,ROM,Soft Tissue Mobility ,Strength Goals Two Impairment Pt unable to ascend stairs [id number] Fish Dressing Machine Feeder Goal (LTG) Pt to demonstrate improvement with hip strength and mobility of bilateral knee by reporting ability to ascend and descend her stairs at home with a step-through gait pattern LTG Duration Met One Impairment Pt does not have an appropriate home exercise program Short Term Goal (STG) Pt to be independent and compliant with an appropriate HEP STG Duration Met Assessment Summary Assessment Pt feeling good overall with progress, has built up strength in her legs, which allow her to ascend and descend her stair with a step- over gait pattern a majority of the time. Feels good about her HEP, understands how to stretch and strengthen in order to decrease her overall symptoms. Pt does note continued low-level pain in her low back, hips, and knee, that while better controlled, is still enough to bother her. Discussed today return to PCP to ask about MRI. Pt in agreement with this plan. Pt to be discharged from skilled therapy at this time. Physical Therapy Plan Frequency and Duration Frequency of Treatment 2x/Week Plan of Care Start Date 07/24/24 Plan of Care End Date 09/23/24 Discharge Physical Therapy Discharge Reasons Goals Met Next Visit Focus/Plan Next Note Type Discharge Summary
== END 2024-09-27 10:39 | disposition home or self-care (01) ==
LOC: PHYS 10:45
PROVIDERS: Family Provider Internal Medicine; PCP Internal Medicine; Referring Provider Internal Medicine; Visit Provider Internal Medicine
DX: M54.41 Lumbago with sciatica, right side (principal); M53.3 Sacrococcygeal disorders, not elsewhere classified
CPT/HCPCS: 97110; 97112; 97140; 97163

== ENCOUNTER → 2024-11-04 15:33 | Outpatient (CLI) | payer MEDICARE, SELFPAY ==
[2021-06-30 11:45] VITALS: BMI 27.9
--- NOTE | 2024-11-04 15:34 | DI.MRI.S_ITS ---
PROCEDURE: MR LUMBAR SPINE WO CON INDICATIONS: Lumbago with sciatica, right side TECHNIQUE: Noncontrast sagittal T1 spin echo and T2 fast echo, sagittal STIR, and T2 fast spin echo through the lumbar spine. In cases with scoliosis, additional coronal T2 fast spin echo may be performed. COMPARISON: None. FINDINGS: Alignment and Curvature: There is normal bony alignment. Bone Marrow: Edematous Modic type 1 degenerative endplate changes noted at L2-3 and L5-S1 Spinal Cord: Conus medullaris terminates at the L1 level. Visualized cord demonstrates normal signal and size. Paraspinous Soft Tissues: No paravertebral masses. T12-L1: Normal appearance. L1-L2: Disc bulge and arthropathy. No central stenosis. Moderate bilateral foraminal stenosis L2-L3: Disc bulge and arthropathy. Ezai-jj-waajvndy central stenosis. Moderate bilateral foraminal stenosis L3-L4: Disc bulge and moderate arthropathy. Moderate central stenosis. Moderate bilateral foraminal stenosis L4-L5: Disc bulge and arthropathy. Moderate central stenosis. Moderate bilateral foraminal stenosis L5-S1: Disc bulge and arthropathy. No central stenosis. Moderate bilateral foraminal stenosis IMPRESSION: Multilevel degenerative disc disease and arthropathy results in varying degrees of central and foraminal stenosis including moderate central stenosis L3-4 and L4-5 Approved by: Jorge Andrea M.D. on 11/05/2024 at 17:51
== END ==
PROVIDERS: Family Provider Internal Medicine; PCP Internal Medicine; Referring Provider Internal Medicine; Visit Provider Internal Medicine
DX: M51.16 Intervertebral disc disorders with radiculopathy, lumbar region (principal); M47.26 Other spondylosis with radiculopathy, lumbar region; M48.061 Spinal stenosis, lumbar region without neurogenic claudication; M51.17 Intervertebral disc disorders with radiculopathy, lumbosacral region; M47.27 Other spondylosis with radiculopathy, lumbosacral region; M48.07 Spinal stenosis, lumbosacral region
CPT/HCPCS: 72148

== ENCOUNTER 2025-03-12 12:15 | Outpatient (RCR) | payer MEDICARE, SELFPAY ==
[2021-06-30 11:45] VITALS: BMI 27.9
--- NOTE | 2024-12-25 15:15 | PT.OIE ---
Current Diagnoses Spinal stenosis, lumbar region without neurogenic claudication (12/25/24) Lumbago with sciatica, right side (12/25/24) Other abnormalities of gait and mobility (12/25/24) Weakness (12/25/24) Past Medical History (Last Reviewed 07/03/21 @ 06:40 by Tenzin Walker PA-C) Bulimia (~1987) Chicken pox (~1957) Constant pain Depression (~2003) Foot fracture (~1996) Hypothyroidism (~2010) Irregular menstrual cycle Measles (~1956) Mumps (~1956) Obesity Osteoarthritis Past Surgical History (Last Reviewed 07/03/21 @ 06:40 by Tenzin Walker PA-C) History of arthroplasty of right hip (01/01/20) History of cataract removal with insertion of prosthetic lens (~2006) History of cataract removal with insertion of prosthetic lens (~2011) Status post colonoscopy (~2013) Visit Care Team Role Provider Type Marcela Ortega MD Family Provider Physician Primary Care Provider Specialty: [facility] Practice Address: [address] [place] [address], [id number] Email: [email or web address] JAYDEN Fields Attending Provider [employer] Economics Consultant Referring Provider Specialty: [facility] Address: [address] [place] [address], [id number] Email: [email or web address] Physical Therapy Initial Evaluation PT-OP-A Visit Information Start: 12/25/24 15:57 Freq: Status: Active Protocol: Document 12/25/24 14:30 DCW (Rec: 12/25/24 16:00 DCW [id number]) Out-Patient Physical Therapy Visit Information Visit Information Visit Type Initial Evaluation Visit Start Time 14:30 Visit Stop Time 15:15 Visit Number 1 Number of ANIMAL SURGEON Visits 0 Evaluation Information Evaluation Date 12/25/24 PT-OP-B Current Condition Start: 12/25/24 15:57 Freq: Status: Active Protocol: Document 12/25/24 14:30 DCW (Rec: 12/25/24 17:19 DCW [id number]) Current Condition History of Current Condition Current Complaints Low back pain, core weakness, fatigue History of Current Condition Pt is a 74 year old female presenting to skilled therapy with a recent history of low back pain, weakness, and general stiffness. Pt was previously being treated at this facility ~three months ago for right leg pain, discharged to return to PCP to obtain an MRI. Returns now with diagnosis of Stenosis and DDD. Pt notes she as lost 10 pounds recently, and her knees are feeling better, but stairs are pretty difficult, and she tires quickly with ambulation. Able to walk a couple miles, but just feels more tired afterward than what she used to. Notes her goal is to strengthen her core to help stabilize her back. Prior Treatments and Tests Lumbar MRI: IMPRESSION: Multilevel degenerative disc disease and arthropathy results in varying degrees of central and foraminal stenosis including moderate central stenosis L3-4 and L4-5. per Jorge Andrea M.D. on 2023 PT-OP-C Subjective Start: 12/25/24 15:57 Freq: Status: Active Protocol: Document 12/25/24 14:30 DCW (Rec: 12/25/24 16:00 DCW [id number]) OP-PT Subjective Patient Comments Patient Comments I know that to be able to walk farther, I need to just walk farther, I need to do more, it's just difficult. Patient Questionnaires Oswestry Low Back Index Oswestry Score 7/50 = 14% PT-OP-G Mobility & Gait Start: 12/25/24 15:57 Freq: Status: Active Protocol: Document 12/25/24 14:30 DCW (Rec: 12/25/24 17:19 DCW [id number]) OP Gait Assessment Comments Gait Comments Pt ambulates with mild valgus bilaterally, with scissoring L >R on 50% of steps. Demonstrated hip instability during gait PT-OP-M Strength Start: 12/25/24 15:57 Freq: Status: Active Protocol: Document 12/25/24 14:30 DCW (Rec: 12/25/24 17:19 DCW [id number]) Trunk Strength Trunk Manual Muscle Testing Testing Position Supine Core Stabilization Able to contract TrA, hold momentarily, fatigues quickly. MMT 4-/5 Hip Strength Hip Manual Muscle Testing Right Flexion (L2) 4 Good Extension (S1) 4 Good Abduction 4+ Good+ Adduction 4+ Good+ External Rotation 3+ Fair+ Internal Rotation 4 Good Comments Noted right hip pain with resisted flexion, extension, and IR. Left Flexion (L2) 4+ Good+ Extension (S1) 4 Good Abduction 4+ Good+ Adduction 4+ Good+ External Rotation 4 Good Internal Rotation 4 Good Knee Strength Knee Manual Muscle Testing Right Flexion (S2) 4+ Good+ Extension (L3) 4+ Good+ Left Flexion (S2) 4+ Good+ Extension (L3) 4+ Good+ PT-OP-Q Treatments Start: 12/25/24 15:57 Freq: Status: Active Protocol: Document 12/25/24 14:30 DCW (Rec: 12/25/24 17:19 DCW [id number]) Therapeutic Exercises Supine Exercises Air Bike Supine Exercise Name PPT /c air bike Side bilateral SLR Supine Exercise Name PPT /c SLR Side bilateral Marching Supine Exercise Name PPT /c marching Side bilateral PPT Supine Exercise Name PPT /c abdominal bracing Sitting Exercises Trunk flexion Sitting Exercise Name Trunk flexion stretch Standing Exercises Pallof Press Standing Exercise Name Pallof Press Side bilateral Resistance Lv 3 PT-OP-T Assessment and Plan Start: 12/25/24 15:57 Freq: Status: Active Protocol: Document 12/25/24 14:30 DCW (Rec: 12/26/24 10:29 DCW [id number]) Physical Therapy Assessment Rehab Potential Rehabilitation Potential Good Evaluation Complexity Number of Personal Factors/Comorbidities 3 or More Number of Body Systems Impaired 4 or More Clinical Presentation at Evaluation Unstable Impairments Impairments Activity Tolerance,Balance, Functional Activities, Functional Mobility,Gait,Pain, Strength,Tone Goals Three Impairment Pt displays global weakness, especially right hip ER (3+/5) and TrA (4-/5) Kelp Or Seagrass Gatherer Goal (LTG) PT to demonstrate improved MMT of at least 4/5 or greater in all tested planes LTG Duration 03/25/25 Two Impairment Pt ambulates with a mild left scissoring gait 50% of the time Kelp Or Seagrass Gatherer Goal (LTG) Pt to demonstrate ability to ambulate 700 feet with no instances of scissoring gait LTG Duration 03/25/25 One Impairment Pt does not have an appropriate home exercise program Short Term Goal (STG) Pt to be independent and compliant with an appropriate HEP STG Duration 01/22/25 Assessment Summary Assessment Pt presents with signs and symptoms consistent with referring diagnosis of spinal stenosis and core weakness. Pt exhibits declining activity tolerance and some gait difficulties, including occasional left scissoring gait. Continues to struggle ascending stairs, and fatigues after ambulating a few miles. Will benefit from abdominal and hip strengthening, gait training, hip stabilization, balance, and improving activity tolerance. Physical Therapy Plan Frequency and Duration Frequency of Treatment 2x/Week Plan of Care Start Date 12/25/24 Plan of Care End Date 03/25/25 Therapeutic Interventions Therapeutic Interventions Balance Training,Gait Training ,Home Exercise Program,Joint Mobilizations,Manual Therapy, Neuromuscular Re-education, Patient/Caregiver Education, Self-Care/Home Management,Soft Tissue Mobilization, Therapeutic Activities, Therapeutic Exercises Modalities Cold Pack/Ice Massage,Hot Packs Next Visit Focus/Plan Next Note Type Treatment Note Next Visit Plan Hip/core strengthening, gait training, improving activity tolerance
--- NOTE | 2024-12-25 15:15 | PT.OPPOC ---
Physical, Occupational & Speech Therapy At [facility] Current Diagnoses Spinal stenosis, lumbar region without neurogenic claudication (12/25/24) Lumbago with sciatica, right side (12/25/24) Other abnormalities of gait and mobility (12/25/24) Weakness (12/25/24) Visit Care Team Role Provider Type Marcela Ortega MD Family Provider Physician Primary Care Provider Specialty: [facility] Practice Address: [address] [place] [address], [facility] [place], [address] Email: [email or web address] JAYDEN Fields Attending Provider Advanced Prosthetics Technician Referring Provider Specialty: [facility] Address: [address] [place] [address], [facility] [place], [address] Email: [email or web address] Plan Of Care PT-OP-B Current Condition Start: 12/25/24 15:57 Freq: Status: Active Protocol: Document 12/25/24 14:30 DCW (Rec: 12/25/24 17:19 DCW [id number]) Current Condition History of Current Condition Current Complaints Low back pain, core weakness, fatigue History of Current Condition Pt is a 74 year old female presenting to skilled therapy with a recent history of low back pain, weakness, and general stiffness. Pt was previously being treated at this facility ~three months ago for right leg pain, discharged to return to [facility] to obtain an MRI. Returns now with diagnosis of Stenosis and DDD. Pt notes she as lost 10 pounds recently, and her knees are feeling better, but stairs are pretty difficult, and she tires quickly with ambulation. Able to walk a couple miles, but just feels more tired afterward than what she used to. Notes her goal is to strengthen her core to help stabilize her back. Prior Treatments and Tests Lumbar MRI: IMPRESSION: Multilevel degenerative disc disease and arthropathy results in varying degrees of central and foraminal stenosis including moderate central stenosis L3-4 and L4-5. per Jorge Andrea M.D. on 2023 PT-OP-T Assessment and Plan Start: 12/25/24 15:57 Freq: Status: Active Protocol: Document 12/25/24 14:30 DCW (Rec: 12/26/24 10:29 DCW [id number]) Physical Therapy Assessment Rehab Potential Rehabilitation Potential Good Evaluation Complexity Number of Personal Factors/Comorbidities 3 or More Number of Body Systems Impaired 4 or More Clinical Presentation at Evaluation Unstable Impairments Impairments Activity Tolerance,Balance, Functional Activities, Functional Mobility,Gait,Pain, Strength,Tone Goals Three Impairment Pt displays global weakness, especially right hip ER (3+/5) and TrA (4-/5) Residential Goal (LTG) PT to demonstrate improved MMT of at least 4/5 or greater in all tested planes LTG Duration 03/25/25 Two Impairment Pt ambulates with a mild left scissoring gait 50% of the time Physical Instructor Goal (LTG) Pt to demonstrate ability to ambulate 700 feet with no instances of scissoring gait LTG Duration 03/25/25 One Impairment Pt does not have an appropriate home exercise program Short Term Goal (STG) Pt to be independent and compliant with an appropriate HEP STG Duration 01/22/25 Assessment Summary Assessment Pt presents with signs and symptoms consistent with referring diagnosis of spinal stenosis and core weakness. Pt exhibits declining activity tolerance and some gait difficulties, including occasional left scissoring gait. Continues to struggle ascending stairs, and fatigues after ambulating a few miles. Will benefit from abdominal and hip strengthening, gait training, hip stabilization, balance, and improving activity tolerance. Physical Therapy Plan Frequency and Duration Frequency of Treatment 2x/Week Plan of Care Start Date 12/25/24 Plan of Care End Date 03/25/25 Therapeutic Interventions Therapeutic Interventions Balance Training,Gait Training ,Home Exercise Program,Joint Mobilizations,Manual Therapy, Neuromuscular Re-education, Patient/Caregiver Education, Self-Care/Home Management,Soft Tissue Mobilization, Therapeutic Activities, Therapeutic Exercises Modalities Cold Pack/Ice Massage,Hot Packs Next Visit Focus/Plan Next Note Type Treatment Note Next Visit Plan Hip/core strengthening, gait training, improving activity tolerance Plan of Care Dates Plan of Care Start Date 12/25/24 Plan of Care End Date 03/25/25 Electronically Signed by: Daryn Garcia, PT 12/26/24 3432 If you are in agreement with this Plan of Care, please return a signed and dated copy. I have reviewed this Plan of Care and certify that the skilled therapy services above are required to meet the patient?s needs. Physician Signature Date Printed Name and Credentials Clinical Instructor Signature Printed Name and Credentials
--- NOTE | 2024-12-27 14:30 | PT.OTN ---
Current Diagnoses Spinal stenosis, lumbar region without neurogenic claudication (12/27/24) Lumbago with sciatica, right side (12/27/24) Other abnormalities of gait and mobility (12/27/24) Weakness (12/27/24) Physical Therapy Treatment Note PT-OP-A Visit Information Start: 12/25/24 15:57 Freq: Status: Active Protocol: Document 12/27/24 13:45 DCW (Rec: 12/27/24 14:30 DCW [id number]) Out-Patient Physical Therapy Visit Information Visit Information Visit Type Treatment Note Visit Start Time 13:45 Visit Stop Time 14:30 Visit Number 2 Number of SUPERVISOR INTELLIGENCE ANALYST Visits 0 Evaluation Information Evaluation Date 12/25/24 PT-OP-B Current Condition Start: 12/25/24 15:57 Freq: Status: Active Protocol: Document 12/25/24 14:30 DCW (Rec: 12/25/24 17:19 DCW [id number]) Current Condition History of Current Condition Current Complaints Low back pain, core weakness, fatigue History of Current Condition Pt is a 74 year old female presenting to skilled therapy with a recent history of low back pain, weakness, and general stiffness. Pt was previously being treated at this facility ~three months ago for right leg pain, discharged to return to [facility] to obtain an MRI. Returns now with diagnosis of Stenosis and DDD. Pt notes she as lost 10 pounds recently, and her knees are feeling better, but stairs are pretty difficult, and she tires quickly with ambulation. Able to walk a couple miles, but just feels more tired afterward than what she used to. Notes her goal is to strengthen her core to help stabilize her back. Prior Treatments and Tests Lumbar MRI: IMPRESSION: Multilevel degenerative disc disease and arthropathy results in varying degrees of central and foraminal stenosis including moderate central stenosis L3-4 and L4-5. per Jorge Andrea M.D. on 2023 PT-OP-C Subjective Start: 12/25/24 15:57 Freq: Status: Active Protocol: Document 12/27/24 13:45 DCW (Rec: 12/27/24 14:30 DCW [id number]) OP-PT Subjective Patient Comments Patient Comments Pt she has a a little bit of tightness/soreness in her low back doing her TrA exercises, would like to review to ensure she is doing it correctly. PT-OP-G Mobility & Gait Start: 12/25/24 15:57 Freq: Status: Active Protocol: Document 12/25/24 14:30 DCW (Rec: 12/25/24 17:19 DCW [id number]) OP Gait Assessment Comments Gait Comments Pt ambulates with mild valgus bilaterally, with scissoring L >R on 50% of steps. Demonstrated hip instability during gait PT-OP-M Strength Start: 12/25/24 15:57 Freq: Status: Active Protocol: Document 12/25/24 14:30 DCW (Rec: 12/25/24 17:19 DCW [id number]) Trunk Strength Trunk Manual Muscle Testing Testing Position Supine Core Stabilization Able to contract TrA, hold momentarily, fatigues quickly. MMT 4-/5 Hip Strength Hip Manual Muscle Testing Right Flexion (L2) 4 Good Extension (S1) 4 Good Abduction 4+ Good+ Adduction 4+ Good+ External Rotation 3+ Fair+ Internal Rotation 4 Good Comments Noted right hip pain with resisted flexion, extension, and IR. Left Flexion (L2) 4+ Good+ Extension (S1) 4 Good Abduction 4+ Good+ Adduction 4+ Good+ External Rotation 4 Good Internal Rotation 4 Good Knee Strength Knee Manual Muscle Testing Right Flexion (S2) 4+ Good+ Extension (L3) 4+ Good+ Left Flexion (S2) 4+ Good+ Extension (L3) 4+ Good+ PT-OP-Q Treatments Start: 12/25/24 15:57 Freq: Status: Active Protocol: Document 12/27/24 13:45 DCW (Rec: 12/27/24 14:30 DCW [id number]) Gym Equipment Therapeutic Ball Pelvic Circles Exercise Details Pelvic Tilts/Circles Ball Size/Color Green - 65 cm Body Position Sitting LTR Exercise Details LTR Ball Size/Color Red - 55 cm Body Position Sidelying Therapeutic Exercises Supine Exercises SLR Supine Exercise Name PPT /c SLR Side bilateral Marching Supine Exercise Name PPT /c marching Side bilateral PPT Supine Exercise Name PPT /c abdominal bracing Sidelying Exercises Hip Abduction Sidelying Exercise Name Hip Abduction Side bilateral Reverse Clamshell Sidelying Exercise Name Reverse Clamshell Side bilateral Clamshell Sidelying Exercise Name Clamshell Side bilateral Open Book Sidelying Exercise Name Open Book Side bilateral PT-OP-T Assessment and Plan Start: 12/25/24 15:57 Freq: Status: Active Protocol: Document 12/27/24 13:45 DCW (Rec: 12/27/24 14:30 DCW [id number]) Physical Therapy Assessment Impairments Impairments Activity Tolerance,Balance, Functional Activities, Functional Mobility,Gait,Pain, Strength,Tone Goals Three Impairment Pt displays global weakness, especially right hip ER (3+/5) and TrA (4-/5) Longterm Goal (LTG) Pt to demonstrate improved MMT of at least 4/5 or greater in all tested planes LTG Duration 03/25/25 Two Impairment Pt ambulates with a mild left scissoring gait 50% of the time Volunteer Services Assistant Goal (LTG) Pt to demonstrate ability to ambulate 700 feet with no instances of scissoring gait LTG Duration 03/25/25 One Impairment Pt does not have an appropriate home exercise program Short Term Goal (STG) Pt to be independent and compliant with an appropriate HEP STG Duration 01/22/25 Assessment Summary Assessment Good response to treatment today, pt excited to add new exercises (Open book, Clam, RClam, Hip Abd) to HEP. Continue focus on core and hip strengthening Physical Therapy Plan Frequency and Duration Frequency of Treatment 2x/Week Plan of Care Start Date 12/25/24 Plan of Care End Date 03/25/25 Therapeutic Interventions Therapeutic Interventions Balance Training,Gait Training ,Home Exercise Program,Joint Mobilizations,Manual Therapy, Neuromuscular Re-education, Patient/Caregiver Education, Self-Care/Home Management,Soft Tissue Mobilization, Therapeutic Activities, Therapeutic Exercises Modalities Cold Pack/Ice Massage,Hot Packs Next Visit Focus/Plan Next Note Type Treatment Note Next Visit Plan Hip/core strengthening, gait training, improving activity tolerance
--- NOTE | 2025-01-01 14:36 | PT.OTN ---
Current Diagnoses Spinal stenosis, lumbar region without neurogenic claudication (01/01/25) Lumbago with sciatica, right side (01/01/25) Other abnormalities of gait and mobility (01/01/25) Weakness (01/01/25) Physical Therapy Treatment Note PT-OP-A Visit Information Start: 12/25/24 15:57 Freq: Status: Active Protocol: Document 01/01/25 13:50 SP (Rec: 01/01/25 14:42 SP [id number]) Out-Patient Physical Therapy Visit Information Visit Information Visit Type Treatment Note Visit Start Time 13:50 Visit Stop Time 14:36 Visit Number 3 Number of GROCERY STORE MANAGER Visits 1 Evaluation Information Evaluation Date 12/25/24 PT-OP-B Current Condition Start: 12/25/24 15:57 Freq: Status: Active Protocol: Document 12/25/24 14:30 DCW (Rec: 12/25/24 17:19 DCW [id number]) Current Condition History of Current Condition Current Complaints Low back pain, core weakness, fatigue History of Current Condition Pt is a 74 year old female presenting to skilled therapy with a recent history of low back pain, weakness, and general stiffness. Pt was previously being treated at this facility ~three months ago for right leg pain, discharged to return to PCP to obtain an MRI. Returns now with diagnosis of Stenosis and DDD. Pt notes she as lost 10 pounds recently, and her knees are feeling better, but stairs are pretty difficult, and she tires quickly with ambulation. Able to walk a couple miles, but just feels more tired afterward than what she used to. Notes her goal is to strengthen her core to help stabilize her back. Prior Treatments and Tests Lumbar MRI: IMPRESSION: Multilevel degenerative disc disease and arthropathy results in varying degrees of central and foraminal stenosis including moderate central stenosis L3-4 and L4-5. per Jorge Andrea M.D. on 2023 PT-OP-C Subjective Start: 12/25/24 15:57 Freq: Status: Active Protocol: Document 01/01/25 13:50 SP (Rec: 01/01/25 14:42 SP [id number]) OP-PT Subjective Patient Comments Patient Comments Pt reports felt good after last tx. She reports is stiff when gets up after sitting a while. She requested go over sidelying HEP to be sure doing correctly, thinks need more wording to HEP help her home. PT-OP-G Mobility & Gait Start: 12/25/24 15:57 Freq: Status: Active Protocol: Document 12/25/24 14:30 DCW (Rec: 12/25/24 17:19 DCW [id number]) OP Gait Assessment Comments Gait Comments Pt ambulates with mild valgus bilaterally, with scissoring L >R on 50% of steps. Demonstrated hip instability during gait PT-OP-M Strength Start: 12/25/24 15:57 Freq: Status: Active Protocol: Document 12/25/24 14:30 DCW (Rec: 12/25/24 17:19 DCW [id number]) Trunk Strength Trunk Manual Muscle Testing Testing Position Supine Core Stabilization Able to contract TrA, hold momentarily, fatigues quickly. MMT 4-/5 Hip Strength Hip Manual Muscle Testing Right Flexion (L2) 4 Good Extension (S1) 4 Good Abduction 4+ Good+ Adduction 4+ Good+ External Rotation 3+ Fair+ Internal Rotation 4 Good Comments Noted right hip pain with resisted flexion, extension, and IR. Left Flexion (L2) 4+ Good+ Extension (S1) 4 Good Abduction 4+ Good+ Adduction 4+ Good+ External Rotation 4 Good Internal Rotation 4 Good Knee Strength Knee Manual Muscle Testing Right Flexion (S2) 4+ Good+ Extension (L3) 4+ Good+ Left Flexion (S2) 4+ Good+ Extension (L3) 4+ Good+ PT-OP-Q Treatments Start: 12/25/24 15:57 Freq: Status: Active Protocol: Document 01/01/25 13:50 SP (Rec: 01/01/25 14:42 SP [id number]) Cardio Equipment Bicycle (Upright) Duration (Minutes) 5 Resistance 9 Seat Position 6 Other cued TA, level pelvis- feels good Gym Equipment Therapeutic Ball Pelvic Circles Exercise Details Pelvic Tilts/Circles belly dance move Ball Size/Color Green - 65 cm> edge seat (home carryover practice) Body Position Sitting Comments arching LB, small range slouch LB Improved pelvis ant /posterior pelvic tilts Tactile cues keep upper body and legs still, light feet on floor during pelvic circles. Therapeutic Exercises Sidelying Exercises Reverse Clamshell Sidelying Exercise Name Reverse Clamshell Side bilateral Resistance AROM Reps/Minutes 10 reps Comments good form, cued slower pacing Clamshell Sidelying Exercise Name Clamshell Side bilateral Resistance AROM Reps/Minutes 8 reps Comments challenging on R (cued knees high front), TA no back rocking on L Open Book Sidelying Exercise Name Open Book Side bilateral Resistance AROM Reps/Minutes 10 reps Comments cued knees high front PT-OP-T Assessment and Plan Start: 12/25/24 15:57 Freq: Status: Active Protocol: Document 01/01/25 13:50 SP (Rec: 01/01/25 14:42 SP [id number]) Physical Therapy Assessment Goals Three Impairment Pt displays global weakness, especially right hip ER (3+/5) and TrA (4-/5) Senior Care Goal (LTG) Pt to demonstrate improved MMT of at least 4/5 or greater in all tested planes LTG Duration 03/25/25 Two Impairment Pt ambulates with a mild left scissoring gait 50% of the time Senior Care Goal (LTG) Pt to demonstrate ability to ambulate 700 feet with no instances of scissoring gait LTG Duration 03/25/25 One Impairment Pt does not have an appropriate home exercise program Short Term Goal (STG) Pt to be independent and compliant with an appropriate HEP STG Duration 01/22/25 Assessment Summary Assessment Pt improved self corrections and proper form with cuing, provided detail cues written on her HO for proper form home . She states pelvic rocking loosens up her back now that can coordinate with proper cuing needed. Education continue supine TA HEP home, didn't get today. Physical Therapy Plan Frequency and Duration Frequency of Treatment 2x/Week Plan of Care Start Date 12/25/24 Plan of Care End Date 03/25/25 Therapeutic Interventions Therapeutic Interventions Balance Training,Gait Training ,Home Exercise Program,Joint Mobilizations,Manual Therapy, Neuromuscular Re-education, Patient/Caregiver Education, Self-Care/Home Management,Soft Tissue Mobilization, Therapeutic Activities, Therapeutic Exercises Modalities Cold Pack/Ice Massage,Hot Packs Next Visit Focus/Plan Next Note Type Treatment Note Next Visit Plan HEP review as needed. POC: Hip/core strengthening, gait training, improving activity tolerance
--- NOTE | 2025-01-03 13:49 | PT.OTN ---
Current Diagnoses Spinal stenosis, lumbar region without neurogenic claudication (01/03/25) Lumbago with sciatica, right side (01/03/25) Other abnormalities of gait and mobility (01/03/25) Weakness (01/03/25) Physical Therapy Treatment Note PT-OP-A Visit Information Start: 12/25/24 15:57 Freq: Status: Active Protocol: Document 01/03/25 12:58 AB (Rec: 01/03/25 13:49 AB [id number]) Out-Patient Physical Therapy Visit Information Visit Information Visit Type Treatment Note Visit Start Time 13:03 Visit Stop Time 13:46 Visit Number 4 Number of E COMMERCE MARKETING MANAGER Visits 2 PT-OP-B Current Condition Start: 12/25/24 15:57 Freq: Status: Active Protocol: Document 12/25/24 14:30 DCW (Rec: 12/25/24 17:19 DCW [id number]) Current Condition History of Current Condition Current Complaints Low back pain, core weakness, fatigue History of Current Condition Pt is a 74 year old female presenting to skilled therapy with a recent history of low back pain, weakness, and general stiffness. Pt was previously being treated at this facility ~three months ago for right leg pain, discharged to return to PCP to obtain an MRI. Returns now with diagnosis of Stenosis and DDD. Pt notes she as lost 10 pounds recently, and her knees are feeling better, but stairs are pretty difficult, and she tires quickly with ambulation. Able to walk a couple miles, but just feels more tired afterward than what she used to. Notes her goal is to strengthen her core to help stabilize her back. Prior Treatments and Tests Lumbar MRI: IMPRESSION: Multilevel degenerative disc disease and arthropathy results in varying degrees of central and foraminal stenosis including moderate central stenosis L3-4 and L4-5. per Jorge Andrea M.D. on 2023 PT-OP-C Subjective Start: 12/25/24 15:57 Freq: Status: Active Protocol: Document 01/03/25 12:58 AB (Rec: 01/03/25 13:49 AB [id number]) OP-PT Subjective Patient Comments Patient Comments Patient reports feeling a little stiff (gestures to lumbar/thoracic area), Rates pain 1-2/10 start of session. PT-OP-G Mobility & Gait Start: 12/25/24 15:57 Freq: Status: Active Protocol: Document 12/25/24 14:30 DCW (Rec: 12/25/24 17:19 DCW [id number]) OP Gait Assessment Comments Gait Comments Pt ambulates with mild valgus bilaterally, with scissoring L >R on 50% of steps. Demonstrated hip instability during gait PT-OP-M Strength Start: 12/25/24 15:57 Freq: Status: Active Protocol: Document 12/25/24 14:30 DCW (Rec: 12/25/24 17:19 DCW [id number]) Trunk Strength Trunk Manual Muscle Testing Testing Position Supine Core Stabilization Able to contract TrA, hold momentarily, fatigues quickly. MMT 4-/5 Hip Strength Hip Manual Muscle Testing Right Flexion (L2) 4 Good Extension (S1) 4 Good Abduction 4+ Good+ Adduction 4+ Good+ External Rotation 3+ Fair+ Internal Rotation 4 Good Comments Noted right hip pain with resisted flexion, extension, and IR. Left Flexion (L2) 4+ Good+ Extension (S1) 4 Good Abduction 4+ Good+ Adduction 4+ Good+ External Rotation 4 Good Internal Rotation 4 Good Knee Strength Knee Manual Muscle Testing Right Flexion (S2) 4+ Good+ Extension (L3) 4+ Good+ Left Flexion (S2) 4+ Good+ Extension (L3) 4+ Good+ PT-OP-Q Treatments Start: 12/25/24 15:57 Freq: Status: Active Protocol: Document 01/03/25 12:58 AB (Rec: 01/03/25 13:49 AB [id number]) Therapeutic Exercises Supine Exercises bridge Side bilateral Reps/Minutes X15 Comments verbal cues for segmental bridge Air Bike Supine Exercise Name PPT /c air bike Side bilateral Reps/Minutes 30 sec Sidelying Exercises Hip Abduction Sidelying Exercise Name Hip Abduction Reverse Clamshell Sidelying Exercise Name Reverse Clamshell Clamshell Sidelying Exercise Name Clamshell Side bilateral Resistance AROM Reps/Minutes 8 reps Comments on initation minim mvt R hip * Open Book Sidelying Exercise Name Open Book Side bilateral Resistance AROM Reps/Minutes 5 reps Comments HEP review, VC for breathing Sitting Exercises Pallof press Side bilateral Resistance Level 3 band Reps/Minutes X 15 each LE Comments verbal cues seated hip add Side bilateral Resistance small blue ball Reps/Minutes X 1 Comments sharp pain pubic bone Rhythmic stabilzation Sitting Exercise Name all directions Reps/Minutes one min Standing Exercises Pallof Press Standing Exercise Name Pallof Press Side bilateral Resistance Lv 3 Manual Therapy Treatment Manual Techniques MET for R AI L PI and pubic shot gun Reps/Duration 6 X 6 sec each PT-OP-T Assessment and Plan Start: 12/25/24 15:57 Freq: Status: Active Protocol: Document 01/03/25 12:58 AB (Rec: 01/03/25 13:49 AB [id number]) Physical Therapy Assessment Goals Three Impairment Pt displays global weakness, especially right hip ER (3+/5) and TrA (4-/5) Prison Goal (LTG) Pt to demonstrate improved MMT of at least 4/5 or greater in all tested planes LTG Duration 03/25/25 Two Impairment Pt ambulates with a mild left scissoring gait 50% of the time Prison Goal (LTG) Pt to demonstrate ability to ambulate 700 feet with no instances of scissoring gait LTG Duration 03/25/25 One Impairment Pt does not have an appropriate home exercise program Short Term Goal (STG) Pt to be independent and compliant with an appropriate HEP STG Duration 01/22/25 Assessment Summary Assessment Patient reports R hip pain with clamshell was gone post MET. Physical Therapy Plan Frequency and Duration Frequency of Treatment 2x/Week Plan of Care Start Date 12/25/24 Plan of Care End Date 03/25/25 Therapeutic Interventions Therapeutic Interventions Balance Training,Gait Training ,Home Exercise Program,Joint Mobilizations,Manual Therapy, Neuromuscular Re-education, Patient/Caregiver Education, Self-Care/Home Management,Soft Tissue Mobilization, Therapeutic Activities, Therapeutic Exercises Modalities Cold Pack/Ice Massage,Hot Packs Next Visit Focus/Plan Next Note Type Treatment Note Next Visit Plan HEP review as needed. POC: Hip/core strengthening, gait training, improving activity tolerance
--- NOTE | 2025-01-08 16:17 | PT.OTN ---
Current Diagnoses Spinal stenosis, lumbar region without neurogenic claudication (01/08/25) Lumbago with sciatica, right side (01/08/25) Other abnormalities of gait and mobility (01/08/25) Weakness (01/08/25) Physical Therapy Treatment Note PT-OP-A Visit Information Start: 12/25/24 15:57 Freq: Status: Active Protocol: Document 01/08/25 15:10 AB (Rec: 01/08/25 16:16 AB [id number]) Out-Patient Physical Therapy Visit Information Visit Information Visit Type Treatment Note Visit Start Time 15:21 Visit Stop Time 16:03 Visit Number 5 Number of CONVEYOR FEEDER Visits 3 Evaluation Information Evaluation Date 12/25/24 PT-OP-B Current Condition Start: 12/25/24 15:57 Freq: Status: Active Protocol: Document 12/25/24 14:30 DCW (Rec: 12/25/24 17:19 DCW [id number]) Current Condition History of Current Condition Current Complaints Low back pain, core weakness, fatigue History of Current Condition Pt is a 74 year old female presenting to skilled therapy with a recent history of low back pain, weakness, and general stiffness. Pt was previously being treated at this facility ~three months ago for right leg pain, discharged to return to PCP to obtain an MRI. Returns now with diagnosis of Stenosis and DDD. Pt notes she as lost 10 pounds recently, and her knees are feeling better, but stairs are pretty difficult, and she tires quickly with ambulation. Able to walk a couple miles, but just feels more tired afterward than what she used to. Notes her goal is to strengthen her core to help stabilize her back. Prior Treatments and Tests Lumbar MRI: IMPRESSION: Multilevel degenerative disc disease and arthropathy results in varying degrees of central and foraminal stenosis including moderate central stenosis L3-4 and L4-5. per Jorge Andrea M.D. on 2023 PT-OP-C Subjective Start: 12/25/24 15:57 Freq: Status: Active Protocol: Document 01/08/25 15:10 AB (Rec: 01/08/25 16:16 AB [id number]) OP-PT Subjective Patient Comments Patient Comments Patient reports she did some gardening and was able to perform gardening at a level that did not cause her to flare up. Patient reports having no pain, just tired start of session. PT-OP-G Mobility & Gait Start: 12/25/24 15:57 Freq: Status: Active Protocol: Document 12/25/24 14:30 DCW (Rec: 12/25/24 17:19 DCW [id number]) OP Gait Assessment Comments Gait Comments Pt ambulates with mild valgus bilaterally, with scissoring L >R on 50% of steps. Demonstrated hip instability during gait PT-OP-M Strength Start: 12/25/24 15:57 Freq: Status: Active Protocol: Document 12/25/24 14:30 DCW (Rec: 12/25/24 17:19 DCW [id number]) Trunk Strength Trunk Manual Muscle Testing Testing Position Supine Core Stabilization Able to contract TrA, hold momentarily, fatigues quickly. MMT 4-/5 Hip Strength Hip Manual Muscle Testing Right Flexion (L2) 4 Good Extension (S1) 4 Good Abduction 4+ Good+ Adduction 4+ Good+ External Rotation 3+ Fair+ Internal Rotation 4 Good Comments Noted right hip pain with resisted flexion, extension, and IR. Left Flexion (L2) 4+ Good+ Extension (S1) 4 Good Abduction 4+ Good+ Adduction 4+ Good+ External Rotation 4 Good Internal Rotation 4 Good Knee Strength Knee Manual Muscle Testing Right Flexion (S2) 4+ Good+ Extension (L3) 4+ Good+ Left Flexion (S2) 4+ Good+ Extension (L3) 4+ Good+ PT-OP-Q Treatments Start: 12/25/24 15:57 Freq: Status: Active Protocol: Document 01/08/25 15:10 AB (Rec: 01/08/25 16:16 AB [id number]) Therapeutic Exercises Supine Exercises hip stretches Supine Exercise Name 1. piriformis 2. figure 4 Side right Reps/Minutes 60 sec each modified Nakul stretch Side right Reps/Minutes 60 sec X1 Comments verbal cues Breathing from diaphragm in mod restorative pose Reps/Minutes 2 min Comments verbal cues for breathing and positioning. Sidelying Exercises Hip Abduction Sidelying Exercise Name Hip Abduction Reps/Minutes 15 X Comments tactile cues for form Reverse Clamshell Sidelying Exercise Name Reverse Clamshell Reps/Minutes X 1 then x15 Clamshell Sidelying Exercise Name Clamshell Side bilateral Resistance AROM Reps/Minutes 15reps Comments on initation minim mvt R hip * Open Book Sidelying Exercise Name Open Book Side bilateral Resistance AROM Reps/Minutes 5 reps Comments HEP review, VC for breathing Sitting Exercises Pallof press Side bilateral Resistance Level 3 band Reps/Minutes X 15 each LE Comments verbal cues Manual Therapy Treatment Consent Patient gave verbal consent for manual Yes treatment Soft Tissue Mobilization R hip Body Location illiopsoas, glute/piriformis Mobilization Type Cross-Friction,Rolling Intensity/Depth Moderate Body Position Hooklying Comments and sidelying Manual Techniques MET for R AI L PI and pubic shot gun Reps/Duration 6 X 6 sec each PT-OP-T Assessment and Plan Start: 12/25/24 15:57 Freq: Status: Active Protocol: Document 01/08/25 15:10 AB (Rec: 01/08/25 16:16 AB [id number]) Physical Therapy Assessment Goals Three Impairment Pt displays global weakness, especially right hip ER (3+/5) and TrA (4-/5) Custodial Goal (LTG) Pt to demonstrate improved MMT of at least 4/5 or greater in all tested planes LTG Duration 03/25/25 Two Impairment Pt ambulates with a mild left scissoring gait 50% of the time Helicopter Engineer Goal (LTG) Pt to demonstrate ability to ambulate 700 feet with no instances of scissoring gait LTG Duration 03/25/25 One Impairment Pt does not have an appropriate home exercise program Short Term Goal (STG) Pt to be independent and compliant with an appropriate HEP STG Duration 01/22/25 Assessment Summary Assessment Patient reports having no pain end of session, feels the area has been worked. Patient reports clamshell felt better post manual and MET. Physical Therapy Plan Frequency and Duration Frequency of Treatment 2x/Week Plan of Care Start Date 12/25/24 Plan of Care End Date 03/25/25 Therapeutic Interventions Therapeutic Interventions Balance Training,Gait Training ,Home Exercise Program,Joint Mobilizations,Manual Therapy, Neuromuscular Re-education, Patient/Caregiver Education, Self-Care/Home Management,Soft Tissue Mobilization, Therapeutic Activities, Therapeutic Exercises Next Visit Focus/Plan Next Note Type Treatment Note Next Visit Plan HEP review as needed. POC: Hip/core strengthening, gait training, improving activity tolerance
--- NOTE | 2025-01-22 12:57 | PT.OTN ---
Current Diagnoses Spinal stenosis, lumbar region without neurogenic claudication (01/22/25) Lumbago with sciatica, right side (01/22/25) Other abnormalities of gait and mobility (01/22/25) Weakness (01/22/25) Physical Therapy Treatment Note PT-OP-A Visit Information Start: 12/25/24 15:57 Freq: Status: Active Protocol: Document 01/22/25 12:18 DCW (Rec: 01/22/25 12:57 DCW [id number]) Out-Patient Physical Therapy Visit Information Visit Information Visit Type Treatment Note Visit Start Time 12:18 Visit Stop Time 13:00 Visit Number 6 Number of AUTOMOBILE BODY REPAIRER HELPER Visits 0 Evaluation Information Evaluation Date 12/25/24 PT-OP-B Current Condition Start: 12/25/24 15:57 Freq: Status: Active Protocol: Document 12/25/24 14:30 DCW (Rec: 12/25/24 17:19 DCW [id number]) Current Condition History of Current Condition Current Complaints Low back pain, core weakness, fatigue History of Current Condition Pt is a 74 year old female presenting to skilled therapy with a recent history of low back pain, weakness, and general stiffness. Pt was previously being treated at this facility ~three months ago for right leg pain, discharged to return to PCP to obtain an MRI. Returns now with diagnosis of Stenosis and DDD. Pt notes she as lost 10 pounds recently, and her knees are feeling better, but stairs are pretty difficult, and she tires quickly with ambulation. Able to walk a couple miles, but just feels more tired afterward than what she used to. Notes her goal is to strengthen her core to help stabilize her back. Prior Treatments and Tests Lumbar MRI: IMPRESSION: Multilevel degenerative disc disease and arthropathy results in varying degrees of central and foraminal stenosis including moderate central stenosis L3-4 and L4-5. per Jorge Andrea M.D. on 2023 PT-OP-C Subjective Start: 12/25/24 15:57 Freq: Status: Active Protocol: Document 01/22/25 12:18 DCW (Rec: 01/22/25 12:57 DCW [id number]) OP-PT Subjective Patient Comments Patient Comments I go to [place] dancing on Monday nights, so I'm always a little sore on Wednesdays. PT-OP-G Mobility & Gait Start: 12/25/24 15:57 Freq: Status: Active Protocol: Document 12/25/24 14:30 DCW (Rec: 12/25/24 17:19 DCW [id number]) OP Gait Assessment Comments Gait Comments Pt ambulates with mild valgus bilaterally, with scissoring L >R on 50% of steps. Demonstrated hip instability during gait PT-OP-M Strength Start: 12/25/24 15:57 Freq: Status: Active Protocol: Document 12/25/24 14:30 DCW (Rec: 12/25/24 17:19 DCW [id number]) Trunk Strength Trunk Manual Muscle Testing Testing Position Supine Core Stabilization Able to contract TrA, hold momentarily, fatigues quickly. MMT 4-/5 Hip Strength Hip Manual Muscle Testing Right Flexion (L2) 4 Good Extension (S1) 4 Good Abduction 4+ Good+ Adduction 4+ Good+ External Rotation 3+ Fair+ Internal Rotation 4 Good Comments Noted right hip pain with resisted flexion, extension, and IR. Left Flexion (L2) 4+ Good+ Extension (S1) 4 Good Abduction 4+ Good+ Adduction 4+ Good+ External Rotation 4 Good Internal Rotation 4 Good Knee Strength Knee Manual Muscle Testing Right Flexion (S2) 4+ Good+ Extension (L3) 4+ Good+ Left Flexion (S2) 4+ Good+ Extension (L3) 4+ Good+ PT-OP-Q Treatments Start: 12/25/24 15:57 Freq: Status: Active Protocol: Document 01/22/25 12:18 DCW (Rec: 01/22/25 12:57 DCW [id number]) Gym Equipment Therapeutic Ball Bridging Exercise Details Bridging /c feet on ball Ball Size/Color Red - 55 cm Body Position Supine Hip flexion Exercise Details Resisted hip/knee flexion Ball Size/Color Red - 55 cm Lv 3 T-band Body Position Supine Therapeutic Exercises Supine Exercises Pelvic realignment Supine Exercise Name Ball Squeeze, One Leg Pelvic Lift, One Leg Press/Hold Side bilateral Comments HEP handout provided hip stretches Supine Exercise Name 1. piriformis 2. figure 4 Side bilateral Reps/Minutes 60 sec each Other Exercises Resisted Ambulation Other Exercise Name Resisted side-stepping Resistance Green Equipment Used // bars PT-OP-T Assessment and Plan Start: 12/25/24 15:57 Freq: Status: Active Protocol: Document 01/22/25 12:18 DCW (Rec: 01/22/25 12:57 DCW [id number]) Physical Therapy Assessment Impairments Impairments Activity Tolerance,Balance, Functional Activities, Functional Mobility,Gait,Pain, Strength,Tone Goals Three Impairment Pt displays global weakness, especially right hip ER (3+/5) and TrA (4-/5) Correction Goal (LTG) Pt to demonstrate improved MMT of at least 4/5 or greater in all tested planes LTG Duration 03/25/25 Two Impairment Pt ambulates with a mild left scissoring gait 50% of the time Network Strategist Goal (LTG) Pt to demonstrate ability to ambulate 700 feet with no instances of scissoring gait LTG Duration 03/25/25 One Impairment Pt does not have an appropriate home exercise program Short Term Goal (STG) Pt to be independent and compliant with an appropriate HEP STG Duration 01/22/25 Assessment Summary Assessment Pt tolerated very well, feeling very good about current exercises. Continue to focus on core stabilization, LE strengthening, and back mobility. Physical Therapy Plan Frequency and Duration Frequency of Treatment 2x/Week Plan of Care Start Date 12/25/24 Plan of Care End Date 03/25/25 Therapeutic Interventions Therapeutic Interventions Balance Training,Gait Training ,Home Exercise Program,Joint Mobilizations,Manual Therapy, Neuromuscular Re-education, Patient/Caregiver Education, Self-Care/Home Management,Soft Tissue Mobilization, Therapeutic Activities, Therapeutic Exercises Next Visit Focus/Plan Next Note Type Treatment Note Next Visit Plan HEP review as needed. POC: Hip/core strengthening, gait training, improving activity tolerance
--- NOTE | 2025-01-24 10:41 | PT.OTN ---
Current Diagnoses Spinal stenosis, lumbar region without neurogenic claudication (01/24/25) Lumbago with sciatica, right side (01/24/25) Other abnormalities of gait and mobility (01/24/25) Weakness (01/24/25) Physical Therapy Treatment Note PT-OP-A Visit Information Start: 12/25/24 15:57 Freq: Status: Active Protocol: Document 01/24/25 08:10 AB (Rec: 01/24/25 10:38 AB [id number]) Out-Patient Physical Therapy Visit Information Visit Information Visit Type Treatment Note Visit Note Visit [email or web address]: [email or web address] Visit Start Time 09:48 Visit Stop Time 10:32 Visit Number 7 Number of MAXILLOFACIAL SURGEON Visits 1 Evaluation Information Evaluation Date 12/25/24 PT-OP-B Current Condition Start: 12/25/24 15:57 Freq: Status: Active Protocol: Document 12/25/24 14:30 DCW (Rec: 12/25/24 17:19 DCW [id number]) Current Condition History of Current Condition Current Complaints Low back pain, core weakness, fatigue History of Current Condition Pt is a 74 year old female presenting to skilled therapy with a recent history of low back pain, weakness, and general stiffness. Pt was previously being treated at this facility ~three months ago for right leg pain, discharged to return to PCP to obtain an MRI. Returns now with diagnosis of Stenosis and DDD. Pt notes she as lost 10 pounds recently, and her knees are feeling better, but stairs are pretty difficult, and she tires quickly with ambulation. Able to walk a couple miles, but just feels more tired afterward than what she used to. Notes her goal is to strengthen her core to help stabilize her back. Prior Treatments and Tests Lumbar MRI: IMPRESSION: Multilevel degenerative disc disease and arthropathy results in varying degrees of central and foraminal stenosis including moderate central stenosis L3-4 and L4-5. per Jorge Andrea M.D. on 2023 PT-OP-C Subjective Start: 12/25/24 15:57 Freq: Status: Active Protocol: Document 01/24/25 08:10 AB (Rec: 01/24/25 10:38 AB [id number]) OP-PT Subjective Patient Comments Patient Comments Patient reports she mowed her lawn without any increased LE pain. Patient reports she does have some increased soreness post folk dancing. Lois rates pain SI area bilaterally . PT-OP-G Mobility & Gait Start: 12/25/24 15:57 Freq: Status: Active Protocol: Document 12/25/24 14:30 DCW (Rec: 12/25/24 17:19 DCW [id number]) OP Gait Assessment Comments Gait Comments Pt ambulates with mild valgus bilaterally, with scissoring L >R on 50% of steps. Demonstrated hip instability during gait PT-OP-M Strength Start: 12/25/24 15:57 Freq: Status: Active Protocol: Document 12/25/24 14:30 DCW (Rec: 12/25/24 17:19 DCW [id number]) Trunk Strength Trunk Manual Muscle Testing Testing Position Supine Core Stabilization Able to contract TrA, hold momentarily, fatigues quickly. MMT 4-/5 Hip Strength Hip Manual Muscle Testing Right Flexion (L2) 4 Good Extension (S1) 4 Good Abduction 4+ Good+ Adduction 4+ Good+ External Rotation 3+ Fair+ Internal Rotation 4 Good Comments Noted right hip pain with resisted flexion, extension, and IR. Left Flexion (L2) 4+ Good+ Extension (S1) 4 Good Abduction 4+ Good+ Adduction 4+ Good+ External Rotation 4 Good Internal Rotation 4 Good Knee Strength Knee Manual Muscle Testing Right Flexion (S2) 4+ Good+ Extension (L3) 4+ Good+ Left Flexion (S2) 4+ Good+ Extension (L3) 4+ Good+ PT-OP-Q Treatments Start: 12/25/24 15:57 Freq: Status: Active Protocol: Document 01/24/25 08:10 AB (Rec: 01/24/25 10:38 AB [id number]) Therapeutic Exercises Supine Exercises hip stretches Supine Exercise Name 1. piriformis 2. figure 4 Side bilateral Reps/Minutes 60 sec each modified Nakul stretch Supine Exercise Name HEP Side right Reps/Minutes 60 sec X1 Comments verbal cues AROM knee flexon Standing Exercises hip extension Standing Exercise Name band at ankles Side bilateral Resistance level 3 [place] Reps/Minutes X10 Comments Verbal cues for decreased ROM Other Exercises Resisted Ambulation Other Exercise Name Resisted side-stepping Resistance Green Equipment Used // bars Reps/Minutes 10 feet left and right X 3 Comments Vc to avoid toeing out Therapeutic Activity Therapeutic Activity supine to and from sit Reps/Minutes 9 min HEP Comments one step verbal cues for a normal movement pattern increased repetitions, decreased velocity post training for core strengthening Manual Therapy Treatment Consent Patient gave verbal consent for manual Yes treatment Soft Tissue Mobilization R hip Body Location bilateral glute/pirifomis/SI aea bilateral Mobilization Type Cross-Friction,Rolling Intensity/Depth Moderate Body Position Sidelying PT-OP-T Assessment and Plan Start: 12/25/24 15:57 Freq: Status: Active Protocol: Document 01/24/25 08:10 AB (Rec: 01/24/25 10:38 AB [id number]) Physical Therapy Assessment Goals Three Impairment Pt displays global weakness, especially right hip ER (3+/5) and TrA (4-/5) Salon Designer Goal (LTG) Pt to demonstrate improved MMT of at least 4/5 or greater in all tested planes LTG Duration 03/25/25 Two Impairment Pt ambulates with a mild left scissoring gait 50% of the time Salon Designer Goal (LTG) Pt to demonstrate ability to ambulate 700 feet with no instances of scissoring gait LTG Duration 03/25/25 One Impairment Pt does not have an appropriate home exercise program Short Term Goal (STG) Pt to be independent and compliant with an appropriate HEP STG Duration 01/22/25 Assessment Summary Assessment Patient able to perform supine to sit with normal mechanics, increased verbal cues to avoid holding head off pillow. Lois rates pain 0/10 end of session. Physical Therapy Plan Frequency and Duration Frequency of Treatment 2x/Week Plan of Care Start Date 12/25/24 Plan of Care End Date 03/25/25 Next Visit Focus/Plan Next Note Type Treatment Note Next Visit Plan HEP review as needed. POC: Hip/core strengthening, gait training, improving activity tolerance
--- NOTE | 2025-01-29 14:29 | PT.OTN ---
Current Diagnoses Spinal stenosis, lumbar region without neurogenic claudication (01/29/25) Lumbago with sciatica, right side (01/29/25) Other abnormalities of gait and mobility (01/29/25) Weakness (01/29/25) Physical Therapy Treatment Note PT-OP-A Visit Information Start: 12/25/24 15:57 Freq: Status: Active Protocol: Document 01/29/25 13:45 DCW (Rec: 01/29/25 14:29 DCW [id number]) Out-Patient Physical Therapy Visit Information Visit Information Visit Type Treatment Note Visit Start Time 13:45 Visit Stop Time 14:30 Visit Number 8 Number of HISTOLOGY TECH Visits 0 Evaluation Information Evaluation Date 12/25/24 PT-OP-B Current Condition Start: 12/25/24 15:57 Freq: Status: Active Protocol: Document 12/25/24 14:30 DCW (Rec: 12/25/24 17:19 DCW [id number]) Current Condition History of Current Condition Current Complaints Low back pain, core weakness, fatigue History of Current Condition Pt is a 74 year old female presenting to skilled therapy with a recent history of low back pain, weakness, and general stiffness. Pt was previously being treated at this facility ~three months ago for right leg pain, discharged to return to PCP to obtain an MRI. Returns now with diagnosis of Stenosis and DDD. Pt notes she as lost 10 pounds recently, and her knees are feeling better, but stairs are pretty difficult, and she tires quickly with ambulation. Able to walk a couple miles, but just feels more tired afterward than what she used to. Notes her goal is to strengthen her core to help stabilize her back. Prior Treatments and Tests Lumbar MRI: IMPRESSION: Multilevel degenerative disc disease and arthropathy results in varying degrees of central and foraminal stenosis including moderate central stenosis L3-4 and L4-5. per Jorge Andrea M.D. on 2023 PT-OP-C Subjective Start: 12/25/24 15:57 Freq: Status: Active Protocol: Document 01/29/25 13:45 DCW (Rec: 01/29/25 14:29 DCW [id number]) OP-PT Subjective Patient Comments Patient Comments I feel good. I think all of this is helping me. That pain I had down my leg? Haven't had to deal with it at all recently. Does admit she still gets tired more easily than she used to, but also notes she probably pushes herself too much. PT-OP-G Mobility & Gait Start: 12/25/24 15:57 Freq: Status: Active Protocol: Document 12/25/24 14:30 DCW (Rec: 12/25/24 17:19 DCW [id number]) OP Gait Assessment Comments Gait Comments Pt ambulates with mild valgus bilaterally, with scissoring L >R on 50% of steps. Demonstrated hip instability during gait PT-OP-M Strength Start: 12/25/24 15:57 Freq: Status: Active Protocol: Document 12/25/24 14:30 DCW (Rec: 12/25/24 17:19 DCW [id number]) Trunk Strength Trunk Manual Muscle Testing Testing Position Supine Core Stabilization Able to contract TrA, hold momentarily, fatigues quickly. MMT 4-/5 Hip Strength Hip Manual Muscle Testing Right Flexion (L2) 4 Good Extension (S1) 4 Good Abduction 4+ Good+ Adduction 4+ Good+ External Rotation 3+ Fair+ Internal Rotation 4 Good Comments Noted right hip pain with resisted flexion, extension, and IR. Left Flexion (L2) 4+ Good+ Extension (S1) 4 Good Abduction 4+ Good+ Adduction 4+ Good+ External Rotation 4 Good Internal Rotation 4 Good Knee Strength Knee Manual Muscle Testing Right Flexion (S2) 4+ Good+ Extension (L3) 4+ Good+ Left Flexion (S2) 4+ Good+ Extension (L3) 4+ Good+ PT-OP-Q Treatments Start: 12/25/24 15:57 Freq: Status: Active Protocol: Document 01/29/25 13:45 DCW (Rec: 01/29/25 14:29 DCW [id number]) Gym Equipment Shuttle Recovery unilateral squat Resistance 37# (one navy) Shuttle Recovery Platform Stable bilateral squat Resistance 75# (three navy) Shuttle Recovery Platform Stable Therapeutic Ball Hip flexion Exercise Details Resisted hip/knee flexion Ball Size/Color Red - 55 cm Lv 3 T-band Body Position Supine Therapeutic Exercises Supine Exercises hip stretches Supine Exercise Name 1. piriformis 2. figure 4 Side bilateral Reps/Minutes 60 sec each Standing Exercises hip extension Standing Exercise Name band at ankles Side bilateral Resistance Green loop Reps/Minutes X10 Comments Verbal cues for decreased ROM Other Exercises BOSU Lunge Other Exercise Name BOSU Lunge Side bilateral Step-ups Other Exercise Name Step-ups Side bilateral Equipment Used 6 step Resisted Ambulation Other Exercise Name Resisted side-stepping Resistance Green Equipment Used @ rail Reps/Minutes 20' x4 Manual Therapy Treatment Soft Tissue Mobilization R hip Body Location bilateral glute/pirifomis/SI aea bilateral Mobilization Type Cross-Friction,Rolling Intensity/Depth Moderate Body Position Sidelying PT-OP-T Assessment and Plan Start: 12/25/24 15:57 Freq: Status: Active Protocol: Document 01/29/25 13:45 DCW (Rec: 01/29/25 14:29 DCW [id number]) Physical Therapy Assessment Impairments Impairments Activity Tolerance,Balance, Functional Activities, Functional Mobility,Gait,Pain, Strength,Tone Goals Three Impairment Pt displays global weakness, especially right hip ER (3+/5) and TrA (4-/5) Shelter Goal (LTG) Pt to demonstrate improved MMT of at least 4/5 or greater in all tested planes LTG Duration 03/25/25 Two Impairment Pt ambulates with a mild left scissoring gait 50% of the time Shelter Goal (LTG) Pt to demonstrate ability to ambulate 700 feet with no instances of scissoring gait LTG Duration 03/25/25 One Impairment Pt does not have an appropriate home exercise program Short Term Goal (STG) Pt to be independent and compliant with an appropriate HEP STG Duration 01/22/25 Assessment Summary Assessment Pt tolerated very well, feeling very good about current exercises. Continue to focus on core stabilization, LE strengthening, and back mobility. Physical Therapy Plan Frequency and Duration Frequency of Treatment 2x/Week Plan of Care Start Date 12/25/24 Plan of Care End Date 03/25/25 Therapeutic Interventions Therapeutic Interventions Balance Training,Gait Training ,Home Exercise Program,Joint Mobilizations,Manual Therapy, Neuromuscular Re-education, Patient/Caregiver Education, Self-Care/Home Management,Soft Tissue Mobilization, Therapeutic Activities, Therapeutic Exercises Next Visit Focus/Plan Next Note Type Treatment Note Next Visit Plan HEP review as needed. POC: Hip/core strengthening, gait training, improving activity tolerance
--- NOTE | 2025-01-31 14:29 | PT.OTN ---
Addendum entered and electronically signed by Delia Levy 01/31/25 14:33: Progress note next session Original Note: Current Diagnoses Spinal stenosis, lumbar region without neurogenic claudication (01/31/25) Lumbago with sciatica, right side (01/31/25) Other abnormalities of gait and mobility (01/31/25) Weakness (01/31/25) Physical Therapy Treatment Note PT-OP-A Visit Information Start: 12/25/24 15:57 Freq: Status: Active Protocol: Document 01/31/25 10:33 AB (Rec: 01/31/25 13:50 AB [id number]) Out-Patient Physical Therapy Visit Information Visit Information Visit Type Treatment Note Visit Note Visit [email or web address] Access Code: [email or web address] Visit Start Time 13:02 Visit Stop Time 13:46 Visit Number 9 Number of GEOTHERMAL FIELD TECHNICIAN Visits 1 Evaluation Information Evaluation Date 12/25/24 PT-OP-B Current Condition Start: 12/25/24 15:57 Freq: Status: Active Protocol: Document 12/25/24 14:30 DCW (Rec: 12/25/24 17:19 DCW [id number]) Current Condition History of Current Condition Current Complaints Low back pain, core weakness, fatigue History of Current Condition Pt is a 74 year old female presenting to skilled therapy with a recent history of low back pain, weakness, and general stiffness. Pt was previously being treated at this facility ~three months ago for right leg pain, discharged to return to [facility] to obtain an MRI. Returns now with diagnosis of Stenosis and DDD. Pt notes she as lost 10 pounds recently, and her knees are feeling better, but stairs are pretty difficult, and she tires quickly with ambulation. Able to walk a couple miles, but just feels more tired afterward than what she used to. Notes her goal is to strengthen her core to help stabilize her back. Prior Treatments and Tests Lumbar MRI: IMPRESSION: Multilevel degenerative disc disease and arthropathy results in varying degrees of central and foraminal stenosis including moderate central stenosis L3-4 and L4-5. per Jorge Andrea M.D. on 2023 PT-OP-C Subjective Start: 12/25/24 15:57 Freq: Status: Active Protocol: Document 01/31/25 10:33 AB (Rec: 01/31/25 13:50 AB [id number]) OP-PT Subjective Patient Comments Patient Comments Lois rates R glute pain 2/10 , comments shoulders are sore from holding band for knee extension exercise. PT-OP-G Mobility & Gait Start: 12/25/24 15:57 Freq: Status: Active Protocol: Document 12/25/24 14:30 DCW (Rec: 12/25/24 17:19 DCW [id number]) OP Gait Assessment Comments Gait Comments Pt ambulates with mild valgus bilaterally, with scissoring L >R on 50% of steps. Demonstrated hip instability during gait PT-OP-M Strength Start: 12/25/24 15:57 Freq: Status: Active Protocol: Document 12/25/24 14:30 DCW (Rec: 12/25/24 17:19 DCW [id number]) Trunk Strength Trunk Manual Muscle Testing Testing Position Supine Core Stabilization Able to contract TrA, hold momentarily, fatigues quickly. MMT 4-/5 Hip Strength Hip Manual Muscle Testing Right Flexion (L2) 4 Good Extension (S1) 4 Good Abduction 4+ Good+ Adduction 4+ Good+ External Rotation 3+ Fair+ Internal Rotation 4 Good Comments Noted right hip pain with resisted flexion, extension, and IR. Left Flexion (L2) 4+ Good+ Extension (S1) 4 Good Abduction 4+ Good+ Adduction 4+ Good+ External Rotation 4 Good Internal Rotation 4 Good Knee Strength Knee Manual Muscle Testing Right Flexion (S2) 4+ Good+ Extension (L3) 4+ Good+ Left Flexion (S2) 4+ Good+ Extension (L3) 4+ Good+ PT-OP-Q Treatments Start: 12/25/24 15:57 Freq: Status: Active Protocol: Document 01/31/25 10:33 AB (Rec: 01/31/25 13:50 AB [id number]) Gym Equipment Shuttle Recovery unilateral squat Details right bilateral squat Details to 95 deg flexion Resistance 75# (three navy) X 5 62 # 2X 15 Shuttle Recovery Platform Stable Reps/Time Verbal cues to dec velocity Therapeutic Exercises Supine Exercises hip and knee ext Side bilateral Resistance level 5 band Equipment Used HEP Reps/Minutes X!0 Comments verbal cues to rest elbow/ upper arm on mat. Sidelying Exercises Reverse Clamshell Sidelying Exercise Name Reverse Clamshell Resistance level band ( loosely tied for R LE) Reps/Minutes X 1 then x15 Clamshell Sidelying Exercise Name Clamshell Side bilateral Resistance level one band Reps/Minutes 15reps Comments on initation minim mvt R hip * Open Book Sidelying Exercise Name Open Book Side bilateral Resistance AROM Reps/Minutes 5 reps Comments HEP review, VC for breathing Manual Therapy Treatment Consent Patient gave verbal consent for manual Yes treatment Soft Tissue Mobilization R hip Body Location bilateral glute/pirifomis/SI aea bilateral Mobilization Type Cross-Friction,Rolling Intensity/Depth Moderate Body Position Sidelying Manual Techniques MET for R AI L PI and pubic shot gun Reps/Duration 6 X 6 sec each PT-OP-T Assessment and Plan Start: 12/25/24 15:57 Freq: Status: Active Protocol: Document 01/31/25 10:33 AB (Rec: 01/31/25 13:50 AB [id number]) Physical Therapy Assessment Goals Three Impairment Pt displays global weakness, especially right hip ER (3+/5) and TrA (4-/5) Color Tester Goal (LTG) Pt to demonstrate improved MMT of at least 4/5 or greater in all tested planes LTG Duration 03/25/25 Two Impairment Pt ambulates with a mild left scissoring gait 50% of the time Color Tester Goal (LTG) Pt to demonstrate ability to ambulate 700 feet with no instances of scissoring gait LTG Duration 03/25/25 One Impairment Pt does not have an appropriate home exercise program Short Term Goal (STG) Pt to be independent and compliant with an appropriate HEP STG Duration 01/22/25 Assessment Summary Assessment Lois reports pain dec to end of session, ambulating out of session without device. Physical Therapy Plan Frequency and Duration Frequency of Treatment 2x/Week Plan of Care Start Date 12/25/24 Plan of Care End Date 03/25/25 Next Visit Focus/Plan Next Note Type Treatment Note Next Visit Plan HEP review as needed. POC: Hip/core strengthening, gait training, improving activity tolerance
--- NOTE | 2025-02-05 14:28 | PT.OTN ---
Current Diagnoses Spinal stenosis, lumbar region without neurogenic claudication (02/05/25) Lumbago with sciatica, right side (02/05/25) Other abnormalities of gait and mobility (02/05/25) Weakness (02/05/25) Physical Therapy Treatment Note PT-OP-A Visit Information Start: 12/25/24 15:57 Freq: Status: Active Protocol: Document 02/05/25 12:56 AB (Rec: 02/05/25 14:20 AB [id number]) Out-Patient Physical Therapy Visit Information Visit Information Visit Type Treatment Note Visit Note Visit [email or web address] Access Code: [email or web address] Visit Start Time 12:57 Visit Stop Time 13:47 Visit Number 10 Number of EXPANSION JOINT BUILDER Visits 2 Evaluation Information Evaluation Date 12/25/24 PT-OP-B Current Condition Start: 12/25/24 15:57 Freq: Status: Active Protocol: Document 12/25/24 14:30 DCW (Rec: 12/25/24 17:19 DCW [id number]) Current Condition History of Current Condition Current Complaints Low back pain, core weakness, fatigue History of Current Condition Pt is a 74 year old female presenting to skilled therapy with a recent history of low back pain, weakness, and general stiffness. Pt was previously being treated at this facility ~three months ago for right leg pain, discharged to return to [facility] to obtain an MRI. Returns now with diagnosis of Stenosis and DDD. Pt notes she as lost 10 pounds recently, and her knees are feeling better, but stairs are pretty difficult, and she tires quickly with ambulation. Able to walk a couple miles, but just feels more tired afterward than what she used to. Notes her goal is to strengthen her core to help stabilize her back. Prior Treatments and Tests Lumbar MRI: IMPRESSION: Multilevel degenerative disc disease and arthropathy results in varying degrees of central and foraminal stenosis including moderate central stenosis L3-4 and L4-5. per Jorge Andrea M.D. on 2023 PT-OP-C Subjective Start: 12/25/24 15:57 Freq: Status: Active Protocol: Document 02/05/25 12:56 AB (Rec: 02/05/25 14:20 AB [id number]) OP-PT Subjective Patient Comments Patient Comments Patient reports she has been hauling gravel. Patient reports she feels fine, rates pain 0/10 start of session. PT-OP-G Mobility & Gait Start: 12/25/24 15:57 Freq: Status: Active Protocol: Document 12/25/24 14:30 DCW (Rec: 12/25/24 17:19 DCW [id number]) OP Gait Assessment Comments Gait Comments Pt ambulates with mild valgus bilaterally, with scissoring L >R on 50% of steps. Demonstrated hip instability during gait PT-OP-M Strength Start: 12/25/24 15:57 Freq: Status: Active Protocol: Document 02/05/25 10:33 AB (Rec: 02/05/25 14:27 AB [id number]) Trunk Strength Trunk Manual Muscle Testing Testing Position Supine Core Stabilization Able to contract TrA, 12+ sec, then performed a sit up hands behind head clearing inf angle of scapula, feet remain on mat. Hip Strength Hip Manual Muscle Testing Right Flexion (L2) 4- Good- Extension (S1) 4+ Good+ Abduction 4- Good- Adduction 4+ Good+ External Rotation 3+ Fair+ Internal Rotation 4+ Good+ Comments ER tested within limited ROM Left Flexion (L2) 4 Good Extension (S1) 4+ Good+ Abduction 4+ Good+ Adduction 4+ Good+ External Rotation 4- Good- Internal Rotation 4+ Good+ Comments ER tested within limited ROM Knee Strength Knee Manual Muscle Testing Right Flexion (S2) 4+ Good+ Extension (L3) 4+ Good+ Left Flexion (S2) 4+ Good+ Extension (L3) 4+ Good+ PT-OP-Q Treatments Start: 12/25/24 15:57 Freq: Status: Active Protocol: Document 02/05/25 12:56 AB (Rec: 02/05/25 14:20 AB [id number]) Therapeutic Exercises Supine Exercises bridge Supine Exercise Name single LE Side bilateral Reps/Minutes X10 Comments review SLR Supine Exercise Name PPT /c SLR Side bilateral Reps/Minutes X10 each LE Comments review Sidelying Exercises Hip Abduction Sidelying Exercise Name Hip Abduction Resistance * no band this session no back to wall Reps/Minutes 15 X Comments tactile cues for form Reverse Clamshell Sidelying Exercise Name Reverse Clamshell Resistance level band ( loosely tied for R LE) Equipment Used * no band this session no back to wall Reps/Minutes X 1 then x15 Clamshell Sidelying Exercise Name Clagahell Side bilateral Resistance level one band Equipment Used * no band this session no back to wall Reps/Minutes 15reps Comments on initation minim mvt R hip * Open Book Sidelying Exercise Name Open Book Side bilateral Resistance AROM Reps/Minutes 10reps Comments HEP review, PT-OP-T Assessment and Plan Start: 12/25/24 15:57 Freq: Status: Active Protocol: Document 02/05/25 12:56 AB (Rec: 02/05/25 14:20 AB [id number]) Physical Therapy Assessment Goals Three Impairment Pt displays global weakness, especially right hip ER (3+/5) and TrA (4-/5) Assisted Goal (LTG) Pt to demonstrate improved MMT of at least 4/5 or greater in all tested planes 02/05/2025 Hip ER bilat, abd R and hip flexionnot yet to 4/10 strength LTG Duration 03/25/25 Two Impairment Pt ambulates with a mild left scissoring gait 50% of the time Assisted Goal (LTG) Pt to demonstrate ability to ambulate 700 feet with no instances of scissoring gait 02/05/2025 Noted scissoring pattern milde left X 8 during 700 feet ambulation, noted mostly when patient begins speaking during ambulation. LTG Duration 03/25/25 One Impairment Pt does not have an appropriate home exercise program Short Term Goal (STG) Pt to be independent and compliant with an appropriate HEP STG Duration 01/22/25 Biopharmaceutical Rep Goal (LTG) 02/05/2025 Patient reports having no issues with HEP, performs at least every other day. Assessment Summary Assessment Lois reports having no pain end of session. Good johanny to muscle testing and HEP review. Of note able Pt able to perform a sit up with hands behind head clearing inf angle of scapula and feet remained on mat. HEP condensed and partial review this session. Physical Therapy Plan Frequency and Duration Frequency of Treatment 2x/Week Plan of Care Start Date 12/25/24 Plan of Care End Date 03/25/25 Next Visit Focus/Plan Next Note Type Progress Note Next Visit Plan HEP review as needed. POC: Hip/core strengthening, gait training, improving activity tolerance
--- NOTE | 2025-02-07 15:09 | PT.OTN ---
Current Diagnoses Spinal stenosis, lumbar region without neurogenic claudication (02/07/25) Lumbago with sciatica, right side (02/07/25) Other abnormalities of gait and mobility (02/07/25) Weakness (02/07/25) Physical Therapy Treatment Note PT-OP-A Visit Information Start: 12/25/24 15:57 Freq: Status: Active Protocol: Document 02/07/25 12:55 AB (Rec: 02/07/25 15:09 AB [id number]) Out-Patient Physical Therapy Visit Information Visit Information Visit Type Treatment Note Visit Note Visit [email or web address] Access Code: [email or web address] Visit Start Time 13:03 Visit Stop Time 13:47 Visit Number 11 Number of INHALATION THERAPY TEACHER Visits 3 Evaluation Information Evaluation Date 12/25/24 PT-OP-B Current Condition Start: 12/25/24 15:57 Freq: Status: Active Protocol: Document 12/25/24 14:30 DCW (Rec: 12/25/24 17:19 DCW [id number]) Current Condition History of Current Condition Current Complaints Low back pain, core weakness, fatigue History of Current Condition Pt is a 74 year old female presenting to skilled therapy with a recent history of low back pain, weakness, and general stiffness. Pt was previously being treated at this facility ~three months ago for right leg pain, discharged to return to PCP to obtain an MRI. Returns now with diagnosis of Stenosis and DDD. Pt notes she as lost 10 pounds recently, and her knees are feeling better, but stairs are pretty difficult, and she tires quickly with ambulation. Able to walk a couple miles, but just feels more tired afterward than what she used to. Notes her goal is to strengthen her core to help stabilize her back. Prior Treatments and Tests Lumbar MRI: IMPRESSION: Multilevel degenerative disc disease and arthropathy results in varying degrees of central and foraminal stenosis including moderate central stenosis L3-4 and L4-5. per Jorge Andrea M.D. on 2023 PT-OP-C Subjective Start: 12/25/24 15:57 Freq: Status: Active Protocol: Document 02/07/25 12:55 AB (Rec: 02/07/25 15:09 AB [id number]) OP-PT Subjective Patient Comments Patient Comments Patient into session with [facility], comments she has questions. Patient reports having start of session. PT-OP-G Mobility & Gait Start: 12/25/24 15:57 Freq: Status: Active Protocol: Document 12/25/24 14:30 DCW (Rec: 12/25/24 17:19 DCW [id number]) OP Gait Assessment Comments Gait Comments Pt ambulates with mild valgus bilaterally, with scissoring L >R on 50% of steps. Demonstrated hip instability during gait PT-OP-M Strength Start: 12/25/24 15:57 Freq: Status: Active Protocol: Document 02/05/25 10:33 AB (Rec: 02/05/25 14:27 AB [id number]) Trunk Strength Trunk Manual Muscle Testing Testing Position Supine Core Stabilization Able to contract TrA, 12+ sec, then performed a sit up hands behind head clearing inf angle of scapula, feet remain on mat. Hip Strength Hip Manual Muscle Testing Right Flexion (L2) 4- Good- Extension (S1) 4+ Good+ Abduction 4- Good- Adduction 4+ Good+ External Rotation 3+ Fair+ Internal Rotation 4+ Good+ Comments ER tested within limited ROM Left Flexion (L2) 4 Good Extension (S1) 4+ Good+ Abduction 4+ Good+ Adduction 4+ Good+ External Rotation 4- Good- Internal Rotation 4+ Good+ Comments ER tested within limited ROM Knee Strength Knee Manual Muscle Testing Right Flexion (S2) 4+ Good+ Extension (L3) 4+ Good+ Left Flexion (S2) 4+ Good+ Extension (L3) 4+ Good+ PT-OP-Q Treatments Start: 12/25/24 15:57 Freq: Status: Active Protocol: Document 02/07/25 12:55 AB (Rec: 02/07/25 15:09 AB [id number]) Therapeutic Exercises Supine Exercises bridge Supine Exercise Name single LE Side bilateral Reps/Minutes X10 Comments review Sidelying Exercises Hip Abduction Sidelying Exercise Name Hip Abduction Resistance Level one band Reps/Minutes 15 X Comments tactile cues for form Reverse Clamshell Sidelying Exercise Name Reverse Clamshell Resistance level one band Reps/Minutes X 1 then x15 Clamshell Sidelying Exercise Name Clamshell Side bilateral Resistance level one band Reps/Minutes 15 reps Comments on initation minim mvt R hip * Standing Exercises Monster walks Standing Exercise Name fwd and retro, with UE support Side bilateral Resistance level 2 band not johanny level one band to HEP Reps/Minutes 10 feet X 6 each direction Comments repeated verbal and visual cues PT-OP-T Assessment and Plan Start: 12/25/24 15:57 Freq: Status: Active Protocol: Document 02/07/25 12:55 AB (Rec: 02/07/25 15:09 AB [id number]) Physical Therapy Assessment Goals Three Impairment Pt displays global weakness, especially right hip ER (3+/5) and TrA (4-/5) Silver Holloware Assembler Goal (LTG) Pt to demonstrate improved MMT of at least 4/5 or greater in all tested planes 02/05/2025 Hip ER bilat, abd R and hip flexionnot yet to 4/10 strength LTG Duration 03/25/25 Two Impairment Pt ambulates with a mild left scissoring gait 50% of the time Intermediate Goal (LTG) Pt to demonstrate ability to ambulate 700 feet with no instances of scissoring gait 02/05/2025 Noted scissoring pattern milde left X 8 during 700 feet ambulation, noted mostly when patient begins speaking during ambulation. LTG Duration 03/25/25 One Impairment Pt does not have an appropriate home exercise program Short Term Goal (STG) Pt to be independent and compliant with an appropriate HEP STG Duration 01/22/25 Intermediate Goal (LTG) 02/05/2025 Patient reports having no issues with HEP, performs at least every other day. Assessment Summary Assessment Patient reports having no pain , only muscle soreness end of session. Physical Therapy Plan Frequency and Duration Frequency of Treatment 2x/Week Plan of Care Start Date 12/25/24 Plan of Care End Date 03/25/25 Next Visit Focus/Plan Next Note Type Treatment Note Next Visit Plan HEP review( monster walk ) as needed. POC: Hip/core strengthening, gait training, improving activity tolerance
--- NOTE | 2025-02-12 16:01 | PT.OTN ---
Current Diagnoses Spinal stenosis, lumbar region without neurogenic claudication (02/12/25) Lumbago with sciatica, right side (02/12/25) Other abnormalities of gait and mobility (02/12/25) Weakness (02/12/25) Physical Therapy Treatment Note PT-OP-A Visit Information Start: 12/25/24 15:57 Freq: Status: Active Protocol: Document 02/12/25 15:17 DCW (Rec: 02/12/25 16:01 DCW [id number]) Out-Patient Physical Therapy Visit Information Visit Information Visit Type Treatment Note Visit Start Time 15:17 Visit Stop Time 16:00 Visit Number 12 Number of SET UP AND LAY OUT INSPECTOR Visits 0 Evaluation Information Evaluation Date 12/25/24 PT-OP-B Current Condition Start: 12/25/24 15:57 Freq: Status: Active Protocol: Document 12/25/24 14:30 DCW (Rec: 12/25/24 17:19 DCW [id number]) Current Condition History of Current Condition Current Complaints Low back pain, core weakness, fatigue History of Current Condition Pt is a 74 year old female presenting to skilled therapy with a recent history of low back pain, weakness, and general stiffness. Pt was previously being treated at this facility ~three months ago for right leg pain, discharged to return to PCP to obtain an MRI. Returns now with diagnosis of Stenosis and DDD. Pt notes she as lost 10 pounds recently, and her knees are feeling better, but stairs are pretty difficult, and she tires quickly with ambulation. Able to walk a couple miles, but just feels more tired afterward than what she used to. Notes her goal is to strengthen her core to help stabilize her back. Prior Treatments and Tests Lumbar MRI: IMPRESSION: Multilevel degenerative disc disease and arthropathy results in varying degrees of central and foraminal stenosis including moderate central stenosis L3-4 and L4-5. per Jorge Andrea M.D. on 2023 PT-OP-C Subjective Start: 12/25/24 15:57 Freq: Status: Active Protocol: Document 02/12/25 15:17 DCW (Rec: 02/12/25 16:01 DCW [id number]) OP-PT Subjective Patient Comments Patient Comments Today I have...well, pain is too strong of a word, but I've been doing yard work, and I' ve just had some soreness here [right posterior hip]. PT-OP-G Mobility & Gait Start: 12/25/24 15:57 Freq: Status: Active Protocol: Document 12/25/24 14:30 DCW (Rec: 12/25/24 17:19 DCW [id number]) OP Gait Assessment Comments Gait Comments Pt ambulates with mild valgus bilaterally, with scissoring L >R on 50% of steps. Demonstrated hip instability during gait PT-OP-M Strength Start: 12/25/24 15:57 Freq: Status: Active Protocol: Document 02/05/25 10:33 AB (Rec: 02/05/25 14:27 AB [id number]) Trunk Strength Trunk Manual Muscle Testing Testing Position Supine Core Stabilization Able to contract TrA, 12+ sec, then performed a sit up hands behind head clearing inf angle of scapula, feet remain on mat. Hip Strength Hip Manual Muscle Testing Right Flexion (L2) 4- Good- Extension (S1) 4+ Good+ Abduction 4- Good- Adduction 4+ Good+ External Rotation 3+ Fair+ Internal Rotation 4+ Good+ Comments ER tested within limited ROM Left Flexion (L2) 4 Good Extension (S1) 4+ Good+ Abduction 4+ Good+ Adduction 4+ Good+ External Rotation 4- Good- Internal Rotation 4+ Good+ Comments ER tested within limited ROM Knee Strength Knee Manual Muscle Testing Right Flexion (S2) 4+ Good+ Extension (L3) 4+ Good+ Left Flexion (S2) 4+ Good+ Extension (L3) 4+ Good+ PT-OP-Q Treatments Start: 12/25/24 15:57 Freq: Status: Active Protocol: Document 02/12/25 15:17 DCW (Rec: 02/12/25 16:01 DCW [id number]) Therapeutic Exercises Supine Exercises Pelvic realignment Supine Exercise Name Ball Squeeze, One Leg Pelvic Lift, One Leg Press/Hold Side bilateral hip stretches Supine Exercise Name 1. piriformis 2. figure 4 Side bilateral Reps/Minutes 60 sec each Sidelying Exercises Hip Abduction Sidelying Exercise Name Hip Abduction Reps/Minutes x10 Comments tactile cues for form Reverse Clamshell Sidelying Exercise Name Reverse Clamshell Resistance level one band Reps/Minutes x10 Clamshell Sidelying Exercise Name Clamshell Side bilateral Resistance level one band Reps/Minutes x10 Comments on initation minim mvt R hip * Standing Exercises Monster walks Standing Exercise Name fwd and retro, with UE support Side bilateral Resistance Lv 2 loop Reps/Minutes 10 feet X 6 each direction Comments repeated verbal and visual cues Other Exercises Sliders Other Exercise Name Sliders - Abduction Side bilateral Equipment Used Furniture sliders Resisted Ambulation Other Exercise Name Resisted side-stepping Resistance Lv 2 loop Equipment Used @ rail Reps/Minutes 20' x4 Manual Therapy Treatment Consent Patient gave verbal consent for manual Yes treatment Other Other Manual Treatments WMW for pelvic realignment, resisted L flexion/R extension PT-OP-T Assessment and Plan Start: 12/25/24 15:57 Freq: Status: Active Protocol: Document 02/12/25 15:17 DCW (Rec: 02/12/25 16:01 DCW [id number]) Physical Therapy Assessment Impairments Impairments Activity Tolerance,Balance, Functional Activities, Functional Mobility,Gait,Pain, Strength,Tone Goals Three Impairment Pt displays global weakness, especially right hip ER (3+/5) and TrA (4-/5) Electro Mechanical Engineer Goal (LTG) Pt to demonstrate improved MMT of at least 4/5 or greater in all tested planes 02/05/2025 Hip ER bilat, abd R and hip flexionnot yet to 4/10 strength LTG Duration 03/25/25 Two Impairment Pt ambulates with a mild left scissoring gait 50% of the time [facility] Goal (LTG) Pt to demonstrate ability to ambulate 700 feet with no instances of scissoring gait 02/05/2025 Noted scissoring pattern milde left X 8 during 700 feet ambulation, noted mostly when patient begins speaking during ambulation. LTG Duration 03/25/25 One Impairment Pt does not have an appropriate home exercise program Short Term Goal (STG) Pt to be independent and compliant with an appropriate HEP STG Duration 01/22/25 Electro Mechanical Engineer Goal (LTG) 02/05/2025 Patient reports having no issues with HEP, performs at least every other day. Assessment Summary Assessment Pt able to tolerate two hours of Folk Dancing last with no increased symptoms at the time , although a little more sore today. Showing good progress with functional mobility and activity tolerance Physical Therapy Plan Frequency and Duration Frequency of Treatment 2x/Week Plan of Care Start Date 12/25/24 Plan of Care End Date 03/25/25 Next Visit Focus/Plan Next Note Type Treatment Note Next Visit Plan HEP review( marissa ko ) as needed. POC: Hip/core strengthening, gait training, improving activity tolerance
--- NOTE | 2025-02-14 14:13 | PT.OTN ---
Current Diagnoses Spinal stenosis, lumbar region without neurogenic claudication (02/14/25) Lumbago with sciatica, right side (02/14/25) Other abnormalities of gait and mobility (02/14/25) Weakness (02/14/25) Physical Therapy Treatment Note PT-OP-A Visit Information Start: 12/25/24 15:57 Freq: Status: Active Protocol: Document 02/14/25 13:00 AB (Rec: 02/14/25 13:47 AB Laptop) Out-Patient Physical Therapy Visit Information Visit Information Visit Type Treatment Note Visit Note Visit [email or web address] Access Code: Access Code: [email or web address] Visit Start Time 13:03 Visit Stop Time 13:46 Visit Number 13 (02/13 for PN) Number of FORENSIC ARTIST Visits 1 Evaluation Information Evaluation Date 12/25/24 PT-OP-B Current Condition Start: 12/25/24 15:57 Freq: Status: Active Protocol: Document 12/25/24 14:30 DCW (Rec: 12/25/24 17:19 DCW [id number]) Current Condition History of Current Condition Current Complaints Low back pain, core weakness, fatigue History of Current Condition Pt is a 74 year old female presenting to skilled therapy with a recent history of low back pain, weakness, and general stiffness. Pt was previously being treated at this facility ~three months ago for right leg pain, discharged to return to PCP to obtain an MRI. Returns now with diagnosis of Stenosis and DDD. Pt notes she as lost 10 pounds recently, and her knees are feeling better, but stairs are pretty difficult, and she tires quickly with ambulation. Able to walk a couple miles, but just feels more tired afterward than what she used to. Notes her goal is to strengthen her core to help stabilize her back. Prior Treatments and Tests Lumbar MRI: IMPRESSION: Multilevel degenerative disc disease and arthropathy results in varying degrees of central and foraminal stenosis including moderate central stenosis L3-4 and L4-5. per Jorge Andrea M.D. on 2023 PT-OP-C Subjective Start: 12/25/24 15:57 Freq: Status: Active Protocol: Document 02/14/25 13:00 AB (Rec: 02/14/25 13:47 AB Laptop) OP-PT Subjective Patient Comments Patient Comments Patient reports she still has to think about where her foot is when she walks. Stand to sit with increased velocity. Patient reports she did some exercise this morning, has no pain now. PT-OP-G Mobility & Gait Start: 12/25/24 15:57 Freq: Status: Active Protocol: Document 12/25/24 14:30 DCW (Rec: 12/25/24 17:19 DCW [id number]) OP Gait Assessment Comments Gait Comments Pt ambulates with mild valgus bilaterally, with scissoring L >R on 50% of steps. Demonstrated hip instability during gait PT-OP-M Strength Start: 12/25/24 15:57 Freq: Status: Active Protocol: Document 02/05/25 10:33 AB (Rec: 02/05/25 14:27 AB [id number]) Trunk Strength Trunk Manual Muscle Testing Testing Position Supine Core Stabilization Able to contract TrA, 12+ sec, then performed a sit up hands behind head clearing inf angle of scapula, feet remain on mat. Hip Strength Hip Manual Muscle Testing Right Flexion (L2) 4- Good- Extension (S1) 4+ Good+ Abduction 4- Good- Adduction 4+ Good+ External Rotation 3+ Fair+ Internal Rotation 4+ Good+ Comments ER tested within limited ROM Left Flexion (L2) 4 Good Extension (S1) 4+ Good+ Abduction 4+ Good+ Adduction 4+ Good+ External Rotation 4- Good- Internal Rotation 4+ Good+ Comments ER tested within limited ROM Knee Strength Knee Manual Muscle Testing Right Flexion (S2) 4+ Good+ Extension (L3) 4+ Good+ Left Flexion (S2) 4+ Good+ Extension (L3) 4+ Good+ PT-OP-Q Treatments Start: 12/25/24 15:57 Freq: Status: Active Protocol: Document 02/14/25 13:00 AB (Rec: 02/14/25 13:47 AB Laptop) Gym Equipment Shuttle Recovery unilateral squat Details right bilateral squat Resistance 75# (three navy) Shuttle Recovery Platform Stable Reps/Time Verbal cues to dec velocity ecc 2X15 Therapeutic Exercises Supine Exercises hip stretches Supine Exercise Name butterfly stretch Side bilateral Reps/Minutes 60 sec Comments Verbal cues Sidelying Exercises Hip Abduction Sidelying Exercise Name Hip Abduction Resistance level one band Reps/Minutes x10 Comments tactile cues for form Reverse Clamshell Sidelying Exercise Name Reverse Clamshell Resistance level one band Reps/Minutes x10 Clamshell Sidelying Exercise Name Clamshell Side bilateral Resistance level one band Reps/Minutes x10 Comments on initation minim mvt R hip * Standing Exercises glute med isometric Side bilateral Reps/Minutes one minute each side Comments verbal and visual cues Monster walks Standing Exercise Name fwd and retro, with UE support Side bilateral Resistance Lv 2 loop Equipment Used HEP Reps/Minutes 15 feet X 6 each direction Comments Verbal and visual cues on initiation Other Exercises Sliders Other Exercise Name Sliders - Abduction, with UE use Side bilateral Equipment Used Furniture sliders Reps/Minutes X 12 Comments Verbal and visual cues PT-OP-T Assessment and Plan Start: 12/25/24 15:57 Freq: Status: Active Protocol: Document 02/14/25 13:00 AB (Rec: 02/14/25 13:47 AB Laptop) Physical Therapy Assessment Goals Three Impairment Pt displays global weakness, especially right hip ER (3+/5) and TrA (4-/5) [facility] Goal (LTG) Pt to demonstrate improved MMT of at least 4/5 or greater in all tested planes 02/05/2025 Hip ER bilat, abd R and hip flexionnot yet to 4/10 strength LTG Duration 03/25/25 Two Impairment Pt ambulates with a mild left scissoring gait 50% of the time [facility] Goal (LTG) Pt to demonstrate ability to ambulate 700 feet with no instances of scissoring gait 02/05/2025 Noted scissoring pattern milde left X 8 during 700 feet ambulation, noted mostly when patient begins speaking during ambulation. LTG Duration 03/25/25 One Impairment Pt does not have an appropriate home exercise program Short Term Goal (STG) Pt to be independent and compliant with an appropriate HEP STG Duration 01/22/25 [facility] Goal (LTG) 02/05/2025 Patient reports having no issues with HEP, performs at least every other day. Assessment Summary Assessment Patient into session with reports she has completed the [employer] and [employer] work in [employer] and is planning to mow [employer]. Good johanny to increase distance of the reps for monster walk, but does require increased verbal cues for technique this session. Patient reports having no pain end of session, feels like she stretched. Physical Therapy Plan Frequency and Duration Frequency of Treatment 2x/Week Plan of Care Start Date 12/25/24 Plan of Care End Date 03/25/25 Next Visit Focus/Plan Next Note Type Treatment Note Next Visit Plan HEP review( monster walk ) as needed. POC: Hip/core strengthening, gait training, improving activity tolerance, Assess johanny to butterfly stretch, possibly add to HEP.
--- NOTE | 2025-02-19 12:20 | PT.OTN ---
Current Diagnoses Spinal stenosis, lumbar region without neurogenic claudication (02/19/25) Lumbago with sciatica, right side (02/19/25) Other abnormalities of gait and mobility (02/19/25) Weakness (02/19/25) Physical Therapy Treatment Note PT-OP-A Visit Information Start: 12/25/24 15:57 Freq: Status: Active Protocol: Document 02/19/25 11:40 DCW (Rec: 02/19/25 12:19 DCW [id number]) Out-Patient Physical Therapy Visit Information Visit Information Visit Type Treatment Note Visit Start Time 11:40 Visit Stop Time 12:20 Visit Number 14 (03/15) Number of PLANER OFFBEARER Visits 0 PT-OP-B Current Condition Start: 12/25/24 15:57 Freq: Status: Active Protocol: Document 12/25/24 14:30 DCW (Rec: 12/25/24 17:19 DCW [id number]) Current Condition History of Current Condition Current Complaints Low back pain, core weakness, fatigue History of Current Condition Pt is a 74 year old female presenting to skilled therapy with a recent history of low back pain, weakness, and general stiffness. Pt was previously being treated at this facility ~three months ago for right leg pain, discharged to return to PCP to obtain an MRI. Returns now with diagnosis of Stenosis and DDD. Pt notes she as lost 10 pounds recently, and her knees are feeling better, but stairs are pretty difficult, and she tires quickly with ambulation. Able to walk a couple miles, but just feels more tired afterward than what she used to. Notes her goal is to strengthen her core to help stabilize her back. Prior Treatments and Tests Lumbar MRI: IMPRESSION: Multilevel degenerative disc disease and arthropathy results in varying degrees of central and foraminal stenosis including moderate central stenosis L3-4 and L4-5. per Jorge Andrea M.D. on 2023 PT-OP-C Subjective Start: 12/25/24 15:57 Freq: Status: Active Protocol: Document 02/19/25 11:40 DCW (Rec: 02/19/25 12:19 DCW [id number]) OP-PT Subjective Patient Comments Patient Comments I'm always a little more sore on Wednesdays because of Monday dancing, but really, I feel fine. Still struggling a bit with right leg weakness on things like ascending stairs. PT-OP-G Mobility & Gait Start: 12/25/24 15:57 Freq: Status: Active Protocol: Document 12/25/24 14:30 DCW (Rec: 12/25/24 17:19 DCW [id number]) OP Gait Assessment Comments Gait Comments Pt ambulates with mild valgus bilaterally, with scissoring L >R on 50% of steps. Demonstrated hip instability during gait PT-OP-M Strength Start: 12/25/24 15:57 Freq: Status: Active Protocol: Document 02/05/25 10:33 AB (Rec: 02/05/25 14:27 AB [id number]) Trunk Strength Trunk Manual Muscle Testing Testing Position Supine Core Stabilization Able to contract TrA, 12+ sec, then performed a sit up hands behind head clearing inf angle of scapula, feet remain on mat. Hip Strength Hip Manual Muscle Testing Right Flexion (L2) 4- Good- Extension (S1) 4+ Good+ Abduction 4- Good- Adduction 4+ Good+ External Rotation 3+ Fair+ Internal Rotation 4+ Good+ Comments ER tested within limited ROM Left Flexion (L2) 4 Good Extension (S1) 4+ Good+ Abduction 4+ Good+ Adduction 4+ Good+ External Rotation 4- Good- Internal Rotation 4+ Good+ Comments ER tested within limited ROM Knee Strength Knee Manual Muscle Testing Right Flexion (S2) 4+ Good+ Extension (L3) 4+ Good+ Left Flexion (S2) 4+ Good+ Extension (L3) 4+ Good+ PT-OP-Q Treatments Start: 12/25/24 15:57 Freq: Status: Active Protocol: Document 02/19/25 11:40 DCW (Rec: 02/19/25 12:19 DCW [id number]) Gym Equipment Shuttle Recovery unilateral squat Details right Resistance 37# bilateral squat Resistance 75# (three navy) Shuttle Recovery Platform Stable Therapeutic Exercises Supine Exercises Hamstring Supine Exercise Name Hamstring Stretch Side bilateral Single KtC Supine Exercise Name Single KtC Side bilateral hip stretches Supine Exercise Name 1. piriformis 2. figure 4 Side bilateral Reps/Minutes 60 sec each Other Exercises Step-ups Other Exercise Name Step-ups Side bilateral Equipment Used 4->5->6 step Resisted Ambulation Other Exercise Name Resisted side-stepping Resistance Green loop Equipment Used // bars Reps/Minutes 20' x4 Neuro Re-Education Treatment Balance Activities Foam Details SLS Surface AirEx PT-OP-T Assessment and Plan Start: 12/25/24 15:57 Freq: Status: Active Protocol: Document 02/19/25 11:40 DCW (Rec: 02/19/25 12:19 DCW [id number]) Physical Therapy Assessment Impairments Impairments Activity Tolerance,Balance, Functional Activities, Functional Mobility,Gait,Pain, Strength,Tone Goals Three Impairment Pt displays global weakness, especially right hip ER (3+/5) and TrA (4-/5) Marine Transport Professionals Goal (LTG) Pt to demonstrate improved MMT of at least 4/5 or greater in all tested planes 02/05/2025 Hip ER bilat, abd R and hip flexionnot yet to 4/10 strength LTG Duration 03/25/25 Two Impairment Pt ambulates with a mild left scissoring gait 50% of the time [facility] Goal (LTG) Pt to demonstrate ability to ambulate 700 feet with no instances of scissoring gait 02/05/2025 Noted scissoring pattern mild left X 8 during 700 feet ambulation, noted mostly when patient begins speaking during ambulation. LTG Duration 03/25/25 One Impairment Pt does not have an appropriate home exercise program Short Term Goal (STG) Pt to be independent and compliant with an appropriate HEP STG Duration Met [facility] Goal (LTG) 02/05/2025 Patient reports having no issues with HEP, performs at least every other day. Assessment Summary Assessment Pt doing much better, able to doing more activity with less discomfort. Still a little limited with stairs. No longer displaying evidence of scissoring gait. Physical Therapy Plan Frequency and Duration Frequency of Treatment 2x/Week Plan of Care Start Date 12/25/24 Plan of Care End Date 03/25/25 Next Visit Focus/Plan Next Note Type Treatment Note Next Visit Plan HEP review( monster walk ) as needed. POC: Hip/core strengthening, gait training, improving activity tolerance, Assess johanny to butterfly stretch, possibly add to HEP.
--- NOTE | 2025-02-27 10:36 | PT.OTN ---
Current Diagnoses Spinal stenosis, lumbar region without neurogenic claudication (02/27/25) Lumbago with sciatica, right side (02/27/25) Other abnormalities of gait and mobility (02/27/25) Weakness (02/27/25) Physical Therapy Treatment Note PT-OP-A Visit Information Start: 12/25/24 15:57 Freq: Status: Active Protocol: Document 02/27/25 09:04 AB (Rec: 02/27/25 10:36 AB Laptop) Out-Patient Physical Therapy Visit Information Visit Information Visit Type Treatment Note Visit Note Visit [email or web address] Access Code: Access Code: [email or web address] Visit Start Time 09:48 Visit Stop Time 10:33 Visit Number 15 ( 04/15) Number of PAINTING TECHNICIAN Visits 1 PT-OP-B Current Condition Start: 12/25/24 15:57 Freq: Status: Active Protocol: Document 12/25/24 14:30 DCW (Rec: 12/25/24 17:19 DCW [id number]) Current Condition History of Current Condition Current Complaints Low back pain, core weakness, fatigue History of Current Condition Pt is a 74 year old female presenting to skilled therapy with a recent history of low back pain, weakness, and general stiffness. Pt was previously being treated at this facility ~three months ago for right leg pain, discharged to return to PCP to obtain an MRI. Returns now with diagnosis of Stenosis and DDD. Pt notes she as lost 10 pounds recently, and her knees are feeling better, but stairs are pretty difficult, and she tires quickly with ambulation. Able to walk a couple miles, but just feels more tired afterward than what she used to. Notes her goal is to strengthen her core to help stabilize her back. Prior Treatments and Tests Lumbar MRI: IMPRESSION: Multilevel degenerative disc disease and arthropathy results in varying degrees of central and foraminal stenosis including moderate central stenosis L3-4 and L4-5. per Jorge Andrea M.D. on 2023 PT-OP-C Subjective Start: 12/25/24 15:57 Freq: Status: Active Protocol: Document 02/27/25 09:04 AB (Rec: 02/27/25 10:36 AB Laptop) OP-PT Subjective Patient Comments Patient Comments Patient reports she is doing good, has been doing more yard work. Patient reports her limp this morning is due to shoes, not previous symptoms. Patient reports no pain except due to shoes/feet. Patient reports she is back to doing the step ups on the book at home. PT-OP-G Mobility & Gait Start: 12/25/24 15:57 Freq: Status: Active Protocol: Document 12/25/24 14:30 DCW (Rec: 12/25/24 17:19 DCW [id number]) OP Gait Assessment Comments Gait Comments Pt ambulates with mild valgus bilaterally, with scissoring L >R on 50% of steps. Demonstrated hip instability during gait PT-OP-M Strength Start: 12/25/24 15:57 Freq: Status: Active Protocol: Document 02/05/25 10:33 AB (Rec: 02/05/25 14:27 AB [id number]) Trunk Strength Trunk Manual Muscle Testing Testing Position Supine Core Stabilization Able to contract TrA, 12+ sec, then performed a sit up hands behind head clearing inf angle of scapula, feet remain on mat. Hip Strength Hip Manual Muscle Testing Right Flexion (L2) 4- Good- Extension (S1) 4+ Good+ Abduction 4- Good- Adduction 4+ Good+ External Rotation 3+ Fair+ Internal Rotation 4+ Good+ Comments ER tested within limited ROM Left Flexion (L2) 4 Good Extension (S1) 4+ Good+ Abduction 4+ Good+ Adduction 4+ Good+ External Rotation 4- Good- Internal Rotation 4+ Good+ Comments ER tested within limited ROM Knee Strength Knee Manual Muscle Testing Right Flexion (S2) 4+ Good+ Extension (L3) 4+ Good+ Left Flexion (S2) 4+ Good+ Extension (L3) 4+ Good+ PT-OP-Q Treatments Start: 12/25/24 15:57 Freq: Status: Active Protocol: Document 02/27/25 09:04 AB (Rec: 02/27/25 10:36 AB Laptop) Gym Equipment Shuttle Recovery unilateral squat Details right Resistance 37# 50# L LE Reps/Time X 15 each LE bilateral squat Resistance 75# (three navy) X 2 then 87# Shuttle Recovery Platform Stable Reps/Time X 15 X2 Therapeutic Exercises Supine Exercises chin tuck with head lift Reps/Minutes 7 sec X 5 Comments verbal cues hip stretches Supine Exercise Name butterfly stretch, fig 4 and piriformis Side bilateral Reps/Minutes 60 sec each Comments monitored for pain Sidelying Exercises side plank Sidelying Exercise Name on knees Reps/Minutes 7 sec X 5 Comments verbal cues Standing Exercises counter plank bird dog Side bilateral Reps/Minutes 7 sec X 10 Comments Verbal and visual cues Monster walks Standing Exercise Name fwd and retro, with UE support Side bilateral Resistance Lv 3 loop Equipment Used HEP Reps/Minutes 15 feet X 6 each direction Comments Verbal and visual cues on initiation Therapeutic Activity Therapeutic Activity stair training Name reciprocal pattern 2 rails Comments Verbal and visual cues for less quad dominant pattern, verbal cues to activate gluteal muscles when ascending 6 min PT-OP-T Assessment and Plan Start: 12/25/24 15:57 Freq: Status: Active Protocol: Document 02/27/25 09:04 AB (Rec: 02/27/25 10:36 AB Laptop) Physical Therapy Assessment Goals Three Impairment Pt displays global weakness, especially right hip ER (3+/5) and TrA (4-/5) Fdc Goal (LTG) Pt to demonstrate improved MMT of at least 4/5 or greater in all tested planes 02/05/2025 Hip ER bilat, abd R and hip flexionnot yet to 4/10 strength LTG Duration 03/25/25 Two Impairment Pt ambulates with a mild left scissoring gait 50% of the time Fdc Goal (LTG) Pt to demonstrate ability to ambulate 700 feet with no instances of scissoring gait 02/05/2025 Noted scissoring pattern mild left X 8 during 700 feet ambulation, noted mostly when patient begins speaking during ambulation. LTG Duration 03/25/25 One Impairment Pt does not have an appropriate home exercise program Short Term Goal (STG) Pt to be independent and compliant with an appropriate HEP STG Duration Met Fdc Goal (LTG) 02/05/2025 Patient reports having no issues with HEP, performs at least every other day. Assessment Summary Assessment Good johanny to increased to level 3 band for monster walk and core ex prior to LE strengthening this session Physical Therapy Plan Frequency and Duration Frequency of Treatment 2x/Week Plan of Care Start Date 12/25/24 Plan of Care End Date 03/25/25 Next Visit Focus/Plan Next Note Type Treatment Note Next Visit Plan HEP review as needed POC: Hip/core strengthening, gait training, improving activity tolerance,
--- NOTE | 2025-03-05 16:06 | PT.OTN ---
Current Diagnoses Spinal stenosis, lumbar region without neurogenic claudication (03/05/25) Lumbago with sciatica, right side (03/05/25) Other abnormalities of gait and mobility (03/05/25) Weakness (03/05/25) Physical Therapy Treatment Note PT-OP-A Visit Information Start: 12/25/24 15:57 Freq: Status: Active Protocol: Document 03/05/25 13:47 AB (Rec: 03/05/25 14:36 AB Laptop) Out-Patient Physical Therapy Visit Information Visit Information Visit Type Treatment Note Visit Note Visit [email or web address] Access Code: Access Code: [email or web address] Visit Start Time 13:48 Visit Stop Time 14:32 Visit Number 16 Number of POT PUSHER Visits 2 PT-OP-B Current Condition Start: 12/25/24 15:57 Freq: Status: Active Protocol: Document 12/25/24 14:30 DCW (Rec: 12/25/24 17:19 DCW [id number]) Current Condition History of Current Condition Current Complaints Low back pain, core weakness, fatigue History of Current Condition Pt is a 74 year old female presenting to skilled therapy with a recent history of low back pain, weakness, and general stiffness. Pt was previously being treated at this facility ~three months ago for right leg pain, discharged to return to PCP to obtain an MRI. Returns now with diagnosis of Stenosis and DDD. Pt notes she as lost 10 pounds recently, and her knees are feeling better, but stairs are pretty difficult, and she tires quickly with ambulation. Able to walk a couple miles, but just feels more tired afterward than what she used to. Notes her goal is to strengthen her core to help stabilize her back. Prior Treatments and Tests Lumbar MRI: IMPRESSION: Multilevel degenerative disc disease and arthropathy results in varying degrees of central and foraminal stenosis including moderate central stenosis L3-4 and L4-5. per Jorge Andrea M.D. on 2023 PT-OP-C Subjective Start: 12/25/24 15:57 Freq: Status: Active Protocol: Document 03/05/25 13:47 AB (Rec: 03/05/25 14:36 AB Laptop) OP-PT Subjective Patient Comments Patient Comments Patient ambulates into session antalgic pattern, reports the L dorsal foot pain ( TC area ), comments it wasn't the shoes from last session. Patient ambulates with dec DF terminal stance, AROM DF seated L<R. PT-OP-G Mobility & Gait Start: 12/25/24 15:57 Freq: Status: Active Protocol: Document 12/25/24 14:30 DCW (Rec: 12/25/24 17:19 DCW [id number]) OP Gait Assessment Comments Gait Comments Pt ambulates with mild valgus bilaterally, with scissoring L >R on 50% of steps. Demonstrated hip instability during gait PT-OP-M Strength Start: 12/25/24 15:57 Freq: Status: Active Protocol: Document 02/05/25 10:33 AB (Rec: 02/05/25 14:27 AB [id number]) Trunk Strength Trunk Manual Muscle Testing Testing Position Supine Core Stabilization Able to contract TrA, 12+ sec, then performed a sit up hands behind head clearing inf angle of scapula, feet remain on mat. Hip Strength Hip Manual Muscle Testing Right Flexion (L2) 4- Good- Extension (S1) 4+ Good+ Abduction 4- Good- Adduction 4+ Good+ External Rotation 3+ Fair+ Internal Rotation 4+ Good+ Comments ER tested within limited ROM Left Flexion (L2) 4 Good Extension (S1) 4+ Good+ Abduction 4+ Good+ Adduction 4+ Good+ External Rotation 4- Good- Internal Rotation 4+ Good+ Comments ER tested within limited ROM Knee Strength Knee Manual Muscle Testing Right Flexion (S2) 4+ Good+ Extension (L3) 4+ Good+ Left Flexion (S2) 4+ Good+ Extension (L3) 4+ Good+ PT-OP-Q Treatments Start: 12/25/24 15:57 Freq: Status: Active Protocol: Document 03/05/25 13:47 AB (Rec: 03/05/25 14:36 AB Laptop) Therapeutic Exercises Supine Exercises chin tuck with head lift Reps/Minutes 7 sec X 5 Comments verbal cues hip stretches Supine Exercise Name butterfly stretch, fig 4 and piriformis Side bilateral Reps/Minutes 60 sec each Comments monitored for pain Sidelying Exercises side plank Sidelying Exercise Name on knees Reps/Minutes 7 sec X 5 Comments verbal cues Standing Exercises counter plank bird dog Side bilateral Reps/Minutes 7 sec X 10 Comments Verbal and visual cues Other Exercises self TC mob Other Exercise Name Pt holding chair level 4 band TC area with lunge Reps/Minutes X 4 Comments verbal and visual cues Manual Therapy Treatment Consent Patient gave verbal consent for manual Yes treatment Soft Tissue Mobilization R hip Body Location bilateral glute/pirifomis/SI aea bilateral Mobilization Type Cross-Friction,Rolling Intensity/Depth Moderate Body Position Sidelying Joint Mobilizations MWM TC mob AP L ankle Grade III Body Position Standing Reps/Duration 2X 10 Manual Techniques MET for R AI L PI and pubic shot gun Reps/Duration 6 X 6 sec each PT-OP-T Assessment and Plan Start: 12/25/24 15:57 Freq: Status: Active Protocol: Document 03/05/25 13:47 AB (Rec: 03/05/25 14:36 AB Laptop) Physical Therapy Assessment Goals Three Impairment Pt displays global weakness, especially right hip ER (3+/5) and TrA (4-/5) Usp Goal (LTG) Pt to demonstrate improved MMT of at least 4/5 or greater in all tested planes 02/05/2025 Hip ER bilat, abd R and hip flexionnot yet to 4/10 strength LTG Duration 03/25/25 Two Impairment Pt ambulates with a mild left scissoring gait 50% of the time Usp Goal (LTG) Pt to demonstrate ability to ambulate 700 feet with no instances of scissoring gait 02/05/2025 Noted scissoring pattern mild left X 8 during 700 feet ambulation, noted mostly when patient begins speaking during ambulation. LTG Duration 03/25/25 One Impairment Pt does not have an appropriate home exercise program Short Term Goal (STG) Pt to be independent and compliant with an appropriate HEP STG Duration Met Usp Goal (LTG) 02/05/2025 Patient reports having no issues with HEP, performs at least every other day. Assessment Summary Assessment Lois able to ambulate out of session with improved DF terminal stance, reports having no pain with ambulation and is able to ambulate without device non antalgic pattern. Physical Therapy Plan Frequency and Duration Frequency of Treatment 2x/Week Plan of Care Start Date 12/25/24 Plan of Care End Date 03/25/25 Therapeutic Interventions Therapeutic Interventions Balance Training,Gait Training ,Home Exercise Program,Joint Mobilizations,Manual Therapy, Neuromuscular Re-education, Patient/Caregiver Education, Self-Care/Home Management,Soft Tissue Mobilization, Therapeutic Activities, Therapeutic Exercises Next Visit Focus/Plan Next Note Type Treatment Note Next Visit Plan HEP review as needed POC: Hip/core strengthening, gait training, improving activity tolerance,
--- NOTE | 2025-03-07 12:54 | PT.OTN ---
Current Diagnoses Spinal stenosis, lumbar region without neurogenic claudication (03/07/25) Lumbago with sciatica, right side (03/07/25) Other abnormalities of gait and mobility (03/07/25) Weakness (03/07/25) Physical Therapy Treatment Note PT-OP-A Visit Information Start: 12/25/24 15:57 Freq: Status: Active Protocol: Document 03/07/25 10:45 AB (Rec: 03/07/25 12:29 AB Laptop) Out-Patient Physical Therapy Visit Information Visit Information Visit Type Treatment Note Visit Note Visit [email or web address] Access Code: Access Code: [email or web address] Visit Start Time 10:46 Visit Stop Time 11:34 Visit Number 17 Number of LIPCOAT SPRAYER Visits 3 PT-OP-B Current Condition Start: 12/25/24 15:57 Freq: Status: Active Protocol: Document 12/25/24 14:30 DCW (Rec: 12/25/24 17:19 DCW [id number]) Current Condition History of Current Condition Current Complaints Low back pain, core weakness, fatigue History of Current Condition Pt is a 74 year old female presenting to skilled therapy with a recent history of low back pain, weakness, and general stiffness. Pt was previously being treated at this facility ~three months ago for right leg pain, discharged to return to PCP to obtain an MRI. Returns now with diagnosis of Stenosis and DDD. Pt notes she as lost 10 pounds recently, and her knees are feeling better, but stairs are pretty difficult, and she tires quickly with ambulation. Able to walk a couple miles, but just feels more tired afterward than what she used to. Notes her goal is to strengthen her core to help stabilize her back. Prior Treatments and Tests Lumbar MRI: IMPRESSION: Multilevel degenerative disc disease and arthropathy results in varying degrees of central and foraminal stenosis including moderate central stenosis L3-4 and L4-5. per Jorge Andrea M.D. on 2023 PT-OP-C Subjective Start: 12/25/24 15:57 Freq: Status: Active Protocol: Document 03/07/25 10:45 AB (Rec: 03/07/25 12:29 AB Laptop) OP-PT Subjective Patient Comments Patient Comments Patient reports having no pain , but stiff this morning. PT-OP-G Mobility & Gait Start: 12/25/24 15:57 Freq: Status: Active Protocol: Document 12/25/24 14:30 DCW (Rec: 12/25/24 17:19 DCW [id number]) OP Gait Assessment Comments Gait Comments Pt ambulates with mild valgus bilaterally, with scissoring L >R on 50% of steps. Demonstrated hip instability during gait PT-OP-M Strength Start: 12/25/24 15:57 Freq: Status: Active Protocol: Document 02/05/25 10:33 AB (Rec: 02/05/25 14:27 AB [id number]) Trunk Strength Trunk Manual Muscle Testing Testing Position Supine Core Stabilization Able to contract TrA, 12+ sec, then performed a sit up hands behind head clearing inf angle of scapula, feet remain on mat. Hip Strength Hip Manual Muscle Testing Right Flexion (L2) 4- Good- Extension (S1) 4+ Good+ Abduction 4- Good- Adduction 4+ Good+ External Rotation 3+ Fair+ Internal Rotation 4+ Good+ Comments ER tested within limited ROM Left Flexion (L2) 4 Good Extension (S1) 4+ Good+ Abduction 4+ Good+ Adduction 4+ Good+ External Rotation 4- Good- Internal Rotation 4+ Good+ Comments ER tested within limited ROM Knee Strength Knee Manual Muscle Testing Right Flexion (S2) 4+ Good+ Extension (L3) 4+ Good+ Left Flexion (S2) 4+ Good+ Extension (L3) 4+ Good+ PT-OP-Q Treatments Start: 12/25/24 15:57 Freq: Status: Active Protocol: Document 03/07/25 10:45 AB (Rec: 03/07/25 12:29 AB Laptop) Gym Equipment Shuttle Recovery bilateral squat Resistance 75# (three navy) Shuttle Recovery Platform Stable Reps/Time X 15 X2 Verbal cues for knees apart Therapeutic Exercises Supine Exercises modified Nakul stretch Supine Exercise Name HEP Side right Reps/Minutes 60 sec X2 Comments verbal cues AROM knee flexon Sidelying Exercises Open Book Sidelying Exercise Name Open Book Side bilateral Resistance AROM Reps/Minutes 10reps Comments HEP review, Standing Exercises glute med isometric Side bilateral Reps/Minutes one minute each side Comments verbal and visual cues Monster walks Standing Exercise Name fwd and retro, with UE support Side bilateral Resistance Lv 3 loop Equipment Used HEP Reps/Minutes 15 feet X 3 fwd X 2 retro Comments verbal and visual ues Pallof Press Standing Exercise Name Pallof Press Side bilateral Resistance Lv 3 Reps/Minutes X 15 each side Comments verbal and visual cues for hands clasped Other Exercises [place] ball exercises Other Exercise Name 1. AP 2. lateral 3. circles 4. Pallof press Reps/Minutes X10 each Comments verbal cues PT-OP-T Assessment and Plan Start: 12/25/24 15:57 Freq: Status: Active Protocol: Document 03/07/25 10:45 AB (Rec: 03/07/25 12:29 AB Laptop) Physical Therapy Assessment Goals Three Impairment Pt displays global weakness, especially right hip ER (3+/5) and TrA (4-/5) Dog Or Horse Racing Official Goal (LTG) Pt to demonstrate improved MMT of at least 4/5 or greater in all tested planes 02/05/2025 Hip ER bilat, abd R and hip flexionnot yet to 4/10 strength LTG Duration 03/25/25 Two Impairment Pt ambulates with a mild left scissoring gait 50% of the time Dog Or Horse Racing Official Goal (LTG) Pt to demonstrate ability to ambulate 700 feet with no instances of scissoring gait 02/05/2025 Noted scissoring pattern mild left X 8 during 700 feet ambulation, noted mostly when patient begins speaking during ambulation. LTG Duration 03/25/25 One Impairment Pt does not have an appropriate home exercise program Short Term Goal (STG) Pt to be independent and compliant with an appropriate HEP STG Duration Met Care Home Goal (LTG) 02/05/2025 Patient reports having no issues with HEP, performs at least every other day. Assessment Summary Assessment Lois continues require increased cues for Monster walk. Good johanny to this session . Lois reports having no pain end of session except in knees which is her normal per patient. Physical Therapy Plan Frequency and Duration Frequency of Treatment 2x/Week Plan of Care Start Date 12/25/24 Plan of Care End Date 03/25/25 Next Visit Focus/Plan Next Note Type Treatment Note Next Visit Plan HEP review as needed POC: Hip/core strengthening, gait training, improving activity tolerance,
--- NOTE | 2025-03-12 12:42 | PT.OTN ---
Current Diagnoses Spinal stenosis, lumbar region without neurogenic claudication (03/12/25) Lumbago with sciatica, right side (03/12/25) Other abnormalities of gait and mobility (03/12/25) Weakness (03/12/25) Physical Therapy Treatment Note PT-OP-A Visit Information Start: 12/25/24 15:57 Freq: Status: Active Protocol: Document 03/12/25 12:20 DCW (Rec: 03/12/25 12:42 DCW [id number]) Out-Patient Physical Therapy Visit Information Visit Information Visit Type Discharge Summary Visit Start Time 12:20 Visit Stop Time 12:45 Visit Number 18 Number of PACKAGE PICK UP Visits 0 Evaluation Information Evaluation Date 12/25/24 PT-OP-B Current Condition Start: 12/25/24 15:57 Freq: Status: Active Protocol: Document 12/25/24 14:30 DCW (Rec: 12/25/24 17:19 DCW [id number]) Current Condition History of Current Condition Current Complaints Low back pain, core weakness, fatigue History of Current Condition Pt is a 74 year old female presenting to skilled therapy with a recent history of low back pain, weakness, and general stiffness. Pt was previously being treated at this facility ~three months ago for right leg pain, discharged to return to PCP to obtain an MRI. Returns now with diagnosis of Stenosis and DDD. Pt notes she as lost 10 pounds recently, and her knees are feeling better, but stairs are pretty difficult, and she tires quickly with ambulation. Able to walk a couple miles, but just feels more tired afterward than what she used to. Notes her goal is to strengthen her core to help stabilize her back. Prior Treatments and Tests Lumbar MRI: IMPRESSION: Multilevel degenerative disc disease and arthropathy results in varying degrees of central and foraminal stenosis including moderate central stenosis L3-4 and L4-5. per Jorge Andrea M.D. on 2023 PT-OP-C Subjective Start: 12/25/24 15:57 Freq: Status: Active Protocol: Document 03/12/25 12:20 DCW (Rec: 03/12/25 12:42 DCW [id number]) OP-PT Subjective Patient Comments Patient Comments I feel pretty good. I know what I'm doing with my exercises at home. If something happens, I know I can come back. PT-OP-G Mobility & Gait Start: 12/25/24 15:57 Freq: Status: Active Protocol: Document 03/12/25 12:20 DCW (Rec: 03/12/25 12:31 DCW [id number]) OP Gait Assessment Comments Gait Comments Pt ambulates with mild valgus bilaterally, no scissoring noted. PT-OP-M Strength Start: 12/25/24 15:57 Freq: Status: Active Protocol: Document 03/12/25 12:20 DCW (Rec: 03/12/25 12:31 DCW [id number]) Hip Strength Hip Manual Muscle Testing Right Flexion (L2) 4 Good Extension (S1) 4 Good Abduction 4+ Good+ Adduction 4+ Good+ External Rotation 4 Good Internal Rotation 4 Good Left Flexion (L2) 4+ Good+ Extension (S1) 4 Good Abduction 4+ Good+ Adduction 4+ Good+ External Rotation 4 Good Internal Rotation 4 Good Knee Strength Knee Manual Muscle Testing Right Flexion (S2) 4+ Good+ Extension (L3) 4+ Good+ Left Flexion (S2) 4+ Good+ Extension (L3) 4+ Good+ PT-OP-Q Treatments Start: 12/25/24 15:57 Freq: Status: Active Protocol: Document 03/12/25 12:20 DCW (Rec: 03/12/25 12:42 DCW [id number]) Manual Therapy Treatment Other Other Manual Treatments Testing PT-OP-T Assessment and Plan Start: 12/25/24 15:57 Freq: Status: Active Protocol: Document 03/12/25 12:20 DCW (Rec: 03/12/25 12:42 DCW [id number]) Physical Therapy Assessment Impairments Impairments Activity Tolerance,Balance, Functional Activities, Functional Mobility,Gait,Pain, Strength,Tone Goals Three Impairment Pt displays global weakness, especially right hip ER (3+/5) and TrA (4-/5) Mcfp Goal (LTG) Pt to demonstrate improved MMT of at least 4/5 or greater in all tested planes LTG Duration Met Two Impairment Pt ambulates with a mild left scissoring gait 50% of the time Mcfp Goal (LTG) Pt to demonstrate ability to ambulate 700 feet with no instances of scissoring gait LTG Duration Met One Impairment Pt does not have an appropriate home exercise program Short Term Goal (STG) Pt to be independent and compliant with an appropriate HEP STG Duration Met Assessment Summary Assessment Pt doing well overall. Has met all goals, notes she feels more stable on her feet, much improved balance. Feels comfortable with HEP. Understands she will need a new referral in order to return in the future if needed . Agreeable to discharge at this time. Physical Therapy Plan Frequency and Duration Frequency of Treatment 2x/Week Plan of Care Start Date 12/25/24 Plan of Care End Date 03/25/25 Therapeutic Interventions Therapeutic Interventions Balance Training,Gait Training ,Home Exercise Program,Joint Mobilizations,Manual Therapy, Neuromuscular Re-education, Patient/Caregiver Education, Self-Care/Home Management,Soft Tissue Mobilization, Therapeutic Activities, Therapeutic Exercises Next Visit Focus/Plan Next Note Type Treatment Note Next Visit Plan HEP review as needed POC: Hip/core strengthening, gait training, improving activity tolerance,
== END 2025-03-13 10:31 | disposition home or self-care (01) ==
LOC: PHYS 12:15
PROVIDERS: Family Provider Family Medicine; PCP Family Medicine; Referring Provider Family Medicine; Visit Provider Family Medicine
DX: M48.061 Spinal stenosis, lumbar region without neurogenic claudication (principal); M54.41 Lumbago with sciatica, right side; R53.1 Weakness; R26.89 Other abnormalities of gait and mobility
CPT/HCPCS: 97110; 97140; 97163; 97530